=== PATIENT | female | born 1930 | race Caucasian/White ===

== ENCOUNTER → 2016-08-16 | Outpatient (CLI) | payer MEDICARE, BC ==
[2016-08-16 10:17] LABS: PROTHROMBIN TIME 32.6 SEC (11.4-15.4)
== END ==
LOC: OD 08:32
PROVIDERS: ATTEND Internal Medicine Cardiovascular Disease
DX: I48.91 Unspecified atrial fibrillation (principal)
CPT/HCPCS: 36415; 85610

== ENCOUNTER → 2016-09-05 | Outpatient (CLI) | payer MEDICARE, BC ==
[2016-09-05 11:23] LABS: HEMATOCRIT 34.2 % (36.0-47.0); HEMOGLOBIN 11.5 g/dL (12.0-15.5); HGB HCT DIFFERENCE 0.3; MEAN CORPUSCULAR HEMOGLOBIN 29.9 pg (27.0-33.4); MEAN CORPUSCULAR HGB CONC 33.6 g/dL (32.0-36.0); MEAN CORPUSCULAR VOLUME 89 fl (80-97); RED BLOOD COUNT 3.85 10^6/uL (3.72-5.28); RED CELL DISTRIBUTION WIDTH 14.8 % (11.5-14.0)
[2016-09-05 11:30] LABS: PROTHROMBIN TIME 23.8 SEC (11.4-15.4)
[2016-09-05 11:55] LABS: ALANINE AMINOTRANSFERASE 24 U/L (9-52); ALKALINE PHOSPHATASE 135 U/L (38-126); ASPARTATE AMINO TRANSFERASE 28 U/L (14-36); BILIRUBIN,TOTAL 0.9 mg/dL (0.2-1.3); CHOLESTEROL 118.93 mg/dL (0-200); CREATINE KINASE 32 U/L (30-135); Direct HDL 63 mg/dL (>40); TOTAL PROTEIN 6.9 g/dL (6.3-8.2); TRIGLYCERIDES 69 mg/dL (<150)
[2016-09-05 11:56] LABS: ANION GAP 9 (5-19); BLOOD UREA NITROGEN 19 mg/dL (7-20); CALCIUM 9.8 mg/dL (8.4-10.2); CARBON DIOXIDE 32 mmol/L (22-30); CHLORIDE 98 mmol/L (98-107); CREATININE RESULT 0.93 mg/dL (0.52-1.25); GLUCOSE 88 mg/dL (75-110); POTASSIUM 4.6 mmol/L (3.6-5.0); SODIUM 138.8 mmol/L (137-145)
[2016-09-05 12:06] LABS: DIRECT LDL 37 mg/dL (<100)
== END ==
LOC: OD 10:36
PROVIDERS: ATTEND Internal Medicine Cardiovascular Disease
DX: Z79.899 Other long term (current) drug therapy (principal); R25.2 Cramp and spasm; E78.2 Mixed hyperlipidemia; Z79.01 Long term (current) use of anticoagulants
CPT/HCPCS: 36415; 80048; 80061; 80076; 82550; 84443; 85027; 85610

== ENCOUNTER → 2016-09-26 | Outpatient (CLI) | payer MEDICARE, BC | LOC: OD 09:48 | PROVIDERS: ATTEND Internal Medicine Cardiovascular Disease | DX: I48.0 Paroxysmal atrial fibrillation (principal); Z79.01 Long term (current) use of anticoagulants | CPT/HCPCS: 36415; 85610 ==

== ENCOUNTER → 2016-10-11 | Outpatient (CLI) | payer MEDICARE, BC | LOC: OD 09:24 | PROVIDERS: ATTEND Internal Medicine Cardiovascular Disease | DX: I48.0 Paroxysmal atrial fibrillation (principal); Z79.01 Long term (current) use of anticoagulants | CPT/HCPCS: 36415; 85610 ==

== ENCOUNTER → 2016-10-25 | Outpatient (CLI) | payer MEDICARE, BC ==
[2016-10-25 10:39] LABS: PROTHROMBIN TIME 24.4 SEC (11.4-15.4)
== END ==
LOC: OD 09:30
PROVIDERS: ATTEND Internal Medicine Cardiovascular Disease
DX: I48.0 Paroxysmal atrial fibrillation (principal); Z79.01 Long term (current) use of anticoagulants
CPT/HCPCS: 36415; 85610

== ENCOUNTER → 2016-11-01 | Outpatient (CLI) | payer MEDICARE, BC | LOC: RAD 13:21 | PROVIDERS: ATTEND Internal Medicine Critical Care Medicine | DX: R91.1 Solitary pulmonary nodule (principal) | CPT/HCPCS: 71250 ==

== ENCOUNTER → 2016-11-14 | Outpatient (CLI) | payer MEDICARE, BC ==
[2016-11-14 14:02] LABS: PROTHROMBIN TIME 26.3 SEC (11.4-15.4)
== END ==
LOC: OD 12:57
PROVIDERS: ATTEND Internal Medicine Cardiovascular Disease
DX: I48.0 Paroxysmal atrial fibrillation (principal); Z79.01 Long term (current) use of anticoagulants
CPT/HCPCS: 36415; 85610

== ENCOUNTER → 2016-12-11 | Outpatient (CLI) | payer MEDICARE, BC ==
[2016-12-11 10:58] LABS: PROTHROMBIN TIME 23.2 SEC (11.4-15.4)
== END ==
LOC: OD 10:13
PROVIDERS: ATTEND Internal Medicine Cardiovascular Disease
DX: I48.0 Paroxysmal atrial fibrillation (principal); Z79.01 Long term (current) use of anticoagulants
CPT/HCPCS: 36415; 85610

== ENCOUNTER → 2017-01-02 | Outpatient (CLI) | payer MEDICARE, BC ==
[2017-01-02 10:32] LABS: PROTHROMBIN TIME 29.8 SEC (11.4-15.4)
== END ==
LOC: OD 09:35
PROVIDERS: ATTEND Internal Medicine Cardiovascular Disease
DX: I48.0 Paroxysmal atrial fibrillation (principal); Z79.01 Long term (current) use of anticoagulants
CPT/HCPCS: 36415; 85610

== ENCOUNTER → 2017-01-17 | Outpatient (CLI) | payer MEDICARE, BC ==
[2017-01-17 10:46] LABS: PROTHROMBIN TIME 29.6 SEC (11.4-15.4)
== END ==
LOC: OD 10:02
PROVIDERS: ATTEND Internal Medicine Cardiovascular Disease
DX: I48.0 Paroxysmal atrial fibrillation (principal); Z79.01 Long term (current) use of anticoagulants
CPT/HCPCS: 36415; 85610

== ENCOUNTER → 2017-02-14 | Outpatient (CLI) | payer MEDICARE, BC ==
[2017-02-14 11:02] LABS: HEMATOCRIT 35.3 % (36.0-47.0); HEMOGLOBIN 11.3 g/dL (12.0-15.5); HGB HCT DIFFERENCE -1.4; MEAN CORPUSCULAR HEMOGLOBIN 28.7 pg (27.0-33.4); MEAN CORPUSCULAR HGB CONC 32.1 g/dL (32.0-36.0); MEAN CORPUSCULAR VOLUME 89 fl (80-97); RED BLOOD COUNT 3.94 10^6/uL (3.72-5.28); WHITE BLOOD COUNT 5.6 10^3/uL (4.0-10.5)
[2017-02-14 11:07] LABS: PROTHROMBIN TIME 21.7 SEC (11.4-15.4)
[2017-02-14 11:25] LABS: ALANINE AMINOTRANSFERASE 35 U/L (9-52); ALKALINE PHOSPHATASE 153 U/L (38-126); ANION GAP 9 (5-19); ASPARTATE AMINO TRANSFERASE 33 U/L (14-36); BILIRUBIN,DIRECT 0.4 mg/dL (0.0-0.4); BILIRUBIN,TOTAL 0.8 mg/dL (0.2-1.3); BLOOD UREA NITROGEN 22 mg/dL (7-20); CALCIUM 9.4 mg/dL (8.4-10.2); CARBON DIOXIDE 31 mmol/L (22-30); CHLORIDE 98 mmol/L (98-107); CHOLESTEROL 120.51 mg/dL (0-200); CREATININE RESULT 0.95 mg/dL (0.52-1.25); Direct HDL 65 mg/dL (>40); GLUCOSE 82 mg/dL (75-110); POTASSIUM 4.5 mmol/L (3.6-5.0); SODIUM 138.1 mmol/L (137-145); TOTAL PROTEIN 6.9 g/dL (6.3-8.2); TRIGLYCERIDES 47 mg/dL (<150)
[2017-02-14 11:36] LABS: DIRECT LDL 42 mg/dL (<100)
== END ==
LOC: OD 09:36
PROVIDERS: ATTEND Internal Medicine Cardiovascular Disease
DX: Z79.899 Other long term (current) drug therapy (principal); R06.02 Shortness of breath; E78.2 Mixed hyperlipidemia
CPT/HCPCS: 36415; 80048; 80061; 80076; 83880; 85027; 85610

== ENCOUNTER → 2017-02-27 | Outpatient (CLI) | payer MEDICARE, BC ==
[2017-02-27 10:41] LABS: PROTHROMBIN TIME 20.9 SEC (11.4-15.4)
== END ==
LOC: OD 10:04
PROVIDERS: ATTEND Internal Medicine Cardiovascular Disease
DX: I48.0 Paroxysmal atrial fibrillation (principal); Z79.01 Long term (current) use of anticoagulants
CPT/HCPCS: 36415; 85610

== ENCOUNTER → 2017-03-14 | Outpatient (CLI) | payer MEDICARE, BC ==
[2017-03-14 11:03] LABS: PROTHROMBIN TIME 29.7 SEC (11.4-15.4)
[2017-03-14 11:22] LABS: ANION GAP 7 (5-19); BLOOD UREA NITROGEN 17 mg/dL (7-20); CALCIUM 9.6 mg/dL (8.4-10.2); CARBON DIOXIDE 32 mmol/L (22-30); CHLORIDE 98 mmol/L (98-107); CREATININE RESULT 0.98 mg/dL (0.52-1.25); GLUCOSE 95 mg/dL (75-110); POTASSIUM 4.5 mmol/L (3.6-5.0); SODIUM 137.3 mmol/L (137-145)
== END ==
LOC: OD 10:07
PROVIDERS: ATTEND Internal Medicine Cardiovascular Disease
DX: Z79.01 Long term (current) use of anticoagulants (principal); I48.0 Paroxysmal atrial fibrillation
CPT/HCPCS: 36415; 80048; 85610

== ENCOUNTER → 2017-03-27 | Outpatient (CLI) | payer MEDICARE, BC ==
[2017-03-27 11:48] LABS: PROTHROMBIN TIME 32.9 SEC (11.4-15.4)
[2017-03-27 12:15] LABS: ANION GAP 10 (5-19); BLOOD UREA NITROGEN 21 mg/dL (7-20); CALCIUM 9.9 mg/dL (8.4-10.2); CARBON DIOXIDE 32 mmol/L (22-30); CHLORIDE 97 mmol/L (98-107); GLUCOSE 114 mg/dL (75-110); POTASSIUM 4.5 mmol/L (3.6-5.0); SODIUM 139.4 mmol/L (137-145)
== END ==
LOC: OD 10:22
PROVIDERS: ATTEND Internal Medicine Cardiovascular Disease
DX: I48.0 Paroxysmal atrial fibrillation (principal); Z79.01 Long term (current) use of anticoagulants
CPT/HCPCS: 36415; 80048; 85610

== ENCOUNTER → 2017-04-10 | Outpatient (CLI) | payer MEDICARE, BC ==
[2017-04-10 11:13] LABS: PROTHROMBIN TIME 27.4 SEC (11.4-15.4)
== END ==
LOC: OD 09:44
PROVIDERS: ATTEND Internal Medicine Cardiovascular Disease
DX: I48.0 Paroxysmal atrial fibrillation (principal); Z79.01 Long term (current) use of anticoagulants
CPT/HCPCS: 36415; 85610

== ENCOUNTER → 2017-04-25 | Outpatient (CLI) | payer MEDICARE, BC ==
[2017-04-25 11:54] LABS: PROTHROMBIN TIME 27.5 SEC (11.4-15.4)
== END ==
LOC: OD 10:49
PROVIDERS: ATTEND Internal Medicine Cardiovascular Disease
DX: I48.0 Paroxysmal atrial fibrillation (principal); Z79.01 Long term (current) use of anticoagulants
CPT/HCPCS: 36415; 85610

== ENCOUNTER → 2017-06-26 | Outpatient (CLI) | payer MEDICARE, BC ==
[2017-06-26 12:01] LABS: PROTHROMBIN TIME 32.8 SEC (11.4-15.4)
[2017-06-26 12:18] LABS: ANION GAP 9 (5-19); BLOOD UREA NITROGEN 16 mg/dL (7-20); CALCIUM 9.4 mg/dL (8.4-10.2); CARBON DIOXIDE 34 mmol/L (22-30); CHLORIDE 97 mmol/L (98-107); CHOLESTEROL 118.95 mg/dL (0-200); CREATININE RESULT 1.02 mg/dL (0.52-1.25); Direct HDL 61 mg/dL (>40); GLUCOSE 90 mg/dL (75-110); MAGNESIUM 2.2 mg/dL (1.6-2.3); SODIUM 139.8 mmol/L (137-145); TRIGLYCERIDES 78 mg/dL (<150)
[2017-06-26 12:30] LABS: DIRECT LDL 39 mg/dL (<100)
== END ==
LOC: OD 09:58
PROVIDERS: ATTEND Internal Medicine Cardiovascular Disease
DX: I48.0 Paroxysmal atrial fibrillation (principal); E78.2 Mixed hyperlipidemia; Z79.01 Long term (current) use of anticoagulants
CPT/HCPCS: 36415; 80048; 80061; 83735; 85610

== ENCOUNTER → 2017-07-09 | Outpatient (CLI) | payer MEDICARE, BC ==
[2017-07-09 10:03] LABS: PROTHROMBIN TIME 25.1 SEC (11.4-15.4)
== END ==
LOC: OD 08:58
PROVIDERS: ATTEND Internal Medicine Cardiovascular Disease
DX: I48.0 Paroxysmal atrial fibrillation (principal); Z79.01 Long term (current) use of anticoagulants
CPT/HCPCS: 36415; 85610

== ENCOUNTER → 2017-07-26 | Outpatient (CLI) | payer MEDICARE, BC ==
[2017-07-26 11:18] LABS: INTERNATIONAL RATION (INR) 2.59; PROTHROMBIN TIME 29.1 SEC (11.4-15.4)
== END ==
LOC: OD 10:16
PROVIDERS: ATTEND Internal Medicine Cardiovascular Disease
DX: I48.0 Paroxysmal atrial fibrillation (principal)
CPT/HCPCS: 36415; 85610

== ENCOUNTER → 2017-08-16 | Outpatient (CLI) | payer MEDICARE, BC | LOC: OD 13:35 | PROVIDERS: ATTEND Internal Medicine Cardiovascular Disease | DX: I48.0 Paroxysmal atrial fibrillation (principal); Z79.01 Long term (current) use of anticoagulants | CPT/HCPCS: 36415; 85610 ==

== ENCOUNTER 2017-08-18 14:46 | Emergency (ER) | payer MEDICARE, BC ==
[2017-08-18] MEDS ORDERED: IPRATROPIUM/ALBUTEROL 0.5-2.5 MG/3 ML AMPUL NEB ONE (15:15)
--- NOTE | 2017-08-18 15:16 | ER Document Report ---
ED Medical Screen (RME) - General Chief Complaint: Flu Symptoms Stated Complaint: FLU LIKE SYMPTOMS,HEADACHE Time Seen by Provider: 08/18/17 15:14 Mode of Arrival: Wheelchair Information source: Patient Notes: This is an 87-year-old female with a history of COPD (CPAP at night), A. fib ( Coumadin) who presents to the emergency room with fever of 103, shortness of breath. Patient's oxygen saturation is 90% on room air in triage TRAVEL OUTSIDE OF THE [place] IN LAST 30 DAYS: No - Related Data Allergies/Adverse Reactions: codeine [Codeine] Allergy (Unknown, Verified 08/18/17 14:46) amoxicillin [Amoxicillin] Allergy (Verified 08/18/17 14:46) Past Medical History - Past Medical History Cardiac Medical History: Reports: Hx Atrial Fibrillation, Hx Congestive Heart Failure, Hx Hypertension Denies: Hx Heart Attack Pulmonary Medical History: Reports: Hx Asthma, Hx COPD Neurological Medical History: Denies: Hx Cerebrovascular Accident, Hx Seizures GI Medical History: Denies: Hx Hepatitis, Hx Hiatal Hernia, Hx Ulcer Psychiatric Medical History: Denies: Hx Depression Infectious Medical History: Denies: Hx Hepatitis Past Surgical History: Reports: Hx Cardiac Catheterization - pacemaker, Hx Cholecystectomy, Hx Pacemaker. Denies: Hx Mastectomy, Hx Open Heart Surgery - Immunizations Hx Diphtheria, Pertussis, Tetanus Vaccination: Yes Physical Exam - Vital signs Vitals: Temp Pulse Resp BP Pulse Ox 100 F 71 30 H 131/64 H 90 L 08/18/17 14:55 08/18/17 14:55 08/18/17 14:55 08/18/17 14:55 08/18/17 14:55 Course - Vital Signs Vital signs: Temp Pulse Resp BP Pulse Ox 100 F 71 30 H 131/64 H 90 L 08/18/17 14:55 08/18/17 14:55 08/18/17 14:55 08/18/17 14:55 08/18/17 14:55
[2017-08-18] MEDS ORDERED: METHYLPREDNISOLONE INJ 125 MG/2 ML SDV IV ONE (15:40)
[2017-08-18 15:51] LABS: HEMATOCRIT 34.9 % (36.0-47.0); HEMOGLOBIN 11.7 g/dL (12.0-15.5); MEAN CORPUSCULAR HEMOGLOBIN 30.3 pg (27.0-33.4); MEAN CORPUSCULAR HGB CONC 33.5 g/dL (32.0-36.0); MEAN CORPUSCULAR VOLUME 91 fl (80-97); PLATELET COUNT 205 10^3/uL (150-450); RED BLOOD COUNT 3.86 10^6/uL (3.72-5.28); RED CELL DISTRIBUTION WIDTH 14.6 % (11.5-14.0); WHITE BLOOD COUNT 6.4 10^3/uL (4.0-10.5)
--- NOTE | 2017-08-18 16:01 | ER Document Report ---
ED General - General Mode of Arrival: Wheelchair Information source: Patient TRAVEL OUTSIDE OF THE [place] IN LAST 30 DAYS: Yes - HPI Onset: Last week <MALISSA VELA - Last Filed: 08/18/17 23:55> <ADAN OLIVEIRA - Last Filed: 08/19/17 00:19> - General Chief Complaint: Flu Symptoms Stated Complaint: FLU LIKE SYMPTOMS,HEADACHE Time Seen by Provider: 08/18/17 15:14 Notes: Patient is an 87 year old female with a history of COPD, heart failure, aortic stenosis, sick sinus syndrome and Afib who was sent from urgent care presents to the emergency department complaining of multiple symptoms including cough and shortness of breath, nausea, vomiting, fever, headaches, runny nose, and body aches onset 2 days ago. Patient also states she has had some "loose stool" yesterday. Patient denies chest pain, neck pain, or earaches. Patient was 85% on room air at upon arrival to ED. Patient responded well to 2L. Patient is currently taking Coumadin and Lasix. (MALISSA VELA) - Related Data Allergies/Adverse Reactions: codeine [Codeine] Allergy (Unknown, Verified 08/18/17 14:46) amoxicillin [Amoxicillin] Allergy (Verified 08/18/17 14:46) Past Medical History - General Information source: Patient - Social History Smoking Status: Never Smoker Cigarette use (# per day): No Chew tobacco use (# tins/day): No Frequency of alcohol use: None Drug Abuse: None Family History: Reviewed & Not Pertinent Patient has suicidal ideation: No Patient has homicidal ideation: No - Past Medical History Cardiac Medical History: Reports: Hx Atrial Fibrillation, Hx Congestive Heart Failure, Hx Hypertension, Other Pulmonary Medical History: Reports: Hx Asthma, Hx COPD, Other - Aortic Stenosis EENT Medical History: Reports: Other - Sick Sinus Syndrome. Past Surgical History: Reports: Hx Cardiac Catheterization - pacemaker, Hx Cholecystectomy, Hx Pacemaker - Immunizations Hx Diphtheria, Pertussis, Tetanus Vaccination: Yes Hx Pneumococcal Vaccination: 07/29/09 <MALISSA VELA - Last Filed: 08/18/17 23:55> Review of Systems - Review of Systems Constitutional: See HPI, Fever EENT: See HPI Cardiovascular: No symptoms reported Respiratory: No symptoms reported Gastrointestinal: See HPI Genitourinary: No symptoms reported Female Genitourinary: No symptoms reported Musculoskeletal: No symptoms reported Skin: No symptoms reported Hematologic/Lymphatic: No symptoms reported Neurological/Psychological: Headaches -: Yes All other systems reviewed and negative <MIRIANMALISSA PETERS - Last Filed: 08/18/17 23:55> Physical Exam <MALISSA VELA - Last Filed: 08/18/17 23:55> <ADAN OLIVEIRA - Last Filed: 08/19/17 00:19> - Vital signs Vitals: Temp Pulse Resp BP Pulse Ox 100 F 71 30 H 131/64 H 90 L 08/18/17 14:55 08/18/17 14:55 08/18/17 14:55 08/18/17 14:55 08/18/17 14:55 - Notes Notes: GENERAL: Alert, interacts well. Mild respiratory distress. HEAD: Normocephalic, atraumatic. EYES: Pupils equal, round, and reactive to light. Extraocular movements intact. ENT: Oral mucosa moist, tongue midline. NECK: Full range of motion. Supple. Trachea midline. LUNGS: Decreased air movements. Expiratory wheezes. Inspiratory rales. Appears mildly short of breath. HEART: 2/6 systolic murmur. Irregularly irregular. Intermittent tachycardia. No gallops or rubs. ABDOMEN: Soft, non-tender. Non-distended. Bowel sounds present in all 4 quadrants. EXTREMITIES: Moves all 4 extremities spontaneously. No edema, radial and dorsalis pedis pulses 2/4 bilaterally. No cyanosis. NEUROLOGICAL: Alert and oriented x3. Normal speech. PSYCH: Normal affect, normal mood. SKIN: Warm, dry, normal turgor. No rashes or lesions noted. (MALISSA VELA) Course - Laboratory Result Diagrams: 08/18/17 15:32 08/18/17 15:32 - Consults Dr. Webster Time consulted: 17:20 - Dr. Webster gave recommendations on which medications to give patient. Dr. Rosario Time consulted: 18:12 - Accepts patient to [facility]. Dr. Shah Time consulted: 21:40 - Accepts patient to [facility]. <MIRIANMALISAS - Last Filed: 08/18/17 23:55> - Laboratory Result Diagrams: 08/18/17 15:32 08/18/17 15:32 <ADAN OLIVEIRA - Last Filed: 08/19/17 00:19> - Re-evaluation Re-evalutation: 08/18/17 18:[address] Rosario, hospitalist at [facility], accepts patient to PCU, [facility] currently on high census surge plan. Will try other facilities as well. Dr. Rosario recommends holding off on antibiotics until I found a source of infection. 08/18/17 22:12 CBC without leukocytosis, there is anemia with hemoglobin 11.7, platelets unremarkable, INR is therapeutic at 2.08 for her chronic atrial fibrillation, patient takes Coumadin 5 mg a day. CMP shows mildly elevated glucose at 112 otherwise unremarkable, troponin is positive at 0.391, proBNP elevated at 7220, urinalysis shows moderate blood without any infection, influenza swabs a and B are negative, chest x-ray shows minimal interstitial edema at the bases with yumiko B lines. Patient is responding well to nitro drip, also doing well on BiPAP. Patient is still awaiting a bed at [facility], I did discuss this case with Dr. Lewis Espinosa from [facility], he agrees to accept the patient to his service at [facility]. Currently I have the patient on the waiting list at both hospitals until they are assigned a bed at one hospital. 08/19/17 00:18 Patient has been assigned a bed at [facility], [facility] has been contacted by me and the request for bed has been canceled. Transport is on their way. EMTALAs have been filled out. Patient will be transported on CPAP instead of BiPAP. (ADAN OLIVEIRA) - Vital Signs Vital signs: Temp Pulse Resp BP Pulse Ox 100 F 71 21 H 118/94 H 98 08/18/17 14:55 08/18/17 14:55 08/19/17 00:04 08/19/17 00:04 08/19/17 00:04 - Laboratory Laboratory results interpreted by me: 08/18/17 08/18/17 08/18/17 15:32 15:32 15:32 Hgb 11.7 L Hct 34.9 L RDW 14.6 H Seg Neuts % (Manual) 89 H Lymphocytes % (Manual) 3 L Abs Lymphs (Manual) 0.2 L PT 24.5 H Sodium 135.9 L Chloride 96 L Est GFR (Non-Af Amer) 58 L Glucose 112 H Direct Bilirubin 0.5 H AST 44 H NT-Pro-B Natriuret Pep Urine Blood 08/18/17 08/18/17 15:32 18:03 Hgb Hct RDW Seg Neuts % (Manual) Lymphocytes % (Manual) Abs Lymphs (Manual) PT Sodium Chloride Est GFR (Non-Af Amer) Glucose Direct Bilirubin AST NT-Pro-B Natriuret Pep 7220 H Urine Blood MODERATE H - EKG Interpretation by Me Additional EKG results interpreted by me: 08/18/17 22:13 Initial EKG shows atrial fibrillation at a rate of 86, right bundle branch block , T-wave inversions in lead II, 3, aVF, V3 through the 6, old EKG is unhelpful as it was ventricularly paced, no ST segment elevations per my interpretation. Repeat EKG shows some ventricularly paced complexes, mostly still atrial fibrillation at a rate of 69, continued T-wave inversions in 2, 3, aVF, V3 through V6 without significant change from prior EKG per my interpretation. ( ADAN OLIVEIRA) Critical Care Note - Critical Care Note Total time excluding time spent on procedures (mins): 65 <ADAN OLIVEIRA - Last Filed: 08/19/17 00:19> Discharge <MALISAS VELA - Last Filed: 08/18/17 23:55> <ADAN OLIVEIRA - Last Filed: 08/19/17 00:19> - Discharge Clinical Impression: Non-STEMI (non-ST elevated myocardial infarction), Fever of unknown origin Acute congestive heart failure Qualifiers: Congestive heart failure type: unspecified Qualified Code(s): I50.9 - Heart failure, unspecified Respiratory failure with hypoxia Qualifiers: Chronicity: acute Qualified Code(s): J96.01 - Acute respiratory failure with hypoxia Condition: Fair Disposition: [facility] Referrals: MANSOOR AREVALO MD [Primary Care Provider] - Follow up as needed Scribe Attestation: 08/19/17 00:19 I personally performed the services described in the documentation, reviewed and edited the documentation which was dictated to the scribe in my presence, and it accurately records my words and actions. (ADAN OLIVEIRA) Scribe Documentation - Scribe Written by Scribe:: Kristie Harrison, 08/18/2017 16:37 acting as scribe for :: Fidelia <MALISSA VELA - Last Filed: 08/18/17 23:55>
[2017-08-18 16:02] LABS: INTERNATIONAL RATION (INR) 2.08; PROTHROMBIN TIME 24.5 SEC (11.4-15.4)
[2017-08-18 16:07] LABS: ABSOLUTE LYMPHOCYTES# (MANUAL) 0.2 10^3/uL (0.5-4.7); ABSOLUTE MONOCYTES # (MANUAL) 0.3 10^3/uL (0.1-1.4); BAND NEUTROPHILS % (MANUAL) 4 % (3-5); BASOPHILS % (MANUAL) 0 % (0-2); EOSINOPHILS % (MANUAL) 0 % (0-6); LYMPHOCYTES % (MANUAL) 3 % (13-45); MONOCYTES % (MANUAL) 4 % (3-13); SEGMENTED NEUTROPHILS % (MAN) 89 % (42-78); TOTAL CELLS COUNTED 100
[2017-08-18 16:08] LABS: ALANINE AMINOTRANSFERASE 33 U/L (9-52); ALBUMIN 4.2 g/dL (3.5-5.0); ALKALINE PHOSPHATASE 124 U/L (38-126); ANION GAP 10 (5-19); ASPARTATE AMINO TRANSFERASE 44 U/L (14-36); BILIRUBIN,DIRECT 0.5 mg/dL (0.0-0.4); BLOOD UREA NITROGEN 17 mg/dL (7-20); CALCIUM 9.8 mg/dL (8.4-10.2); CARBON DIOXIDE 30 mmol/L (22-30); CHLORIDE 96 mmol/L (98-107); CREATINE KINASE 62 U/L (30-135); GLUCOSE 112 mg/dL (75-110); SODIUM 135.9 mmol/L (137-145); TOTAL PROTEIN 7.1 g/dL (6.3-8.2)
[2017-08-18 16:09] LABS: BURR CELLS SLIGHT; HELMET CELLS SLIGHT; HYPOCHROMASIA SLIGHT; OVALOCYTES SLIGHT; PLATELET COMMENT ADEQUATE; POIKILOCYTOSIS 1+; TEAR DROP CELLS SLIGHT
[2017-08-18 16:13] LABS: A TYPE INFLUENZA AG NEGATIVE (NEGATIVE)
[2017-08-18 16:14] LABS: B INFLUENZA AG NEGATIVE (NEGATIVE)
[2017-08-18 16:32] LABS: CREATINE KINASE MB 0.65 ng/mL (<4.55)
[2017-08-18 16:36] LABS: TROPONIN I 0.391 ng/mL
--- NOTE | 2017-08-18 16:51 | RADIOLOGY REPORT (SQ) ---
EXAM DESCRIPTION: CHEST SINGLE VIEW COMPLETED DATE/TIME: 08/18/2017 4:41 pm REASON FOR STUDY: sob COMPARISON: Chest films 07/30/2007, 07/06/2014, 07/08/2014 CT chest 08/04/2007, 11/01/2016 EXAM PARAMETERS: NUMBER OF VIEWS: One view. TECHNIQUE: Single frontal radiographic view of the chest acquired. RADIATION DOSE: NA LIMITATIONS: None. FINDINGS: LUNGS AND PLEURA: Few Anitha lines at both bases, question mild interstitial edema. No fluffy alveolar infiltrates worrisome for pneumonia or perihilar pulmonary edema. No pleural effu sions. No pneumothorax. MEDIASTINUM AND HILAR STRUCTURES: No masses. Contour normal. HEART AND VASCULAR STRUCTURES: Stable mild cardiomegaly BONES: No acute findings. HARDWARE: Left-sided dual lead pacemaker unchanged since 07/08/2014. OTHER: No other significant finding. IMPRESSION: Minimal interstitial edema at the bases TECHNICAL DOCUMENTATION: JOB ID: [id number] [employer]- All Rights Reserved
[2017-08-18] MEDS ORDERED: FUROSEMIDE INJ/PF 40 MG/4 ML SDV IV ONE (17:20)
[2017-08-18] MEDS ORDERED: ACETAMINOPHEN 325 MG TABLET PO ONE (17:20)
[2017-08-18] MEDS ORDERED: NITROGLYCERIN/D5W 50 MG/250 ML RTUINJ IV PRN (17:20)
[2017-08-18] MEDS ORDERED: METOPROLOL TARTRATE 100 MG TABLET PO SCH (18:00)
[2017-08-18 18:28] LABS: APPEARANCE,URINE CLEAR; BILIRUBIN,URINE NEGATIVE (NEGATIVE); COLOR,URINE STRAW; GLUCOSE, URINE NEGATIVE (NEGATIVE); KETONES,URINE NEGATIVE (NEGATIVE); LEUKOCYTE ESTERASE,URINE NEGATIVE (NEGATIVE); NITRITE,URINE NEGATIVE (NEGATIVE); PROTEIN,URINE NEGATIVE (NEGATIVE); URINE SPECIFIC GRAVITY 1.006; UROBILINOGEN,URINE NEGATIVE mg/dL (<2.0)
--- NOTE | 2017-08-18 19:54 | EKG REPORT ---
SEVERITY:- ABNORMAL ECG - ATRIAL FIBRILLATION RIGHT BUNDLE BRANCH BLOCK ST DEPRESSION, CONSIDER ISCHEMIA, ANT-LAT LDS : Confirmed by: Tootie Steven 18-Aug-2017 19:52:46
--- NOTE | 2017-08-18 22:39 | EKG REPORT ---
SEVERITY:- ABNORMAL ECG - VENTRICULAR-PACED COMPLEXES RIGHT BUNDLE BRANCH BLOCK NONSPECIFIC ST DEPRESSION, ANT-LAT LEADS vs ISCHEMIC : Confirmed by: Tootie Steven 18-Aug-2017 22:38:53
[2017-08-19 01:41] VITALS: BP 121/62
[2017-08-19] MEDS ORDERED: DILTIAZEM HCL 120 MG CAP.SR.24H PO SCH (10:00)
[2017-08-19] MEDS ORDERED: SPIRONOLACTONE 25 MG TABLET PO SCH (10:00)
== END 2017-08-19 01:41 | disposition short-term general hospital (02) ==
LOC: ER 14:46
DX: I11.0 Hypertensive heart disease with heart failure (principal); I50.9 Heart failure, unspecified; J96.01 Acute respiratory failure with hypoxia; I21.4 Non-ST elevation (NSTEMI) myocardial infarction; I49.5 Sick sinus syndrome; I48.2 Chronic atrial fibrillation; D64.9 Anemia, unspecified; I45.10 Unspecified right bundle-branch block; J44.9 Chronic obstructive pulmonary disease, unspecified; R05 Cough; R11.2 Nausea with vomiting, unspecified; R50.9 Fever, unspecified; R51 Headache; R19.4 Change in bowel habit; Z79.899 Other long term (current) drug therapy; Z79.01 Long term (current) use of anticoagulants; Z88.5 Allergy status to narcotic agent; Z88.0 Allergy status to penicillin; Z95.0 Presence of cardiac pacemaker
CPT/HCPCS: 93005; 99285; 96375; 96365; 96366; 36415; 87040; 82553; 82550; 85025; 85610; 80053; 81001; 84484; 83605; 87804; 83880; 71045; 93010; 94660; A9270 ×3; J1940; J2930; J3490; J7620

== ENCOUNTER → 2017-09-16 | Outpatient (CLI) | payer MEDICARE, BC ==
[2017-09-16 13:58] LABS: INTERNATIONAL RATION (INR) 2.15; PROTHROMBIN TIME 25.2 SEC (11.4-15.4)
== END ==
LOC: OD 12:27
PROVIDERS: ATTEND Internal Medicine Cardiovascular Disease
DX: I48.0 Paroxysmal atrial fibrillation (principal); Z79.01 Long term (current) use of anticoagulants
CPT/HCPCS: 36415; 85610

== ENCOUNTER → 2017-09-18 | Outpatient (CLI) | payer MEDICARE, BC ==
[2017-09-18 10:17] LABS: HEMATOCRIT 28.1 % (36.0-47.0); HEMOGLOBIN 9.4 g/dL (12.0-15.5); MEAN CORPUSCULAR HEMOGLOBIN 31.8 pg (27.0-33.4); MEAN CORPUSCULAR HGB CONC 33.6 g/dL (32.0-36.0); MEAN CORPUSCULAR VOLUME 95 fl (80-97); PLATELET COUNT 283 10^3/uL (150-450); RED BLOOD COUNT 2.97 10^6/uL (3.72-5.28); RED CELL DISTRIBUTION WIDTH 15.8 % (11.5-14.0); WHITE BLOOD COUNT 7.1 10^3/uL (4.0-10.5)
[2017-09-18 10:33] LABS: ANION GAP 12 (5-19); BLOOD UREA NITROGEN 16 mg/dL (7-20); CALCIUM 9.7 mg/dL (8.4-10.2); CARBON DIOXIDE 29 mmol/L (22-30); CHLORIDE 99 mmol/L (98-107); GLUCOSE 86 mg/dL (75-110); POTASSIUM 4.8 mmol/L (3.6-5.0); SODIUM 139.8 mmol/L (137-145)
[2017-09-18 11:08] LABS: TROPONIN I 0.058 ng/mL
== END ==
LOC: OD 09:26
PROVIDERS: ATTEND Internal Medicine Cardiovascular Disease
DX: I48.0 Paroxysmal atrial fibrillation (principal); R06.02 Shortness of breath
CPT/HCPCS: 36415; 80048; 83735; 83880; 84484; 85027

== ENCOUNTER → 2017-09-23 | Outpatient (CLI) | payer MEDICARE, BC ==
[2017-09-23 10:53] LABS: INTERNATIONAL RATION (INR) 1.64; PROTHROMBIN TIME 20.4 SEC (11.4-15.4)
[2017-09-23 10:57] LABS: APPEARANCE,URINE CLEAR; BILIRUBIN,URINE NEGATIVE (NEGATIVE); COLOR,URINE YELLOW; GLUCOSE, URINE NEGATIVE (NEGATIVE); KETONES,URINE NEGATIVE (NEGATIVE); LEUKOCYTE ESTERASE,URINE TRACE (NEGATIVE); NITRITE,URINE NEGATIVE (NEGATIVE); PROTEIN,URINE NEGATIVE (NEGATIVE); URINE SPECIFIC GRAVITY 1.012; UROBILINOGEN,URINE NEGATIVE mg/dL (<2.0)
== END ==
LOC: OD 09:32
PROVIDERS: ATTEND Internal Medicine Cardiovascular Disease
DX: D64.9 Anemia, unspecified (principal); I48.0 Paroxysmal atrial fibrillation; Z79.01 Long term (current) use of anticoagulants
CPT/HCPCS: 36415; 81001; 82272; 85610

== ENCOUNTER → 2017-10-02 | Outpatient (CLI) | payer MEDICARE, BC ==
[2017-10-02 10:44] LABS: INTERNATIONAL RATION (INR) 2.48; PROTHROMBIN TIME 28.1 SEC (11.4-15.4)
== END ==
LOC: OD 09:36
PROVIDERS: ATTEND Internal Medicine Cardiovascular Disease
DX: I48.0 Paroxysmal atrial fibrillation (principal); Z79.01 Long term (current) use of anticoagulants
CPT/HCPCS: 36415; 85610

== ENCOUNTER → 2017-10-15 | Outpatient (CLI) | payer MEDICARE, BC ==
[2017-10-15 11:12] LABS: INTERNATIONAL RATION (INR) 2.72; PROTHROMBIN TIME 30.2 SEC (11.4-15.4)
== END ==
LOC: OD 10:20
PROVIDERS: ATTEND Internal Medicine Cardiovascular Disease
DX: I48.0 Paroxysmal atrial fibrillation (principal); Z79.01 Long term (current) use of anticoagulants
CPT/HCPCS: 36415; 85610

== ENCOUNTER → 2017-10-30 | Outpatient (CLI) | payer MEDICARE, BC ==
[2017-10-30 10:42] LABS: INTERNATIONAL RATION (INR) 2.97; PROTHROMBIN TIME 32.3 SEC (11.4-15.4)
[2017-10-30 10:54] LABS: ANION GAP 8 (5-19); BLOOD UREA NITROGEN 38 mg/dL (7-20); CALCIUM 9.4 mg/dL (8.4-10.2); CARBON DIOXIDE 31 mmol/L (22-30); CHLORIDE 99 mmol/L (98-107); GLUCOSE 96 mg/dL (75-110); POTASSIUM 4.6 mmol/L (3.6-5.0); SODIUM 137.9 mmol/L (137-145)
== END ==
LOC: OD 09:31
PROVIDERS: ATTEND Internal Medicine Cardiovascular Disease
DX: I48.0 Paroxysmal atrial fibrillation (principal); Z79.01 Long term (current) use of anticoagulants; I50.22 Chronic systolic (congestive) heart failure; R06.00 Dyspnea, unspecified
CPT/HCPCS: 36415; 80048; 83880; 85610

== ENCOUNTER → 2017-11-27 | Outpatient (CLI) | payer MEDICARE, BC ==
[2017-11-27 10:56] LABS: HEMATOCRIT 26.5 % (36.0-47.0); MEAN CORPUSCULAR HEMOGLOBIN 29.3 pg (27.0-33.4); MEAN CORPUSCULAR HGB CONC 33.9 g/dL (32.0-36.0); MEAN CORPUSCULAR VOLUME 87 fl (80-97); PLATELET COUNT 345 10^3/uL (150-450); RED BLOOD COUNT 3.06 10^6/uL (3.72-5.28); RED CELL DISTRIBUTION WIDTH 15.5 % (11.5-14.0); WHITE BLOOD COUNT 6.1 10^3/uL (4.0-10.5)
[2017-11-27 11:00] LABS: INTERNATIONAL RATION (INR) 2.71
[2017-11-27 11:23] LABS: ANION GAP 9 (5-19); BLOOD UREA NITROGEN 18 mg/dL (7-20); CALCIUM 9.5 mg/dL (8.4-10.2); CARBON DIOXIDE 37 mmol/L (22-30); CHLORIDE 95 mmol/L (98-107); GLUCOSE 101 mg/dL (75-110); POTASSIUM 4.1 mmol/L (3.6-5.0); SODIUM 140.7 mmol/L (137-145)
== END ==
LOC: OD 09:35
PROVIDERS: ATTEND Internal Medicine Cardiovascular Disease
DX: I48.0 Paroxysmal atrial fibrillation (principal); R06.00 Dyspnea, unspecified; D64.9 Anemia, unspecified; Z79.01 Long term (current) use of anticoagulants
CPT/HCPCS: 36415; 80048; 83880; 85027; 85610

== ENCOUNTER → 2017-12-12 | Outpatient (CLI) | payer MEDICARE, BC ==
[2017-12-12 10:27] LABS: INTERNATIONAL RATION (INR) 2.26
== END ==
LOC: OD 09:27
PROVIDERS: ATTEND Internal Medicine Cardiovascular Disease
DX: I48.0 Paroxysmal atrial fibrillation (principal); Z79.01 Long term (current) use of anticoagulants
CPT/HCPCS: 36415; 85610

== ENCOUNTER → 2017-12-25 | Outpatient (CLI) | payer MEDICARE, BC ==
[2017-12-25 10:43] LABS: INTERNATIONAL RATION (INR) 2.04
[2017-12-25 11:03] LABS: ANION GAP 9 (5-19); BLOOD UREA NITROGEN 17 mg/dL (7-20); CALCIUM 9.4 mg/dL (8.4-10.2); CARBON DIOXIDE 35 mmol/L (22-30); CHLORIDE 97 mmol/L (98-107); GLUCOSE 107 mg/dL (75-110); POTASSIUM 4.1 mmol/L (3.6-5.0); SODIUM 141.4 mmol/L (137-145)
== END ==
LOC: OD 09:57
PROVIDERS: ATTEND Internal Medicine Cardiovascular Disease
DX: I48.0 Paroxysmal atrial fibrillation (principal); Z79.01 Long term (current) use of anticoagulants; I50.22 Chronic systolic (congestive) heart failure; R06.00 Dyspnea, unspecified; I10 Essential (primary) hypertension
CPT/HCPCS: 36415; 80048; 83880; 85610

== ENCOUNTER → 2018-01-01 | Outpatient (CLI) | payer MEDICARE, BC ==
[2018-01-01 11:08] LABS: ANION GAP 7 (5-19); BLOOD UREA NITROGEN 22 mg/dL (7-20); CALCIUM 9.2 mg/dL (8.4-10.2); CARBON DIOXIDE 35 mmol/L (22-30); CHLORIDE 96 mmol/L (98-107); GLUCOSE 127 mg/dL (75-110); POTASSIUM 4.2 mmol/L (3.6-5.0); SODIUM 138.2 mmol/L (137-145)
== END ==
LOC: OD 09:53
PROVIDERS: ATTEND Internal Medicine Cardiovascular Disease
DX: I50.22 Chronic systolic (congestive) heart failure (principal); I10 Essential (primary) hypertension; R06.00 Dyspnea, unspecified
CPT/HCPCS: 36415; 80048; 83880

== ENCOUNTER → 2018-01-30 | Outpatient (CLI) | payer MEDICARE ==
[2018-01-30 10:03] LABS: BLOOD UREA NITROGEN 24 mg/dL (7-20); GLUCOSE 114 mg/dL (75-110)
[2018-01-30 10:04] LABS: ANION GAP 9 (5-19); CARBON DIOXIDE 36 mmol/L (22-30); CHLORIDE 99 mmol/L (98-107); POTASSIUM 3.9 mmol/L (3.6-5.0); SODIUM 144.3 mmol/L (137-145)
[2018-01-30 10:05] LABS: INTERNATIONAL RATION (INR) 2.42; PROTHROMBIN TIME 27.5 SEC (11.4-15.4)
== END ==
LOC: LAB 09:25
PROVIDERS: ATTEND Internal Medicine Cardiovascular Disease
DX: I48.0 Paroxysmal atrial fibrillation (principal); R06.00 Dyspnea, unspecified; I50.22 Chronic systolic (congestive) heart failure; Z79.01 Long term (current) use of anticoagulants
CPT/HCPCS: 36415; 80048; 83880; 85610

== ENCOUNTER → 2018-02-12 | Outpatient (CLI) | payer MEDICARE ==
[2018-02-12 10:02] LABS: INTERNATIONAL RATION (INR) 2.16; PROTHROMBIN TIME 25.2 SEC (11.4-15.4)
[2018-02-12 10:09] LABS: ANION GAP 10 (5-19); BLOOD UREA NITROGEN 24 mg/dL (7-20); CALCIUM 9.3 mg/dL (8.4-10.2); CARBON DIOXIDE 34 mmol/L (22-30); CHLORIDE 95 mmol/L (98-107); GLUCOSE 92 mg/dL (75-110); POTASSIUM 4.5 mmol/L (3.6-5.0); SODIUM 139.4 mmol/L (137-145)
== END ==
LOC: LAB 09:37
PROVIDERS: ATTEND Internal Medicine Cardiovascular Disease
DX: I50.22 Chronic systolic (congestive) heart failure (principal); R06.02 Shortness of breath; R60.0 Localized edema; I48.0 Paroxysmal atrial fibrillation; Z79.01 Long term (current) use of anticoagulants
CPT/HCPCS: 36415; 80048; 83880; 85610

== ENCOUNTER → 2018-03-12 | Outpatient (CLI) | payer MEDICARE, BC ==
[2018-03-12 10:11] LABS: INTERNATIONAL RATION (INR) 2.24; PROTHROMBIN TIME 25.9 SEC (11.4-15.4)
[2018-03-12 10:23] LABS: ANION GAP 10 (5-19); BLOOD UREA NITROGEN 25 mg/dL (7-20); CALCIUM 9.1 mg/dL (8.4-10.2); CARBON DIOXIDE 34 mmol/L (22-30); CHLORIDE 95 mmol/L (98-107); GLUCOSE 106 mg/dL (75-110); SODIUM 139.2 mmol/L (137-145)
== END ==
LOC: LAB 09:43
PROVIDERS: ATTEND Internal Medicine Cardiovascular Disease
DX: I50.22 Chronic systolic (congestive) heart failure (principal); R06.02 Shortness of breath; R60.0 Localized edema; I48.0 Paroxysmal atrial fibrillation; Z79.01 Long term (current) use of anticoagulants
CPT/HCPCS: 36415; 80048; 83880; 85610

== ENCOUNTER → 2018-04-22 | Outpatient (CLI) | payer MEDICARE, BC ==
[2018-04-22 10:45] LABS: INTERNATIONAL RATION (INR) 2.25; PROTHROMBIN TIME 25.9 SEC (11.4-15.4)
[2018-04-22 11:07] LABS: ANION GAP 9 (5-19); BLOOD UREA NITROGEN 23 mg/dL (7-20); CALCIUM 9.4 mg/dL (8.4-10.2); CARBON DIOXIDE 31 mmol/L (22-30); CHLORIDE 97 mmol/L (98-107); GLUCOSE 96 mg/dL (75-110); POTASSIUM 4.3 mmol/L (3.6-5.0); SODIUM 137.2 mmol/L (137-145)
== END ==
LOC: LAB 10:15
PROVIDERS: ATTEND Internal Medicine Cardiovascular Disease
DX: I10 Essential (primary) hypertension (principal); R60.0 Localized edema; R06.00 Dyspnea, unspecified; I48.0 Paroxysmal atrial fibrillation; Z79.01 Long term (current) use of anticoagulants
CPT/HCPCS: 36415; 80048; 83735; 83880; 85610

== ENCOUNTER → 2018-05-22 | Outpatient (CLI) | payer MEDICARE, BC ==
[2018-05-22 10:27] LABS: INTERNATIONAL RATION (INR) 2.58; PROTHROMBIN TIME 28.9 SEC (11.4-15.4)
[2018-05-22 10:50] LABS: ANION GAP 8 (5-19); BLOOD UREA NITROGEN 26 mg/dL (7-20); CALCIUM 9.5 mg/dL (8.4-10.2); CARBON DIOXIDE 35 mmol/L (22-30); CHLORIDE 96 mmol/L (98-107); GLUCOSE 110 mg/dL (75-110); POTASSIUM 4.1 mmol/L (3.6-5.0); SODIUM 139.3 mmol/L (137-145)
== END ==
LOC: LAB 09:45
PROVIDERS: ATTEND Internal Medicine Cardiovascular Disease
DX: I50.22 Chronic systolic (congestive) heart failure (principal); I48.0 Paroxysmal atrial fibrillation; R06.00 Dyspnea, unspecified; Z79.01 Long term (current) use of anticoagulants
CPT/HCPCS: 36415; 80048; 83880; 85610

== ENCOUNTER → 2018-06-13 | Outpatient (CLI) | payer MEDICARE, BC ==
[2018-06-13 10:35] LABS: INTERNATIONAL RATION (INR) 1.96; PROTHROMBIN TIME 23.3 SEC (11.4-15.4)
[2018-06-13 11:00] LABS: ANION GAP 11 (5-19); BLOOD UREA NITROGEN 29 mg/dL (7-20); CALCIUM 9.5 mg/dL (8.4-10.2); CARBON DIOXIDE 32 mmol/L (22-30); CHLORIDE 96 mmol/L (98-107); GLUCOSE 91 mg/dL (75-110); POTASSIUM 4.7 mmol/L (3.6-5.0); SODIUM 138.7 mmol/L (137-145)
== END ==
LOC: LAB 09:43
PROVIDERS: ATTEND Internal Medicine Cardiovascular Disease
DX: I50.22 Chronic systolic (congestive) heart failure (principal); R06.00 Dyspnea, unspecified; I48.0 Paroxysmal atrial fibrillation; Z79.01 Long term (current) use of anticoagulants
CPT/HCPCS: 36415; 80048; 83880; 85610

== ENCOUNTER → 2018-07-03 | Outpatient (CLI) | payer MEDICARE, BC ==
[2018-07-03 10:11] LABS: INTERNATIONAL RATION (INR) 2.57; PROTHROMBIN TIME 28.8 SEC (11.4-15.4)
== END ==
LOC: LAB 09:48
PROVIDERS: ATTEND Internal Medicine Cardiovascular Disease
DX: I48.0 Paroxysmal atrial fibrillation (principal); Z79.01 Long term (current) use of anticoagulants
CPT/HCPCS: 36415; 85610

== ENCOUNTER → 2018-07-15 | Outpatient (CLI) | payer MEDICARE, BC ==
[2018-07-15 10:50] LABS: INTERNATIONAL RATION (INR) 2.23; PROTHROMBIN TIME 25.8 SEC (11.4-15.4)
[2018-07-15 11:16] LABS: ALANINE AMINOTRANSFERASE 25 U/L (9-52); ALBUMIN 3.7 g/dL (3.5-5.0); ALKALINE PHOSPHATASE 184 U/L (38-126); ANION GAP 5 (5-19); ASPARTATE AMINO TRANSFERASE 27 U/L (14-36); BILIRUBIN,DIRECT 0.5 mg/dL (0.0-0.4); BLOOD UREA NITROGEN 34 mg/dL (7-20); CALCIUM 9.2 mg/dL (8.4-10.2); CARBON DIOXIDE 35 mmol/L (22-30); CHLORIDE 98 mmol/L (98-107); CHOLESTEROL 94.02 mg/dL (0-200); GLUCOSE 92 mg/dL (75-110); POTASSIUM 4.1 mmol/L (3.6-5.0); SODIUM 138.1 mmol/L (137-145); TOTAL PROTEIN 6.6 g/dL (6.3-8.2); TRIGLYCERIDES 53 mg/dL (<150)
[2018-07-15 11:26] LABS: DIRECT LDL 44 mg/dL (<100)
[2018-07-17 16:39] LABS: ALK PHOS BONE FRACTION 21 % (14-68); ALK PHOS LIVER FRACTION 61 % (18-85); ALKALINE PHOSPHATASE TOTAL 190 IU/L (39-117)
[2018-07-18 09:08] LABS: ALK PHOS INTESTINAL FRACTION 18 % (0-18)
== END ==
LOC: LAB 10:20
PROVIDERS: ATTEND Internal Medicine Cardiovascular Disease
DX: I11.0 Hypertensive heart disease with heart failure (principal); I50.22 Chronic systolic (congestive) heart failure; Z79.01 Long term (current) use of anticoagulants; R60.0 Localized edema; R94.5 Abnormal results of liver function studies
CPT/HCPCS: 36415; 80048; 80061; 80076; 82977; 83880; 84080; 85610

== ENCOUNTER → 2018-07-31 | Outpatient (CLI) | payer MEDICARE, BC ==
[2018-07-31 10:14] LABS: INTERNATIONAL RATION (INR) 2.65; PROTHROMBIN TIME 29.5 SEC (11.4-15.4)
== END ==
LOC: LAB 09:52
PROVIDERS: ATTEND Internal Medicine Cardiovascular Disease
DX: Z79.01 Long term (current) use of anticoagulants (principal); I48.0 Paroxysmal atrial fibrillation
CPT/HCPCS: 36415; 85610

== ENCOUNTER → 2018-08-11 | Outpatient (CLI) | payer MEDICARE, BC ==
[2018-08-11 09:50] LABS: INTERNATIONAL RATION (INR) 2.99; PROTHROMBIN TIME 32.4 SEC (11.4-15.4)
[2018-08-11 10:10] LABS: ANION GAP 8 (5-19); BLOOD UREA NITROGEN 34 mg/dL (7-20); CALCIUM 9.2 mg/dL (8.4-10.2); CARBON DIOXIDE 30 mmol/L (22-30); CHLORIDE 97 mmol/L (98-107); GLUCOSE 97 mg/dL (75-110); POTASSIUM 4.5 mmol/L (3.6-5.0); SODIUM 134.6 mmol/L (137-145)
== END ==
LOC: LAB 09:17
PROVIDERS: ATTEND Internal Medicine Cardiovascular Disease
DX: I48.0 Paroxysmal atrial fibrillation (principal); Z79.01 Long term (current) use of anticoagulants; E55.9 Vitamin D deficiency, unspecified; I10 Essential (primary) hypertension; R06.00 Dyspnea, unspecified; Z79.899 Other long term (current) drug therapy
CPT/HCPCS: 36415; 80048; 82306; 83880; 85610

== ENCOUNTER 2018-09-09 17:54 | Emergency (ER) | payer MEDICARE, BC ==
--- NOTE | 2018-09-09 18:43 | ER Document Report ---
ED Medical Screen (RME) - General Chief Complaint: Abnormal Lab Results Stated Complaint: ABNORMAL LABS Time Seen by Provider: 09/09/18 18:35 Primary Care Provider: MICHAEL SHOEMAKER MD [Primary Care Provider] - Follow up as needed Notes: 88 years old female was sent over here by the primary care physician because of abnormal INR, frequent fall, left hip and left thigh pain. Abnormal BNP. Patient denies any headache focal weakness numbness tingling sensation. Denies any head injury. Denies any chest pain or shortness of breath. 1 month ago she fell while trying to walk with a plate in her hand. She is supposed to walk with a walker but she did not. TRAVEL OUTSIDE OF THE [place] IN LAST 30 DAYS: No - Related Data Allergies/Adverse Reactions: codeine [Codeine] Allergy (Unknown, Verified 09/09/18 18:28) amoxicillin [Amoxicillin] Allergy (Verified 09/09/18 18:28) Past Medical History - Social History Frequency of alcohol use: None Drug Abuse: None - Past Medical History Cardiac Medical History: Reports: Hx Atrial Fibrillation, Hx Congestive Heart Failure, Hx Hypertension Denies: Hx Heart Attack Pulmonary Medical History: Reports: Hx Asthma, Hx COPD Neurological Medical History: Denies: Hx Cerebrovascular Accident, Hx Seizures Renal/ Medical History: Denies: Hx Peritoneal Dialysis GI Medical History: Denies: Hx Hepatitis, Hx Hiatal Hernia, Hx Ulcer Psychiatric Medical History: Denies: Hx Depression Infectious Medical History: Denies: Hx Hepatitis Past Surgical History: Reports: Hx Cardiac Catheterization - pacemaker, Hx Cholecystectomy, Hx Pacemaker. Denies: Hx Mastectomy, Hx Open Heart Surgery - Immunizations Hx Diphtheria, Pertussis, Tetanus Vaccination: Yes Physical Exam - Vital signs Vitals: Temp Pulse Resp BP Pulse Ox 97.2 F 63 16 126/51 H 95 09/09/18 18:24 09/09/18 18:24 09/09/18 18:24 09/09/18 18:24 09/09/18 18:24 Course - Vital Signs Vital signs: Temp Pulse Resp BP Pulse Ox 97.2 F 63 16 126/51 H 95 09/09/18 18:24 09/09/18 18:24 09/09/18 18:24 09/09/18 18:24 09/09/18 18:24 Doctor's Discharge - Discharge Referrals: MICHAEL SHOEMAKER MD [Primary Care Provider] - Follow up as needed
[2018-09-09 19:38] LABS: ABSOLUTE EOSINOPHILS # (AUTO) 0.1 10^3/uL (0.0-0.6); ABSOLUTE LYMPHOCYTES (AUTO) 0.7 10^3/uL (0.5-4.7); ABSOLUTE MONOCYTES (AUTO) 0.5 10^3/uL (0.1-1.4); ABSOLUTE NEUT (AUTO) 2.9 10^3/uL (1.7-8.2); BASOPHILS % (AUTO) 0.6 % (0-2); EOSINOPHILS % (AUTO) 3.3 % (0-6); HEMATOCRIT 25.5 % (36.0-47.0); HEMOGLOBIN 8.6 g/dL (12.0-15.5); LYMPHOCYTES % (AUTO) 16.8 % (13-45); MEAN CORPUSCULAR HEMOGLOBIN 30.5 pg (27.0-33.4); MEAN CORPUSCULAR HGB CONC 33.9 g/dL (32.0-36.0); MEAN CORPUSCULAR VOLUME 90 fl (80-97); MONOCYTES % (AUTO) 10.8 % (3-13); PLATELET COUNT 174 10^3/uL (150-450); RED BLOOD COUNT 2.83 10^6/uL (3.72-5.28); RED CELL DISTRIBUTION WIDTH 17.1 % (11.5-14.0); SEGMENTED NEUTROPHILS % (AUTO) 68.5 % (42-78); TOTAL CELLS COUNTED % (AUTO) 100 %; WHITE BLOOD COUNT 4.2 10^3/uL (4.0-10.5)
--- NOTE | 2018-09-09 19:41 | RADIOLOGY REPORT (SQ) ---
EXAM DESCRIPTION: HIP LEFT AP/LATERAL COMPLETED DATE/TIME: 09/09/2018 7:04 pm REASON FOR STUDY: Hip pain COMPARISON: None. NUMBER OF VIEWS: Two views. TECHNIQUE: AP pelvis and additional frog-leg view of the left hip. LIMITATIONS: None. FINDINGS: MINERALIZATION: Osteopenia. LEFT HIP: No fracture or dislocation. No worrisome bone lesions. RIGHT HIP: No fracture or dislocation. No worrisome bone lesions. PUBIS AND ISCHIUM: No fracture. PELVIS: No fracture. SACRUM: No fracture or dislocation. No worrisome bone lesions. LOWER LUMBAR SPINE: No fracture or dislocation. No worrisome bone lesions. No significant disc disea se. SOFT TISSUES: No findings. OTHER: No other significant finding. IMPRESSION: No fracture or dislocation of the left hip or pelvis. Please note that plain radiograph s may be insensitive for hip or pelvic fracture, particularly in the setting of osteopenia. Consider CT or MRI to further evaluate if there is high clinical suspicion for fracture. TECHNICAL DOCUMENTATION: JOB ID: [id number] [employer]- All Rights Reserved Reading location - IP/workstation name: [email or web address]
[2018-09-09 19:44] LABS: INTERNATIONAL RATION (INR) 3.91; PROTHROMBIN TIME 40.1 SEC (11.4-15.4)
[2018-09-09 19:58] LABS: ALANINE AMINOTRANSFERASE 20 U/L (9-52); ALKALINE PHOSPHATASE 189 U/L (38-126); ANION GAP 10 (5-19); ASPARTATE AMINO TRANSFERASE 30 U/L (14-36); BILIRUBIN,DIRECT 0.5 mg/dL (0.0-0.4); BILIRUBIN,TOTAL 0.8 mg/dL (0.2-1.3); BLOOD UREA NITROGEN 34 mg/dL (7-20); CALCIUM 9.2 mg/dL (8.4-10.2); CARBON DIOXIDE 30 mmol/L (22-30); CHLORIDE 99 mmol/L (98-107); GLUCOSE 124 mg/dL (75-110); POTASSIUM 4.2 mmol/L (3.6-5.0); SODIUM 139.4 mmol/L (137-145); TOTAL PROTEIN 6.9 g/dL (6.3-8.2)
[2018-09-09] MEDS ORDERED: OXYCODONE-ACETAMINOPHEN 5-325 MG TABLET PO ONE (21:34)
--- NOTE | 2018-09-09 21:37 | ER Document Report ---
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 She also states that she has been having a lot of pain in her left hip and left thigh, e specially this week. She did fall last month, she has been having intermittent symptoms since then but worse over the past week. She can walk using a walker but it is painful. She denies fevers. She states she has shortness of breath on exertion but this is normal for her. She denies any new chest pain or shortness of breath. She denies headache, dizziness, passing out. She states she is generally weak but this is also not new for her. Past medical history of atrial fibrillation, CHF, AICD. TRAVEL OUTSIDE OF THE [place] IN LAST 30 DAYS: No - Related Data Allergies/Adverse Reactions: codeine [Codeine] Allergy (Unknown, Verified 09/09/18 18:28) amoxicillin [Amoxicillin] Allergy (Verified 09/09/18 18:28) Past Medical History - General Information source: Patient, Relative - daughter - Social History Smoking Status: Never Smoker Frequency of alcohol use: None Drug Abuse: None Lives with: Family Family History: Reviewed & Not Pertinent Patient has suicidal ideation: No Patient has homicidal ideation: No - Past Medical History Cardiac Medical History: Reports: Hx Atrial Fibrillation, Hx Congestive Heart Failure, Hx Hypertension Denies: Hx Heart Attack Pulmonary Medical History: Reports: Hx Asthma, Hx COPD Neurological Medical History: Denies: Hx Cerebrovascular Accident, Hx Seizures Renal/ Medical History: Denies: Hx Peritoneal Dialysis GI Medical History: Denies: Hx Hepatitis, Hx Hiatal Hernia, Hx Ulcer Psychiatric Medical History: Denies: Hx Depression Infectious Medical History: Denies: Hx Hepatitis Past Surgical History: Reports: Hx Cardiac Catheterization - pacemaker, Hx Cholecystectomy, Hx Pacemaker. Denies: Hx Mastectomy, Hx Open Heart Surgery - Immunizations Hx Diphtheria, Pertussis, Tetanus Vaccination: Yes Hx Pneumococcal Vaccination: 07/29/09 Review of Systems - Review of Systems Constitutional: See HPI EENT: No symptoms reported Cardiovascular: No symptoms reported Respiratory: No symptoms reported Gastrointestinal: No symptoms reported Genitourinary: No symptoms reported Female Genitourinary: No symptoms reported Musculoskeletal: See HPI Skin: No symptoms reported Hematologic/Lymphatic: No symptoms reported Neurological/Psychological: No symptoms reported Physical Exam - Vital signs Vitals: Temp Pulse Resp BP Pulse Ox 97.2 F 63 16 126/51 H 95 09/09/18 18:24 09/09/18 18:24 09/09/18 18:24 09/09/18 18:24 09/09/18 18:24 - Notes Notes: GENERAL: Alert, interacts well. No acute distress. HEAD: Normocephalic, atraumatic. EYES: Pupils equal, round, and reactive to light. Extraocular movements intact. ENT: Oral mucosa moist, tongue midline. Oropharynx unremarkable. Airway patent. Nares patent, no nasal septal hematoma, TM's intact. NECK: Full range of motion. Supple. Trachea midline. LUNGS: Clear to auscultation bilaterally, no wheezes, rales, or rhonchi. No respiratory distress. HEART: Regular rate and rhythm. 2/6 murmur heard throughout. ABDOMEN: Soft, non-tender. Non-distended. Bowel sounds present in all 4 quadrants. GENITOURINARY: Deferred EXTREMITIES: Moves all 4 extremities spontaneously. No edema, normal radial and dorsalis pedis pulses bilaterally. No cyanosis. There is tenderness over the left anterior thigh and hip without erythema, swelling, bruising. Ambulates with intermittent pain on the area. BACK: no cervical, thoracic, lumbar midline tenderness. No saddle anesthesia, normal distal neurovascular exam. NEUROLOGICAL: Alert and oriented x3. Normal speech. [cranial nerves II through XII grossly intact]. PSYCH: Normal affect, normal mood. SKIN: Warm, dry, normal turgor. No rashes or lesions noted. Course - Re-evaluation Re-evalutation: Patient well-appearing, joking, alert. She does have general tenderness over the right hip and thigh, however she still moves well and ambulate even though she winces intermittently. Initial x-ray of the hip is unremarkable. Because of her ongoing pain and a decision was made to CAT scan the hip. This showed arthritis/degenerative changes but no acute findings. CBC shows anemia with hemoglobin of 8.5, however this is not significantly alpa nged from prior. INR is 3.91. Chemistry approximately baseline including mild chronic kidney disease. BNP is not significantly changed from prior. Patient has no dizziness, chest pain, shortness of breath, or abdominal pain reported or change from her baseline. Vital signs unremarkable. Patient is already requesting to leave. No blood in the stool. No other bleeding noted. As result patient will be instructed to hold her dose of Coumadin tonight, hold her dose tomorrow, and call her provider tomorrow for close recheck. I discussed this with Dr. Boogie. Patient and daughter state satisfaction and agreement with plan. Stable at time of discharge. - Vital Signs Vital signs: Temp Pulse Resp BP Pulse Ox 97.9 F 69 18 129/64 H 94 09/09/18 23:13 09/09/18 23:13 09/09/18 23:13 09/09/18 23:13 09/09/18 23:13 - Laboratory Result Diagrams: 09/09/18 19:16 09/09/18 19:16 Laboratory results interpreted by me: 09/09/18 09/09/18 09/09/18 19:16 19:16 19:16 RBC 2.83 L Hgb 8.6 L Hct 25.5 L RDW 17.1 H PT 40.1 H BUN 34 H Creatinine 1.27 H Est GFR ( Amer) 48 L Est GFR (Non-Af Amer) 40 L Glucose 124 H Direct Bilirubin 0.5 H Alkaline Phosphatase 189 H NT-Pro-B Natriuret Pep 09/09/18 19:16 RBC Hgb Hct RDW PT BUN Creatinine Est GFR ( Amer) Est GFR (Non-Af Amer) Glucose Direct Bilirubin Alkaline Phosphatase NT-Pro-B Natriuret Pep 1680 H Discharge - Discharge Clinical Impression: Left hip pain, Abnormal INR Condition: Stable Disposition: HOME, SELF-CARE Additional Instructions: Your INR tonight is 3.91. Skip your dose tonight, skip your dose tomorrow, and call your Upper Extremity Surgeon tomorrow for a close recheck of your levels. Return for any concerning symptoms - severe headache, blood in your stool, other locations of bleeding, or any other concerning symptoms. Your have been provided with pain medication to take if needed for your hip, if you do take these also use the stool softener prescribed. Prescriptions: Docusate Sodium [Colace 100 mg Capsule] 100 mg PO ASDIR PRN #30 capsule PRN Reason: Referrals: MICHAEL SHOEMAKER MD [Primary Care Provider] - Follow up as needed
--- NOTE | 2018-09-09 22:33 | RADIOLOGY REPORT (SQ) ---
CT LOWER EXTREMITY WITHOUT IV CONTRAST HISTORY: left hip pain COMPARISON: Radiographs from earlier the same day. TECHNIQUE: CT scan of the left hip IV contrast. This exam was performed according to our departmental dose-optimization program, which includes automated exposure control, adjustment of the mA and/or kV according to patient size and/or use of iterative reconstruction technique. FINDINGS: No acute fracture or dislocation the left hip is identified. There are mild degenerative changes of the visualized lower lumbar spine and left sacroiliac joint. The surrounding muscles and tendons are intact. Visualized intrapelvic structures demonstrate diverticulosis. Vascular calcifications are present. IMPRESSION: No acute fracture or dislocation of the left hip.
[2018-09-09] MEDS ORDERED: HYDROCODONE/ACETAMINOPHEN 5-325 MG (6 TAB/ER DISP) PO PRN (22:58)
[2018-09-09 23:14] VITALS: BP 129/64
== END 2018-09-09 23:13 | disposition home or self-care (01) ==
LOC: ER 17:54
DX: R79.1 Abnormal coagulation profile (principal); I48.91 Unspecified atrial fibrillation; Z79.01 Long term (current) use of anticoagulants; M16.12 Unilateral primary osteoarthritis, left hip; M25.552 Pain in left hip; M79.652 Pain in left thigh; R06.02 Shortness of breath; R53.1 Weakness; I12.9 Hypertensive chronic kidney disease with stage 1 through stage 4 chronic kidney disease, or unspecified chronic kidney disease; N18.9 Chronic kidney disease, unspecified; J44.9 Chronic obstructive pulmonary disease, unspecified; Z95.810 Presence of automatic (implantable) cardiac defibrillator; Z88.5 Allergy status to narcotic agent; Z88.0 Allergy status to penicillin; D64.9 Anemia, unspecified
CPT/HCPCS: 99284; 36415; 85025; 85610; 80053; 83880; 73502; 73700; A9270 ×2

== ENCOUNTER → 2018-09-09 | Outpatient (CLI) | payer MEDICARE, BC ==
[2018-09-09 14:40] LABS: HEMATOCRIT 24.9 % (36.0-47.0); HEMOGLOBIN 8.5 g/dL (12.0-15.5); MEAN CORPUSCULAR HEMOGLOBIN 30.2 pg (27.0-33.4); MEAN CORPUSCULAR VOLUME 89 fl (80-97); PLATELET COUNT 178 10^3/uL (150-450); WHITE BLOOD COUNT 3.9 10^3/uL (4.0-10.5)
[2018-09-09 14:48] LABS: INTERNATIONAL RATION (INR) 4.07; PROTHROMBIN TIME 41.4 SEC (11.4-15.4)
== END ==
LOC: LAB 14:20
PROVIDERS: ATTEND Internal Medicine Cardiovascular Disease
DX: I11.0 Hypertensive heart disease with heart failure (principal); I50.22 Chronic systolic (congestive) heart failure; R29.6 Repeated falls; I48.1 Persistent atrial fibrillation; Z79.01 Long term (current) use of anticoagulants
CPT/HCPCS: 36415; 82607; 83880; 84443; 85027; 85610

== ENCOUNTER → 2018-09-11 | Outpatient (CLI) | payer MEDICARE, BC ==
[2018-09-11 10:25] LABS: HEMATOCRIT 25.4 % (36.0-47.0); HEMOGLOBIN 8.7 g/dL (12.0-15.5); MEAN CORPUSCULAR HEMOGLOBIN 30.4 pg (27.0-33.4); MEAN CORPUSCULAR HGB CONC 34.5 g/dL (32.0-36.0); MEAN CORPUSCULAR VOLUME 88 fl (80-97); PLATELET COUNT 180 10^3/uL (150-450); RED BLOOD COUNT 2.87 10^6/uL (3.72-5.28); WHITE BLOOD COUNT 4.3 10^3/uL (4.0-10.5)
[2018-09-11 11:11] LABS: INTERNATIONAL RATION (INR) 3.89; PROTHROMBIN TIME 39.9 SEC (11.4-15.4)
== END ==
LOC: LAB 09:40
PROVIDERS: ATTEND Internal Medicine Cardiovascular Disease
DX: D64.9 Anemia, unspecified (principal); I48.0 Paroxysmal atrial fibrillation; Z79.01 Long term (current) use of anticoagulants
CPT/HCPCS: 36415; 85027; 85610

== ENCOUNTER → 2018-09-13 | Outpatient (CLI) | payer MEDICARE, BC ==
[2018-09-13 10:48] LABS: INTERNATIONAL RATION (INR) 2.06; PROTHROMBIN TIME 24.2 SEC (11.4-15.4)
== END ==
LOC: LAB 09:48
PROVIDERS: ATTEND Internal Medicine Cardiovascular Disease
DX: I48.0 Paroxysmal atrial fibrillation (principal); Z79.01 Long term (current) use of anticoagulants
CPT/HCPCS: 36415; 85610

== ENCOUNTER → 2018-09-17 | Outpatient (CLI) | payer MEDICARE, BC ==
[2018-09-17 11:03] LABS: PROTHROMBIN TIME 26.4 SEC (11.4-15.4)
== END ==
LOC: LAB 10:34
PROVIDERS: ATTEND Internal Medicine Cardiovascular Disease
DX: I48.0 Paroxysmal atrial fibrillation (principal); Z79.01 Long term (current) use of anticoagulants
CPT/HCPCS: 36415; 85610

== ENCOUNTER → 2018-10-01 | Outpatient (CLI) | payer MEDICARE, BC ==
[2018-10-01 09:42] LABS: PROTHROMBIN TIME 24.5 SEC (11.4-15.4)
== END ==
LOC: LAB 09:21
PROVIDERS: ATTEND Internal Medicine Cardiovascular Disease
DX: I48.0 Paroxysmal atrial fibrillation (principal); Z79.01 Long term (current) use of anticoagulants
CPT/HCPCS: 36415; 85610

== ENCOUNTER → 2018-10-14 | Outpatient (CLI) | payer MEDICARE, BC ==
[2018-10-14 10:19] LABS: HEMATOCRIT 24.1 % (36.0-47.0); HEMOGLOBIN 8.1 g/dL (12.0-15.5); MEAN CORPUSCULAR HEMOGLOBIN 30.6 pg (27.0-33.4); MEAN CORPUSCULAR HGB CONC 33.9 g/dL (32.0-36.0); MEAN CORPUSCULAR VOLUME 91 fl (80-97); PLATELET COUNT 177 10^3/uL (150-450); RED BLOOD COUNT 2.66 10^6/uL (3.72-5.28); RED CELL DISTRIBUTION WIDTH 16.8 % (11.5-14.0); WHITE BLOOD COUNT 3.8 10^3/uL (4.0-10.5)
[2018-10-14 10:25] LABS: INTERNATIONAL RATION (INR) 2.92; PROTHROMBIN TIME 31.9 SEC (11.4-15.4)
[2018-10-14 11:19] LABS: ANION GAP 9 (5-19); BLOOD UREA NITROGEN 36 mg/dL (7-20); CALCIUM 9.4 mg/dL (8.4-10.2); CARBON DIOXIDE 30 mmol/L (22-30); CHLORIDE 99 mmol/L (98-107); GLUCOSE 112 mg/dL (75-110); POTASSIUM 4.2 mmol/L (3.6-5.0)
== END ==
LOC: LAB 09:44
PROVIDERS: ATTEND Internal Medicine Cardiovascular Disease
DX: I50.22 Chronic systolic (congestive) heart failure (principal); R06.00 Dyspnea, unspecified; D64.9 Anemia, unspecified; I48.0 Paroxysmal atrial fibrillation; Z79.01 Long term (current) use of anticoagulants
CPT/HCPCS: 36415; 80048; 83880; 85027; 85610

== ENCOUNTER → 2018-10-29 | Outpatient (CLI) | payer MEDICARE, BC ==
[2018-10-29 11:54] LABS: HEMATOCRIT 24.7 % (36.0-47.0); HEMOGLOBIN 8.4 g/dL (12.0-15.5); MEAN CORPUSCULAR HEMOGLOBIN 30.3 pg (27.0-33.4); MEAN CORPUSCULAR HGB CONC 34.1 g/dL (32.0-36.0); MEAN CORPUSCULAR VOLUME 89 fl (80-97); PLATELET COUNT 157 10^3/uL (150-450); RED BLOOD COUNT 2.77 10^6/uL (3.72-5.28); RED CELL DISTRIBUTION WIDTH 16.6 % (11.5-14.0); WHITE BLOOD COUNT 3.5 10^3/uL (4.0-10.5)
[2018-10-29 12:00] LABS: INTERNATIONAL RATION (INR) 4.25; PROTHROMBIN TIME 42.8 SEC (11.4-15.4)
[2018-10-29 12:21] LABS: ANION GAP 9 (5-19); BLOOD UREA NITROGEN 32 mg/dL (7-20); CALCIUM 9.4 mg/dL (8.4-10.2); CARBON DIOXIDE 32 mmol/L (22-30); CHLORIDE 96 mmol/L (98-107); GLUCOSE 135 mg/dL (75-110); POTASSIUM 4.6 mmol/L (3.6-5.0); SODIUM 137.4 mmol/L (137-145)
[2018-10-31 10:33] LABS: INTERNATIONAL RATION (INR) 3.04; PROTHROMBIN TIME 32.9 SEC (11.4-15.4)
== END ==
LOC: LAB 11:31
PROVIDERS: ATTEND Internal Medicine Cardiovascular Disease
DX: I50.22 Chronic systolic (congestive) heart failure (principal); R06.00 Dyspnea, unspecified; R60.0 Localized edema; N18.3 Chronic kidney disease, stage 3 (moderate); D64.9 Anemia, unspecified; I48.0 Paroxysmal atrial fibrillation; Z79.01 Long term (current) use of anticoagulants
CPT/HCPCS: 36415; 80048; 83880; 85027; 85610

== ENCOUNTER → 2018-11-04 | Outpatient (CLI) | payer MEDICARE, BC ==
[2018-11-04 11:36] LABS: APPEARANCE,URINE CLEAR; BILIRUBIN,URINE NEGATIVE (NEGATIVE); COLOR,URINE YELLOW; GLUCOSE, URINE NEGATIVE (NEGATIVE); KETONES,URINE NEGATIVE (NEGATIVE); LEUKOCYTE ESTERASE,URINE NEGATIVE (NEGATIVE); NITRITE,URINE NEGATIVE (NEGATIVE); PROTEIN,URINE NEGATIVE (NEGATIVE)
[2018-11-04 11:59] LABS: HEMATOCRIT 24.3 % (36.0-47.0); HEMOGLOBIN 8.2 g/dL (12.0-15.5); MEAN CORPUSCULAR HEMOGLOBIN 29.8 pg (27.0-33.4); MEAN CORPUSCULAR HGB CONC 33.7 g/dL (32.0-36.0); MEAN CORPUSCULAR VOLUME 88 fl (80-97); PLATELET COUNT 158 10^3/uL (150-450); RED BLOOD COUNT 2.75 10^6/uL (3.72-5.28); RED CELL DISTRIBUTION WIDTH 16.5 % (11.5-14.0); WHITE BLOOD COUNT 3.5 10^3/uL (4.0-10.5)
[2018-11-04 12:20] LABS: ALANINE AMINOTRANSFERASE 35 U/L (9-52); ALBUMIN 3.6 g/dL (3.5-5.0); ALKALINE PHOSPHATASE 206 U/L (38-126); ANION GAP 10 (5-19); ASPARTATE AMINO TRANSFERASE 32 U/L (14-36); BILIRUBIN,DIRECT 0.6 mg/dL (0.0-0.4); BILIRUBIN,TOTAL 1.2 mg/dL (0.2-1.3); BLOOD UREA NITROGEN 40 mg/dL (7-20); CALCIUM 9.6 mg/dL (8.4-10.2); CARBON DIOXIDE 29 mmol/L (22-30); CHLORIDE 97 mmol/L (98-107); GLUCOSE 82 mg/dL (75-110); POTASSIUM 4.2 mmol/L (3.6-5.0); SODIUM 135.9 mmol/L (137-145); TOTAL PROTEIN 6.8 g/dL (6.3-8.2)
== END ==
LOC: LAB 11:21
PROVIDERS: ATTEND Internal Medicine Cardiovascular Disease
DX: I48.0 Paroxysmal atrial fibrillation (principal); Z79.01 Long term (current) use of anticoagulants; Z79.899 Other long term (current) drug therapy
CPT/HCPCS: 36415; 80048; 80076; 81001; 82272; 85027; 85730

== ENCOUNTER 2018-12-11 12:42 | Inpatient (IN) | payer MEDICARE, BC ==
[2018-12-11] MEDS ORDERED: PANTOPRAZOLE SODIUM 40 MG VIAL IV ONE (13:52)
[2018-12-11] MEDS ORDERED: PANTOPRAZOLE SODIUM 40 MG VIAL IV PRN (13:53)
[2018-12-11] MEDS ORDERED: NORMAL SALINE 500 ML IV ONE (13:54)
[2018-12-11 13:58] LABS: ABSOLUTE LYMPHOCYTES (AUTO) 0.5 10^3/uL (0.5-4.7); ABSOLUTE MONOCYTES (AUTO) 0.5 10^3/uL (0.1-1.4); ABSOLUTE NEUT (AUTO) 4.2 10^3/uL (1.7-8.2); BASOPHILS % (AUTO) 0.7 % (0-2); EOSINOPHILS % (AUTO) 0.6 % (0-6); HEMATOCRIT 15.5 % (36.0-47.0); LYMPHOCYTES % (AUTO) 9.1 % (13-45); MEAN CORPUSCULAR HEMOGLOBIN 29.3 pg (27.0-33.4); MEAN CORPUSCULAR HGB CONC 32.6 g/dL (32.0-36.0); MEAN CORPUSCULAR VOLUME 90 fl (80-97); PLATELET COUNT 186 10^3/uL (150-450); RED BLOOD COUNT 1.72 10^6/uL (3.72-5.28); RED CELL DISTRIBUTION WIDTH 16.8 % (11.5-14.0); SEGMENTED NEUTROPHILS % (AUTO) 80.6 % (42-78); TOTAL CELLS COUNTED % (AUTO) 100 %; WHITE BLOOD COUNT 5.2 10^3/uL (4.0-10.5)
[2018-12-11 14:01] LABS: HEMOGLOBIN 5.1 g/dL (12.0-15.5)
[2018-12-11 14:05] LABS: INTERNATIONAL RATION (INR) 1.64; PROTHROMBIN TIME 20.2 SEC (11.4-15.4)
--- NOTE | 2018-12-11 14:07 | EKG REPORT ---
SEVERITY:- ABNORMAL ECG - VENTRICULAR-PACED COMPLEXES ,ATRIAL FIB. RIGHT BUNDLE BRANCH BLOCK NONSPECIFIC ST DEPRESSION, ANT-LAT LEADS, ESSENTIALLY UCHANGED FROM 08/18/17 EKG : Confirmed by: Kanu Webster MD 11-Dec-2018 14:06:42
[2018-12-11 14:12] LABS: APPEARANCE,URINE SLIGHTLY-CLOUDY; BILIRUBIN,URINE NEGATIVE (NEGATIVE); COLOR,URINE YELLOW; GLUCOSE, URINE NEGATIVE (NEGATIVE); KETONES,URINE NEGATIVE (NEGATIVE); LEUKOCYTE ESTERASE,URINE MODERATE (NEGATIVE); NITRITE,URINE NEGATIVE (NEGATIVE); PROTEIN,URINE NEGATIVE (NEGATIVE); URINE SPECIFIC GRAVITY 1.013; UROBILINOGEN,URINE NEGATIVE mg/dL (<2.0)
[2018-12-11 14:17] LABS: ALANINE AMINOTRANSFERASE 28 U/L (9-52); ALBUMIN 3.2 g/dL (3.5-5.0); ALKALINE PHOSPHATASE 145 U/L (38-126); ANION GAP 13 (5-19); ASPARTATE AMINO TRANSFERASE 23 U/L (14-36); BILIRUBIN,DIRECT 0.5 mg/dL (0.0-0.4); BILIRUBIN,TOTAL 0.7 mg/dL (0.2-1.3); BLOOD UREA NITROGEN 81 mg/dL (7-20); CALCIUM 9.4 mg/dL (8.4-10.2); CARBON DIOXIDE 23 mmol/L (22-30); CHLORIDE 98 mmol/L (98-107); CREATINE KINASE 40 U/L (30-135); GLUCOSE 117 mg/dL (75-110); POTASSIUM 5.2 mmol/L (3.6-5.0); SODIUM 134.3 mmol/L (137-145); TOTAL PROTEIN 5.9 g/dL (6.3-8.2)
[2018-12-11] MEDS ORDERED: NORMAL SALINE 250 ML IV PRN ×3 (14:17→17:08)
[2018-12-11 14:30] LABS: CREATINE KINASE MB 1.86 ng/mL (<4.55)
--- NOTE | 2018-12-11 14:30 | RADIOLOGY REPORT (SQ) ---
EXAM DESCRIPTION: CT CERVICAL SPINE WITHOUT COMPLETED DATE/TIME: 12/11/2018 2:15 pm REASON FOR STUDY: neck pain COMPARISON: 2006 TECHNIQUE: Axial images acquired through the cervical spine without intravenous contrast. Images re viewed with lung, soft tissue and bone windows. Reconstructed coronal and sagittal MPR images review ed. Images stored on PACS. All CT scanners at this facility use dose modulation, iterative reconstruction, and/or weight based d osing when appropriate to reduce radiation dose to as low as reasonably achievable (ALARA). [facility]: Dose Right [facility]: CareDose [facility]: Dose Right [facility]: Teradose 4D [facility]: [employer] Online RADIATION DOSE: CT Rad equipment meets quality standard of care and radiation dose reduction techniq ues were employed. CTDIvol: 13.2 mGy. DLP: 227 mGy-cm. mGy. LIMITATIONS: None. FINDINGS: ALIGNMENT: Straightening of the lordotic curve. MINERALIZATION: Normal. VERTEBRAL BODIES: No fractures or dislocation. DISCS: Multilevel disc space narrowing with osteophytes. FACETS, LATERAL MASSES, POSTERIOR ELEMENTS: Anatomic variant incomplete posterior arch of C1. Facet arthropathy. No fractures. No dislocation. No acute findings. HARDWARE: None in the spine. VISUALIZED RIBS: No fractures. LUNG APICES AND SOFT TISSUES: No significant or acute findings. OTHER: No other significant finding. IMPRESSION: CHRONIC DEGENERATIVE CHANGES. NO ACUTE FINDINGS. TECHNICAL DOCUMENTATION: JOB ID: [id number] Quality ID # [id number]: Final reports with documentation of one or more dose reduction techniques (e.g., Au tomated exposure control, adjustment of the mA and/or kV according to patient size, use of iterative reconstruction technique) 2010 [employer]- All Rights Reserved Reading location - IP/workstation name: [email or web address]
[2018-12-11 14:32] LABS: TROPONIN I 0.083 ng/mL
--- NOTE | 2018-12-11 14:39 | RADIOLOGY REPORT (SQ) ---
EXAM DESCRIPTION: CHEST 2 VIEWS COMPLETED DATE/TIME: 12/11/2018 2:23 pm REASON FOR STUDY: dizzy, low bp COMPARISON: 07/08/2014 EXAM PARAMETERS: NUMBER OF VIEWS: two views TECHNIQUE: Digital Frontal and Lateral radiographic views of the chest acquired. RADIATION DOSE: NA LIMITATIONS: none FINDINGS: LUNGS AND PLEURA: No opacities, masses or pneumothorax. No pleural effusion. MEDIASTINUM AND HILAR STRUCTURES: No masses or contour abnormalities. HEART AND VASCULAR STRUCTURES: Stable cardiomegaly. BONES: No acute findings. HARDWARE: Stable position of left pacemaker. OTHER: No other significant finding. IMPRESSION: NO ACUTE RADIOGRAPHIC FINDING IN THE CHEST. TECHNICAL DOCUMENTATION: JOB ID: [id number] [employer]- All Rights Reserved Reading location - IP/workstation name: [email or web address]
--- NOTE | 2018-12-11 14:55 | ER Document Report ---
ED Dizziness/Weakness - General Chief Complaint: Dizziness Stated Complaint: ABNORMAL LABS Time Seen by Provider: 12/11/18 13:10 Information source: Patient Notes: Patient reports feeling dizzy and lightheaded for the past week. Patient had a low blood pressure today which prompted her to come in. Patient states she has had dark stools for about 3 weeks. Patient states that she had been on Coumadin up until a month ago was switched to Eliquis. Patient also complains of upper posterior neck pain for the past week. Patient denies any head injury falls or fever. Patient does report decreased appetite. Patient denies any previous colonoscopies. TRAVEL OUTSIDE OF THE [place] IN LAST 30 DAYS: No - HPI Patient complains to provider of: Dizziness, Weakness Onset: Last week Onset/Duration: Persistent Quality of pain: Achy Pain Level: 3 Associated symptoms: Dizzy. denies: Chest pain, Confused, Diarrhea, Headache, Recent fall, Recent trauma, Vertigo, Vomiting Baseline gait: Walks w/o assistance - Related Data Allergies/Adverse Reactions: codeine [Codeine] Allergy (Unknown, Verified 12/11/18 12:43) amoxicillin [Amoxicillin] Allergy (Verified 12/11/18 12:43) Past Medical History - General Information source: Patient - Social History Smoking Status: Never Smoker Frequency of alcohol use: None Drug Abuse: None Lives with: Family Family History: Reviewed & Not Pertinent Patient has suicidal ideation: No Patient has homicidal ideation: No - Past Medical History Cardiac Medical History: Reports: Hx Atrial Fibrillation, Hx Congestive Heart Failure, Hx Hypertension Denies: Hx Heart Attack Pulmonary Medical History: Reports: Hx Asthma, Hx COPD Neurological Medical History: Denies: Hx Cerebrovascular Accident, Hx Seizures Renal/ Medical History: Denies: Hx Peritoneal Dialysis GI Medical History: Denies: Hx Hepatitis, Hx Hiatal Hernia, Hx Ulcer Psychiatric Medical History: Denies: Hx Depression Infectious Medical History: Denies: Hx Hepatitis Past Surgical History: Reports: Hx Cardiac Catheterization - pacemaker, Hx Cholecystectomy, Hx Pacemaker. Denies: Hx Mastectomy, Hx Open Heart Surgery - Immunizations Hx Diphtheria, Pertussis, Tetanus Vaccination: Yes Hx Pneumococcal Vaccination: 07/29/09 Review of Systems - Review of Systems Constitutional: No symptoms reported. denies: Fever, Recent illness EENT: No symptoms reported Cardiovascular: Dizziness, Lightheaded. denies: Syncope Respiratory: Short of breath - With exertion. denies: Cough Gastrointestinal: Poor appetite, Black stools. denies: Abdominal pain, Nausea Genitourinary: No symptoms reported. denies: Dysuria Female Genitourinary: No symptoms reported Musculoskeletal: Neck pain. denies: Back pain Skin: No symptoms reported Hematologic/Lymphatic: denies: Easy bleeding, Easy bruising Neurological/Psychological: No symptoms reported Physical Exam - Vital signs Vitals: Temp Pulse Resp BP Pulse Ox 97.4 F 69 14 109/48 L 97 12/11/18 12:55 12/11/18 12:55 12/11/18 12:55 12/11/18 12:55 12/11/18 12:55 - General General appearance: Appears well, Alert In distress: Mild - HEENT Head: Normocephalic, Atraumatic Eyes: Normal Conjunctiva: Normal Nasal: Normal Mouth/Lips: Normal Mucous membranes: Dry, Other - Pale gingiva Pharynx: Normal Neck: Supple, Other - Patient with posterior cervical midline tenderness, patient with cervical paraspinal muscle tenderness and spasm, no midline step- offs or deformities - Respiratory Respiratory status: No respiratory distress Chest status: Nontender Breath sounds: Normal. No: Rales, Rhonchi, Stridor, Wheezing Chest palpation: Normal - Cardiovascular Rhythm: Irregularly irregular Heart sounds: S1 appreciated, S2 appreciated - Abdominal Inspection: Obese Distension: No distension Bowel sounds: Normal Tenderness: Nontender Organomegaly: No organomegaly - Rectal Tenderness: No Stool: Black - Black, green-tinged, See lab result. No: Bloody - Back Back: Normal, Nontender - Extremities General upper extremity: Normal inspection, Normal ROM General lower extremity: Normal inspection, Normal ROM - Neurological Neuro grossly intact: Yes [place] Coma Scale Eye Opening: Spontaneous [place] Coma Scale Verbal: Oriented [place] Coma Scale Motor: Obeys Commands Geovany Coma Scale Total: 15 - Psychological Associated symptoms: Normal affect, Normal mood - Skin Skin Temperature: Warm Skin Moisture: Dry Skin Color: Pale Course - Re-evaluation Re-evalutation: 12/11/18 14:[address] Valle regarding patient presentation and evaluation at this time. Patient anemic with a hemoglobin of 5.1. Agrees with plan to transfuse. Recommends ordering 2 units at this time. 12/11/18 14:51 Patient's laboratory test results back at this time. Patient with minimal elevation in potassium as well as elevated BUN and creatinine. Patient with opponent of 0.083. Patient does have a history of having elevated troponins in the past. Patient without any chest pain at this time. Patient's only pain complaints at this time are neck pain for which a CT scan was performed demonstr ating degenerative changes. Patient advised of need for admission and likely to have a colonoscopy. Patient states that her mother coded when attempting to get a colonoscopy and she does not want this performed. Patient is agreeable with me calling for admission given her marked anemia and current GI bleed at this time. Call placed to Dr. Pinon who states that patient can go to IMCU and that patient will be seen by TREMAINE Leal. Call placed to TREMAINE Leal who states that she will be down here to evaluate patient. - Vital Signs Vital signs: Temp Pulse Resp BP Pulse Ox 97.2 F 72 15 118/54 L 99 12/11/18 17:03 12/11/18 17:03 12/11/18 17:03 12/11/18 17:03 12/11/18 17:03 - Laboratory Result Diagrams: 12/11/18 13:35 12/11/18 13:35 Laboratory results interpreted by me: 12/11/18 12/11/18 12/11/18 13:20 13:35 13:35 RBC 1.72 L Hgb 5.1 L Hct 15.5 L RDW 16.8 H Seg Neutrophils % 80.6 H Lymphocytes % 9.1 L PT 20.2 H Sodium Potassium BUN Creatinine Est GFR ( Amer) Est GFR (Non-Af Amer) Glucose Magnesium Direct Bilirubin Alkaline Phosphatase NT-Pro-B Natriuret Pep Total Protein Albumin Ur Leukocyte Esterase MODERATE H Crossmatch 12/11/18 12/11/18 12/11/18 13:35 13:35 13:35 RBC Hgb Hct RDW Seg Neutrophils % Lymphocytes % PT Sodium 134.3 L Potassium 5.2 H BUN 81 H Creatinine 1.65 H Est GFR ( Amer) 36 L Est GFR (Non-Af Amer) 29 L Glucose 117 H Magnesium 2.6 H Direct Bilirubin 0.5 H Alkaline Phosphatase 145 H NT-Pro-B Natriuret Pep 3010 H Total Protein 5.9 L Albumin 3.2 L Ur Leukocyte Esterase Crossmatch See Detail Discharge - Discharge Clinical Impression: Atrial fibrillation Qualifiers: Atrial fibrillation type: chronic Qualified Code(s): I48.2 - Chronic atrial fibrillation GI bleed Qualifiers: GI bleed type/associated pathology: melena Qualified Code(s): K92.1 - Melena Anemia Qualifiers: Anemia type: unspecified type Qualified Code(s): D64.9 - Anemia, unspecified Condition: Fair Disposition: ADMITTED INPATIENT Admitting Provider: BANDAR Leal Unit Admitted: [facility]
[2018-12-11] MEDS ORDERED: ACETAMINOPHEN 325 MG TABLET PO ONE (15:04)
[2018-12-11] MEDS ORDERED: DEXTROSE 40% GEL 15 GM TUBE PO PRN ×2 (16:29)
[2018-12-11] MEDS ORDERED: GLUCAGON,HUMAN RECOMB 1 MG INJ SUBCUT PRN (16:29)
[2018-12-11] MEDS ORDERED: DEXTROSE 50%-WATER 25 GM/50 ML DISP.SYRIN IV PRN ×2 (16:29)
--- NOTE | 2018-12-11 17:14 | PDOC CONSULTATION ---
Consultation Consult Date: 12/11/18 Provider Consulted: TROY FELIPE Consult reason:: GI bleeding History of Present Illness Admission Date/PCP: 12/11/18 15:38 MICHAEL WEBSTER MD History of Present Illness: CHERIE ACE is a 88 year old female patient has been admitted to the Hospitalist service this patient was sent over by her [employer] Appraiser Dr Webster apparently is on anticoagulation, and noted to be profoundly anemic she had previously seen Dr Mc but apparently her primary care needs have been assumed by Dr Michael Webster she is being admitted for possible GI bleeding/ chronic anemia requiring transfusion she has never had a colonoscopy in the past she tells me that her mother had a cardiac event when she had a colonoscopy however in talking with both her admitting physician and the patient , she is willing to proceed she will need both an EGD and colonoscopy for now at her age, serious consideration needs to be done to keep her on anticoagulation since she is predisposed to falls denies any chest pain or SOB Past Medical History Cardiac Medical History: Reports: Atrial Fibrillation, Congestive Heart Failure, Hypertension Denies: Myocardial Infarction Pulmonary Medical History: Reports: Asthma, Chronic Obstructive Pulmonary Disease (COPD) Neurological Medical History: Denies: Seizures GI Medical History: Denies: Hepatitis, Hiatal Hernia Psychiatric Medical History: Denies: Depression Hematology: Denies: Anemia, Sickle Cell Disease Past Surgical History Past Surgical History: Reports: Cardiac Catheterization - pacemaker, Cholecystectomy, Pacemaker Denies: Amputation, Mastectomy Social History Smoking Status: Never Smoker Frequency of Alcohol Use: None Hx Recreational Drug Use: No Hx Prescription Drug Abuse: No - Advance Directive Resuscitation Status: Full Code Family History Family History: Reviewed & Not Pertinent Parental Family History Reviewed: Yes Children Family History Reviewed: Unknown Sibling(s) Family History Reviewed.: Unknown Medication/Allergy Home Medications: Apixaban [Eliquis 2.5 mg Tablet] 2.5 mg PO Q12 12/11/18 Atorvastatin Calcium [Lipitor 40 mg Tablet] 40 mg PO QHS 12/11/18 Budesonide/Formoterol Fumarate [Symbicort HFA 160-4.5 mcg Inhaler 6 gm] 2 puff IH Q12 12/11/18 Carvedilol [Coreg 25 mg Tablet] 25 mg PO Q12 12/11/18 Furosemide [Lasix 40 mg Tablet] 40 mg PO MOWEFR@,18 12/11/18 Furosemide [Lasix 40 mg Tablet] 40 mg PO SUTUTHSA@1000 12/11/18 Potassium Chloride [Klor-Con M20] 20 meq PO DAILY 12/11/18 Spironolactone [Aldactone] 50 mg PO DAILY 12/11/18 Tiotropium [place] [Spiriva Respimat] 2 puff IH QAM 12/11/18 Allergies/Adverse Reactions: codeine [Codeine] Allergy (Unknown, Verified 12/11/18 12:43) amoxicillin [Amoxicillin] Allergy (Verified 12/11/18 12:43) Review of Systems Constitutional: PRESENT: weakness. ABSENT: fever(s), headache(s), night sweats Eyes: ABSENT: visual disturbances Ears: ABSENT: hearing changes Nose, Mouth, and Throat: ABSENT: mouth pain, sore throat Cardiovascular: ABSENT: edema, orthropnea, palpitations Respiratory: ABSENT: dyspnea, hemoptysis Gastrointestinal: ABSENT: nausea, vomiting Genitourinary: ABSENT: dysuria, hematuria Musculoskeletal: ABSENT: deformity, joint swelling Integumentary: ABSENT: lesions, pruritus, rash Neurological: ABSENT: syncope, tingling, tremor(s), vertigo Endocrine: ABSENT: polydipsia, polyphagia, polyuria Hematologic/Lymphatic: ABSENT: easy bruising Physical Exam Vital Signs: Temp Pulse Resp BP Pulse Ox 98.4 F 69 25 H 99/48 L 99 12/11/18 16:31 12/11/18 16:01 12/11/18 16:31 12/11/18 16:31 12/11/18 16:31 Intake & Output 12/10/18 12/11/18 12/12/18 06:59 06:59 06:59 Intake Total 500 Balance 500 Weight 80.5 kg General appearance: PRESENT: no acute distress, well-developed, well-nourished Head exam: PRESENT: atraumatic, normocephalic Eye exam: PRESENT: EOMI, PERRLA. ABSENT: nystagmus, periorbital swelling, scleral icterus Mouth exam: PRESENT: moist, neck supple Throat exam: ABSENT: tonsillar exudate, tonsillogmegaly Respiratory exam: PRESENT: symmetrical, unlabored. ABSENT: tachypnea, wheezes Cardiovascular exam: PRESENT: RRR, +S1, +S2 GI/Abdominal exam: PRESENT: soft. ABSENT: rebound, rigid, tenderness Extremities exam: ABSENT: joint swelling, pedal edema Neurological exam: PRESENT: oriented to time, oriented to situation, reflexes normal, CN II-XII grossly intact Focused psych exam: ABSENT: restlessness Skin exam: PRESENT: normal color, pallor. ABSENT: mottled, urticaria, vesicles Results Laboratory Results: 12/11/18 13:35 12/11/18 13:35 12/11/18 12/11/18 12/11/18 13:20 13:35 13:35 WBC 5.2 RBC 1.72 L Hgb 5.1 L Hct 15.5 L MCV 90 MCH 29.3 MCHC 32.6 RDW 16.8 H Plt Count 186 Seg Neutrophils % 80.6 H Lymphocytes % 9.1 L Monocytes % 9.0 Eosinophils % 0.6 Basophils % 0.7 Absolute Neutrophils 4.2 Absolute Lymphocytes 0.5 Absolute Monocytes 0.5 Absolute Eosinophils 0.0 Absolute Basophils 0.0 Sodium 134.3 L Potassium 5.2 H Chloride 98 Carbon Dioxide 23 Anion Gap 13 BUN 81 H Creatinine 1.65 H Est GFR ( Amer) 36 L Est GFR (Non-Af Amer) 29 L Glucose 117 H Calcium 9.4 Magnesium 2.6 H Total Bilirubin 0.7 AST 23 ALT 28 Alkaline Phosphatase 145 H Total Protein 5.9 L Albumin 3.2 L TSH Urine Color YELLOW Urine Appearance SLIGHTLY-CLOUDY Urine pH 5.0 Ur Specific [place] 1.013 Urine Protein NEGATIVE Urine Glucose (UA) NEGATIVE Urine Ketones NEGATIVE Urine Blood NEGATIVE Urine Nitrite NEGATIVE Ur Leukocyte Esterase MODERATE H Urine WBC (Auto) 9 Urine RBC (Auto) 1 Blood Type Antibody Screen 12/11/18 12/11/18 13:35 13:35 WBC RBC Hgb Hct MCV MCH MCHC RDW Plt Count Seg Neutrophils % Lymphocytes % Monocytes % Eosinophils % Basophils % Absolute Neutrophils Absolute Lymphocytes Absolute Monocytes Absolute Eosinophils Absolute Basophils Sodium Potassium Chloride Carbon Dioxide Anion Gap BUN Creatinine Est GFR ( Amer) Est GFR (Non-Af Amer) Glucose Calcium Magnesium Total Bilirubin AST ALT Alkaline Phosphatase Total Protein Albumin TSH 3.94 Urine Color Urine Appearance Urine pH Ur Specific [place] Urine Protein Urine Glucose (UA) Urine Ketones Urine Blood Urine Nitrite Ur Leukocyte Esterase Urine WBC (Auto) Urine RBC (Auto) Blood Type O POSITIVE Antibody Screen NEGATIVE 12/11/18 12/11/18 13:35 13:35 Creatine Kinase 40 CK-MB (CK-2) 1.86 Troponin I 0.083 NT-Pro-B Natriuret Pep 3010 H Impressions: Chest X-Ray 12/11/18 13:24 IMPRESSION: NO ACUTE RADIOGRAPHIC FINDING IN THE CHEST. Cervical Spine CT 12/11/18 13:26 IMPRESSION: CHRONIC DEGENERATIVE CHANGES. NO ACUTE FINDINGS. Assessment & Plan - Diagnosis (1) Anemia Qualifiers: Anemia type: unspecified type Qualified Code(s): D64.9 - Anemia, unspecified Plan: could be due to chronic blood loss has not had either EGD or colonoscopy done and so might have a lesion that has been bleeding since starting her anticoagulation she will need an inpatient work up she appears to want to proceed she will be schedule for the tests tomorrow Risks, benefits and alternatives are explained to the patient in detail further recommendations to follow (2) GI bleed Qualifiers: GI bleed type/associated pathology: melena Qualified Code(s): K92.1 - Melena Is this a current diagnosis for this admission?: Yes Plan: will rule out source of bleeding further recommendations to follow - Time Time Spent: 50 to 70 Minutes
--- NOTE | 2018-12-11 17:29 | PDOC H&P ---
History of Present Illness Admission Date/PCP: 12/11/18 15:38 MICHAEL SHOEMAKER MD Patient complains of: WEANESS History of Present Illness: CHERIE ACE is a 88 year old female with a PMH of AFIB, Pacemaker, CHF, HTN, COPD. Patient was sent to [facility] ED by her PCP for a Hgb 5.1. Patient reports she was previously taking Coumadin for her A. fib and was switched to E liquis 1 month ago. Since then she has been experiencing intermittent black stools and progressively worsening weakness. Patient went to see her PCP a few days ago regarding her weakness. Lab work was done and revealed a hgb 5.1. Of note, the patient had routine lab work on 11/04 and her Hgb was 8.0. Upon arrival to the ED, laboratory studies reveal anemia (Hgb 5.1), hyponatremia (NA 134), KD (creatinine 1.6), elevated BNP (3040). EKG shows A. fib, ventricularly paced, ST depression in lateral leads (unchanged from EKG 07/2017). POC Guiac positive (+). The patient was mildly HYPOtensive with a BP 108-47 HR 68. Upon assessment, patient is resting comfortably in bed on room air. She is alert and oriented x3, able to answer all questions appropriately. She endorses generalized weakness, fatigue, shortness of breath and dyspnea on exertion. Other than pallor, her physical exam is relatively benign. Lungs are clear to auscultation. Pulses are palpable in the upper and lower extremities. Trace edema in the lower extremities. Abdomen is S/NT/ND. Discussed with Dr. Ivan who agrees to scope the patient tomorrow. Plan to admit to the hospitalist service for a lower GI bleed. Past Medical History Cardiac Medical History: Reports: Atrial Fibrillation, Congestive Heart Failure, Hypertension Denies: Myocardial Infarction Pulmonary Medical History: Reports: Asthma, Chronic Obstructive Pulmonary Disease (COPD) Neurological Medical History: Denies: Seizures GI Medical History: Denies: Hepatitis, Hiatal Hernia Psychiatric Medical History: Denies: Depression Hematology: Denies: Anemia, Sickle Cell Disease Past Surgical History Past Surgical History: Reports: Cardiac Catheterization - pacemaker, Cholecystectomy, Pacemaker Denies: Amputation, Mastectomy Social History Smoking Status: Never Smoker Frequency of Alcohol Use: None Hx Recreational Drug Use: No Hx Prescription Drug Abuse: No - Advance Directive Resuscitation Status: Full Code Family History Family History: CAD, Hypertension Parental Family History Reviewed: Yes Children Family History Reviewed: Yes Sibling(s) Family History Reviewed.: Yes Medication/Allergy Home Medications: Apixaban [Eliquis 2.5 mg Tablet] 2.5 mg PO Q12 12/11/18 Atorvastatin Calcium [Lipitor 40 mg Tablet] 40 mg PO QHS 12/11/18 Budesonide/Formoterol Fumarate [Symbicort HFA 160-4.5 mcg Inhaler 6 gm] 2 puff IH Q12 12/11/18 Carvedilol [Coreg 25 mg Tablet] 25 mg PO Q12 12/11/18 Furosemide [Lasix 40 mg Tablet] 40 mg PO MOWEFR@10,18 12/11/18 Furosemide [Lasix 40 mg Tablet] 40 mg PO SUTUTHSA@1000 12/11/18 Potassium Chloride [Klor-Con M20] 20 meq PO DAILY 12/11/18 Spironolactone [Aldactone] 50 mg PO DAILY 12/11/18 Tiotropium Humphrey [Spiriva Respimat] 2 puff IH QAM 12/11/18 Allergies/Adverse Reactions: codeine [Codeine] Allergy (Unknown, Verified 12/11/18 12:43) amoxicillin [Amoxicillin] Allergy (Verified 12/11/18 12:43) Review of Systems Constitutional: PRESENT: weakness Eyes: ABSENT: visual disturbances Ears: ABSENT: hearing changes Nose, Mouth, and Throat: ABSENT: headache(s) Cardiovascular: PRESENT: dyspnea on exertion, orthropnea Respiratory: PRESENT: dyspnea Gastrointestinal: ABSENT: nausea, vomiting Genitourinary: ABSENT: difficulty urinating Musculoskeletal: PRESENT: muscle weakness Integumentary: ABSENT: diaphoresis Neurological: PRESENT: weakness Psychiatric: ABSENT: anxiety, depression Endocrine: PRESENT: cold intolerance Physical Exam Vital Signs: Temp Pulse Resp BP Pulse Ox 98.4 F 69 25 H 99/48 L 99 12/11/18 16:31 12/11/18 16:01 12/11/18 16:31 12/11/18 16:31 12/11/18 16:31 Intake & Output 12/10/18 12/11/18 12/12/18 06:59 06:59 06:59 Intake Total 500 Balance 500 Weight 80.5 kg General appearance: PRESENT: no acute distress, obese, well-developed, well-n ourished Eye exam: PRESENT: conjunctiva pink, PERRLA Mouth exam: PRESENT: moist, tongue midline Teeth exam: PRESENT: poor dentation Neck exam: PRESENT: full ROM Respiratory exam: PRESENT: clear to auscultation nick, symmetrical, unlabored Cardiovascular exam: PRESENT: irregular rhythm - AFIB. VENTRICULAR PACED. Pulses: PRESENT: normal radial pulses, normal dorsalis pedis pul Vascular exam: PRESENT: pallor GI/Abdominal exam: PRESENT: normal bowel sounds, soft. ABSENT: distended, tenderness Rectal exam: PRESENT: deferred Extremities exam: PRESENT: full ROM. ABSENT: pedal edema Musculoskeletal exam: PRESENT: ambulatory, full ROM Neurological exam: PRESENT: alert, awake, oriented to person, oriented to place, oriented to time, oriented to situation Psychiatric exam: PRESENT: appropriate affect Skin exam: PRESENT: dry, intact, pallor Results Laboratory Results: 12/11/18 13:35 12/11/18 13:35 12/11/18 12/11/18 12/11/18 13:20 13:35 13:35 WBC 5.2 RBC 1.72 L Hgb 5.1 L Hct 15.5 L MCV 90 MCH 29.3 MCHC 32.6 RDW 16.8 H Plt Count 186 Seg Neutrophils % 80.6 H Lymphocytes % 9.1 L Monocytes % 9.0 Eosinophils % 0.6 Basophils % 0.7 Absolute Neutrophils 4.2 Absolute Lymphocytes 0.5 Absolute Monocytes 0.5 Absolute Eosinophils 0.0 Absolute Basophils 0.0 Sodium 134.3 L Potassium 5.2 H Chloride 98 Carbon Dioxide 23 Anion Gap 13 BUN 81 H Creatinine 1.65 H Est GFR ( Amer) 36 L Est GFR (Non-Af Amer) 29 L Glucose 117 H Calcium 9.4 Magnesium 2.6 H Total Bilirubin 0.7 AST 23 ALT 28 Alkaline Phosphatase 145 H Total Protein 5.9 L Albumin 3.2 L TSH Urine Color YELLOW Urine Appearance SLIGHTLY-CLOUDY Urine pH 5.0 Ur Specific [place] 1.013 Urine Protein NEGATIVE Urine Glucose (UA) NEGATIVE Urine Ketones NEGATIVE Urine Blood NEGATIVE Urine Nitrite NEGATIVE Ur Leukocyte Esterase MODERATE H Urine WBC (Auto) 9 Urine RBC (Auto) 1 Blood Type Antibody Screen 12/11/18 12/11/18 13:35 13:35 WBC RBC Hgb Hct MCV MCH MCHC RDW Plt Count Seg Neutrophils % Lymphocytes % Monocytes % Eosinophils % Basophils % Absolute Neutrophils Absolute Lymphocytes Absolute Monocytes Absolute Eosinophils Absolute Basophils Sodium Potassium Chloride Carbon Dioxide Anion Gap BUN Creatinine Est GFR ( Amer) Est GFR (Non-Af Amer) Glucose Calcium Magnesium Total Bilirubin AST ALT Alkaline Phosphatase Total Protein Albumin TSH 3.94 Urine Color Urine Appearance Urine pH Ur Specific [place] Urine Protein Urine Glucose (UA) Urine Ketones Urine Blood Urine Nitrite Ur Leukocyte Esterase Urine WBC (Auto) Urine RBC (Auto) Blood Type O POSITIVE Antibody Screen NEGATIVE 12/11/18 12/11/18 13:35 13:35 Creatine Kinase 40 CK-MB (CK-2) 1.86 Troponin I 0.083 NT-Pro-B Natriuret Pep 3010 H Impressions: Chest X-Ray 12/11/18 13:24 IMPRESSION: NO ACUTE RADIOGRAPHIC FINDING IN THE CHEST. Cervical Spine CT 12/11/18 13:26 IMPRESSION: CHRONIC DEGENERATIVE CHANGES. NO ACUTE FINDINGS. Status: Imported from PACS Assessment and Plan - Diagnosis (1) GI bleed Qualifiers: GI bleed type/associated pathology: melena Qualified Code(s): K92.1 - Melena Is this a current diagnosis for this admission?: Yes Plan: Recent switch from Coumadin to Eliquis approximately 1 month ago Patient reports black stool for the last few weeks Guaiac positive (+) in emergency department No bloody bowel movements since admission Initial Hgb 5.1, transfuse 3 units PRBCs Eliquis on hold Plan for colonoscopy in AM q6h CBC (2) Atrial fibrillation Qualifiers: Atrial fibrillation type: chronic Qualified Code(s): I48.2 - Chronic atrial fibrillation Is this a current diagnosis for this admission?: Yes Plan: PMH AFIB with pacemaker on Eliquis Rate controlled in the 70s Admit to [facility] for continuous telemetry monitoring (3) Chronic obstructive lung disease Is this a current diagnosis for this admission?: Yes Plan: PMH COPD Currently without exacerbation Continue home dose Spiriva and symbicort Maintain SPO2>88% offer supplemental oxygen as needed (4) HTN (hypertension) Qualifiers: Hypertension type: essential hypertension Qualified Code(s): I10 - Essential (primary) hypertension Is this a current diagnosis for this admission?: Yes Plan: PMH HTN Currently mildly HYPOtensive All anti-HTN medications on hold - Time Time Spent with patient: 15-24 minutes Medications reviewed and adjusted accordingly: Yes Anticipated discharge: Home Within: within 72 hours - Inpatient Certification Based on my medical assessment, after consideration of the patient's comorbidities, presenting symptoms, or acuity I expect that the services needed warrant INPATIENT care.: Yes I certify that my determination is in accordance with my understanding of Medicare's requirements for reasonable and necessary INPATIENT services [42 CFR 412.3e].: Yes Medical Necessity: Need For Continuous Telemetry Monitoring, Risk of Complication if Not Cared For in Hospital - Plan Summary Plan Summary: COLONOSCOPY IN THE AM. Q6H CBC. TRANSFUSE FOR HGB < 8.0
[2018-12-11] MEDS ORDERED: PEG 3350/NA SULF,BICARB,CL/KCL 4000 ML PO ONE (18:00)
[2018-12-11] MEDS ORDERED: FUROSEMIDE INJ/PF 40 MG/4 ML SDV IV PRN ×2 (19:01→21:00)
[2018-12-11 19:19] LABS: CREATINE KINASE MB 1.96 ng/mL (<4.55); TROPONIN I 0.079 ng/mL
[2018-12-11] MEDS: ATORVASTATIN CALCIUM 40 MG TABLET PO SCH (21:25)
[2018-12-11] MEDS: ACETAMINOPHEN 325 MG TABLET PO PRN (21:26)
[2018-12-11] MEDS ORDERED: PANTOPRAZOLE SODIUM 40 MG VIAL IV SCH (22:00)
[2018-12-12 01:10] LABS: CREATINE KINASE MB 2.48 ng/mL (<4.55); TROPONIN I 0.091 ng/mL
[2018-12-12] MEDS: NORMAL SALINE 1000 ML 1,000 ML IV PRN ×2 (03:20→20:20)
[2018-12-12] MEDS: ONDANSETRON 4 MG TAB.RAPDIS PO PRN (04:00)
[2018-12-12 05:20] LABS: ABSOLUTE EOSINOPHILS # (AUTO) 0.1 10^3/uL (0.0-0.6); ABSOLUTE LYMPHOCYTES (AUTO) 0.8 10^3/uL (0.5-4.7); ABSOLUTE MONOCYTES (AUTO) 0.6 10^3/uL (0.1-1.4); ABSOLUTE NEUT (AUTO) 3.3 10^3/uL (1.7-8.2); BASOPHILS % (AUTO) 0.6 % (0-2); EOSINOPHILS % (AUTO) 1.9 % (0-6); HEMATOCRIT 23.2 % (36.0-47.0); LYMPHOCYTES % (AUTO) 17.1 % (13-45); MEAN CORPUSCULAR HEMOGLOBIN 29.9 pg (27.0-33.4); MEAN CORPUSCULAR HGB CONC 33.8 g/dL (32.0-36.0); MEAN CORPUSCULAR VOLUME 88 fl (80-97); MONOCYTES % (AUTO) 11.9 % (3-13); PLATELET COUNT 155 10^3/uL (150-450); RED BLOOD COUNT 2.63 10^6/uL (3.72-5.28); RED CELL DISTRIBUTION WIDTH 15.2 % (11.5-14.0); SEGMENTED NEUTROPHILS % (AUTO) 68.5 % (42-78); TOTAL CELLS COUNTED % (AUTO) 100 %; WHITE BLOOD COUNT 4.8 10^3/uL (4.0-10.5)
[2018-12-12 05:25] LABS: HEMOGLOBIN 7.8 g/dL (12.0-15.5); INTERNATIONAL RATION (INR) 1.26; PROTHROMBIN TIME 16.4 SEC (11.4-15.4)
[2018-12-12 05:35] LABS: ALANINE AMINOTRANSFERASE 22 U/L (9-52); ALBUMIN 3.3 g/dL (3.5-5.0); ALKALINE PHOSPHATASE 135 U/L (38-126); ANION GAP 14 (5-19); ASPARTATE AMINO TRANSFERASE 28 U/L (14-36); BILIRUBIN,DIRECT 0.7 mg/dL (0.0-0.4); BILIRUBIN,TOTAL 1.4 mg/dL (0.2-1.3); BLOOD UREA NITROGEN 77 mg/dL (7-20); CALCIUM 8.9 mg/dL (8.4-10.2); CARBON DIOXIDE 23 mmol/L (22-30); CHLORIDE 95 mmol/L (98-107); CREATINE KINASE 56 U/L (30-135); GLUCOSE 96 mg/dL (75-110); PHOSPHORUS 4.3 mg/dL (2.5-4.5); POTASSIUM 4.9 mmol/L (3.6-5.0); SODIUM 132.2 mmol/L (137-145); TOTAL PROTEIN 6.1 g/dL (6.3-8.2)
[2018-12-12 05:57] LABS: CREATINE KINASE MB 2.96 ng/mL (<4.55); TROPONIN I 0.107 ng/mL
--- NOTE | 2018-12-12 07:40 | EKG REPORT ---
SEVERITY:- ABNORMAL ECG - A-V DUAL-PACED COMPLEXES W/ SOME INHIBITION : Confirmed by: Kanu Webster MD 12-Dec-2018 07:39:29
[2018-12-12] MEDS ORDERED: NORMAL SALINE 250 ML IV PRN ×2 (07:43)
[2018-12-12] MEDS ORDERED: (PENDING PHARMACY ID) (Tiotropium Bromide [Spiriva Respimat] 2 PUFF) IH SCH (08:00)
[2018-12-12] MEDS: PANTOPRAZOLE SODIUM 40 MG VIAL IV SCH ×2 (10:38→22:11)
[2018-12-12] MEDS: FLUTICASONE/VILANTEROL 200-25 MCG/DOSE IH SCH (10:38)
[2018-12-12] MEDS ORDERED: DIPHENHYDRAMINE HCL 50 MG/ML VIAL ONE (11:15)
[2018-12-12] MEDS ORDERED: ONDANSETRON HCL INJ/PF 4 MG/2 ML SDV ONE (11:15)
[2018-12-12] MEDS ORDERED: FENTANYL CITRATE INJ/PF 100 MCG/2 ML AMPUL ONE (11:15)
[2018-12-12] MEDS ORDERED: EPINEPHRINE INJ 1 MG/10 ML DISP.SYRIN ONE (11:16)
[2018-12-12] MEDS ORDERED: GLUCAGON,HUMAN RECOMB 1 MG INJ ONE (11:16)
[2018-12-12] MEDS ORDERED: FLUMAZENIL INJ 0.5 MG/5 ML VIAL ONE (11:16)
[2018-12-12] MEDS ORDERED: NALOXONE HCL INJ/PF 0.4 MG/1 ML SDV ONE (11:16)
[2018-12-12] MEDS: MIDAZOLAM 2 MG/2 ML INJ ONE ×3 (11:56→12:18)
--- NOTE | 2018-12-12 12:54 | Operative Report ---
Operative Report DATE OF SURGERY: 12/12/18 Operative Report: The risks, benefits and alternatives of the procedure including the risk of bleeding, perforation requiring surgery have been explained to the patient in detail and informed consent has been obtained. The patient is taken back to the endoscopy suite and placed in a left, lateral decubital position. Timeout was called. Conscious sedation medications are provided. Rectal examination is done which did not reveal any masses, tears or fissures. Prep was reasonably good. Scope was able to be advanced all the way to the cecum. The cecum was identified by the usual anatomical landmarks of the ileocecal valve as well as the appendiceal office. Photodocumentation is obtained. The scope was then sequentially pulled back through the various segments of the colon including the ascending colon, hepatic flexure, transverse colon, splenic flexure, descending colon and finally into the rectosigmoid portions of the colon. Retroflexion maneuver is performed. The risks benefits and alternatives of the procedure explained to the patient in detail and informed consent is obtained.A GIF Olympus video scope was inserted into the patient's mouth and hypopharynx ,the esophagus is identified intubated and insufflated, the scope was then advanced through the esophagus stomach and duodenum, retroflexion maneuver is done, the esophagus stomach and first and second portions of the duodenum examined. 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 Diverticulosis without any diverticulitis. Rectal polyp that was removed via snare polypectomy and Endo Clip placed to reduce risk of bleeding. Internal hemorrhoids OPERATION: Colonoscopy with snare polypectomy. EGD with control of hemorrhage using argon plasma head sawyer automatic ERBE device SURGEON: TROY FELIPE ANESTHESIA: Moderate Sedation - 4 mg of Versed. Conscious sedation monitoring time 30 minutes. TISSUE REMOVED OR ALTERED: None. COMPLICATIONS: None. ESTIMATED BLOOD LOSS: None. INTRAOPERATIVE FINDINGS: As noted above. PROCEDURE: Patient tolerated the procedure well. No immediate postprocedure complications are noted. Patient is sent back to her room in good condition. Resume regular diet. Resume previous activity level. The GI bleeding is likely due to an upper source. She should not be on Eliquis due to her age and risk of falling and current GI bleeding. Cardiology needs to be consulted to see just other alternative forms of anticoagulation. Patient is at high risk. Hopefully ablative procedures have controlled the area otherwise she may need to be transferred to a tertiary institution for possible interventional radiology treatment. An Endo Clip was placed following snare polypectomy of a polyp to reduce the risk of post polypectomy bleeding No apparent lower GI source is noted
--- NOTE | 2018-12-12 13:40 | PDOC PROGRESS REPORT ---
Subjective Progress Note for:: 12/12/18 Subjective:: CHERIE ACE is a 88 year old female with a PMH of AFIB, Pacemaker, CHF, HTN, COPD. Patient was sent to [facility] ED by her PCP for a Hgb 5.1. Her Emt B, Dr. Webster, took her off of Coumadin and switched to Eliquis. The patient was seen this morning on rounds prior to her colonoscopy. Hgb remained low (7.8) following 3 U PRBC overnight. She will receive an additional unit this morning prior to her procedure. The patient endorses mild fatigue and weakness, says her SOB has improved. She is now only experiencing dyspnea on exertion. Colonoscopy completed by 1300. 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 Diverticulosis without any diverticulitis. Rectal polyp that was removed via snare polypectomy and Endo Clip placed to reduce risk of bleeding. (+) Internal hemorrhoids. Will continue to hold Eliquis (and recommend discontinuing all together). Patient will need to stay overnight for serial CBC checks. Reason For Visit: GI BLEED Physical Exam Vital Signs: Temp Pulse Resp BP Pulse Ox 97.0 F 70 20 98/41 L 93 12/12/18 10:59 12/12/18 13:10 12/12/18 13:10 12/12/18 13:10 12/12/18 13:10 Intake & Output 12/11/18 12/12/18 12/13/18 06:59 06:59 06:59 Intake Total 4741 0 Balance 4741 0 Weight 82.6 kg General appearance: PRESENT: no acute distress, well-developed, well-nourished Head exam: PRESENT: atraumatic, normocephalic Eye exam: PRESENT: conjunctiva pink, EOMI, PERRLA. ABSENT: scleral icterus Ear exam: PRESENT: normal external ear exam Mouth exam: PRESENT: moist, tongue midline Neck exam: ABSENT: carotid bruit, JVD, lymphadenopathy, thyromegaly Respiratory exam: PRESENT: clear to auscultation nick, symmetrical, unlabored. ABSENT: rales, rhonchi, wheezes Cardiovascular exam: PRESENT: RRR. ABSENT: diastolic murmur, rubs, systolic murmur Pulses: PRESENT: normal radial pulses, normal dorsalis pedis pul Vascular exam: PRESENT: pallor GI/Abdominal exam: PRESENT: normal bowel sounds, soft. ABSENT: distended, guarding, mass, organolmegaly, rebound, tenderness Rectal exam: PRESENT: deferred Extremities exam: PRESENT: full ROM, pedal edema - TRACE. ABSENT: calf tenderness, clubbing Musculoskeletal exam: PRESENT: ambulatory, full ROM Neurological exam: PRESENT: alert, awake, oriented to person, oriented to place, oriented to time, oriented to situation Psychiatric exam: PRESENT: appropriate affect, normal mood Skin exam: PRESENT: dry, intact, warm. ABSENT: cyanosis, rash Results Laboratory Results: 12/12/18 04:57 12/12/18 04:57 12/11/18 12/11/18 12/11/18 13:20 13:35 13:35 WBC 5.2 RBC 1.72 L Hgb 5.1 L Hct 15.5 L MCV 90 MCH 29.3 MCHC 32.6 RDW 16.8 H Plt Count 186 Seg Neutrophils % 80.6 H Lymphocytes % 9.1 L Monocytes % 9.0 Eosinophils % 0.6 Basophils % 0.7 Absolute Neutrophils 4.2 Absolute Lymphocytes 0.5 Absolute Monocytes 0.5 Absolute Eosinophils 0.0 Absolute Basophils 0.0 Sodium 134.3 L Potassium 5.2 H Chloride 98 Carbon Dioxide 23 Anion Gap 13 BUN 81 H Creatinine 1.65 H Est GFR ( Amer) 36 L Est GFR (Non-Af Amer) 29 L Glucose 117 H Calcium 9.4 Phosphorus Magnesium 2.6 H Total Bilirubin 0.7 AST 23 ALT 28 Alkaline Phosphatase 145 H Total Protein 5.9 L Albumin 3.2 L TSH Urine Color YELLOW Urine Appearance SLIGHTLY-CLOUDY Urine pH 5.0 Ur Specific [place] 1.013 Urine Protein NEGATIVE Urine Glucose (UA) NEGATIVE Urine Ketones NEGATIVE Urine Blood NEGATIVE Urine Nitrite NEGATIVE Ur Leukocyte Esterase MODERATE H Urine WBC (Auto) 9 Urine RBC (Auto) 1 Blood Type Antibody Screen 12/11/18 12/11/18 12/12/18 13:35 13:35 04:57 WBC RBC Hgb Hct MCV MCH MCHC RDW Plt Count Seg Neutrophils % Lymphocytes % Monocytes % Eosinophils % Basophils % Absolute Neutrophils Absolute Lymphocytes Absolute Monocytes Absolute Eosinophils Absolute Basophils Sodium 132.2 L Potassium 4.9 Chloride 95 L Carbon Dioxide 23 Anion Gap 14 BUN 77 H Creatinine 1.60 H Est GFR ( Amer) 37 L Est GFR (Non-Af Amer) 30 L Glucose 96 Calcium 8.9 Phosphorus 4.3 Magnesium 2.4 H Total Bilirubin 1.4 H AST 28 ALT 22 Alkaline Phosphatase 135 H Total Protein 6.1 L Albumin 3.3 L TSH 3.94 Urine Color Urine Appearance Urine pH Ur Specific [place] Urine Protein Urine Glucose (UA) Urine Ketones Urine Blood Urine Nitrite Ur Leukocyte Esterase Urine WBC (Auto) Urine RBC (Auto) Blood Type O POSITIVE Antibody Screen NEGATIVE 12/12/18 04:57 WBC 4.8 RBC 2.63 L Hgb 7.8 L D Hct 23.2 L MCV 88 MCH 29.9 MCHC 33.8 RDW 15.2 H Plt Count 155 Seg Neutrophils % 68.5 Lymphocytes % 17.1 Monocytes % 11.9 Eosinophils % 1.9 Basophils % 0.6 Absolute Neutrophils 3.3 Absolute Lymphocytes 0.8 Absolute Monocytes 0.6 Absolute Eosinophils 0.1 Absolute Basophils 0.0 Sodium Potassium Chloride Carbon Dioxide Anion Gap BUN Creatinine Est GFR ( Amer) Est GFR (Non-Af Amer) Glucose Calcium Phosphorus Magnesium Total Bilirubin AST ALT Alkaline Phosphatase Total Protein Albumin TSH Urine Color Urine Appearance Urine pH Ur Specific [place] Urine Protein Urine Glucose (UA) Urine Ketones Urine Blood Urine Nitrite Ur Leukocyte Esterase Urine WBC (Auto) Urine RBC (Auto) Blood Type Antibody Screen 12/11/18 12/11/18 12/11/18 13:35 13:35 18:12 Creatine Kinase 40 39 CK-MB (CK-2) 1.86 Troponin I 0.083 NT-Pro-B Natriuret Pep 3010 H 12/11/18 12/12/18 12/12/18 18:12 00:28 00:28 Creatine Kinase 46 CK-MB (CK-2) 1.96 2.48 Troponin I 0.079 0.091 NT-Pro-B Natriuret Pep 12/12/18 12/12/18 04:57 04:57 Creatine Kinase 56 CK-MB (CK-2) 2.96 Troponin I 0.107 NT-Pro-B Natriuret Pep 3900 H Impressions: Chest X-Ray 12/11/18 13:24 IMPRESSION: NO ACUTE RADIOGRAPHIC FINDING IN THE CHEST. Cervical Spine CT 12/11/18 13:26 IMPRESSION: CHRONIC DEGENERATIVE CHANGES. NO ACUTE FINDINGS. Status: Imported from PACS Assessment and Plan - Diagnosis (1) GI bleed Qualifiers: GI bleed type/associated pathology: melena Qualified Code(s): K92.1 - Melena Is this a current diagnosis for this admission?: Yes Plan: Recent switch from Coumadin to Eliquis approximately 1 month ago Patient reports black stool for the last few weeks Guaiac positive (+) in emergency department No bloody bowel movements since admission Initial Hgb 5.1, transfuse 3 units PRBCs. 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 Diverticulosis without any diverticulitis. Rectal polyp that was removed via snare polypectomy and Endo Clip placed to reduce risk of bleeding. (+) Internal hemorrhoids (2) Atrial fibrillation Qualifiers: Atrial fibrillation type: chronic Qualified Code(s): I48.2 - Chronic atrial fibrillation Is this a current diagnosis for this admission?: Yes Plan: PMH AFIB with pacemaker on Eliquis Rate controlled in the 70s Admit to [facility] for continuous telemetry monitoring Eliquis remains on hold - recommend discontinuing all together HAS-BLED score 4 (3) Chronic obstructive lung disease Is this a current diagnosis for this admission?: Yes Plan: PMH COPD Currently without exacerbation Continue home dose Spiriva and symbicort Maintain SPO2>88% offer supplemental oxygen as needed (4) HTN (hypertension) Qualifiers: Hypertension type: essential hypertension Qualified Code(s): I10 - Essential (primary) hypertension Is this a current diagnosis for this admission?: Yes Plan: PMH HTN Currently mildly HYPOtensive All anti-HTN medications on hold - Time Time Spent with patient: 15-24 minutes Medications reviewed and adjusted accordingly: Yes Anticipated discharge: Home Within: within 72 hours - Inpatient Certification Based on my medical assessment, after consideration of the patient's comorbidities, presenting symptoms, or acuity I expect that the services needed warrant INPATIENT care.: Yes I certify that my determination is in accordance with my understanding of Medicare's requirements for reasonable and necessary INPATIENT services [42 CFR 412.3e].: Yes Medical Necessity: Risk of Complication if Not Cared For in Hospital - Plan Summary Plan Summary: KEEP INPATIENT FOR MONITORING FOLLOWING COLONOSCOPY. MONITOR CBC Q6H
[2018-12-12 15:32] LABS: HEMATOCRIT 25.5 % (36.0-47.0); HEMOGLOBIN 8.6 g/dL (12.0-15.5); MEAN CORPUSCULAR HEMOGLOBIN 29.5 pg (27.0-33.4); MEAN CORPUSCULAR HGB CONC 33.7 g/dL (32.0-36.0); MEAN CORPUSCULAR VOLUME 88 fl (80-97); PLATELET COUNT 149 10^3/uL (150-450); RED BLOOD COUNT 2.91 10^6/uL (3.72-5.28); RED CELL DISTRIBUTION WIDTH 15.3 % (11.5-14.0); WHITE BLOOD COUNT 5.1 10^3/uL (4.0-10.5)
[2018-12-12] MEDS: ATORVASTATIN CALCIUM 40 MG TABLET PO SCH (22:11)
[2018-12-13 00:19] LABS: HEMATOCRIT 24.2 % (36.0-47.0); HEMOGLOBIN 8.1 g/dL (12.0-15.5); MEAN CORPUSCULAR HEMOGLOBIN 29.5 pg (27.0-33.4); MEAN CORPUSCULAR HGB CONC 33.7 g/dL (32.0-36.0); MEAN CORPUSCULAR VOLUME 88 fl (80-97); PLATELET COUNT 140 10^3/uL (150-450); RED BLOOD COUNT 2.76 10^6/uL (3.72-5.28); RED CELL DISTRIBUTION WIDTH 15.6 % (11.5-14.0); WHITE BLOOD COUNT 4.9 10^3/uL (4.0-10.5)
[2018-12-13 05:25] LABS: HEMATOCRIT 24.1 % (36.0-47.0); HEMOGLOBIN 8.1 g/dL (12.0-15.5); MEAN CORPUSCULAR HEMOGLOBIN 29.2 pg (27.0-33.4); MEAN CORPUSCULAR HGB CONC 33.5 g/dL (32.0-36.0); MEAN CORPUSCULAR VOLUME 87 fl (80-97); PLATELET COUNT 148 10^3/uL (150-450); RED BLOOD COUNT 2.76 10^6/uL (3.72-5.28); RED CELL DISTRIBUTION WIDTH 15.6 % (11.5-14.0); WHITE BLOOD COUNT 5.2 10^3/uL (4.0-10.5)
[2018-12-13 05:53] LABS: ALANINE AMINOTRANSFERASE 29 U/L (9-52); ALBUMIN 2.9 g/dL (3.5-5.0); ALKALINE PHOSPHATASE 121 U/L (38-126); ANION GAP 12 (5-19); ASPARTATE AMINO TRANSFERASE 27 U/L (14-36); BILIRUBIN,DIRECT 0.5 mg/dL (0.0-0.4); BILIRUBIN,TOTAL 0.8 mg/dL (0.2-1.3); BLOOD UREA NITROGEN 75 mg/dL (7-20); CALCIUM 8.7 mg/dL (8.4-10.2); CARBON DIOXIDE 24 mmol/L (22-30); CHLORIDE 98 mmol/L (98-107); GLUCOSE 86 mg/dL (75-110); PHOSPHORUS 4.5 mg/dL (2.5-4.5); POTASSIUM 4.8 mmol/L (3.6-5.0); SODIUM 133.6 mmol/L (137-145); TOTAL PROTEIN 5.3 g/dL (6.3-8.2)
[2018-12-13] MEDS: FLUTICASONE/VILANTEROL 200-25 MCG/DOSE IH SCH (09:31)
[2018-12-13] MEDS: PANTOPRAZOLE SODIUM 40 MG VIAL IV SCH ×2 (09:31→21:49)
[2018-12-13 16:12] LABS: MEAN CORPUSCULAR HEMOGLOBIN 29.5 pg (27.0-33.4); MEAN CORPUSCULAR HGB CONC 33.4 g/dL (32.0-36.0); MEAN CORPUSCULAR VOLUME 88 fl (80-97); PLATELET COUNT 162 10^3/uL (150-450); RED BLOOD COUNT 2.71 10^6/uL (3.72-5.28); RED CELL DISTRIBUTION WIDTH 15.6 % (11.5-14.0); WHITE BLOOD COUNT 5.1 10^3/uL (4.0-10.5)
[2018-12-13] MEDS: ACETAMINOPHEN 325 MG TABLET PO PRN (16:47)
[2018-12-13] MEDS: ATORVASTATIN CALCIUM 40 MG TABLET PO SCH (21:49)
--- NOTE | 2018-12-13 22:43 | PDOC PROGRESS REPORT ---
Subjective Progress Note for:: 12/13/18 Subjective:: CHERIE ACE is a 88 year old female with a PMH of AFIB, Pacemaker, CHF, HTN, COPD. Patient was sent to [facility] ED by her PCP for a Hgb 5.1. Her Back Tender Pulp Drier, Dr. Webster, took her off of Coumadin and switched to Eliquis. The patient was seen this morning on rounds, she is resting comfortably in bed on room air. Hgb remained low (8.1) this morning following 4 U PRBC since admission. The patient endorses mild fatigue and weakness, denies SOB. States she continues to have black stools today. Plan to recheck Hgb later this afternoon. If Hgb is 8.2 or lower, will plan to keep overnight due to high risk of re-bleeding. Will continue to hold Eliquis (and recommend discontinuing all together). Patient will need to stay overnight for serial CBC checks. Reason For Visit: GI BLEED Physical Exam Vital Signs: Temp Pulse Resp BP Pulse Ox 97.9 F 71 19 102/44 L 99 12/13/18 19:56 12/13/18 19:56 12/13/18 19:56 12/13/18 19:56 12/13/18 19:56 Intake & Output 12/12/18 12/13/18 12/14/18 06:59 06:59 06:59 Intake Total 4741 2488 1096 Output Total 600 300 Balance 4741 1888 796 Weight 82.6 kg 85.2 kg General appearance: PRESENT: no acute distress, well-developed, well-nourished Head exam: PRESENT: atraumatic, normocephalic Eye exam: PRESENT: conjunctiva pink, EOMI, PERRLA. ABSENT: scleral icterus Ear exam: PRESENT: normal external ear exam Mouth exam: PRESENT: moist, tongue midline Teeth exam: PRESENT: poor dentation Neck exam: ABSENT: carotid bruit, JVD, lymphadenopathy, thyromegaly Respiratory exam: PRESENT: clear to auscultation nick. ABSENT: rales, rhonchi, wheezes Cardiovascular exam: PRESENT: RRR. ABSENT: diastolic murmur, rubs, systolic murmur Pulses: PRESENT: normal radial pulses, normal dorsalis pedis pul Vascular exam: PRESENT: normal capillary refill GI/Abdominal exam: PRESENT: normal bowel sounds, soft. ABSENT: distended, guarding, mass, organolmegaly, rebound, tenderness Rectal exam: PRESENT: deferred Extremities exam: PRESENT: full ROM. ABSENT: calf tenderness, clubbing, pedal edema Musculoskeletal exam: PRESENT: ambulatory - one person assist to bathroom, full ROM Neurological exam: PRESENT: alert, awake, oriented to person, oriented to place, oriented to time, oriented to situation Psychiatric exam: PRESENT: appropriate affect, normal mood Skin exam: PRESENT: dry, intact, warm. ABSENT: cyanosis, rash Results Laboratory Results: 12/13/18 15:39 12/13/18 04:29 12/13/18 12/13/18 12/13/18 00:01 04:29 04:29 WBC 4.9 5.2 RBC 2.76 L 2.76 L Hgb 8.1 L 8.1 L Hct 24.2 L 24.1 L MCV 88 87 MCH 29.5 29.2 MCHC 33.7 33.5 RDW 15.6 H 15.6 H Plt Count 140 L 148 L Sodium 133.6 L Potassium 4.8 Chloride 98 Carbon Dioxide 24 Anion Gap 12 BUN 75 H Creatinine 1.77 H Est GFR ( Amer) 33 L Est GFR (Non-Af Amer) 27 L Glucose 86 Calcium 8.7 Phosphorus 4.5 Magnesium 2.5 H Total Bilirubin 0.8 AST 27 ALT 29 Alkaline Phosphatase 121 Total Protein 5.3 L Albumin 2.9 L 12/13/18 15:39 WBC 5.1 RBC 2.71 L Hgb 8.0 L Hct 24.0 L MCV 88 MCH 29.5 MCHC 33.4 RDW 15.6 H Plt Count 162 Sodium Potassium Chloride Carbon Dioxide Anion Gap BUN Creatinine Est GFR ( Amer) Est GFR (Non-Af Amer) Glucose Calcium Phosphorus Magnesium Total Bilirubin AST ALT Alkaline Phosphatase Total Protein Albumin 12/11/18 12/11/18 12/11/18 13:35 13:35 18:12 Creatine Kinase 40 39 CK-MB (CK-2) 1.86 Troponin I 0.083 NT-Pro-B Natriuret Pep 3010 H 12/11/18 12/12/18 12/12/18 18:12 00:28 00:28 Creatine Kinase 46 CK-MB (CK-2) 1.96 2.48 Troponin I 0.079 0.091 NT-Pro-B Natriuret Pep 12/12/18 12/12/18 04:57 04:57 Creatine Kinase 56 CK-MB (CK-2) 2.96 Troponin I 0.107 NT-Pro-B Natriuret Pep 3900 H Impressions: Chest X-Ray 12/11/18 13:24 IMPRESSION: NO ACUTE RADIOGRAPHIC FINDING IN THE CHEST. Cervical Spine CT 12/11/18 13:26 IMPRESSION: CHRONIC DEGENERATIVE CHANGES. NO ACUTE FINDINGS. Status: Imported from PACS Assessment and Plan - Diagnosis (1) GI bleed Qualifiers: GI bleed type/associated pathology: melena Qualified Code(s): K92.1 - Melena Is this a current diagnosis for this admission?: Yes Plan: Recent switch from Coumadin to Eliquis approximately 1 month ago Patient reports black stool for the last few weeks Guaiac positive (+) in emergency department Patient endorses continued black stool Initial Hgb 5.1, transfuse 4 units PRBCs. 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 Diverticulosis without any diverticulitis. Rectal polyp that was removed via snare polypectomy and Endo Clip placed to reduce risk of bleeding. (+) Internal hemorrhoids (2) Atrial fibrillation Qualifiers: Atrial fibrillation type: chronic Qualified Code(s): I48.2 - Chronic atrial fibrillation Is this a current diagnosis for this admission?: Yes Plan: PMH AFIB with pacemaker on Eliquis Rate controlled in the 70s Admit to [facility] for continuous telemetry monitoring Eliquis remains on hold - recommend discontinuing all together HAS-BLED score 4 (3) Chronic obstructive lung disease Is this a current diagnosis for this admission?: Yes Plan: PMH COPD Currently without exacerbation Continue home dose Spiriva and symbicort Maintain SPO2>88% offer supplemental oxygen as needed (4) HTN (hypertension) Qualifiers: Hypertension type: essential hypertension Qualified Code(s): I10 - Ess[place]ia l (primary) hypertension Is this a current diagnosis for this admission?: Yes Plan: PMH HTN Currently mildly HYPOtensive All anti-HTN medications on hold - Time Time Spent with patient: 15-24 minutes Medications reviewed and adjusted accordingly: Yes Anticipated discharge: Home Within: within 48 hours - Inpatient Certification Based on my medical assessment, after consideration of the patient's co morbidities, presenting symptoms, or acuity I expect that the services needed warrant INPATIENT care.: Yes I certify that my determination is in accordance with my understanding of Medicare's requirements for reasonable and necessary INPATIENT services [42 CFR 412.3e].: Yes Medical Necessity: Need For Continuous Telemetry Monitoring, Risk of Complication if Not Cared For in Hospital
[2018-12-14 06:04] LABS: HEMATOCRIT 23.4 % (36.0-47.0); MEAN CORPUSCULAR HEMOGLOBIN 29.4 pg (27.0-33.4); MEAN CORPUSCULAR HGB CONC 33.7 g/dL (32.0-36.0); MEAN CORPUSCULAR VOLUME 87 fl (80-97); PLATELET COUNT 169 10^3/uL (150-450); RED BLOOD COUNT 2.69 10^6/uL (3.72-5.28); RED CELL DISTRIBUTION WIDTH 15.2 % (11.5-14.0); WHITE BLOOD COUNT 4.9 10^3/uL (4.0-10.5)
[2018-12-14 06:09] LABS: HEMOGLOBIN 7.9 g/dL (12.0-15.5)
[2018-12-14] MEDS ORDERED: NORMAL SALINE 250 ML IV PRN ×2 (08:05)
[2018-12-14] MEDS ORDERED: FUROSEMIDE INJ/PF 40 MG/4 ML SDV IV PRN (08:23)
[2018-12-14] MEDS: FUROSEMIDE 40 MG TABLET PO SCH (10:08)
[2018-12-14] MEDS: FLUTICASONE/VILANTEROL 200-25 MCG/DOSE IH SCH (10:08)
[2018-12-14] MEDS: PANTOPRAZOLE SODIUM 40 MG VIAL IV SCH ×2 (10:08→21:20)
[2018-12-14] MEDS: ONDANSETRON 4 MG TAB.RAPDIS PO PRN (12:08)
[2018-12-14 15:10] LABS: HEMATOCRIT 25.4 % (36.0-47.0); HEMOGLOBIN 8.5 g/dL (12.0-15.5); MEAN CORPUSCULAR HEMOGLOBIN 28.8 pg (27.0-33.4); MEAN CORPUSCULAR HGB CONC 33.4 g/dL (32.0-36.0); MEAN CORPUSCULAR VOLUME 86 fl (80-97); PLATELET COUNT 164 10^3/uL (150-450); RED BLOOD COUNT 2.94 10^6/uL (3.72-5.28); RED CELL DISTRIBUTION WIDTH 15.9 % (11.5-14.0); WHITE BLOOD COUNT 5.5 10^3/uL (4.0-10.5)
[2018-12-14 15:35] LABS: ABSOLUTE LYMPHOCYTES# (MANUAL) 0.2 10^3/uL (0.5-4.7); ABSOLUTE MONOCYTES # (MANUAL) 0.7 10^3/uL (0.1-1.4); ANISOCYTOSIS 1+; BAND NEUTROPHILS % (MANUAL) 1 % (3-5); BASOPHILS % (MANUAL) 0 % (0-2); BURR CELLS 1+; EOSINOPHILS % (MANUAL) 2 % (0-6); LYMPHOCYTES % (MANUAL) 4 % (13-45); MONOCYTES % (MANUAL) 13 % (3-13); PLATELET COMMENT ADEQUATE; PLATELET GIANT PRESENT; PLATELET LARGE PRESENT; POIKILOCYTOSIS SLIGHT; POLYCHROMASIA SLIGHT; SEGMENTED NEUTROPHILS % (MAN) 80 % (42-78); TOTAL CELLS COUNTED 100; TOXIC VACUOLATION PRESENT
--- NOTE | 2018-12-14 16:27 | PDOC PROGRESS REPORT ---
Subjective Progress Note for:: 12/14/18 Subjective:: CHERIE ACE is a 88 year old female with a PMH of AFIB, Pacemaker, CHF, HTN, COPD. Patient was sent to [facility] ED by her PCP for a Hgb 5.1. Her Rush Seater, Dr. Webster, took her off of Coumadin and switched to Eliquis. The patient was seen this morning on rounds, she is resting comfortably in bed on room air. Hgb dropped to 7.9 this morning, plan to transfuse another unit of PRBC. The patient was able to work with physical therapy today. Patient denies having black stools today. Plan to recheck Hgb later this afternoon. Will need to remain inpatient for her unstable Hgb. Will continue to hold Eliquis (and recommend discontinuing all together). Reason For Visit: GI BLEED Physical Exam Vital Signs: Temp Pulse Resp BP Pulse Ox 97.7 F 79 20 112/65 98 12/14/18 13:35 12/14/18 14:00 12/14/18 13:35 12/14/18 13:35 12/14/18 13:35 Intake & Output 12/13/18 12/14/18 12/15/18 06:59 06:59 06:59 Intake Total 2488 1616 300 Output Total 600 800 Balance 1888 816 300 Weight 85.2 kg 87 kg General appearance: PRESENT: no acute distress, morbidly obese Head exam: PRESENT: atraumatic, normocephalic Eye exam: PRESENT: conjunctiva pink, EOMI, PERRLA. ABSENT: scleral icterus Ear exam: PRESENT: normal external ear exam Mouth exam: PRESENT: moist, tongue midline Teeth exam: PRESENT: poor dentation Neck exam: ABSENT: carotid bruit, JVD, lymphadenopathy, thyromegaly Respiratory exam: PRESENT: clear to auscultation nick, symmetrical, unlabored. ABSENT: rales, rhonchi, wheezes Cardiovascular exam: PRESENT: RRR. ABSENT: diastolic murmur, rubs, systolic murmur Pulses: PRESENT: normal radial pulses, normal dorsalis pedis pul Vascular exam: PRESENT: normal capillary refill GI/Abdominal exam: PRESENT: normal bowel sounds, soft. ABSENT: distended, guarding, mass, organolmegaly, rebound, tenderness Rectal exam: PRESENT: deferred Extremities exam: PRESENT: full ROM. ABSENT: calf tenderness, clubbing, pedal edema Neurological exam: PRESENT: alert, awake, oriented to person, oriented to place, oriented to time, oriented to situation Psychiatric exam: PRESENT: appropriate affect, normal mood Skin exam: PRESENT: dry, intact, warm. ABSENT: cyanosis, rash Results Laboratory Results: 12/14/18 14:40 12/13/18 04:29 12/13/18 12/14/18 12/14/18 15:39 05:26 08:42 WBC 5.1 4.9 RBC 2.71 L 2.69 L Hgb 8.0 L 7.9 L Hct 24.0 L 23.4 L MCV 88 87 MCH 29.5 29.4 MCHC 33.4 33.7 RDW 15.6 H 15.2 H Plt Count 162 169 Seg Neutrophils % Lymphocytes % Monocytes % Eosinophils % Basophils % Absolute Neutrophils Absolute Lymphocytes Absolute Monocytes Absolute Eosinophils Absolute Basophils Blood Type O POSITIVE Antibody Screen NEGATIVE 12/14/18 14:40 WBC 5.5 RBC 2.94 L Hgb 8.5 L Hct 25.4 L MCV 86 MCH 28.8 MCHC 33.4 RDW 15.9 H Plt Count 164 Seg Neutrophils % Not Reportable Lymphocytes % Not Reportable Monocytes % Not Reportable Eosinophils % Not Reportable Basophils % Not Reportable Absolute Neutrophils Not Reportable Absolute Lymphocytes Not Reportable Absolute Monocytes Not Reportable Absolute Eosinophils Not Reportable Absolute Basophils Not Reportable Blood Type Antibody Screen 12/11/18 12/11/18 12/11/18 13:35 13:35 18:12 Creatine Kinase 40 39 CK-MB (CK-2) 1.86 Troponin I 0.083 NT-Pro-B Natriuret Pep 3010 H 12/11/18 12/12/18 12/12/18 18:12 00:28 00:28 Creatine Kinase 46 CK-MB (CK-2) 1.96 2.48 Troponin I 0.079 0.091 NT-Pro-B Natriuret Pep 12/12/18 12/12/18 04:57 04:57 Creatine Kinase 56 CK-MB (CK-2) 2.96 Troponin I 0.107 NT-Pro-B Natriuret Pep 3900 H Impressions: Chest X-Ray 12/11/18 13:24 IMPRESSION: NO ACUTE RADIOGRAPHIC FINDING IN THE CHEST. Cervical Spine CT 12/11/18 13:26 IMPRESSION: CHRONIC DEGENERATIVE CHANGES. NO ACUTE FINDINGS. Status: Imported from PACS Assessment and Plan - Diagnosis (1) GI bleed Qualifiers: GI bleed type/associated pathology: melena Qualified Code(s): K92.1 - Melena Is this a current diagnosis for this admission?: Yes Plan: Recent switch from Coumadin to Eliquis approximately 1 month ago Patient reports black stool for the last few weeks Guaiac positive (+) in emergency department Patient endorses continued black stool Initial Hgb 5.1, transfuse 4 units PRBCs. 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 Diverticulosis without any diverticulitis. Rectal polyp that was removed via snare polypectomy and Endo Clip placed to reduce risk of bleeding. (+) Internal hemorrhoids (2) Atrial fibrillation Qualifiers: Atrial fibrillation type: chronic Qualified Code(s): I48.2 - Chronic atrial fibrillation Is this a current diagnosis for this admission?: Yes Plan: PMH AFIB with pacemaker on Eliquis Rate controlled in the 70s Admit to [facility] for continuous telemetry monitoring Eliquis remains on hold - recommend discontinuing all together HAS-BLED score 4 (3) Chronic obstructive lung disease Is this a current diagnosis for this admission?: Yes Plan: PMH COPD Currently without exacerbation Continue home dose Spiriva and symbicort Maintain SPO2>88% offer supplemental oxygen as needed (4) HTN (hypertension) Qualifiers: Hypertension type: essential hypertension Qualified Code(s): I10 - Ess ential (primary) hypertension Is this a current diagnosis for this admission?: Yes Plan: PMH HTN Currently mildly HYPOtensive All anti-HTN medications on hold - Time Time Spent with patient: 15-24 minutes Medications reviewed and adjusted accordingly: Yes Anticipated discharge: Home Within: within 48 hours - Inpatient Certification Based on my medical assessment, after consideration of the patient's comorbidities, presenting symptoms, or acuity I expect that the services needed warrant INPATIENT care.: Yes I certify that my determination is in accordance with my understanding of Medicare's requirements for reasonable and necessary INPATIENT services [42 CFR 412.3e].: Yes Medical Necessity: Risk of Complication if Not Cared For in Hospital
[2018-12-14] MEDS: ATORVASTATIN CALCIUM 40 MG TABLET PO SCH (21:20)
[2018-12-14 22:49] LABS: HEMATOCRIT 26.4 % (36.0-47.0); HEMOGLOBIN 8.7 g/dL (12.0-15.5); MEAN CORPUSCULAR HEMOGLOBIN 28.5 pg (27.0-33.4); MEAN CORPUSCULAR HGB CONC 32.8 g/dL (32.0-36.0); MEAN CORPUSCULAR VOLUME 87 fl (80-97); PLATELET COUNT 170 10^3/uL (150-450); RED BLOOD COUNT 3.03 10^6/uL (3.72-5.28); RED CELL DISTRIBUTION WIDTH 15.5 % (11.5-14.0); WHITE BLOOD COUNT 5.5 10^3/uL (4.0-10.5)
[2018-12-15] MEDS: FLUTICASONE/VILANTEROL 200-25 MCG/DOSE IH SCH (10:17)
[2018-12-15] MEDS: FUROSEMIDE 40 MG TABLET PO SCH ×2 (10:17→18:39)
[2018-12-15 11:50] LABS: HEMATOCRIT 25.6 % (36.0-47.0); HEMOGLOBIN 8.4 g/dL (12.0-15.5); MEAN CORPUSCULAR VOLUME 88 fl (80-97); PLATELET COUNT 175 10^3/uL (150-450); RED BLOOD COUNT 2.92 10^6/uL (3.72-5.28); WHITE BLOOD COUNT 5.4 10^3/uL (4.0-10.5)
[2018-12-15 12:10] LABS: ALANINE AMINOTRANSFERASE 26 U/L (9-52); ALBUMIN 2.8 g/dL (3.5-5.0); ALKALINE PHOSPHATASE 136 U/L (38-126); ANION GAP 8 (5-19); ASPARTATE AMINO TRANSFERASE 24 U/L (14-36); BILIRUBIN,DIRECT 0.5 mg/dL (0.0-0.4); BILIRUBIN,TOTAL 0.9 mg/dL (0.2-1.3); BLOOD UREA NITROGEN 49 mg/dL (7-20); CALCIUM 8.4 mg/dL (8.4-10.2); CARBON DIOXIDE 30 mmol/L (22-30); CHLORIDE 97 mmol/L (98-107); GLUCOSE 107 mg/dL (75-110); PHOSPHORUS 3.8 mg/dL (2.5-4.5); POTASSIUM 4.4 mmol/L (3.6-5.0); SODIUM 135.1 mmol/L (137-145); TOTAL PROTEIN 5.4 g/dL (6.3-8.2)
[2018-12-15] MEDS ORDERED: (PENDING PHARMACY ID) (Tiotropium Bromide [Spiriva Respimat] 2 PUFF) IH SCH (14:45)
[2018-12-15] MEDS: ATORVASTATIN CALCIUM 40 MG TABLET PO SCH (22:35)
[2018-12-15 23:14] LABS: HEMATOCRIT 24.7 % (36.0-47.0); HEMOGLOBIN 8.3 g/dL (12.0-15.5); MEAN CORPUSCULAR HEMOGLOBIN 29.1 pg (27.0-33.4); MEAN CORPUSCULAR HGB CONC 33.7 g/dL (32.0-36.0); MEAN CORPUSCULAR VOLUME 86 fl (80-97); PLATELET COUNT 177 10^3/uL (150-450); RED BLOOD COUNT 2.86 10^6/uL (3.72-5.28); RED CELL DISTRIBUTION WIDTH 15.7 % (11.5-14.0); WHITE BLOOD COUNT 5.8 10^3/uL (4.0-10.5)
--- NOTE | 2018-12-16 05:33 | PDOC PROGRESS REPORT ---
Subjective Progress Note for:: 12/15/18 Subjective:: CHERIE ACE is a 88 year old female with a PMH of AFIB, Pacemaker, CHF, HTN, COPD. Patient was sent to [facility] ED by her PCP for a Hgb 5.1. Her Form Press Operator, Dr. Webster, took her off of Coumadin and switched to Eliquis. The patient was seen this morning on rounds, she is resting comfortably in bed on room air. The patient endorses significant fatigue today. States her energy levels are very low. Hgb 8.4 this morning, drifting from the previous day when patient received transfusion. Patient denies having black stools today. Plan to recheck Hgb later this afternoon. Will need to remain inpatient for her unstable Hgb. Will continue to hold Eliquis (and recommend discontinuing all together). Reason For Visit: GI BLEED Physical Exam Vital Signs: Temp Pulse Resp BP Pulse Ox 97.8 F 77 18 122/51 L 94 12/16/18 04:38 12/16/18 04:38 12/16/18 04:38 12/16/18 04:38 12/16/18 04:38 Intake & Output 12/14/18 12/15/18 12/16/18 06:59 06:59 06:59 Intake Total 1616 1611 1169 Output Total 800 1850 2550 Balance 816 -018 -7741 Weight 87 kg 84.5 kg General appearance: PRESENT: no acute distress, morbidly obese Head exam: PRESENT: atraumatic, normocephalic Eye exam: PRESENT: conjunctiva pale, EOMI, PERRLA. ABSENT: scleral icterus Ear exam: PRESENT: normal external ear exam Mouth exam: PRESENT: moist, tongue midline Neck exam: ABSENT: carotid bruit, JVD, lymphadenopathy, thyromegaly Respiratory exam: PRESENT: clear to auscultation nick, symmetrical, unlabored. ABSENT: rales, rhonchi, wheezes Cardiovascular exam: PRESENT: RRR. ABSENT: diastolic murmur, rubs, systolic murmur Pulses: PRESENT: normal radial pulses, normal dorsalis pedis pul Vascular exam: PRESENT: pallor GI/Abdominal exam: PRESENT: normal bowel sounds, soft. ABSENT: distended, guarding, mass, organolmegaly, rebound, tenderness Rectal exam: PRESENT: deferred Extremities exam: PRESENT: full ROM. ABSENT: calf tenderness, clubbing, pedal edema Musculoskeletal exam: PRESENT: ambulatory - WITH PHYSICAL THERAPY, full ROM Neurological exam: PRESENT: alert, awake, oriented to person, oriented to place, oriented to time, oriented to situation Psychiatric exam: PRESENT: appropriate affect, normal mood Skin exam: PRESENT: dry, intact, warm. ABSENT: cyanosis, rash Results Laboratory Results: 12/15/18 23:04 12/15/18 11:39 12/15/18 12/15/18 12/15/18 11:39 11:39 23:04 WBC 5.4 5.8 RBC 2.92 L 2.86 L Hgb 8.4 L 8.3 L Hct 25.6 L 24.7 L MCV 88 86 MCH 29.0 29.1 MCHC 33.0 33.7 RDW 16.0 H 15.7 H Plt Count 175 177 Sodium 135.1 L Potassium 4.4 Chloride 97 L Carbon Dioxide 30 Anion Gap 8 BUN 49 H Creatinine 1.47 H Est GFR ( Amer) 41 L Est GFR (Non-Af Amer) 34 L Glucose 107 Calcium 8.4 Phosphorus 3.8 Magnesium 2.4 H Total Bilirubin 0.9 AST 24 ALT 26 Alkaline Phosphatase 136 H Total Protein 5.4 L Albumin 2.8 L 12/11/18 12/11/18 12/11/18 13:35 13:35 18:12 Creatine Kinase 40 39 CK-MB (CK-2) 1.86 Troponin I 0.083 NT-Pro-B Natriuret Pep 3010 H 12/11/18 12/12/18 12/12/18 18:12 00:28 00:28 Creatine Kinase 46 CK-MB (CK-2) 1.96 2.48 Troponin I 0.079 0.091 NT-Pro-B Natriuret Pep 12/12/18 12/12/18 04:57 04:57 Creatine Kinase 56 CK-MB (CK-2) 2.96 Troponin I 0.107 NT-Pro-B Natriuret Pep 3900 H Impressions: Chest X-Ray 12/11/18 13:24 IMPRESSION: NO ACUTE RADIOGRAPHIC FINDING IN THE CHEST. Cervical Spine CT 12/11/18 13:26 IMPRESSION: CHRONIC DEGENERATIVE CHANGES. NO ACUTE FINDINGS. Status: Imported from PACS Assessment and Plan - Diagnosis (1) GI bleed Qualifiers: GI bleed type/associated pathology: melena Qualified Code(s): K92.1 - Me lloyd Is this a current diagnosis for this admission?: Yes Plan: Recent switch from Coumadin to Eliquis approximately 1 month ago Patient reports black stool for the last few weeks Guaiac positive (+) in emergency department Patient endorses continued black stool Initial Hgb 5.1, transfused total of 5 units PRBCs. 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 Diverticulosis without any diverticulitis. Rectal polyp that was removed via snare polypectomy and Endo Clip placed to reduce risk of bleeding. (+) Internal hemorrhoids (2) Atrial fibrillation Qualifiers: Atrial fibrillation type: chronic Qualified Code(s): I48.2 - Chronic atrial fibrillation Is this a current diagnosis for this admission?: Yes Plan: PMH AFIB with pacemaker on Eliquis Rate controlled in the 70s Admit to [facility] for continuous telemetry monitoring Eliquis remains on hold - recommend discontinuing all together HAS-BLED score 4 (3) Chronic obstructive lung disease Is this a current diagnosis for this admission?: Yes Plan: PMH COPD Currently without exacerbation Continue home dose Spiriva and symbicort Maintain SPO2>88% offer supplemental oxygen as needed (4) HTN (hypertension) Qualifiers: Hypertension type: essential hypertension Qualified Code(s): I10 - Essential (primary) hypertension Is this a current diagnosis for this admission?: Yes Plan: PMH HTN Currently mildly HYPOtensive All anti-HTN medications on hold (5) Weakness Is this a current diagnosis for this admission?: Yes Plan: Secondary to anemia and prolonged hospital course PT/OT Able to ambulate to restroom with 1 person assist and walker Will need home health with PT/OT - Time Time Spent with patient: 15-24 minutes Medications reviewed and adjusted accordingly: Yes Anticipated discharge: Home with Homehealth Within: within 48 hours - Inpatient Certification Based on my medical assessment, after consideration of the patient's comorbidities, presenting symptoms, or acuity I expect that the services needed warrant INPATIENT care.: Yes I certify that my determination is in accordance with my understanding of Medicare's requirements for reasonable and necessary INPATIENT services [42 CFR 412.3e].: Yes Medical Necessity: Need Close Monitoring Due to Risk of Patient Decompensation, Risk of Complication if Not Cared For in Hospital
[2018-12-16 09:03] LABS: HEMATOCRIT 27.6 % (36.0-47.0); HEMOGLOBIN 9.1 g/dL (12.0-15.5); MEAN CORPUSCULAR HEMOGLOBIN 28.5 pg (27.0-33.4); MEAN CORPUSCULAR HGB CONC 32.9 g/dL (32.0-36.0); MEAN CORPUSCULAR VOLUME 87 fl (80-97); PLATELET COUNT 207 10^3/uL (150-450); RED BLOOD COUNT 3.19 10^6/uL (3.72-5.28); RED CELL DISTRIBUTION WIDTH 15.7 % (11.5-14.0)
[2018-12-16] MEDS: FLUTICASONE/VILANTEROL 200-25 MCG/DOSE IH SCH (09:31)
[2018-12-16] MEDS: TIOTROPIUM BROMIDE DPI 5 CAP/KIT (18 MCG/CAP) IH SCH (09:31)
[2018-12-16] MEDS: FUROSEMIDE 40 MG TABLET PO SCH (09:33)
--- NOTE | 2018-12-16 19:47 | PDOC PROGRESS REPORT ---
Subjective Progress Note for:: 12/16/18 Subjective:: CHERIE ACE is a 88 year old female with a PMH of AFIB, Pacemaker, CHF, HTN, COPD. Patient was sent to [facility] ED by her PCP for a Hgb 5.1. Her Almond Roaster, Dr. Webster, took her off of Coumadin and switched to Eliquis. The patient was seen on afternoon rounds. She was found sitting upright in the recliner, comfortably, on room air. She reports that she continues to have significant fatigue, but denies dizziness/weakness when ambulating to the restroom. She reports that she ambulates in-home w/ walker but needs to rest frequently at baseline; she reports she feels close to her nml and is concerned about meeting with d/c senior production planner to arrange for in home nursing/pt/aide services. She denies fever, chills, chest pain, palpitations, dyspnea, orthopnea, and aster n, nausea, vomiting, diarrhea, melena, and hematochezia. She has no other questions or concerns today. Reason For Visit: GI BLEED Physical Exam Vital Signs: Temp Pulse Resp BP Pulse Ox 98.1 F 64 18 97/53 L 97 12/16/18 15:34 12/16/18 15:34 12/16/18 15:34 12/16/18 15:34 12/16/18 15:34 Intake & Output 12/15/18 12/16/18 12/17/18 06:59 06:59 06:59 Intake Total 1611 1269 520 Output Total 1850 2950 800 Balance -239 -1681 -280 Weight 84.5 kg 82.5 kg General appearance: PRESENT: no acute distress, cooperative, well-developed, well-nourished Head exam: PRESENT: atraumatic, normocephalic Eye exam: PRESENT: conjunctiva pink, EOMI, PERRLA. ABSENT: scleral icterus Ear exam: PRESENT: normal external ear exam Mouth exam: PRESENT: moist, tongue midline Neck exam: ABSENT: carotid bruit, JVD, lymphadenopathy, thyromegaly Respiratory exam: PRESENT: clear to auscultation nick, symmetrical, unlabored. ABSENT: rales, rhonchi, wheezes Cardiovascular exam: PRESENT: RRR, +S1, +S2. ABSENT: diastolic murmur, rubs, systolic murmur Pulses: PRESENT: normal dorsalis pedis pul Vascular exam: PRESENT: normal capillary refill GI/Abdominal exam: PRESENT: normal bowel sounds, soft. ABSENT: distended, gu arding, mass, organolmegaly, rebound, tenderness Rectal exam: PRESENT: deferred Extremities exam: PRESENT: full ROM. ABSENT: calf tenderness, clubbing, pedal edema Musculoskeletal exam: PRESENT: ambulatory - w/ front wheeled walker and minimum assistance Neurological exam: PRESENT: alert, awake, oriented to person, oriented to place, oriented to time, oriented to situation, CN II-XII grossly intact. ABSENT: motor sensory deficit Psychiatric exam: PRESENT: appropriate affect, normal mood. ABSENT: homicidal ideation, suicidal ideation Skin exam: PRESENT: dry, intact, warm. ABSENT: cyanosis, rash Results Laboratory Results: 12/16/18 08:49 12/15/18 11:39 12/15/18 12/16/18 23:04 08:49 WBC 5.8 6.0 RBC 2.86 L 3.19 L Hgb 8.3 L 9.1 L Hct 24.7 L 27.6 L MCV 86 87 MCH 29.1 28.5 MCHC 33.7 32.9 RDW 15.7 H 15.7 H Plt Count 177 207 12/11/18 12/11/18 12/11/18 13:35 13:35 18:12 Creatine Kinase 40 39 CK-MB (CK-2) 1.86 Troponin I 0.083 NT-Pro-B Natriuret Pep 3010 H 12/11/18 12/12/18 12/12/18 18:12 00:28 00:28 Creatine Kinase 46 CK-MB (CK-2) 1.96 2.48 Troponin I 0.079 0.091 NT-Pro-B Natriuret Pep 12/12/18 12/12/18 04:57 04:57 Creatine Kinase 56 CK-MB (CK-2) 2.96 Troponin I 0.107 NT-Pro-B Natriuret Pep 3900 H Impressions: Chest X-Ray 12/11/18 13:24 IMPRESSION: NO ACUTE RADIOGRAPHIC FINDING IN THE CHEST. Cervical Spine CT 12/11/18 13:26 IMPRESSION: CHRONIC DEGENERATIVE CHANGES. NO ACUTE FINDINGS. Assessment and Plan - Diagnosis (1) GI bleed Qualifiers: GI bleed type/associated pathology: melena Qualified Code(s): K92.1 - Melena Is this a current diagnosis for this admission?: Yes Plan: Recent switch from Coumadin to Eliquis approximately 1 month ago Patient reports black stool for the last few weeks Guaiac positive (+) in emergency department Initial Hgb 5.1, transfused total of 5 units PRBCs. 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 Diverticulosis without any diverticulitis. Rectal polyp that was removed via snare polypectomy and Endo Clip placed to reduce risk of bleeding. (+) Internal hemorrhoids Patient is admitted to [facility]. Diet has been advanced to cardiac; tolerating well. If CBC in AM reveals continued stability in Hgb will d/c to home with nursing, PT/OT, and aide services. (2) Anemia Qualifiers: Anemia type: unspecified type Qualified Code(s): D64.9 - Anemia, unspecified Is this a current diagnosis for this admission?: Yes Plan: Acute blood loss anemia secondary to GI bleed. Evaluation and management as above. (3) Atrial fibrillation Qualifiers: Atrial fibrillation type: chronic Qualified Code(s): I48.2 - Chronic atrial fibrillation Is this a current diagnosis for this admission?: Yes Plan: PMH AFIB with pacemaker on Eliquis Rate controlled in the 70s Admit to [facility] for continuous telemetry monitoring Eliquis remains on hold - recommend discontinuing all together HAS-BLED score 4 Have resumed low dose carvedilol (4) HTN (hypertension) Qualifiers: Hypertension type: essential hypertension Qualified Code(s): I10 - Essential (primary) hypertension Is this a current diagnosis for this admission?: Yes Plan: PMH HTN Currently mildly HYPOtensive; slightly worse today, though lasix was resumed yesterday afternoon. PT does have Hx CHF; will resume low dose carvedilol and lasix. Hold sprionolactone for now. Will need to ensure close follow up with PCP for evaluation of HTN and coninuted adjustments of medications post d/c. (5) Weakness Is this a current diagnosis for this admission?: Yes Plan: Secondary to anemia and prolonged hospital course PT/OT Able to ambulate to restroom with 1 person assist and walker Will need home health with PT/OT (6) Chronic obstructive lung disease Is this a current diagnosis for this admission?: Yes Plan: PMH COPD Currently without exacerbation Continue home dose Spiriva and symbicort Maintain SPO2>88% offer supplemental oxygen as needed - Time Time Spent with patient: 25-34 minutes Medications reviewed and adjusted accordingly: Yes Anticipated discharge: Home with Homehealth Within: within 24 hours
[2018-12-16] MEDS: ATORVASTATIN CALCIUM 40 MG TABLET PO SCH (22:26)
[2018-12-16] MEDS ORDERED: CARVEDILOL 6.25 MG TABLET PO ONE (23:00)
[2018-12-17 00:19] LABS: ANION GAP 8 (5-19)
[2018-12-17 00:23] LABS: ALANINE AMINOTRANSFERASE 32 U/L (9-52); ALKALINE PHOSPHATASE 215 U/L (38-126); ASPARTATE AMINO TRANSFERASE 22 U/L (14-36); BILIRUBIN,DIRECT 0.6 mg/dL (0.0-0.4); BILIRUBIN,TOTAL 0.8 mg/dL (0.2-1.3); BLOOD UREA NITROGEN 41 mg/dL (7-20); CALCIUM 8.5 mg/dL (8.4-10.2); CARBON DIOXIDE 33 mmol/L (22-30); CHLORIDE 95 mmol/L (98-107); GLUCOSE 108 mg/dL (75-110); SODIUM 136.1 mmol/L (137-145); TOTAL PROTEIN 5.7 g/dL (6.3-8.2)
[2018-12-17] MEDS ORDERED: CARVEDILOL 6.25 MG TABLET PO ONE (03:20)
[2018-12-17 05:46] LABS: HEMATOCRIT 24.2 % (36.0-47.0); HEMOGLOBIN 8.2 g/dL (12.0-15.5); MEAN CORPUSCULAR HEMOGLOBIN 29.1 pg (27.0-33.4); MEAN CORPUSCULAR HGB CONC 33.9 g/dL (32.0-36.0); MEAN CORPUSCULAR VOLUME 86 fl (80-97); PLATELET COUNT 185 10^3/uL (150-450); RED BLOOD COUNT 2.82 10^6/uL (3.72-5.28); RED CELL DISTRIBUTION WIDTH 15.4 % (11.5-14.0); WHITE BLOOD COUNT 5.6 10^3/uL (4.0-10.5)
[2018-12-17 06:05] LABS: ANION GAP 7 (5-19); BLOOD UREA NITROGEN 36 mg/dL (7-20); CALCIUM 8.5 mg/dL (8.4-10.2); CARBON DIOXIDE 33 mmol/L (22-30); CHLORIDE 98 mmol/L (98-107); GLUCOSE 92 mg/dL (75-110); POTASSIUM 3.8 mmol/L (3.6-5.0); SODIUM 137.7 mmol/L (137-145)
[2018-12-17] MEDS: FLUTICASONE/VILANTEROL 200-25 MCG/DOSE IH SCH (09:57)
[2018-12-17] MEDS: TIOTROPIUM BROMIDE DPI 5 CAP/KIT (18 MCG/CAP) IH SCH (09:58)
[2018-12-17] MEDS ORDERED: FUROSEMIDE 20 MG TABLET PO SCH (10:00)
[2018-12-17 15:44] VITALS: BP 99/68
[2018-12-17] MEDS ORDERED: CARVEDILOL 6.25 MG TABLET PO SCH (18:00)
--- NOTE | 2018-12-17 22:43 | PDOC DISCHARGE SUMMARY ---
General - Admit/Disc Date/PCP Admission Date/Primary Care Provider: 12/11/18 15:38 MICHAEL SHOEMAKER MD Discharge Date: 12/17/18 - Discharge Diagnosis (1) GI bleed Is this a current diagnosis for this admission?: Yes Summary: Resolved. Recent switch from Coumadin to Eliquis approximately 1 month ago; patient reported black stool for the last few weeks. Guaiac positive (+) in emergency department Initial Hgb 5.1, transfused total of 5 units PRBCs. 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 Diverticulosis without any diverticulitis. Rectal polyp that was removed via snare polypectomy and Endo Clip placed to reduce risk of bleeding. (+) Internal hemorrhoids Patient was admitted to [facility]. Chronic anticoagulation was placed on hold. Active bleeding was identified and addressed during colonoscopy; AVM ablated. Her diet was slowly advanced without reoccurrence of gross bleeding. Serial CBCs were trended; Hbg has stabilized at 8.2. Patient is discharged to home with home health nursing, physical therapy, and aide services. Home Health nursing is asked to obtain CBC on 12/19/18, and report findin gs to PCP. Patient is advised to follow up with PCP within 1 week and to notify Elevator Erector of admission; follow up as directed. She is advised to hold Eliquis until follow up with Elevator Erector secondary to bleeding risks. She is instructed to return to the emergency department as needed for concerning symptoms. (2) Anemia Is this a current diagnosis for this admission?: Yes Summary: Improved. Acute blood loss anemia secondary to GI bleed. Evaluation and management as above. (3) Atrial fibrillation Is this a current diagnosis for this admission?: Yes Summary: PMH AFIB with pacemaker on Eliquis Rate controlled in the 70s Admit to [facility] for continuous telemetry monitoring Eliquis remains on hold - recommend discontinuing all together HAS-BLED score 4; 8.9% yearly hemorrhage risk [id number] score 5; 7.2% yearly CVA risk Have resumed low dose carvedilol Recommend follow up appointment with Elevator Erector within 2-4 weeks. (4) HTN (hypertension) Is this a current diagnosis for this admission?: Yes Summary: PMH HTN Currently mildly HYPOtensive; improved following dose reduction of carvedilol and furosemide. 105/40 at time of discharge; she is asymptomatic with position change and ambulation. Hold sprionolactone for now. Will need to ensure close follow up with PCP/Elevator Erector for evaluation of HTN and coninuted adjustments of medications post d/c. (5) Weakness Is this a current diagnosis for this admission?: Yes Summary: Secondary to anemia and prolonged hospital course Able to ambulate to restroom with 1 person assist and walker Have arranged for home health nursing, PT, and aide services. (6) Chronic obstructive lung disease Is this a current diagnosis for this admission?: Yes Summary: PMH COPD Currently without exacerbation Continue home dose Spiriva and symbicort - Additional Information Resuscitation Status: Full Code Discharge Diet: Cardiac Discharge Activity: Activity As Tolerated, Balance Activity w/Rest, Slowly Increase Activity, Supervised Activity Prescriptions: Carvedilol [Coreg 6.25 mg Tablet] 6.25 mg PO Q12A #60 tablet Fluticasone/Vilanterol [Breo 200-25 Mcg Ellipta 14 Dose/Dpi] 1 inh IH DAILY #1 inhaler Furosemide [Lasix 20 mg Tablet] 10 mg PO DAILY #30 tablet Home Medications: Atorvastatin Calcium [Lipitor 40 mg Tablet] 40 mg PO QHS 12/11/18 Budesonide/Formoterol Fumarate [Symbicort HFA 160-4.5 mcg Inhaler 6 gm] 2 puff IH Q12 12/11/18 Tiotropium [place] [Spiriva Respimat] 2 puff IH QAM 12/11/18 Acetaminophen [Tylenol 325 mg Tablet] 975 mg PO Q6HP PRN tablet 12/17/18 Carvedilol [Coreg 6.25 mg Tablet] 6.25 mg PO Q12A #60 tablet 12/17/18 Fluticasone/Vilanterol [Breo 200-25 Mcg Ellipta 14 Dose/Dpi] 1 inh IH DAILY #1 inhaler 12/17/18 Furosemide [Lasix 20 mg Tablet] 10 mg PO DAILY #30 tablet 12/17/18 History of Present Illness History of Present Illness: Per H&P by Maryann Leal NP-C: CHERIE ACE is a 88 year old female with a PMH of AFIB, Pacemaker, CHF, HTN, COPD. Patient was sent to [facility] ED by her PCP for a Hgb 5.1. Patient reports she was previously taking Coumadin for her A. fib and was switched to Eliquis 1 month ago. Since then she has been experiencing intermittent black stools and progressively worsening weakness. Patient went to see her PCP a few days ago regarding her weakness. Lab work was done and revealed a hgb 5.1. Of note, the patient had routine lab work on 11/04 and her Hgb was 8.0. Upon arrival to the ED, laboratory studies reveal anemia (Hgb 5.1), hyponatremia (NA 134), KD (creatinine 1.6), elevated BNP (3040). EKG shows A. fib, ventricularly paced, ST depression in lateral leads (unchanged from EKG 07/2017). POC Guiac positive (+). The patient was mildly HYPOtensive with a BP 108-47 HR 68. Upon assessment, patient is resting comfortably in bed on room air. She is alert and oriented x3, able to answer all questions appropriately. She endorses generalized weakness, fatigue, shortness of breath and dyspnea on exertion. Other than pallor, her physical exam is relatively benign. Lungs are clear to auscultation. Pulses are palpable in the upper and lower extremities. Trace edema in the lower extremities. Abdomen is S/NT/ND. Discussed with Dr. Ivan who agrees to scope the patient tomorrow. Plan to admit to the hospitalist service for a lower GI bleed. Physical Exam Vital Signs: Temp Pulse Resp BP Pulse Ox 97.4 F 57 L 16 110/35 L 93 12/17/18 07:28 12/17/18 07:28 12/17/18 07:28 12/17/18 07:28 12/17/18 07:28 Intake & Output 12/16/18 12/17/18 12/18/18 06:59 06:59 06:59 Intake Total 1269 742 Output Total 2950 1750 Balance -1681 -1008 Weight 82.5 kg 83.3 kg General appearance: PRESENT: no acute distress, well-developed, well-nourished - Overweight Head exam: PRESENT: atraumatic, normocephalic Eye exam: PRESENT: conjunctiva pink, EOMI, PERRLA. ABSENT: scleral icterus Mouth exam: PRESENT: moist, tongue midline Neck exam: ABSENT: carotid bruit, JVD, lymphadenopathy, thyromegaly Respiratory exam: PRESENT: clear to auscultation nick, symmetrical, unlabored. ABSENT: rales, rhonchi, wheezes Cardiovascular exam: PRESENT: RRR, +S1, +S2. ABSENT: diastolic murmur, rubs, systolic murmur Pulses: PRESENT: normal dorsalis pedis pul Vascular exam: PRESENT: normal capillary refill GI/Abdominal exam: PRESENT: normal bowel sounds, soft. ABSENT: distended, guarding, mass, organolmegaly, rebound, tenderness Rectal exam: PRESENT: deferred Extremities exam: PRESENT: full ROM. ABSENT: calf tenderness, clubbing, pedal edema Musculoskeletal exam: PRESENT: ambulatory - Independently, on room air, with front wheel walker Neurological exam: PRESENT: alert, awake, oriented to person, oriented to place, oriented to time, oriented to situation, CN II-XII grossly intact. ABSENT: motor sensory deficit Psychiatric exam: PRESENT: appropriate affect, normal mood. ABSENT: homicidal ideation, suicidal ideation Skin exam: PRESENT: dry, intact, warm. ABSENT: cyanosis, rash Results Laboratory Results: 12/17/18 05:25 12/17/18 05:25 12/16/18 12/17/18 12/17/18 23:21 05:25 05:25 WBC 5.6 RBC 2.82 L Hgb 8.2 L Hct 24.2 L MCV 86 MCH 29.1 MCHC 33.9 RDW 15.4 H Plt Count 185 Sodium 136.1 L 137.7 Potassium 4.0 3.8 Chloride 95 L 98 Carbon Dioxide 33 H 33 H Anion Gap 8 7 BUN 41 H 36 H Creatinine 1.33 H 1.23 Est GFR ( Amer) 46 L 50 L Est GFR (Non-Af Amer) 38 L 41 L Glucose 108 92 Calcium 8.5 8.5 Magnesium 2.2 Total Bilirubin 0.8 AST 22 ALT 32 Alkaline Phosphatase 215 H Total Protein 5.7 L Albumin 3.0 L 12/11/18 12/11/18 12/11/18 13:35 13:35 18:12 Creatine Kinase 40 39 CK-MB (CK-2) 1.86 Troponin I 0.083 NT-Pro-B Natriuret Pep 3010 H 12/11/18 12/12/18 12/12/18 18:12 00:28 00:28 Creatine Kinase 46 CK-MB (CK-2) 1.96 2.48 Troponin I 0.079 0.091 NT-Pro-B Natriuret Pep 12/12/18 12/12/18 04:57 04:57 Creatine Kinase 56 CK-MB (CK-2) 2.96 Troponin I 0.107 NT-Pro-B Natriuret Pep 3900 H Impressions: Chest X-Ray 12/11/18 13:24 IMPRESSION: NO ACUTE RADIOGRAPHIC FINDING IN THE CHEST. Cervical Spine CT 12/11/18 13:26 IMPRESSION: CHRONIC DEGENERATIVE CHANGES. NO ACUTE FINDINGS. Qualifiers - * PATIENT BEING DISCHARGED WITH ANY OF THE FOLLOWING DIAGNOSIS: No Acute Heart Failure Is this a Heart Failure Patient?: No Plan Discharge Plan: Discharge to home with home health nursing, physical therapy, and aide services. Home health nursing is asked to draw a CBC to check patient's hemoglobin on 12/19/2018 and send results to the patient's primary care provider as her follow-up with him is not scheduled until the first week of December. Review blood pressure medications at follow-up appointment with PCP. Spironolactone was discontinued, carvedilol and Lasix were decreased. Weigh daily and report any weight gain of greater than 2 pounds overnight to primary care provider right away. Drink plenty of water, ambulate as able, use daily fiber supplement and stool softener to prevent constipation. Stop your Eliquis; discuss this at your follow-up appointment with your PCP. Return to the emergency department as needed for concerning symptoms. Time Spent: Greater than 30 Minutes
== END 2018-12-17 17:45 | disposition home health service (06) | DRG 378 ==
LOC: ER 12:42 → EH 15:38 → 3N 16:48
PROVIDERS: ADMIT Internal Medicine; ATTEND Internal Medicine
PROC: 30233N1 Transfusion of Nonautologous Red Blood Cells into Peripheral Vein, Percutaneous Approach (ICD-10-PCS; 2018-12-11)
PROC: 0W3P8ZZ Control Bleeding in Gastrointestinal Tract, Via Natural or Artificial Opening Endoscopic (ICD-10-PCS; 2018-12-12)
PROC: 30233N1 Transfusion of Nonautologous Red Blood Cells into Peripheral Vein, Percutaneous Approach (ICD-10-PCS; 2018-12-12)
PROC: 0DBP8ZX Excision of Rectum, Via Natural or Artificial Opening Endoscopic, Diagnostic (ICD-10-PCS; principal; 2018-12-12 12:30)
PROC: 0W3P8ZZ Control Bleeding in Gastrointestinal Tract, Via Natural or Artificial Opening Endoscopic (ICD-10-PCS; 2018-12-12 12:30)
PROC: 30233N1 Transfusion of Nonautologous Red Blood Cells into Peripheral Vein, Percutaneous Approach (ICD-10-PCS; 2018-12-14)
DX: K92.2 Gastrointestinal hemorrhage, unspecified (principal); N17.9 Acute kidney failure, unspecified; E87.1 Hypo-osmolality and hyponatremia; D62 Acute posthemorrhagic anemia; K57.91 Diverticulosis of intestine, part unspecified, without perforation or abscess with bleeding; I95.9 Hypotension, unspecified; I11.0 Hypertensive heart disease with heart failure; I50.9 Heart failure, unspecified; J44.9 Chronic obstructive pulmonary disease, unspecified; I48.2 Chronic atrial fibrillation; E66.01 Morbid (severe) obesity due to excess calories; D64.9 Anemia, unspecified; D12.8 Benign neoplasm of rectum; Q27.33 Arteriovenous malformation of digestive system vessel; M62.81 Muscle weakness (generalized); K64.8 Other hemorrhoids; M54.2 Cervicalgia; Z95.0 Presence of cardiac pacemaker; Z88.6 Allergy status to analgesic agent; Z88.0 Allergy status to penicillin; Z79.51 Long term (current) use of inhaled steroids; Z82.49 Family history of ischemic heart disease and other diseases of the circulatory system
CPT/HCPCS: 36415; 36430; 43270; 45385; 71046; 72125; 80048; 80053; 81001; 82550; 82553; 83735; 83880; 84100; 84443; 84484; 85025; 85027; 85610; 85730; 86850; 86900; 86901; 86920; 88305; 93005; 93010; 96365; 99285; J0171; J1200; J1610; J1940; J2250; J2310; J2405; J3010; J3490; J7030; J7040; J7050; P9016; S0119; S0164

== ENCOUNTER 2019-01-25 11:44 | Emergency (ER) | payer MEDICARE, BC ==
--- NOTE | 2019-01-25 12:09 | ER Document Report ---
ED Medical Screen (RME) - General Chief Complaint: Leg Injury Stated Complaint: LEG INJURY Time Seen by Provider: 01/25/19 12:05 Primary Care Provider: MICHAEL SHOEMAKER MD [Primary Care Provider] - Follow up as needed Notes: Patient presents to the emergency department with a skin tear to her right lower leg. Reports she opened the door and now has a skin tear flap. Patient is on Eliquis. She reports it would not stop bleeding. Bandage in place. I have greeted and performed a rapid initial assessment of this patient. A comprehensive ED assessment and evaluation of the patient, analysis of test results and completion of the medical decision making process will be conducted by additional ED providers. Dictation of this chart was performed using voice recognition software; therefore, there may be some unintended grammatical errors. TRAVEL OUTSIDE OF THE [place] IN LAST 30 DAYS: No - Related Data Allergies/Adverse Reactions: codeine [Codeine] Allergy (Unknown, Verified 01/25/19 11:51) amoxicillin [Amoxicillin] Allergy (Verified 01/25/19 11:51) Past Medical History - Past Medical History Cardiac Medical History: Reports: Hx Atrial Fibrillation, Hx Congestive Heart Failure, Hx Hypertension Denies: Hx Heart Attack Pulmonary Medical History: Reports: Hx Asthma, Hx COPD Neurological Medical History: Denies: Hx Cerebrovascular Accident, Hx Seizures Renal/ Medical History: Denies: Hx Peritoneal Dialysis GI Medical History: Denies: Hx Hepatitis, Hx Hiatal Hernia, Hx Ulcer Psychiatric Medical History: Denies: Hx Depression Infectious Medical History: Denies: Hx Hepatitis Past Surgical History: Reports: Hx Cardiac Catheterization - pacemaker, Hx Cholecystectomy, Hx Pacemaker. Denies: Hx Mastectomy, Hx Open Heart Surgery - Immunizations Hx Diphtheria, Pertussis, Tetanus Vaccination: Yes Physical Exam - Vital signs Vitals: Temp Pulse Resp BP Pulse Ox 98.3 F 90 16 141/50 H 94 01/25/19 11:52 01/25/19 11:52 01/25/19 11:52 01/25/19 11:52 01/25/19 11:52 Course - Vital Signs Vital signs: Temp Pulse Resp BP Pulse Ox 98.3 F 90 16 141/50 H 94 01/25/19 11:52 01/25/19 11:52 01/25/19 11:52 01/25/19 11:52 01/25/19 11:52 Doctor's Discharge - Discharge Referrals: MICHAEL SHOEMAKER MD [Primary Care Provider] - Follow up as needed
--- NOTE | 2019-01-25 15:01 | ER Document Report ---
ED General - General Chief Complaint: Leg Injury Stated Complaint: LEG INJURY Time Seen by Provider: 01/25/19 12:05 Primary Care Provider: MICHAEL SHOEMAKER MD [EMERITUS] - 01/27/19 TRAVEL OUTSIDE OF THE [place] IN LAST 30 DAYS: No - HPI Notes: 88 year old female to the ED with C/O a skin to her right lower leg that would not stop bleeding. Patient states that she is on eliquis. States that she was opening a door, when she cut her leg. Her two sons helped to dress it with ice and towels and then call the medics. The medics then applied Coban to the towels for pressure. Patient states she takes Eliquis for Atrial Fibrillation. Denies any other injuries. She is not sure of her tetanus status. - Related Data Allergies/Adverse Reactions: codeine [Codeine] Allergy (Unknown, Verified 01/25/19 11:51) amoxicillin [Amoxicillin] Allergy (Verified 01/25/19 11:51) Past Medical History - General Information source: Patient, Relative - Social History Smoking Status: Never Smoker Frequency of alcohol use: None Drug Abuse: None Family History: Reviewed & Not Pertinent Patient has suicidal ideation: No Patient has homicidal ideation: No - Past Medical History Cardiac Medical History: Reports: Hx Atrial Fibrillation, Hx Congestive Heart Failure, Hx Hypertension Denies: Hx Heart Attack Pulmonary Medical History: Reports: Hx Asthma, Hx COPD Neurological Medical History: Denies: Hx Cerebrovascular Accident, Hx Seizures Renal/ Medical History: Denies: Hx Peritoneal Dialysis GI Medical History: Denies: Hx Hepatitis, Hx Hiatal Hernia, Hx Ulcer Psychiatric Medical History: Denies: Hx Depression Infectious Medical History: Denies: Hx Hepatitis Past Surgical History: Reports: Hx Cardiac Catheterization - pacemaker, Hx Cholecystectomy, Hx Pacemaker. Denies: Hx Mastectomy, Hx Open Heart Surgery - Immunizations Hx Diphtheria, Pertussis, Tetanus Vaccination: Yes Hx Pneumococcal Vaccination: 07/29/09 Review of Systems - Review of Systems Constitutional: denies: Chills, Fever EENT: No symptoms reported Cardiovascular: No symptoms reported Respiratory: No symptoms reported Gastrointestinal: No symptoms reported Skin: Other - skin tear to the right anterior oscar Hematologic/Lymphatic: Easy bleeding Neurological/Psychological: No symptoms reported -: Yes All other systems reviewed and negative Physical Exam - Vital signs Vitals: Temp Pulse Resp BP Pulse Ox 98.3 F 90 16 141/50 H 94 01/25/19 11:52 01/25/19 11:52 01/25/19 11:52 01/25/19 11:52 01/25/19 11:52 Interpretation: Hypertensive - General General appearance: Appears well, Alert - Respiratory Respiratory status: No respiratory distress Chest status: Nontender Breath sounds: Normal Chest palpation: Normal - Cardiovascular Rhythm: Regular Heart sounds: Normal auscultation Murmur: No - Back Back: Normal, Nontender - Skin Skin Temperature: Warm Skin Moisture: Dry Skin irregularity: Laceration - to the right anterior lower leg there is a skin tear. There is no active bleeding when I remove the bandage from sons and EMS. Noted that there is some skin that needs debridement from the skin tear. Debrided skin without further bleeding. Course - Vital Signs Vital signs: Temp Pulse Resp BP Pulse Ox 97.5 F 86 16 145/53 H 97 01/25/19 15:48 01/25/19 15:48 01/25/19 15:48 01/25/19 15:48 01/25/19 15:48 - Transfer of Care Notes: 01/25/19 Impression: Skin tear, tetanus booster, bleeding wound -- on Eliquis. She had pretty good hemostasis here, but did apply quick clot to her leg to aid in the hemostasis. She did not have any further bleeding after dressing. Advised sons to not remove dressing for 24 hours and to carefully remove tomorrow. Return if it continues to bleed and they cannot control it. Will place on Keflex prophylactically. Patient and family agree with the plan. Discharge - Discharge Clinical Impression: Skin tear, Pain in right lower leg, Need for tetanus booster Disposition: HOME, SELF-CARE Instructions: Skin Tear (OM) Additional Instructions: KEEP WOUND CLEAN AND DRY. DO NOT CHANGE DRESSING FOR 24 HOURS. THEN CAREFULLY REMOVE-- WET DRESSING SLIGHTLY YOUR REMOVE IT. KEEP LEG ELEVATED. KEEP WOUND DRESSED FOR THE NEXT 5 DAYS. MAY CLEAN DAILY WITH WARM SOAPY WATER, THEN PAT DRY, AND REDRESS. REDRESS WITH NONADHESIVE DRESSING. FOLLOW UP WITH PRIMARY CARE IN 2 DAYS FOR A WOUND CHECK. RETURN IF WORSENING BLEEDING. COMPLETE YOUR ANTIBIOTICS. Prescriptions: Doxycycline Hyclate 100 mg PO BID #10 capsule Referrals: MICHAEL SHOEMAKER MD [EMERITUS] - 01/27/19
[2019-01-25] MEDS ORDERED: DIPH/PERTUSS(ACELL)/TETANUS VAC/PF 0.5 ML SYR (>=10YO) IM ONE (15:33)
[2019-01-25] MEDS ORDERED: ACETAMINOPHEN 325 MG TABLET PO ONE (15:33)
[2019-01-25 15:58] VITALS: BP 145/53
== END 2019-01-25 16:01 | disposition home or self-care (01) ==
LOC: ER 11:44
DX: S81.811A Laceration without foreign body, right lower leg, initial encounter (principal); W22.8XXA Striking against or struck by other objects, initial encounter; Z23 Encounter for immunization; I10 Essential (primary) hypertension; J44.9 Chronic obstructive pulmonary disease, unspecified; I48.91 Unspecified atrial fibrillation; Z79.02 Long term (current) use of antithrombotics/antiplatelets; Z88.5 Allergy status to narcotic agent; Z88.0 Allergy status to penicillin
CPT/HCPCS: 99283; 90471; 36415; 80048; 83880; 90715; A9270

== ENCOUNTER → 2019-01-25 | Outpatient (CLI) | payer MEDICARE, BC ==
[2019-01-25 17:08] LABS: ANION GAP 9 (5-19); BLOOD UREA NITROGEN 21 mg/dL (7-20); CALCIUM 9.6 mg/dL (8.4-10.2); CARBON DIOXIDE 29 mmol/L (22-30); CHLORIDE 99 mmol/L (98-107); GLUCOSE 95 mg/dL (75-110); POTASSIUM 4.2 mmol/L (3.6-5.0); SODIUM 136.7 mmol/L (137-145)
== END ==
LOC: LAB 16:30
PROVIDERS: ATTEND Physician Assistant
DX: I50.22 Chronic systolic (congestive) heart failure (principal); R06.00 Dyspnea, unspecified; I48.0 Paroxysmal atrial fibrillation
CPT/HCPCS: 36415; 80048; 83880

== ENCOUNTER → 2019-02-03 | Outpatient (CLI) | payer MEDICARE, BC ==
[2019-02-03 11:29] LABS: ANION GAP 8 (5-19); BLOOD UREA NITROGEN 30 mg/dL (7-20); CALCIUM 9.2 mg/dL (8.4-10.2); CARBON DIOXIDE 32 mmol/L (22-30); CHLORIDE 98 mmol/L (98-107); GLUCOSE 111 mg/dL (75-110); POTASSIUM 3.9 mmol/L (3.6-5.0); SODIUM 137.8 mmol/L (137-145)
== END ==
LOC: LAB 10:34
PROVIDERS: ATTEND Internal Medicine Cardiovascular Disease
DX: I50.22 Chronic systolic (congestive) heart failure (principal); Z79.01 Long term (current) use of anticoagulants
CPT/HCPCS: 36415; 80048; 83880

== ENCOUNTER → 2019-02-09 | Outpatient (CLI) | payer MEDICARE, BC ==
[2019-02-09 13:09] LABS: HEMATOCRIT 28.4 % (36.0-47.0); HEMOGLOBIN 9.4 g/dL (12.0-15.5); MEAN CORPUSCULAR HEMOGLOBIN 28.5 pg (27.0-33.4); MEAN CORPUSCULAR HGB CONC 33.3 g/dL (32.0-36.0); MEAN CORPUSCULAR VOLUME 86 fl (80-97); PLATELET COUNT 226 10^3/uL (150-450); RED BLOOD COUNT 3.31 10^6/uL (3.72-5.28); RED CELL DISTRIBUTION WIDTH 16.3 % (11.5-14.0); WHITE BLOOD COUNT 6.3 10^3/uL (4.0-10.5)
[2019-02-09 13:14] LABS: APPEARANCE,URINE CLEAR; BILIRUBIN,URINE NEGATIVE (NEGATIVE); COLOR,URINE STRAW; GLUCOSE, URINE NEGATIVE (NEGATIVE); KETONES,URINE NEGATIVE (NEGATIVE); LEUKOCYTE ESTERASE,URINE NEGATIVE (NEGATIVE); NITRITE,URINE NEGATIVE (NEGATIVE); PROTEIN,URINE NEGATIVE (NEGATIVE); URINE SPECIFIC GRAVITY 1.004; UROBILINOGEN,URINE NEGATIVE mg/dL (<2.0)
[2019-02-09 13:33] LABS: ALANINE AMINOTRANSFERASE 16 U/L (9-52); ALBUMIN 3.7 g/dL (3.5-5.0); ALKALINE PHOSPHATASE 194 U/L (38-126); ANION GAP 11 (5-19); ASPARTATE AMINO TRANSFERASE 28 U/L (14-36); BILIRUBIN,DIRECT 0.5 mg/dL (0.0-0.4); BILIRUBIN,TOTAL 0.9 mg/dL (0.2-1.3); BLOOD UREA NITROGEN 24 mg/dL (7-20); CALCIUM 9.3 mg/dL (8.4-10.2); CARBON DIOXIDE 32 mmol/L (22-30); CHLORIDE 93 mmol/L (98-107); GLUCOSE 98 mg/dL (75-110); SODIUM 135.7 mmol/L (137-145); TOTAL PROTEIN 6.9 g/dL (6.3-8.2)
== END ==
LOC: LAB 12:44
PROVIDERS: ATTEND Internal Medicine Cardiovascular Disease
DX: I48.0 Paroxysmal atrial fibrillation (principal); R06.00 Dyspnea, unspecified; I50.22 Chronic systolic (congestive) heart failure; Z79.01 Long term (current) use of anticoagulants
CPT/HCPCS: 36415; 80048; 80076; 81001; 82272; 83880; 85027; 85730

== ENCOUNTER → 2019-03-03 | Outpatient (CLI) | payer MEDICARE, BC ==
[2019-03-03 10:44] LABS: ALBUMIN 3.9 g/dL (3.5-5.0); ALKALINE PHOSPHATASE 185 U/L (38-126); ANION GAP 10 (5-19); ASPARTATE AMINO TRANSFERASE 30 U/L (14-36); BILIRUBIN,DIRECT 0.3 mg/dL (0.0-0.4); BILIRUBIN,TOTAL 0.9 mg/dL (0.2-1.3); BLOOD UREA NITROGEN 25 mg/dL (7-20); CALCIUM 9.4 mg/dL (8.4-10.2); CARBON DIOXIDE 32 mmol/L (22-30); CHLORIDE 94 mmol/L (98-107); GLUCOSE 99 mg/dL (75-110); POTASSIUM 3.8 mmol/L (3.6-5.0); TOTAL PROTEIN 6.9 g/dL (6.3-8.2)
== END ==
LOC: LAB 09:55
PROVIDERS: ATTEND Internal Medicine Cardiovascular Disease
DX: I50.22 Chronic systolic (congestive) heart failure (principal); R06.00 Dyspnea, unspecified; I48.0 Paroxysmal atrial fibrillation; R94.5 Abnormal results of liver function studies
CPT/HCPCS: 36415; 80048; 80076; 83880

== ENCOUNTER → 2019-03-31 | Outpatient (CLI) | payer MEDICARE, BC ==
[2019-03-31 12:52] LABS: ANION GAP 8 (5-19); BLOOD UREA NITROGEN 30 mg/dL (7-20); CALCIUM 9.4 mg/dL (8.4-10.2); CARBON DIOXIDE 31 mmol/L (22-30); CHLORIDE 98 mmol/L (98-107); GLUCOSE 104 mg/dL (75-110)
== END ==
LOC: LAB 11:41
PROVIDERS: ATTEND Internal Medicine Cardiovascular Disease
DX: I50.22 Chronic systolic (congestive) heart failure (principal); R06.02 Shortness of breath; I48.0 Paroxysmal atrial fibrillation
CPT/HCPCS: 36415; 80048; 83880

== ENCOUNTER → 2019-05-04 | Outpatient (CLI) | payer MEDICARE, BC ==
[2019-05-04 11:07] LABS: APPEARANCE,URINE CLEAR; BILIRUBIN,URINE NEGATIVE (NEGATIVE); COLOR,URINE YELLOW; GLUCOSE, URINE NEGATIVE (NEGATIVE); KETONES,URINE NEGATIVE (NEGATIVE); LEUKOCYTE ESTERASE,URINE NEGATIVE (NEGATIVE); NITRITE,URINE NEGATIVE (NEGATIVE); PROTEIN,URINE NEGATIVE (NEGATIVE); URINE SPECIFIC GRAVITY 1.013; UROBILINOGEN,URINE NEGATIVE mg/dL (<2.0)
[2019-05-04 11:19] LABS: HEMATOCRIT 27.3 % (36.0-47.0); HEMOGLOBIN 9.2 g/dL (12.0-15.5); MEAN CORPUSCULAR HEMOGLOBIN 29.3 pg (27.0-33.4); MEAN CORPUSCULAR HGB CONC 33.6 g/dL (32.0-36.0); MEAN CORPUSCULAR VOLUME 87 fl (80-97); PLATELET COUNT 198 10^3/uL (150-450); RED BLOOD COUNT 3.13 10^6/uL (3.72-5.28); RED CELL DISTRIBUTION WIDTH 16.1 % (11.5-14.0); WHITE BLOOD COUNT 3.6 10^3/uL (4.0-10.5)
[2019-05-04 12:08] LABS: ALBUMIN 3.6 g/dL (3.5-5.0); ALKALINE PHOSPHATASE 184 U/L (38-126); ANION GAP 9 (5-19); ASPARTATE AMINO TRANSFERASE 27 U/L (14-36); BILIRUBIN,DIRECT 0.3 mg/dL (0.0-0.4); BILIRUBIN,TOTAL 0.7 mg/dL (0.2-1.3); BLOOD UREA NITROGEN 25 mg/dL (7-20); CALCIUM 9.2 mg/dL (8.4-10.2); CARBON DIOXIDE 32 mmol/L (22-30); CHLORIDE 96 mmol/L (98-107); GLUCOSE 96 mg/dL (75-110); POTASSIUM 3.7 mmol/L (3.6-5.0); TOTAL PROTEIN 6.8 g/dL (6.3-8.2)
== END ==
LOC: LAB 10:29
PROVIDERS: ATTEND Internal Medicine Cardiovascular Disease
DX: I50.22 Chronic systolic (congestive) heart failure (principal); R06.00 Dyspnea, unspecified; I48.0 Paroxysmal atrial fibrillation; Z79.01 Long term (current) use of anticoagulants
CPT/HCPCS: 36415; 80048; 80076; 81001; 82272; 85027; 85730

== ENCOUNTER → 2019-06-08 | Outpatient (CLI) | payer MEDICARE, BC ==
[2019-06-08 12:18] LABS: APPEARANCE,URINE CLEAR; BILIRUBIN,URINE NEGATIVE (NEGATIVE); COLOR,URINE YELLOW; GLUCOSE, URINE NEGATIVE (NEGATIVE); KETONES,URINE NEGATIVE (NEGATIVE); LEUKOCYTE ESTERASE,URINE NEGATIVE (NEGATIVE); NITRITE,URINE NEGATIVE (NEGATIVE); PROTEIN,URINE NEGATIVE (NEGATIVE); URINE SPECIFIC GRAVITY 1.012; UROBILINOGEN,URINE NEGATIVE mg/dL (<2.0)
[2019-06-08 12:28] LABS: HEMATOCRIT 23.7 % (36.0-47.0); HEMOGLOBIN 8.1 g/dL (12.0-15.5); MEAN CORPUSCULAR HGB CONC 34.2 g/dL (32.0-36.0); MEAN CORPUSCULAR VOLUME 88 fl (80-97); PLATELET COUNT 219 10^3/uL (150-450); RED CELL DISTRIBUTION WIDTH 15.5 % (11.5-14.0); WHITE BLOOD COUNT 4.3 10^3/uL (4.0-10.5)
== END ==
LOC: LAB 11:42
PROVIDERS: ATTEND Internal Medicine Cardiovascular Disease
DX: I48.0 Paroxysmal atrial fibrillation (principal); D64.9 Anemia, unspecified; Z79.01 Long term (current) use of anticoagulants
CPT/HCPCS: 36415; 81001; 82272; 85027

== ENCOUNTER 2019-06-11 11:29 | Day surgery (SDC) | payer MEDICARE, BC ==
[2019-06-11] MEDS ORDERED: PROPOFOL INJ 200 MG/20 ML VIAL IV ONE (13:54)
--- NOTE | 2019-06-11 14:55 | Operative Report ---
Operative Report DATE OF SURGERY: 06/11/19 Operative Report: The risks benefits and alternatives of the procedure explained to the patient in detail and informed consent is obtained.A GIF Olympus video scope was inserted into the patient's mouth and hypopharynx, the esophagus is identified intubated and insufflated ,the scope was then advanced through the esophagus stomach and duodenum, retroflexion maneuver is done, the esophagus stomach and first and second portions of the duodenum examined. PREOPERATIVE DIAGNOSIS: Heme positive stool previous history of AVMs POSTOPERATIVE DIAGNOSIS: Gastric AVMs with covering of heme, duodenal AVMs. These were prophylactically ablated OPERATION: EGD with ablation SURGEON: TROY FELIPE ANESTHESIA: LMAC TISSUE REMOVED OR ALTERED: None. COMPLICATIONS: None. ESTIMATED BLOOD LOSS: As noted above. INTRAOPERATIVE FINDINGS: As noted above. PROCEDURE: Patient tolerated the procedure well. No immediate postprocedure complications are noted. Patient is discharged in good condition. Discharge date 06/11/2019. Discharge diet: Regular. Discharge activity: Regular. 2 to 3-week follow-up to discuss findings. Patient is instructed to call the office or proceed to the emergency room should there be any further problems or questions. Wait on the pathology.
[2019-06-11 16:41] VITALS: BP 116/65
== END 2019-06-11 16:00 | disposition home or self-care (01) ==
LOC: OROUT 11:29
PROVIDERS: ATTEND Internal Medicine Gastroenterology
DX: Q27.33 Arteriovenous malformation of digestive system vessel (principal); K55.21 Angiodysplasia of colon with hemorrhage; G47.33 Obstructive sleep apnea (adult) (pediatric); J44.9 Chronic obstructive pulmonary disease, unspecified; D64.9 Anemia, unspecified; I50.9 Heart failure, unspecified; Z95.0 Presence of cardiac pacemaker
CPT/HCPCS: 43255; 36415; 84132; 00731; J2704; 731

== ENCOUNTER → 2019-06-22 | Outpatient (CLI) | payer MEDICARE, BC | LOC: LAB 09:42 | PROVIDERS: ATTEND Internal Medicine Cardiovascular Disease | DX: I48.0 Paroxysmal atrial fibrillation (principal); R06.00 Dyspnea, unspecified; I50.22 Chronic systolic (congestive) heart failure; Z79.01 Long term (current) use of anticoagulants | CPT/HCPCS: 36415; 83880 ==

== ENCOUNTER → 2019-08-04 | Outpatient (CLI) | payer MEDICARE, BC ==
[2019-08-04 12:13] LABS: HEMATOCRIT 23.8 % (36.0-47.0); HEMOGLOBIN 8.1 g/dL (12.0-15.5); MEAN CORPUSCULAR HEMOGLOBIN 31.9 pg (27.0-33.4); MEAN CORPUSCULAR VOLUME 94 fl (80-97); PLATELET COUNT 143 10^3/uL (150-450); RED BLOOD COUNT 2.54 10^6/uL (3.72-5.28); RED CELL DISTRIBUTION WIDTH 19.8 % (11.5-14.0); WHITE BLOOD COUNT 3.8 10^3/uL (4.0-10.5)
[2019-08-04 12:15] LABS: APPEARANCE,URINE CLEAR; BILIRUBIN,URINE NEGATIVE (NEGATIVE); COLOR,URINE STRAW; GLUCOSE, URINE NEGATIVE (NEGATIVE); KETONES,URINE NEGATIVE (NEGATIVE); LEUKOCYTE ESTERASE,URINE NEGATIVE (NEGATIVE); NITRITE,URINE NEGATIVE (NEGATIVE); PROTEIN,URINE NEGATIVE (NEGATIVE); URINE SPECIFIC GRAVITY 1.012; UROBILINOGEN,URINE NEGATIVE mg/dL (<2.0)
[2019-08-04 12:36] LABS: ALBUMIN 3.6 g/dL (3.5-5.0); ALKALINE PHOSPHATASE 153 U/L (38-126); ANION GAP 9 (5-19); ASPARTATE AMINO TRANSFERASE 30 U/L (14-36); BILIRUBIN,DIRECT 0.4 mg/dL (0.0-0.4); BILIRUBIN,TOTAL 0.7 mg/dL (0.2-1.3); BLOOD UREA NITROGEN 55 mg/dL (7-20); CALCIUM 9.7 mg/dL (8.4-10.2); CARBON DIOXIDE 33 mmol/L (22-30); CHLORIDE 97 mmol/L (98-107); GLUCOSE 109 mg/dL (75-110); POTASSIUM 4.6 mmol/L (3.6-5.0); TOTAL PROTEIN 6.9 g/dL (6.3-8.2)
== END ==
LOC: LAB 11:06
PROVIDERS: ATTEND Internal Medicine Cardiovascular Disease
DX: I50.22 Chronic systolic (congestive) heart failure (principal); R06.00 Dyspnea, unspecified; I48.0 Paroxysmal atrial fibrillation; Z79.01 Long term (current) use of anticoagulants
CPT/HCPCS: 36415; 80048; 80076; 81001; 82272; 83880; 85027; 85730

== ENCOUNTER 2019-08-07 09:05 | Day surgery (SDC) | payer MEDICARE, BC ==
[~2019-08-07 09:05] MED LIST: PROPOFOL INJ 200 MG/20 ML VIAL IV ONE
[2019-08-07 11:02] VITALS: BP 104/55
--- NOTE | 2019-08-07 12:47 | Operative Report ---
Operative Report DATE OF SURGERY: 08/07/19 Operative Report: The risks benefits and alternatives of the procedure explained to the patient in detail and informed consent is obtained.A GIF Olympus video scope was inserted into the patient's mouth and hypopharynx, the esophagus is identified intubated and insufflated, the scope was then advanced through the esophagus stomach and duodenum, retroflexion maneuver is done ,the esophagus stomach and first and second portions of the duodenum examined PREOPERATIVE DIAGNOSIS: Melena possible AVM POSTOPERATIVE DIAGNOSIS: Gastric AVM status post ablation OPERATION: EGD with ablation SURGEON: TROY FELIPE ANESTHESIA: LMAC TISSUE REMOVED OR ALTERED: None. COMPLICATIONS: None. ESTIMATED BLOOD LOSS: None. INTRAOPERATIVE FINDINGS: As noted above. PROCEDURE: Patient tolerated the procedure well. No immediate postprocedure complications are noted. Patient is discharged in good condition. Discharge date 08/07/2019. Discharge diet: Regular. Discharge activity: Regular. 2 to 3-week follow-up to discuss findings. Patient is instructed to call the office or proceed to the emergency room should there be any further problems or questions.
== END 2019-08-07 10:53 | disposition home or self-care (01) ==
LOC: END 09:05
PROVIDERS: ATTEND Internal Medicine Gastroenterology
DX: Q27.33 Arteriovenous malformation of digestive system vessel (principal); K92.1 Melena; J44.9 Chronic obstructive pulmonary disease, unspecified; Z95.0 Presence of cardiac pacemaker; M06.9 Rheumatoid arthritis, unspecified; I48.91 Unspecified atrial fibrillation; Z88.5 Allergy status to narcotic agent; Z88.0 Allergy status to penicillin; I11.9 Hypertensive heart disease without heart failure; E78.00 Pure hypercholesterolemia, unspecified; Z79.899 Other long term (current) drug therapy; Z79.01 Long term (current) use of anticoagulants
CPT/HCPCS: 43255; 00731; J2704; 731

== ENCOUNTER 2019-08-20 11:44 | Inpatient (IN) | payer MEDICARE, BC ==
--- NOTE | 2019-08-20 12:21 | ER Document Report ---
ED Medical Screen (RME) - General Chief Complaint: Leg Swelling Stated Complaint: ABDOMINAL PAIN Time Seen by Provider: 08/20/19 12:12 Primary Care Provider: MICHAEL SHOEMAKER MD [Primary Care Provider] - Follow up as needed Mode of Arrival: Ambulatory Information source: Patient Notes: 89-year-old female patient presenting from Dr. Dougherty's office with complaints of fluid overload. Patient reports she was in [facility] approximately discharged 4 days ago and they stopped her Lasix. Patient states she used to take Lasix 40 mg daily, since then she has had increased work of breathing, increased shortness of breath and fluid overload. Exam: Crackles noted bilaterally, no hypoxia noted, patient speaking in full complete sentences. Edema noted to bilateral lower extremities. I have greeted and performed a rapid initial assessment of this patient. A comprehensive ED assessment and evaluation of the patient, analysis of test results and completion of the medical decision making process will be conducted by additional ED providers. I have specifically instructed the patient or family members with the patient to immediately return to any nursing staff should anything change in the patient's condition or with their chief complaint. TRAVEL OUTSIDE OF THE [place] IN LAST 30 DAYS: No - Related Data Allergies/Adverse Reactions: codeine [Codeine] Allergy (Unknown, Verified 01/25/19 11:51) amoxicillin [Amoxicillin] Allergy (Verified 01/25/19 11:51) Past Medical History - Social History Frequency of alcohol use: None Drug Abuse: None - Past Medical History Cardiac Medical History: Reports: Hx Atrial Fibrillation, Hx Congestive Heart Failure, Hx Hypertension Denies: Hx Heart Attack Pulmonary Medical History: Reports: Hx Asthma, Hx COPD, Hx Pneumonia Denies: Hx Bronchitis Neurological Medical History: Denies: Hx Cerebrovascular Accident, Hx Seizures Renal/ Medical History: Denies: Hx Peritoneal Dialysis GI Medical History: Denies: Hx Hepatitis, Hx Hiatal Hernia, Hx Ulcer Musculoskeltal Medical History: Denies Hx Arthritis Psychiatric Medical History: Denies: Hx Depression Infectious Medical History: Denies: Hx Hepatitis Past Surgical History: Reports: Hx Cardiac Catheterization - pacemaker, Hx Cholecystectomy, Hx Pacemaker. Denies: Hx Mastectomy, Hx Open Heart Surgery - Immunizations Hx Diphtheria, Pertussis, Tetanus Vaccination: Yes Physical Exam - Vital signs Vitals: Pulse Resp BP Pulse Ox 65 18 97/62 L 98 08/20/19 12:11 08/20/19 12:11 08/20/19 12:11 08/20/19 12:11 Course - Vital Signs Vital signs: Temp Pulse Resp BP Pulse Ox 65 18 97/62 L 98 08/20/19 12:11 08/20/19 12:11 08/20/19 12:11 08/20/19 12:11 Doctor's Discharge - Discharge Referrals: MICHAEL SHOEMAKER MD [Primary Care Provider] - Follow up as needed
--- NOTE | 2019-08-20 12:48 | EKG REPORT ---
SEVERITY:- ABNORMAL ECG - A-V DUAL-PACED COMPLEXES W/ SOME INHIBITION : Confirmed by: Kanu Webster MD 20-Aug-2019 12:48:00
--- NOTE | 2019-08-20 13:06 | RADIOLOGY REPORT (SQ) ---
EXAM DESCRIPTION: CHEST SINGLE VIEW COMPLETED DATE/TIME: 08/20/2019 12:57 pm REASON FOR STUDY: shortness of breath COMPARISON: 12/11/2018. EXAM PARAMETERS: NUMBER OF VIEWS: One view. TECHNIQUE: Single frontal radiographic view of the chest acquired. RADIATION DOSE: NA LIMITATIONS: None. FINDINGS: LUNGS AND PLEURA: Chronic interstitial changes. Patchy parenchymal density in the right l isidro base with right pleural effusion. MEDIASTINUM AND HILAR STRUCTURES: No masses. Contour normal. HEART AND VASCULAR STRUCTURES: Stable mild cardiomegaly. BONES: No acute findings. HARDWARE: Pacemaker. OTHER: No other significant finding. IMPRESSION: ATELECTASIS VERSUS INFILTRATE IN THE RIGHT LUNG BASE WITH SMALL RIGHT PLEURAL EFFUSION. TECHNICAL DOCUMENTATION: JOB ID: [id number] [employer]- All Rights Reserved Reading location - IP/workstation name: [email or web address]
[2019-08-20 13:55] LABS: ABSOLUTE EOSINOPHILS # (AUTO) 0.1 10^3/uL (0.0-0.6); ABSOLUTE LYMPHOCYTES (AUTO) 0.4 10^3/uL (0.5-4.7); ABSOLUTE MONOCYTES (AUTO) 0.4 10^3/uL (0.1-1.4); ABSOLUTE NEUT (AUTO) 2.3 10^3/uL (1.7-8.2); BASOPHILS % (AUTO) 0.5 % (0-2); EOSINOPHILS % (AUTO) 3.7 % (0-6); HEMATOCRIT 26.8 % (36.0-47.0); LYMPHOCYTES % (AUTO) 11.2 % (13-45); MEAN CORPUSCULAR HEMOGLOBIN 32.4 pg (27.0-33.4); MEAN CORPUSCULAR HGB CONC 33.7 g/dL (32.0-36.0); MEAN CORPUSCULAR VOLUME 96 fl (80-97); PLATELET COUNT 163 10^3/uL (150-450); RED BLOOD COUNT 2.78 10^6/uL (3.72-5.28); RED CELL DISTRIBUTION WIDTH 18.4 % (11.5-14.0); SEGMENTED NEUTROPHILS % (AUTO) 71.6 % (42-78); TOTAL CELLS COUNTED % (AUTO) 100 %; WHITE BLOOD COUNT 3.3 10^3/uL (4.0-10.5)
[2019-08-20] MEDS ORDERED: FUROSEMIDE INJ/PF 20 MG/2 ML SDV IV ONE (14:07)
[2019-08-20 14:21] LABS: ALBUMIN 3.3 g/dL (3.5-5.0); ALKALINE PHOSPHATASE 205 U/L (38-126); ANION GAP 8 (5-19); ASPARTATE AMINO TRANSFERASE 28 U/L (14-36); BILIRUBIN,DIRECT 0.5 mg/dL (0.0-0.4); BILIRUBIN,TOTAL 0.8 mg/dL (0.2-1.3); BLOOD UREA NITROGEN 28 mg/dL (7-20); CALCIUM 9.1 mg/dL (8.4-10.2); CARBON DIOXIDE 29 mmol/L (22-30); CHLORIDE 98 mmol/L (98-107); GLUCOSE 89 mg/dL (75-110); POTASSIUM 4.6 mmol/L (3.6-5.0); TOTAL PROTEIN 6.2 g/dL (6.3-8.2)
[2019-08-20 14:39] LABS: TROPONIN I 0.078 ng/mL
--- NOTE | 2019-08-20 15:32 | ER Document Report ---
ED General - General Chief Complaint: Leg Swelling Stated Complaint: ABDOMINAL PAIN Time Seen by Provider: 08/20/19 12:12 Primary Care Provider: MICHAEL SHOEMAKER MD [EMERITUS] - Follow up as needed Mode of Arrival: Ambulatory Notes: 89-year-old female with history of CHF presents from Dr. Shoemaker's office for CHF exacerbation. Patient states she has been having lower extremity swelling and shortness of breath for the past week. Patient states she was admitted to [place] for GI bleed requiring blood transfusion and discharged approximately 4 to 5 days ago. Patient states she was taken off her Lasix. Patient son reports that she was also on Eliquis and was recently taken off of that due to the GI bleed. Patient states that Dr. Smyth [facility], was able to cauterize stomach ulcers. Patient states she is also had a cough which has been improving. Patient denies any fever, nausea, vomiting, blood in her stool. TRAVEL OUTSIDE OF THE [place] IN LAST 30 DAYS: No - Related Data Allergies/Adverse Reactions: codeine [Codeine] Allergy (Unknown, Verified 08/20/19 14:19) amoxicillin [Amoxicillin] Allergy (Verified 08/20/19 14:19) Past Medical History - General Information source: Patient - Social History Smoking Status: Unknown if Ever Smoked Frequency of alcohol use: None Drug Abuse: None Family History: Reviewed & Not Pertinent Patient has suicidal ideation: No Patient has homicidal ideation: No - Past Medical History Cardiac Medical History: Reports: Hx Atrial Fibrillation, Hx Congestive Heart Failure, Hx Hypertension Denies: Hx Heart Attack Pulmonary Medical History: Reports: Hx Asthma, Hx COPD, Hx Pneumonia Denies: Hx Bronchitis Neurological Medical History: Denies: Hx Cerebrovascular Accident, Hx Seizures Renal/ Medical History: Denies: Hx Peritoneal Dialysis GI Medical History: Reports: Hx Gastroesophageal Reflux Disease. Denies: Hx Hepatitis, Hx Hiatal Hernia, Hx Ulcer Musculoskeletal Medical History: Denies Hx Arthritis Psychiatric Medical History: Denies: Hx Depression Infectious Medical History: Denies: Hx Hepatitis Past Surgical History: Reports: Hx Cardiac Catheterization - pacemaker, Hx Cholecystectomy, Hx Pacemaker. Denies: Hx Mastectomy, Hx Open Heart Surgery - Immunizations Hx Diphtheria, Pertussis, Tetanus Vaccination: Yes Hx Pneumococcal Vaccination: 07/29/09 Review of Systems - Review of Systems Notes: Constitutional: Negative for fever. HENT: Negative for sore throat. Eyes: Negative for visual changes. Cardiovascular: Negative for chest pain. Respiratory: Positive for shortness of breath and coughing. Gastrointestinal: Negative for abdominal pain, vomiting or diarrhea. Genitourinary: Negative for dysuria. Musculoskeletal: Positive for lower extremity swelling. Negative for back pain. Skin: Negative for rash. Neurological: Negative for headaches, weakness or numbness. 10 point ROS negative except as marked above and in HPI. Physical Exam - Vital signs Vitals: Pulse Resp BP Pulse Ox 65 18 97/62 L 98 08/20/19 12:11 08/20/19 12:11 08/20/19 12:11 08/20/19 12:11 - Notes Notes: GENERAL: Well-appearing, well-nourished and in no acute distress. HEAD: Atraumatic, normocephalic. EYES: Extraocular movements intact, sclera anicteric, conjunctiva are normal. NECK: Normal range of motion, supple without lymphadenopathy or JVD. LUNGS: Crackles lower lobes. No accessory muscle use. No tripoding. HEART: Regular rate and rhythm without murmurs, rubs or gallops. ABDOMEN: Soft, nontender, normoactive bowel sounds. No guarding, no rebound. No masses appreciated. EXTREMITIES: 3+ pitting edema bilateral LE. NEUROLOGICAL: Cranial nerves II through XII grossly intact. Normal speech, normal gait. PSYCH: Normal mood, normal affect. SKIN: Warm, Dry, normal turgor, no rashes or lesions noted. Course - Re-evaluation Re-evalutation: 08/20/19 15:32 Concerning for CHF exacerbation - 3+ pitting edema BLE extremities, crackles to lower lobes. CXR shows possible infiltrate/atelectasis to right lower lobe. BNP is elevated. Lasix ordered. 08/20/19 16:[address] Foster who accepted pt for admission. States to hold off on antibiotics until after seen by him. Requests tele bed. - Vital Signs Vital signs: Temp Pulse Resp BP Pulse Ox 65 23 H 107/52 L 99 08/20/19 12:11 08/20/19 15:01 08/20/19 15:01 08/20/19 15:01 - Laboratory Result Diagrams: 08/20/19 13:40 08/20/19 13:40 Laboratory results interpreted by me: 08/20/19 08/20/19 08/20/19 13:40 13:40 13:40 WBC 3.3 L RBC 2.78 L Hgb 9.0 L Hct 26.8 L RDW 18.4 H Lymph % (Auto) 11.2 L Absolute Lymphs (auto) 0.4 L Sodium 134.7 L BUN 28 H Est GFR ( Amer) 51 L Est GFR (MDRD) Non-Af 42 L Direct Bilirubin 0.5 H Alkaline Phosphatase 205 H NT-Pro-B Natriuret Pep 2720 H Total Protein 6.2 L Albumin 3.3 L Discharge - Discharge Clinical Impression: Acute exacerbation of CHF (congestive heart failure) Qualifiers: Heart failure type: unspecified Qualified Code(s): I50.9 - Heart failure, unspecified Condition: Good Disposition: ADMITTED INPATIENT Admitting Provider: Cristian (Hospitalist) Unit Admitted: Telemetry Referrals: MICHAEL SHOEMAKER MD [EMERITUS] - Follow up as needed
[2019-08-20] MEDS ORDERED: ONDANSETRON 4 MG TAB.RAPDIS PO PRN (17:35)
[2019-08-20] MEDS ORDERED: MAGNESIUM HYDROXIDE SUSP 30 ML UDCUP PO PRN (17:35)
[2019-08-20] MEDS ORDERED: MAG HYDROX/AL HYDROX/SIMETH SUSP 30 ML UDCUP PO PRN (17:35)
[2019-08-20] MEDS ORDERED: NITROGLYCERIN 0.4 MG/TAB 25 TAB/BOTTLE SL PRN (17:54)
--- NOTE | 2019-08-20 18:08 | PDOC H&P ---
History of Present Illness Admission Date/PCP: 08/20/19 16:26 JULIET FRANCES PA-C Patient complains of: Increased leg swelling and increased shortness of breath History of Present Illness: CHERIE ACE is a 89 year old female who was recently admitted to [facility] as well as [facility]. She has been getting ablations for multiple AVM's and she was just discharged from [facility] on Saturday where to ulcers were diagnosed. She states that since she has been out of [facility] she was told to hold her furosemide. She is not sure why. She has noticed increased leg swelling and fatigue as well as increasing shortness of b reath. She also reports that she will occasionally feel dizzy. She has not had a productive cough. She does not complain of fever or chills. She is not on oxygen at home but does utilize CPAP. She exhibits leukopenia and anemia as well as chronic kidney disease. She has an elevated BNP and was referred to the hospital service for admission Past Medical History Cardiac Medical History: Reports: Atrial Fibrillation, Congestive Heart Failure, Hypertension Denies: Myocardial Infarction Pulmonary Medical History: Reports: Asthma, Chronic Obstructive Pulmonary Disease (COPD), Pneumonia Denies: Bronchitis EENT Medical History: Reports: Eyes - Laser surgery Denies: Ears, Nose, Throat Neurological Medical History: Denies: Ischemic CVA, Seizures Endocrine Medical History: Denies: Diabetes Mellitus Type 2 Renal/ Medical History: Reports: Chronic Kidney Disease GI Medical History: Reports: Gastroesophageal Reflux Disease, Peptic Ulcer Disease, Other - Atrial venous malformations Denies: Hepatitis, Hiatal Hernia Musculoskeltal Medical History: Reports: Arthritis Psychiatric Medical History: Denies: Alcohol Dependency, Depression, Substance Abuse, Tobacco Dependency Hematology: Reports: Anemia Denies: Sickle Cell Disease Past Surgical History Past Surgical History: Reports: Cardiac Catheterization - pacemaker, Cholecystectomy, Herniorrhaphy, Pacemaker Denies: Amputation, Mastectomy Social History Information Source: Patient, DrAnna Marie Office, [facility] Records Lives with: Family Smoking Status: Never Smoker Electronic Cigarette use?: No Frequency of Alcohol Use: None Hx Recreational Drug Use: No Hx Prescription Drug Abuse: No - Advance Directive Resuscitation Status: Full Code Surrogate healthcare decision maker:: Patient is currently deferring to her 3 children. Family History Family History: CAD, Hypertension, Other - CHF Parental Family History Reviewed: Yes Children Family History Reviewed: Yes Sibling(s) Family History Reviewed.: Yes Medication/Allergy Home Medications: Albuterol Sulfate [Proair HFA Inhalation Aerosol 8.5 gm MDI] 2 puff IH Q4HP PRN 08/20/19 Apixaban [Eliquis 2.5 mg Tablet] 2.5 mg PO BID 08/20/19 Atorvastatin Calcium [Lipitor 40 mg Tablet] 40 mg PO QHS 08/20/19 Carvedilol [Coreg 6.25 mg Tablet] 6.25 mg PO Q12 08/20/19 Furosemide [Lasix 40 mg Tablet] 40 mg PO DAILY 08/20/19 Nitroglycerin [Nitrostat 0.4 mg (1/150 Gr) Tabs 25/Bottle] 0.4 mg PO Q5MP PRN 08/20/19 Pantoprazole Sodium [Protonix [address] Tablet] 40 mg PO DAILY 08/20/19 Potassium Chloride [Klor-Con 10 Meq Tablet ER] 20 meq PO DAILY 08/20/19 Spironolactone [Aldactone] 50 mg PO DAILY 08/20/19 Tiotropium [place] [Spiriva Respimat] 2 spray IH DAILY 08/20/19 Allergies/Adverse Reactions: codeine [Codeine] Allergy (Unknown, Verified 08/20/19 14:19) amoxicillin [Amoxicillin] Allergy (Verified 08/20/19 14:19) Review of Systems All systems: reviewed and no additional remarkable complaints except as stated Constitutional: PRESENT: fatigue, weight gain Cardiovascular: PRESENT: dyspnea on exertion, edema Respiratory: PRESENT: dyspnea Musculoskeletal: PRESENT: joint swelling - Osteoarthritis hands Integumentary: PRESENT: other - Pigment deposition legs, ecchymosis arms Neurological: PRESENT: weakness Hematologic/Lymphatic: PRESENT: easy bruising Physical Exam Vital Signs: Temp Pulse Resp BP Pulse Ox 65 23 H 107/52 L 99 08/20/19 12:11 08/20/19 15:01 08/20/19 15:01 08/20/19 15:01 Intake & Output 08/19/19 08/20/19 08/21/19 06:59 06:59 06:59 Weight 77.5 kg General appearance: PRESENT: cooperative, mild distress, well-developed, well- nourished Head exam: PRESENT: atraumatic, normocephalic Eye exam: PRESENT: conjunctiva pale, EOMI. ABSENT: scleral icterus Ear exam: PRESENT: normal external ear exam. ABSENT: bleeding, drainage Mouth exam: PRESENT: moist, tongue midline, other - Dry lips Teeth exam: PRESENT: poor dentation Neck exam: ABSENT: carotid bruit Respiratory exam: PRESENT: rales - Bilateral, symmetrical, tachypnea - Minimal, unlabored. ABSENT: accessory muscle use, rhonchi, wheezes Cardiovascular exam: PRESENT: RRR, +S1, +S2. ABSENT: diastolic murmur, systolic murmur GI/Abdominal exam: PRESENT: normal bowel sounds, soft. ABSENT: distended, guarding, tenderness Rectal exam: PRESENT: deferred Gentrourinary exam: ABSENT: indwelling catheter Extremities exam: PRESENT: pedal edema, +2 edema Musculoskeletal exam: PRESENT: ambulatory - Very weak Neurological exam: PRESENT: alert, awake, oriented to person, oriented to place, oriented to time, oriented to situation, CN II-XII grossly intact. ABSENT: motor sensory deficit Psychiatric exam: PRESENT: flat affect. ABSENT: agitated, anxious Focused psych exam: ABSENT: delusional, restlessness Skin exam: PRESENT: dry, warm, other - Ecchymotic lesions sporadic upper extr emities Results Laboratory Results: 08/20/19 13:40 08/20/19 13:40 08/20/19 08/20/19 08/20/19 13:40 13:40 14:55 WBC 3.3 L RBC 2.78 L Hgb 9.0 L Hct 26.8 L MCV 96 MCH 32.4 MCHC 33.7 RDW 18.4 H Plt Count 163 Seg Neutrophils % 71.6 Sodium 134.7 L Potassium 4.6 Chloride 98 Carbon Dioxide 29 Anion Gap 8 BUN 28 H Creatinine 1.20 Est GFR ( Amer) 51 L Glucose 89 Lactic Acid 0.9 Calcium 9.1 Total Bilirubin 0.8 AST 28 Alkaline Phosphatase 205 H Total Protein 6.2 L Albumin 3.3 L 08/20/19 13:40 Troponin I 0.078 NT-Pro-B Natriuret Pep 2720 H Impressions: Chest X-Ray 08/20/19 12:19 IMPRESSION: ATELECTASIS VERSUS INFILTRATE IN THE RIGHT LUNG BASE WITH SMALL RIGHT PLEURAL EFFUSION. Assessment and Plan - Diagnosis (1) Acute exacerbation of CHF (congestive heart failure) Qualifiers: Heart failure type: unspecified Qualified Code(s): I50.9 - Heart failure, unspecified Is this a current diagnosis for this admission?: Yes Plan: Patient has been off of her furosemide. I will resume furosemide. She has a history of severe mitral regurgitation and possibly pulmonary hypertension. We are trying to acquire her last echocardiogram. We will continue her spironolactone and carvedilol. She is not on an MAMTA inhibitor, ARB or Entresto. It is likely that blood pressure is limiting factor. She is not hypoxic. She does not exhibit markedly increased work of breathing. Her BNP is elevated. She will be admitted to telemetry with strict I's and O's. (2) Atrial fibrillation Qualifiers: Atrial fibrillation type: longstanding persistent Qualified Code(s): I48.11 - Longstanding persistent atrial fibrillation Is this a current diagnosis for this admission?: Yes Plan: The patient does not fact have a pacemaker. She is also on carvedilol. Currently not in fibrillation. (3) Chronic obstructive lung disease Qualifiers: COPD type: unspecified COPD Qualified Code(s): J44.9 - Chronic obstructive pulmonary disease, unspecified Is this a current diagnosis for this admission?: Yes Plan: It is difficult to be sure but I believe the heart failure is the primary causative pathology for this admission. We will continue inhaler regimen and have nebulizers available as needed. (4) Hypertensive disorder Qualifiers: Hypertension type: essential hypertension Qualified Code(s): I10 - Essential (primary) hypertension Is this a current diagnosis for this admission?: Yes Plan: Currently on furosemide, spironolactone and carvedilol. Because of her mitral regurgitation we will try not to let her systolic pressure go too low. We may need to decrease her Aldactone. We will see how she does with the increase Lasix. (5) Obstructive sleep apnea Is this a current diagnosis for this admission?: Yes Plan: I have asked the son to bring in the patient's CPAP. (6) Peptic ulcer disease Is this a current diagnosis for this admission?: Yes Plan: Hospitalization at [facility] led to diagnosis of peptic ulcer disease. By endoscopy 2 ulcers were identified. We will continue proton pump inhibitor therapy. She does have a high risk of bleeding and with the pacemaker she appears to be in a regular rhythm and therefore I am holding the Eliquis. The risk of bleeding currently outweighs the likelihood of thrombus formation. (7) Weakness Is this a current diagnosis for this admission?: Yes Plan: We will ask physical therapy to assess the patient. This is her third hospitalization in July. (8) Chronic kidney disease, stage III (moderate) Is this a current diagnosis for this admission?: Yes Plan: Patient is at her baseline. Will monitor in light of increased diuresis. (9) Hyponatremia Is this a current diagnosis for this admission?: Yes Plan: Mild hyponatremia. Will monitor progress as we begin diuresis. (10) Anemia in chronic kidney disease Qualifiers: Chronic kidney disease stage: stage 3 (moderate) Qualified Code(s): N18.3 - Chronic kidney disease, stage 3 (moderate); D63.1 - Anemia in chronic kidney disease Is this a current diagnosis for this admission?: Yes Plan: Continue to monitor hemoglobin. I would like to keep her hemoglobin above 9 if possible. (11) Leukopenia Qualifiers: Leukopenia type: neutropenia Neutropenia type: unspecified Qualified Code(s): D70.9 - Neutropenia, unspecified Is this a current diagnosis for this admission?: Yes Plan: The patient's white blood cell count is only 3.3. Will monitor closely for any signs of infection. We will have a low threshold for antibiotic therapy. - Plan Summary Summary: Patient will be admitted. She will receive increased doses of furosemide ton ight and tomorrow. Will monitor her breathing. It may be that she has decompensated due to unexpected changes in her medication regimen. We will continue to monitor her on telemetry. Will obtain strict intake and output. She will be on a cardiac diet. With her multiple hospitalizations we will also monitor closely for any signs of a hospital-acquired pneumonia. - Time Time Spent with patient: 35 or more minutes Medications reviewed and adjusted accordingly: Yes Anticipated discharge: Home with Homehealth - Inpatient Certification Based on my medical assessment, after consideration of the patient's comorbidities, presenting symptoms, or acuity I expect that the services needed warrant INPATIENT care.: Yes I certify that my determination is in accordance with my understanding of Medicare's requirements for reasonable and necessary INPATIENT services [42 CFR 412.3e].: Yes Medical Necessity: Significant Comorbidiites Make Outpatient Treatment Too Risky, Need Close Monitoring Due to Risk of Patient Decompensation, Need For Continuous Telemetry Monitoring, Risk of Complication if Not Cared For in Hospital Post Hospital Care: D/C Curriculum Assistant Documentation
--- NOTE | 2019-08-20 18:45 | ADVANCED CARE ---
- Diagnosis (1) Acute exacerbation of CHF (congestive heart failure) Diagnosis Current: Yes (2) Atrial fibrillation Diagnosis Current: Yes (3) Chronic obstructive lung disease Diagnosis Current: Yes (4) Hypertensive disorder Diagnosis Current: Yes (5) Obstructive sleep apnea Diagnosis Current: Yes (6) Peptic ulcer disease Diagnosis Current: Yes (7) Weakness Diagnosis Current: Yes (8) Chronic kidney disease, stage III (moderate) Diagnosis Current: Yes (9) Hyponatremia Diagnosis Current: Yes (10) Anemia in chronic kidney disease Diagnosis Current: Yes (11) Leukopenia Diagnosis Current: Yes Attendance: Custom was held at the bedside with the patient and her son Resuscitation Status: Full Code Discussion: This is the third hospitalization for the patient in July. We discussed her CODE STATUS but more importantly we reviewed her current clinical condition as well as the decline she is exhibited recently. She is still at risk for GI bleeding. Her mobility is decreased. Her energy levels and exercise capacity are greatly reduced. We discussed the fact that if we get her better it will not be any better than her general state over the last 6 months or so. I did ask her if this is the quality of life that she would want. Initially she said no however she was not ready to make a decision other than full code. I discussed extensively the difference between full code and DNR. She wants to talk to her family first. Care Planning Goals: Family discussion to establish CODE STATUS is the first step Document(s) Completed: None Time Spent: 18 minutes
[2019-08-20] MEDS: CARVEDILOL 6.25 MG TABLET PO SCH (21:24)
[2019-08-20] MEDS: FUROSEMIDE INJ/PF 20 MG/2 ML SDV IV SCH (21:33)
[2019-08-20] MEDS: HEPARIN SOD (PORCINE) 5,000 UNIT/ML 1 ML VIAL SUBCUT SCH (21:34)
[2019-08-20] MEDS: ATORVASTATIN CALCIUM 40 MG TABLET PO SCH (21:34)
[2019-08-21] MEDS: PANTOPRAZOLE SODIUM 40 MG TABLET.DR PO SCH (06:24)
[2019-08-21] MEDS: HEPARIN SOD (PORCINE) 5,000 UNIT/ML 1 ML VIAL SUBCUT SCH ×3 (06:25→21:29)
[2019-08-21 06:26] LABS: ABSOLUTE EOSINOPHILS # (AUTO) 0.1 10^3/uL (0.0-0.6); ABSOLUTE LYMPHOCYTES (AUTO) 0.4 10^3/uL (0.5-4.7); ABSOLUTE MONOCYTES (AUTO) 0.4 10^3/uL (0.1-1.4); ABSOLUTE NEUT (AUTO) 2.4 10^3/uL (1.7-8.2); BASOPHILS % (AUTO) 0.6 % (0-2); EOSINOPHILS % (AUTO) 2.4 % (0-6); HEMATOCRIT 26.5 % (36.0-47.0); HEMOGLOBIN 8.9 g/dL (12.0-15.5); LYMPHOCYTES % (AUTO) 11.1 % (13-45); MEAN CORPUSCULAR HGB CONC 33.6 g/dL (32.0-36.0); MEAN CORPUSCULAR VOLUME 95 fl (80-97); MONOCYTES % (AUTO) 13.3 % (3-13); PLATELET COUNT 159 10^3/uL (150-450); RED BLOOD COUNT 2.78 10^6/uL (3.72-5.28); RED CELL DISTRIBUTION WIDTH 18.8 % (11.5-14.0); SEGMENTED NEUTROPHILS % (AUTO) 72.6 % (42-78); TOTAL CELLS COUNTED % (AUTO) 100 %; WHITE BLOOD COUNT 3.3 10^3/uL (4.0-10.5)
[2019-08-21 06:50] LABS: ANION GAP 8 (5-19); BLOOD UREA NITROGEN 30 mg/dL (7-20); CALCIUM 9.1 mg/dL (8.4-10.2); CARBON DIOXIDE 33 mmol/L (22-30); CHLORIDE 97 mmol/L (98-107); GLUCOSE 81 mg/dL (75-110)
[2019-08-21 06:56] LABS: TROPONIN I 0.095 ng/mL
--- NOTE | 2019-08-21 07:08 | EKG REPORT ---
SEVERITY:- ABNORMAL ECG - VENTRICULAR-PACED COMPLEXES RIGHT BUNDLE BRANCH BLOCK NONSPECIFIC ST DEPRESSION, ANT-LAT LEADS : Confirmed by: Kanu Webster MD 21-Aug-2019 07:07:45
[2019-08-21] MEDS ORDERED: (PENDING PHARMACY ID) (Spironolactone [Aldactone] 50 MG) PO SCH (10:00)
[2019-08-21] MEDS ORDERED: SPIRONOLACTONE 25 MG TABLET PO SCH (10:00)
[2019-08-21] MEDS ORDERED: POTASSIUM CHLORIDE 10 MEQ TABLET.ER PO SCH (10:00)
[2019-08-21] MEDS: CARVEDILOL 6.25 MG TABLET PO SCH ×2 (10:19→21:26)
[2019-08-21] MEDS: FUROSEMIDE INJ/PF 20 MG/2 ML SDV IV SCH ×2 (10:20→21:28)
[2019-08-21] MEDS: FLUTICASONE/VILANTEROL 200-25 MCG/DOSE IH SCH (10:25)
[2019-08-21] MEDS: UMECLIDINIUM BROMIDE 62.5 MCG/DOSE IH SCH (10:25)
[2019-08-21] MEDS ORDERED: CAPSAICIN 0.025% CREAM 60 GM TP PRN (10:35)
--- NOTE | 2019-08-21 10:45 | PDOC PROGRESS REPORT ---
Subjective Progress Note for:: 08/21/19 Subjective:: Patient is sitting at the edge of the bed. She still seems fatigued. She reports a cough productive of white sputum. She reports that her breathing feels slightly better than yesterday. Lastly, the patient reports a rash on her left side that starts at her spine and wraps around to her stomach. It is burning more than painful. Reason For Visit: HEART FAILURE Physical Exam Vital Signs: Temp Pulse Resp BP Pulse Ox 68 16 111/49 L 96 08/21/19 07:00 08/21/19 00:53 08/20/19 18:44 08/21/19 00:53 Intake & Output 08/20/19 08/21/19 08/22/19 06:59 06:59 06:59 Intake Total 150 Balance 150 Weight 79.7 kg General appearance: PRESENT: cooperative, mild distress, well-developed, well- nourished Head exam: PRESENT: atraumatic, normocephalic Eye exam: PRESENT: conjunctiva pale. ABSENT: scleral icterus Ear exam: PRESENT: normal external ear exam. ABSENT: bleeding, drainage Teeth exam: PRESENT: poor dentation Respiratory exam: PRESENT: rales - Bilateral, symmetrical. ABSENT: accessory muscle use, rhonchi, tachypnea, wheezes Cardiovascular exam: PRESENT: diastolic murmur, RRR, +S1, +S2, systolic murmur GI/Abdominal exam: PRESENT: normal bowel sounds, soft. ABSENT: distended, tenderness Rectal exam: PRESENT: deferred Extremities exam: PRESENT: pedal edema, +1 edema Neurological exam: PRESENT: alert, awake, oriented to person, oriented to place, oriented to time, oriented to situation, CN II-XII grossly intact Psychiatric exam: PRESENT: flat affect. ABSENT: agitated, anxious Focused psych exam: ABSENT: delusional, restlessness Skin exam: PRESENT: rash - The patient has a papular rash with some blistering that extends from the lumbar spine around the left side to midline. Results Laboratory Results: 08/21/19 05:09 08/21/19 05:09 08/20/19 08/20/19 08/20/19 13:40 13:40 14:55 WBC 3.3 L RBC 2.78 L Hgb 9.0 L Hct 26.8 L MCV 96 MCH 32.4 MCHC 33.7 RDW 18.4 H Plt Count 163 Seg Neutrophils % 71.6 Sodium 134.7 L Potassium 4.6 Chloride 98 Carbon Dioxide 29 Anion Gap 8 BUN 28 H Creatinine 1.20 Est GFR ( Amer) 51 L Glucose 89 Lactic Acid 0.9 Calcium 9.1 Magnesium Total Bilirubin 0.8 AST 28 Alkaline Phosphatase 205 H Total Protein 6.2 L Albumin 3.3 L 08/21/19 08/21/19 05:09 05:09 WBC 3.3 L RBC 2.78 L Hgb 8.9 L Hct 26.5 L MCV 95 MCH 32.0 MCHC 33.6 RDW 18.8 H Plt Count 159 Seg Neutrophils % 72.6 Sodium 138.0 Potassium 5.0 Chloride 97 L Carbon Dioxide 33 H Anion Gap 8 BUN 30 H Creatinine 1.38 H Est GFR ( Amer) 44 L Glucose 81 Lactic Acid Calcium 9.1 Magnesium 2.5 H Total Bilirubin AST Alkaline Phosphatase Total Protein Albumin 08/20/19 08/20/19 08/21/19 13:40 22:08 02:00 Troponin I 0.078 0.073 0.069 NT-Pro-B Natriuret Pep 2720 H 08/21/19 05:09 Troponin I 0.095 NT-Pro-B Natriuret Pep 2880 H Impressions: Chest X-Ray 08/20/19 12:19 IMPRESSION: ATELECTASIS VERSUS INFILTRATE IN THE RIGHT LUNG BASE WITH SMALL RIGHT PLEURAL EFFUSION. Assessment and Plan - Diagnosis (1) Acute exacerbation of CHF (congestive heart failure) Qualifiers: Heart failure type: unspecified Qualified Code(s): I50.9 - Heart failure, unspecified Is this a current diagnosis for this admission?: Yes Plan: Trying to obtain most recent echocardiogram. Patient is breathing better. She still has some basilar rales. We will continue diuretic regimen. (2) Atrial fibrillation Qualifiers: Atrial fibrillation type: longstanding persistent Qualified Code(s): I48.11 - Longstanding persistent atrial fibrillation Is this a current diagnosis for this admission?: Yes Plan: The patient does not have a pacemaker. She is also on carvedilol. Currently not in fibrillation. Heart rate is well controlled. No changes in current regimen. (3) Chronic obstructive lung disease Qualifiers: COPD type: unspecified COPD Qualified Code(s): J44.9 - Chronic obstructive pulmonary disease, unspecified Is this a current diagnosis for this admission?: Yes Plan: It is difficult to be sure but I believe the heart failure is the primary causative pathology for this admission. We will continue inhaler regimen and have nebulizers available as needed. We will continue to monitor closely to adjust for changes in nebulizer treatments. (4) Hypertensive disorder Qualifiers: Hypertension type: essential hypertension Qualified Code(s): I10 - Essential (primary) hypertension Is this a current diagnosis for this admission?: Yes Plan: We will monitor blood pressures. If blood pressures are too low (Dr. Webster wishes SBP greater than 110) we will need to adjust medications. (5) Obstructive sleep apnea Is this a current diagnosis for this admission?: Yes Plan: I have asked the son to bring in the patient's CPAP. Continue CPAP (6) Peptic ulcer disease Is this a current diagnosis for this admission?: Yes Plan: Continue proton pump inhibitor (7) Weakness Is this a current diagnosis for this admission?: Yes Plan: I have asked physical therapy to assess. My concerns are her deconditioning and likely abnormal gait due to imbalance. (8) Chronic kidney disease, stage III (moderate) Is this a current diagnosis for this admission?: Yes Plan: Continues at stage III chronic kidney disease. Will monitor in light of her diuresis. Serum potassium is 5.0. I will hold her potassium chloride for the time being and monitor her potassium levels. (9) Hyponatremia Is this a current diagnosis for this admission?: Yes (10) Anemia in chronic kidney disease Qualifiers: Chronic kidney disease stage: stage 3 (moderate) Qualified Code(s): N18.3 - Chronic kidney disease, stage 3 (moderate); D63.1 - Anemia in chronic kidney disease Is this a current diagnosis for this admission?: Yes Plan: Hemoglobin currently stable. We will continue to monitor. (11) Leukopenia Qualifiers: Leukopenia type: neutropenia Neutropenia type: unspecified Qualified Code(s): D70.9 - Neutropenia, unspecified Is this a current diagnosis for this admission?: Yes Plan: White count remains low but stable. Continue to monitor. (12) Shingles rash Qualifiers: Herpes zoster complications: without complications Qualified Code(s): B02.9 - Zoster without complications Is this a current diagnosis for this admission?: Yes Plan: The patient has classic shingles rash on the left just below the waistline. Will initiate antiviral therapy and topical treatment. Despite her kidney failure we will dose 800 mg 5 times a day for her acyclovir and will trial topical capsaicin. - Plan Summary Summary: Patient will be admitted. She will receive increased doses of furosemide tonight and tomorrow. Will monitor her breathing. It may be that she has decompensated due to unexpected changes in her medication regimen. We will continue to monitor her on telemetry. Will obtain strict intake and output. She will be on a cardiac diet. With her multiple hospitalizations we will also monitor closely for any signs of a hospital-acquired pneumonia. - Time Time Spent with patient: 15-24 minutes Medications reviewed and adjusted accordingly: Yes Anticipated discharge: Home with Homehealth
[2019-08-21] MEDS: LEVALBUTEROL HCL NEB 1.25 MG/3 ML AMPUL NEB PRN (11:21)
[2019-08-21] MEDS ORDERED: ACYCLOVIR 800 MG TABLET PO SCH (13:00)
[2019-08-21] MEDS: ACYCLOVIR 800 MG TABLET PO SCH ×2 (13:39→18:06)
[2019-08-21] MEDS: ATORVASTATIN CALCIUM 40 MG TABLET PO SCH (21:27)
[2019-08-22] MEDS: ACYCLOVIR 800 MG TABLET PO SCH ×4 (03:23→17:00)
[2019-08-22 05:33] LABS: HEMATOCRIT 26.2 % (36.0-47.0); HEMOGLOBIN 8.8 g/dL (12.0-15.5); MEAN CORPUSCULAR HEMOGLOBIN 31.9 pg (27.0-33.4); MEAN CORPUSCULAR HGB CONC 33.5 g/dL (32.0-36.0); MEAN CORPUSCULAR VOLUME 95 fl (80-97); PLATELET COUNT 164 10^3/uL (150-450); RED BLOOD COUNT 2.75 10^6/uL (3.72-5.28); RED CELL DISTRIBUTION WIDTH 18.8 % (11.5-14.0); WHITE BLOOD COUNT 4.4 10^3/uL (4.0-10.5)
[2019-08-22 06:00] LABS: ANION GAP 10 (5-19); BLOOD UREA NITROGEN 32 mg/dL (7-20); CALCIUM 9.1 mg/dL (8.4-10.2); CARBON DIOXIDE 30 mmol/L (22-30); CHLORIDE 98 mmol/L (98-107); GLUCOSE 77 mg/dL (75-110); POTASSIUM 4.8 mmol/L (3.6-5.0)
[2019-08-22] MEDS: PANTOPRAZOLE SODIUM 40 MG TABLET.DR PO SCH ×3 (06:17→22:17)
[2019-08-22] MEDS: HEPARIN SOD (PORCINE) 5,000 UNIT/ML 1 ML VIAL SUBCUT SCH ×3 (06:18→22:18)
[2019-08-22] MEDS ORDERED: ASPIRIN 81 MG TABLET, ENT COATED PO ONE (09:44)
[2019-08-22] MEDS ORDERED: FUROSEMIDE INJ/PF 20 MG/2 ML SDV IV SCH (10:00)
--- NOTE | 2019-08-22 10:01 | PDOC PROGRESS REPORT ---
Subjective Progress Note for:: 08/22/19 Subjective:: The patient is still not feeling much better. She still has a cough. Reason For Visit: HEART FAILURE Community-acquired pneumonia Weakness and debility Acute respiratory failure with hypoxia Chronic kidney disease stage III Physical Exam Vital Signs: Temp Pulse Resp BP Pulse Ox 97.3 F 67 20 112/66 95 08/22/19 07:29 08/22/19 07:29 08/22/19 07:29 08/22/19 07:29 08/22/19 07:29 Intake & Output 08/21/19 08/22/19 08/23/19 06:59 06:59 06:59 Intake Total 150 1260 Output Total 1300 Balance 150 -40 Weight 79.7 kg 80.7 kg General appearance: PRESENT: cooperative, mild distress, well-developed Head exam: PRESENT: atraumatic, normocephalic Eye exam: PRESENT: conjunctiva pale. ABSENT: scleral icterus Ear exam: PRESENT: normal external ear exam. ABSENT: bleeding, drainage Mouth exam: PRESENT: dry mucosa, tongue midline Teeth exam: PRESENT: poor dentation Respiratory exam: PRESENT: decreased breath sounds - On the right, prolonged expiratory phas, rhonchi - Rhonchi on the right, symmetrical, tachypnea - The patient just returned to the chair from walking to the bathroom and his tachypnea.. ABSENT: accessory muscle use, rales, wheezes Cardiovascular exam: PRESENT: RRR, +S1, +S2, systolic murmur - 2 distinct murmurs present a louder honking sound at the left sternal border as well as a softer murmur. GI/Abdominal exam: PRESENT: normal bowel sounds, soft. ABSENT: distended, guarding, tenderness Rectal exam: PRESENT: deferred Gentrourinary exam: ABSENT: indwelling catheter Extremities exam: PRESENT: pedal edema, +1 edema, other - There is less edema in her legs. The skin is wrinkling consistent with recent fluid loss. Musculoskeletal exam: PRESENT: ambulatory Neurological exam: PRESENT: alert, awake, oriented to person, oriented to place, oriented to time, oriented to situation, CN II-XII grossly intact Psychiatric exam: PRESENT: appropriate affect - Affect reflects her current clinical condition. ABSENT: agitated, anxious Focused psych exam: ABSENT: delusional, restlessness Skin exam: PRESENT: dry, pallor, rash - Zoster rash from the lumbar area around the left hip to the midline., warm Results Laboratory Results: 08/22/19 05:17 08/22/19 05:17 08/22/19 08/22/19 05:17 05:17 WBC 4.4 RBC 2.75 L Hgb 8.8 L Hct 26.2 L MCV 95 MCH 31.9 MCHC 33.5 RDW 18.8 H Plt Count 164 Sodium 137.5 Potassium 4.8 Chloride 98 Carbon Dioxide 30 Anion Gap 10 BUN 32 H Creatinine 1.43 H Est GFR ( Amer) 42 L Glucose 77 Calcium 9.1 Magnesium 2.4 H 08/20/19 08/20/19 08/21/19 13:40 22:08 02:00 Troponin I 0.078 0.073 0.069 NT-Pro-B Natriuret Pep 2720 H 08/21/19 08/22/19 05:09 05:17 Troponin I 0.095 0.107 NT-Pro-B Natriuret Pep 2880 H Impressions: Chest X-Ray 08/20/19 12:19 IMPRESSION: ATELECTASIS VERSUS INFILTRATE IN THE RIGHT LUNG BASE WITH SMALL RIGHT PLEURAL EFFUSION. Assessment and Plan - Diagnosis (1) Pneumonia Qualifiers: Pneumonia type: due to unspecified organism Laterality: right Lung location: lower lobe of lung Qualified Code(s): J18.9 - Pneumonia, unspecified organism Is this a current diagnosis for this admission?: Yes Plan: After reviewing the patient's lack of clinical progress over the last several days as well as reviewing the x-ray and laboratory studies I feel that she likely has a right lower lobe pneumonia in addition to the other comorbidities. There was increased haziness in the right lower lobe. She still has her cough and still sounds rhonchorous despite aggressive treatment for heart failure. I am going to initiate Rocephin and azithromycin. I am going to add guaifenesin and continue her nebulizer treatments. This morning she is sitting and eating breakfast on room air. (2) Acute exacerbation of CHF (congestive heart failure) Qualifiers: Heart failure type: unspecified Qualified Code(s): I50.9 - Heart failure, unspecified Is this a current diagnosis for this admission?: Yes Plan: Trying to obtain most recent echocardiogram. Patient is breathing better. She still has some basilar rales. We will continue diuretic regimen. 08/22/2019-because her pressure is on the low side I am ready to adjust her medications. I am decreasing her Aldactone but adding low-dose lisinopril. I have decreased her furosemide as well. Despite increased doses her diuresis has been limited. I did review the x-ray and with her cough and debility I believe there could be an infection present as well. Please see below. (3) Atrial fibrillation Qualifiers: Atrial fibrillation type: longstanding persistent Qualified Code(s): I48.11 - Longstanding persistent atrial fibrillation Is this a current diagnosis for this admission?: Yes Plan: The patient does not have a pacemaker. She is also on carvedilol. Currently not in fibrillation. Heart rate is well controlled. No changes in current regimen. 08/22/2019-by auscultation she seems to be in a regular rhythm. 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 (4) Chronic obstructive lung disease Qualifiers: COPD type: unspecified COPD Qualified Code(s): J44.9 - Chronic obstructive pulmonary disease, unspecified Is this a current diagnosis for this admission?: Yes Plan: We will continue current regimen at this time. Based on her lack of improvement and reviewing all of the clinical data I believe there could be a community- acquired pneumonia present as well. (5) Hypertensive disorder Qualifiers: Hypertension type: essential hypertension Qualified Code(s): I10 - Essential (primary) hypertension Is this a current diagnosis for this admission?: Yes Plan: Blood pressure has been on the low side. Dr. Dougherty likes to keep her systolic pressure greater than 110. As noted above I am decreasing the furosemide to 20 mg IV once a day, Spironolactone will be decreased to 25 mg daily and I will add lisinopril 5 mg daily. She will continue her current dose of carvedilol. (6) Obstructive sleep apnea Is this a current diagnosis for this admission?: Yes Plan: She reports that on her own CPAP machine she slept very well last night. Continue CPAP. (7) Peptic ulcer disease Is this a current diagnosis for this admission?: Yes Plan: Because of her underlying coronary disease I would like to add 81 mg of Ecotrin to her regimen. I still think it is too risky to resume her Eliquis. Because of this I am increasing her Protonix to 40 mg twice daily and adding Carafate before meals. (8) Shingles rash Qualifiers: Herpes zoster complications: without complications Qualified Code(s): B02.9 - Zoster without complications Is this a current diagnosis for this admission?: Yes Plan: Continue acyclovir and capsaicin (9) Chronic kidney disease, stage III (moderate) Is this a current diagnosis for this admission?: Yes Plan: GFR is slightly decreased. I will follow with the medication changes noted above. (10) Anemia in chronic kidney disease Qualifiers: Chronic kidney disease stage: stage 3 (moderate) Qualified Code(s): N18.3 - Chronic kidney disease, stage 3 (moderate); D63.1 - Anemia in chronic kidney disease Is this a current diagnosis for this admission?: Yes Plan: Still relatively stable although she is down to 8.8. We will continue to monitor. (11) Leukopenia Qualifiers: Leukopenia type: neutropenia Neutropenia type: unspecified Qualified Code(s): D70.9 - Neutropenia, unspecified Is this a current diagnosis for this admission?: Yes Plan: White blood cell count is now in the normal range. My concern is that the low white blood cell count could have been a paradoxical reaction to infection as noted above. I will continue to monitor her white blood cell count. (12) Weakness Is this a current diagnosis for this admission?: Yes Plan: Continue physical therapy (13) Hyponatremia Is this a current diagnosis for this admission?: Yes Plan: Resolved. Continue to monitor. - Plan Summary Summary: Patient will be admitted. She will receive increased doses of furosemide tonight and tomorrow. Will monitor her breathing. It may be that she has decompensated due to unexpected changes in her medication regimen. We will continue to monitor her on telemetry. Will obtain strict intake and output. She will be on a cardiac diet. With her multiple hospitalizations we will also monitor closely for any signs of a hospital-acquired pneumonia. - Time Time Spent with patient: 25-34 minutes Medications reviewed and adjusted accordingly: Yes
[2019-08-22] MEDS: GUAIFENESIN 600 MG TABLET.SA PO SCH ×2 (11:00→22:16)
[2019-08-22] MEDS: SPIRONOLACTONE 25 MG TABLET PO SCH (11:00)
[2019-08-22] MEDS: LISINOPRIL 5 MG TABLET PO SCH (11:00)
[2019-08-22] MEDS: CARVEDILOL 6.25 MG TABLET PO SCH ×2 (11:00→22:14)
[2019-08-22] MEDS: SUCRALFATE 1 GM TABLET PO SCH ×2 (11:01→16:59)
[2019-08-22] MEDS: FLUTICASONE/VILANTEROL 200-25 MCG/DOSE IH SCH (11:05)
[2019-08-22] MEDS: UMECLIDINIUM BROMIDE 62.5 MCG/DOSE IH SCH (11:06)
[2019-08-22] MEDS: CEFTRIAXONE 1 GM/D5W RTU 1 GM/50 ML RTUPB IV SCH (11:07)
[2019-08-22] MEDS ORDERED: AZITHROMYCIN 500 MG in DEXTROSE 5%-WATER 250 ML IV SCH (22:00)
[2019-08-22] MEDS: ASPIRIN 81 MG TABLET, ENT COATED PO SCH (22:15)
[2019-08-22] MEDS: ATORVASTATIN CALCIUM 40 MG TABLET PO SCH (22:16)
[2019-08-23] MEDS: ACYCLOVIR 800 MG TABLET PO SCH ×5 (01:46→23:32)
[2019-08-23 05:51] LABS: ANION GAP 10 (5-19); BLOOD UREA NITROGEN 33 mg/dL (7-20); CALCIUM 8.9 mg/dL (8.4-10.2); CARBON DIOXIDE 29 mmol/L (22-30); CHLORIDE 96 mmol/L (98-107); GLUCOSE 81 mg/dL (75-110); POTASSIUM 4.7 mmol/L (3.6-5.0)
[2019-08-23] MEDS: HEPARIN SOD (PORCINE) 5,000 UNIT/ML 1 ML VIAL SUBCUT SCH ×3 (06:20→21:51)
[2019-08-23] MEDS: SUCRALFATE 1 GM TABLET PO SCH ×3 (08:35→18:07)
[2019-08-23] MEDS ORDERED: FUROSEMIDE 20 MG TABLET PO SCH ×2 (10:00→16:52)
[2019-08-23] MEDS: LISINOPRIL 5 MG TABLET PO SCH (10:12)
[2019-08-23] MEDS: PANTOPRAZOLE SODIUM 40 MG TABLET.DR PO SCH ×2 (10:13→21:56)
[2019-08-23] MEDS: CEFTRIAXONE 1 GM/D5W RTU 1 GM/50 ML RTUPB IV SCH (10:13)
[2019-08-23] MEDS: CARVEDILOL 6.25 MG TABLET PO SCH (10:13)
[2019-08-23] MEDS: GUAIFENESIN 600 MG TABLET.SA PO SCH ×2 (10:13→21:56)
[2019-08-23] MEDS: SPIRONOLACTONE 25 MG TABLET PO SCH (10:13)
[2019-08-23] MEDS: FLUTICASONE/VILANTEROL 200-25 MCG/DOSE IH SCH (10:18)
[2019-08-23] MEDS: UMECLIDINIUM BROMIDE 62.5 MCG/DOSE IH SCH (10:18)
[2019-08-23] MEDS: LEVALBUTEROL HCL NEB 1.25 MG/3 ML AMPUL NEB PRN (12:01)
--- NOTE | 2019-08-23 12:36 | PDOC PROGRESS REPORT ---
Subjective Progress Note for:: 08/23/19 Subjective:: The patient still has a very congested cough. I will change her to scheduled nebulizer treatments. She is on broad-spectrum antibiotic therapy. She still requires oxygen supplementation. She is compliant with her CPAP at night. She is still very weak but is working with physical therapy. Reason For Visit: HEART FAILURE Physical Exam Vital Signs: Temp Pulse Resp BP Pulse Ox 97.5 F 66 17 106/74 100 08/23/19 08:04 08/23/19 08:04 08/23/19 08:04 08/23/19 08:04 08/23/19 08:04 Intake & Output 08/22/19 08/23/19 08/24/19 06:59 06:59 06:59 Intake Total 1260 890 300 Output Total 1300 Balance -40 890 300 Weight 80.7 kg 79.9 kg General appearance: PRESENT: cooperative, mild distress, well-developed Head exam: PRESENT: atraumatic, normocephalic Eye exam: PRESENT: conjunctiva pale. ABSENT: scleral icterus Ear exam: PRESENT: normal external ear exam. ABSENT: bleeding, drainage Mouth exam: PRESENT: moist, tongue midline Respiratory exam: PRESENT: rhonchi - Rhonchorous breath sounds, symmetrical. ABSENT: accessory muscle use, rales, tachypnea, unlabored - Increased work of breathing with cough, wheezes Cardiovascular exam: PRESENT: RRR, +S1, +S2 GI/Abdominal exam: PRESENT: normal bowel sounds, soft. ABSENT: distended, tenderness Rectal exam: PRESENT: deferred Gentrourinary exam: ABSENT: indwelling catheter Extremities exam: PRESENT: pedal edema - Improved Musculoskeletal exam: PRESENT: ambulatory - Ambulatory but very weak Neurological exam: PRESENT: alert, awake, oriented to person, oriented to place, oriented to time, oriented to situation, CN II-XII grossly intact Psychiatric exam: PRESENT: appropriate affect. ABSENT: agitated, anxious Focused psych exam: ABSENT: delusional, restlessness Skin exam: PRESENT: dry, pallor, rash - Shingles rash does not appear significantly better., warm Results Laboratory Results: 08/22/19 05:17 08/23/19 05:09 08/23/19 05:09 Sodium 134.5 L Potassium 4.7 Chloride 96 L Carbon Dioxide 29 Anion Gap 10 BUN 33 H Creatinine 1.33 H Est GFR ( Amer) 45 L Glucose 81 Calcium 8.9 Magnesium 2.2 08/20/19 08/20/19 08/21/19 13:40 22:08 02:00 Troponin I 0.078 0.073 0.069 NT-Pro-B Natriuret Pep 2720 H 08/21/19 08/22/19 05:09 05:17 Troponin I 0.095 0.107 NT-Pro-B Natriuret Pep 2880 H Impressions: Chest X-Ray 08/20/19 12:19 IMPRESSION: ATELECTASIS VERSUS INFILTRATE IN THE RIGHT LUNG BASE WITH SMALL RIG HT PLEURAL EFFUSION. Assessment and Plan - Diagnosis (1) Pneumonia Qualifiers: Pneumonia type: due to unspecified organism Laterality: right Lung location: lower lobe of lung Qualified Code(s): J18.9 - Pneumonia, unspecified organism Is this a current diagnosis for this admission?: Yes Plan: The sputum Gram stain shows gram-positive cocci in pairs. This is typically pneumococcus. I will wait for final identification. I did switch her to meropenem for broader coverage than ceftriaxone. (2) Acute exacerbation of CHF (congestive heart failure) Qualifiers: Heart failure type: unspecified Qualified Code(s): I50.9 - Heart failure, unspecified Is this a current diagnosis for this admission?: Yes Plan: The failure is most likely combination of systolic and diastolic. I have not received the echo report that she recently had at an outside hospital. We have been aggressive with her diuresis. Her pressure has been slightly soft and Dr. Webster wanted her systolic blood pressure above 110. I did decrease her diuretic. (3) Atrial fibrillation Qualifiers: Atrial fibrillation type: longstanding persistent Qualified Code(s): I48.11 - Longstanding persistent atrial fibrillation Is this a current diagnosis for this admission?: Yes Plan: Good rate control that is pacemaker driven. No changes at this time. Will discuss with gastroenterology regarding resumption of apixaban. (4) Chronic obstructive lung disease Qualifiers: COPD type: unspecified COPD Qualified Code(s): J44.9 - Chronic obstructive pulmonary disease, unspecified Is this a current diagnosis for this admission?: Yes Plan: Continue current inhaler regimen. Continue oxygen supplementation and in as tolerated. (5) Hypertensive disorder Qualifiers: Hypertension type: essential hypertension Qualified Code(s): I10 - Essential (primary) hypertension Is this a current diagnosis for this admission?: Yes Plan: Her machine operator hop picker would like to see her systolic blood pressure greater than 110. It has been lower than that. I will need to adjust medications to achieve that goal. (6) Obstructive sleep apnea Is this a current diagnosis for this admission?: Yes Plan: She continues to wear her CPAP at night. (7) Peptic ulcer disease Is this a current diagnosis for this admission?: Yes Plan: I had a long discussion with the patient and 1 of her sons today regarding resumption of apixaban. She had had GI bleeding that was thought to be controlled. Apixaban was started approximately 1 week after the endoscopy. She then bled again. 2 gastric ulcers have been identified. I would like to be cautious so as not to have recurrent bleeding. She remains in fibrillation with her pacemaker driving her rate. I explained that it is a risk-benefit decision and with her recent recurrent bleeding after resuming the apixaban we will need to be cautious. (8) Shingles rash Qualifiers: Herpes zoster complications: without complications Qualified Code(s): B02.9 - Zoster without complications Is this a current diagnosis for this admission?: Yes Plan: She reports that the capsaicin caused burning. I have discontinued it. If her discomfort is acceptable we will avoid additional medications. She will continue the acyclovir as ordered. (9) Chronic kidney disease, stage III (moderate) Is this a current diagnosis for this admission?: Yes Plan: We will check blood work tomorrow. Her renal function had been stable. (10) Anemia in chronic kidney disease Qualifiers: Chronic kidney disease stage: stage 3 (moderate) Qualified Code(s): N18.3 - Chronic kidney disease, stage 3 (moderate); D63.1 - Anemia in chronic kidney disease Is this a current diagnosis for this admission?: Yes Plan: We will continue to monitor hemoglobin. We will also monitor for any recurrent GI bleeding. (11) Leukopenia Qualifiers: Leukopenia type: neutropenia Neutropenia type: unspecified Qualified Code(s): D70.9 - Neutropenia, unspecified Is this a current diagnosis for this admission?: Yes Plan: White blood cell count is now normal (12) Weakness Is this a current diagnosis for this admission?: Yes Plan: Still with profound weakness. We discussed the fact that the 3 hospitalizations are very taxing. It will take some time before she recovers to her previous state of health. We did briefly discuss inpatient skilled facility but she refuses and so we will arrange for home health with physical therapy. (13) Hyponatremia Is this a current diagnosis for this admission?: Yes Plan: Serum sodium is still just below the lower limit normal. We will continue to monitor - Plan Summary Summary: Patient will be admitted. She will receive increased doses of furosemide tonight and tomorrow. Will monitor her breathing. It may be that she has decompensated due to unexpected changes in her medication regimen. We will continue to monitor her on telemetry. Will obtain strict intake and output. She will be on a cardiac diet. With her multiple hospitalizations we will also monitor closely for any signs of a hospital-acquired pneumonia. - Time Time Spent with patient: 15-24 minutes Medications reviewed and adjusted accordingly: Yes Anticipated discharge: Home with Homehealth
--- NOTE | 2019-08-23 13:31 | RADIOLOGY REPORT (SQ) ---
EXAM DESCRIPTION: CHEST 2 VIEWS COMPLETED DATE/TIME: 08/23/2019 12:58 pm REASON FOR STUDY: Increased shortness of breath COMPARISON: Chest films 08/20/2019, 12/11/2018, 07/30/2007 CT chest 11/01/2016 EXAM PARAMETERS: NUMBER OF VIEWS: two views TECHNIQUE: Digital Frontal and Lateral radiographic views of the chest acquired. RADIATION DOSE: NA LIMITATIONS: none FINDINGS: LUNGS AND PLEURA: Persistent trace right pleural effusion with right basilar airspace dise ase worrisome for pneumonia No left pleural effusion. No fluffy alveolar perihilar pulmonary edema. No pneumothorax MEDIASTINUM AND HILAR STRUCTURES: No masses or contour abnormalities. HEART AND VASCULAR STRUCTURES: No cardiomegaly BONES: No acute findings. HARDWARE: Left-sided pacemaker OTHER: No other significant finding. IMPRESSION: Persistent trace right pleural effusion with right lower lobe airspace disease worrisome for pneumonia TECHNICAL DOCUMENTATION: JOB ID: [id number] [employer]- All Rights Reserved Reading location - IP/workstation name: [email or web address]
[2019-08-23] MEDS: IPRATROPIUM BROMIDE 0.02% NEB 0.5 MG/2.5 ML AMPUL NEB SCH ×2 (13:51→20:34)
[2019-08-23] MEDS: LEVALBUTEROL HCL NEB 1.25 MG/3 ML AMPUL NEB SCH ×2 (13:52→20:33)
[2019-08-23] MEDS ORDERED: NORMAL SALINE 1000 ML 1,000 ML IV ONE ×2 (16:49→19:45)
--- NOTE | 2019-08-23 17:25 | PDOC PROGRESS REPORT ---
Subjective Progress Note for:: 08/23/19 Subjective:: The nurse called to inform me that the patient's blood pressure had dipped into the 80s. Her urine output has dropped significantly. I immediately went to the patient's room. Surprisingly she did not feel poorly and was sitting in the chair eating supper. Reason For Visit: HEART FAILURE Physical Exam Vital Signs: Temp Pulse Resp BP Pulse Ox 97.6 F 60 18 91/48 L 96 08/23/19 12:19 08/23/19 14:00 08/23/19 13:52 08/23/19 12:19 08/23/19 13:52 Intake & Output 08/22/19 08/23/19 08/24/19 06:59 06:59 06:59 Intake Total 1226 359 9438 Output Total 1300 Balance -40 890 1138 Weight 80.7 kg 79.9 kg General appearance: PRESENT: cooperative, mild distress - Mild to moderate distress from her cough, well-developed Head exam: PRESENT: atraumatic, normocephalic Eye exam: PRESENT: conjunctiva pale. ABSENT: scleral icterus Respiratory exam: PRESENT: rhonchi, other - Very congested cough with slightly labored breathing. ABSENT: accessory muscle use, rales, stridor, tachypnea Cardiovascular exam: PRESENT: diastolic murmur, RRR, +S1, +S2 GI/Abdominal exam: PRESENT: normal bowel sounds, soft. ABSENT: distended, guarding, tenderness Rectal exam: PRESENT: deferred Gentrourinary exam: PRESENT: other - Bladder scan revealed approximately 20 mL. ABSENT: indwelling catheter Extremities exam: PRESENT: pedal edema Neurological exam: PRESENT: alert, awake, oriented to person, oriented to place, oriented to time, oriented to situation, CN II-XII grossly intact Psychiatric exam: PRESENT: flat affect. ABSENT: agitated, anxious Focused psych exam: ABSENT: delusional, restlessness Results Laboratory Results: 08/22/19 05:17 08/23/19 05:09 08/23/19 05:09 Sodium 134.5 L Potassium 4.7 Chloride 96 L Carbon Dioxide 29 Anion Gap 10 BUN 33 H Creatinine 1.33 H Est GFR ( Amer) 45 L Glucose 81 Calcium 8.9 Magnesium 2.2 08/20/19 08/20/19 08/21/19 13:40 22:08 02:00 Troponin I 0.078 0.073 0.069 NT-Pro-B Natriuret Pep 2720 H 08/21/19 08/22/19 05:09 05:17 Troponin I 0.095 0.107 NT-Pro-B Natriuret Pep 2880 H Impressions: Chest X-Ray 08/23/19 00:00 IMPRESSION: Persistent trace right pleural effusion with right lower lobe airspace disease worrisome for pneumonia Assessment and Plan - Diagnosis (1) Pneumonia Qualifiers: Pneumonia type: due to unspecified organism Laterality: right Lung location: lower lobe of lung Qualified Code(s): J18.9 - Pneumonia, unspecified organism Is this a current diagnosis for this admission?: Yes (2) Acute exacerbation of CHF (congestive heart failure) Qualifiers: Heart failure type: unspecified Qualified Code(s): I50.9 - Heart failure, unspecified Is this a current diagnosis for this admission?: Yes (3) Atrial fibrillation Qualifiers: Atrial fibrillation type: longstanding persistent Qualified Code(s): I48.11 - Longstanding persistent atrial fibrillation Is this a current diagnosis for this admission?: Yes (4) Chronic obstructive lung disease Qualifiers: COPD type: unspecified COPD Qualified Code(s): J44.9 - Chronic obstructive pulmonary disease, unspecified Is this a current diagnosis for this admission?: Yes (5) Hypertensive disorder Qualifiers: Hypertension type: essential hypertension Qualified Code(s): I10 - Essential (primary) hypertension Is this a current diagnosis for this admission?: Yes (6) Obstructive sleep apnea Is this a current diagnosis for this admission?: Yes (7) Peptic ulcer disease Is this a current diagnosis for this admission?: Yes (8) Shingles rash Qualifiers: Herpes zoster complications: without complications Qualified Code(s): B02.9 - Zoster without complications Is this a current diagnosis for this admission?: Yes (9) Chronic kidney disease, stage III (moderate) Is this a current diagnosis for this admission?: Yes (10) Anemia in chronic kidney disease Qualifiers: Chronic kidney disease stage: stage 3 (moderate) Qualified Code(s): N18.3 - Chronic kidney disease, stage 3 (moderate); D63.1 - Anemia in chronic kidney disease Is this a current diagnosis for this admission?: Yes (11) Leukopenia Qualifiers: Leukopenia type: neutropenia Neutropenia type: unspecified Qualified Code(s): D70.9 - Neutropenia, unspecified Is this a current diagnosis for this admission?: Yes (12) Weakness Is this a current diagnosis for this admission?: Yes (13) Hyponatremia Is this a current diagnosis for this admission?: Yes - Plan Summary Summary: Critical care visit: After assessing the patient and reviewing laboratory studies I asked the nurse to give the patient 1 L of normal saline over 1 hour. She does have history of heart disease but clearly she seems to be volume depleted based on the urine output and her blood pressure. After that liter was complete I asked them to run normal saline through the night. She also exhibited bradycardia. I had urgent blood strong. Her hemoglobin was down to 8.0. This is worrisome because she has a history of AVM bleeds as well as two peptic ulcers recently diagnosed. She has been off of her Eliquis. I did put her on aspirin for cardiovascular protection. Her renal function had declined somewhat and this would be consistent with volume depletion as well. A chest x-ray performed earlier had suggested pneumonia more so than failure. Her brain natruretic peptide was increasing but I believe that the function of her poor cardiac status. I had started her on antibiotics 2 days prior having a suspicion of infection. After approximately 30 minutes of normal saline infusion I sat with the patient. She was wondering what all the fuss is about because she does not feel any different. I decreased her carvedilol again and put parameters in place. I decreased her Aldactone again and put parameters in place as well. The patient's troponin had been trending up slowly and was up to 0.110 and I believe this is from cardiac strain. The patient has significant valvular heart disease with pulmonary hypertension. The patient seemed stable. The blood pressure is up slightly. Bradycardia slightly improved. At this point she appears stable. - Time Total Critical Time (Minutes): 45 Medications reviewed and adjusted accordingly: Yes
[2019-08-23] MEDS ORDERED: MEROPENEM 1 GM in NORMAL SALINE 50 ML IV SCH (17:30)
[2019-08-23 18:03] LABS: HEMATOCRIT 24.4 % (36.0-47.0); MEAN CORPUSCULAR HEMOGLOBIN 31.4 pg (27.0-33.4); MEAN CORPUSCULAR HGB CONC 32.7 g/dL (32.0-36.0); MEAN CORPUSCULAR VOLUME 96 fl (80-97); PLATELET COUNT 123 10^3/uL (150-450); RED BLOOD COUNT 2.54 10^6/uL (3.72-5.28); RED CELL DISTRIBUTION WIDTH 18.3 % (11.5-14.0); WHITE BLOOD COUNT 4.8 10^3/uL (4.0-10.5)
[2019-08-23] MEDS ORDERED: MEROPENEM 1 GM VIAL ONE (18:12)
[2019-08-23 18:22] LABS: ANION GAP 8 (5-19); BLOOD UREA NITROGEN 35 mg/dL (7-20); CALCIUM 8.3 mg/dL (8.4-10.2); CARBON DIOXIDE 29 mmol/L (22-30); CHLORIDE 97 mmol/L (98-107); GLUCOSE 110 mg/dL (75-110); POTASSIUM 4.4 mmol/L (3.6-5.0)
[2019-08-23 18:33] LABS: TROPONIN I 0.11 ng/mL
[2019-08-23] MEDS: MEROPENEM 1 GM in NORMAL SALINE 50 ML IV SCH (18:55)
[2019-08-23] MEDS: ASPIRIN 81 MG TABLET, ENT COATED PO SCH (21:51)
[2019-08-23] MEDS: ATORVASTATIN CALCIUM 40 MG TABLET PO SCH (21:56)
[2019-08-23] MEDS ORDERED: CARVEDILOL 6.25 MG TABLET PO SCH (22:00)
[2019-08-24] MEDS ORDERED: MIDODRINE HCL 5 MG TABLET PO ONE (01:00)
[2019-08-24] MEDS: IPRATROPIUM BROMIDE 0.02% NEB 0.5 MG/2.5 ML AMPUL NEB SCH ×4 (02:11→20:31)
[2019-08-24] MEDS: LEVALBUTEROL HCL NEB 1.25 MG/3 ML AMPUL NEB SCH ×4 (02:11→20:31)
[2019-08-24] MEDS: HEPARIN SOD (PORCINE) 5,000 UNIT/ML 1 ML VIAL SUBCUT SCH ×3 (05:06→21:03)
[2019-08-24] MEDS: MEROPENEM 1 GM in NORMAL SALINE 50 ML IV SCH ×2 (06:20→21:02)
[2019-08-24] MEDS: ACYCLOVIR 800 MG TABLET PO SCH ×3 (06:20→17:44)
[2019-08-24] MEDS ORDERED: FUROSEMIDE 20 MG TABLET PO SCH (07:21)
[2019-08-24] MEDS ORDERED: SPIRONOLACTONE 25 MG TABLET PO SCH (10:00)
[2019-08-24] MEDS: SUCRALFATE 1 GM TABLET PO SCH ×3 (10:59→17:44)
[2019-08-24] MEDS: SPIRONOLACTONE 25 MG TABLET PO SCH (11:04)
[2019-08-24] MEDS: GUAIFENESIN 600 MG TABLET.SA PO SCH ×2 (11:05→21:07)
[2019-08-24] MEDS: PANTOPRAZOLE SODIUM 40 MG TABLET.DR PO SCH ×2 (11:05→21:07)
[2019-08-24] MEDS: FLUTICASONE/VILANTEROL 200-25 MCG/DOSE IH SCH (11:05)
[2019-08-24] MEDS ORDERED: NORMAL SALINE 250 ML IV PRN ×2 (13:13)
--- NOTE | 2019-08-24 20:38 | PDOC PROGRESS REPORT ---
Subjective Progress Note for:: 08/24/19 Subjective:: The patient is an 89-year-old female with a past medical history of chronic atrial fibrillation (recently discontinued Eliquis due to GI bleeding) CHF, hypertension, MR with pulmonary hypertension, COPD, CKD, arthritis, anemia, and obesity who was admitted on 08/20/2019 for acute CHF exacerbation who subsequently developed healthcare associated pneumonia. Patient was seen on morning rounds and again this afternoon; both times with her son and [id number] present. Each time she was seen, she was found sitting up to the recliner, comfortably, on room air. She reports that her dyspnea at rest has entirely abated, however, she does become significantly short of breath with minimal activity. She reports continued improvement in her peripheral edema, though is increased from her baseline. Otherwise, she reports that she continues to feel improved each day. She denies fever, chills, chest pain, palpitations, orthopnea, abdominal pain, nausea vomiting and diarrhea. She reports a poor appetite though this also is improving slowly. Long discussions had regarding her car shifter recommendation for transfer to [facility] to be evaluated by cardiovascular surgery. Also discussed more conservative management and briefly introduced the concept of goals of care (i.e. Palliative consultation, right to discontinue medical interventions). Please see separate ACP note. All questions and concerns addressed. No concerns per nursing. Reason For Visit: HEART FAILURE Physical Exam Vital Signs: Temp Pulse Resp BP Pulse Ox 98 F 59 L 20 87/50 L 100 08/24/19 18:45 08/24/19 18:45 08/24/19 18:45 08/24/19 18:45 08/24/19 18:45 Intake & Output 08/23/19 08/24/19 08/25/19 06:59 06:59 06:59 Intake Total 890 3444 780 Balance 890 3444 780 Weight 79.9 kg 82 kg General appearance: PRESENT: no acute distress, well-developed, well-nourished Head exam: PRESENT: atraumatic, normocephalic Eye exam: PRESENT: conjunctiva pink, EOMI, PERRLA. ABSENT: scleral icterus Ear exam: PRESENT: normal external ear exam Mouth exam: PRESENT: moist, tongue midline Neck exam: ABSENT: carotid bruit, JVD, lymphadenopathy, thyromegaly Respiratory exam: PRESENT: clear to auscultation nick. ABSENT: rales, rhonchi, wheezes Cardiovascular exam: PRESENT: RRR. ABSENT: diastolic murmur, rubs, systolic murmur Pulses: PRESENT: normal dorsalis pedis pul Vascular exam: PRESENT: normal capillary refill GI/Abdominal exam: PRESENT: normal bowel sounds, soft. ABSENT: distended, guarding, mass, organolmegaly, rebound, tenderness Rectal exam: PRESENT: deferred Extremities exam: PRESENT: full ROM. ABSENT: calf tenderness, clubbing, pedal edema Neurological exam: PRESENT: alert, awake, oriented to person, oriented to place, oriented to time, oriented to situation, CN II-XII grossly intact. ABSENT: motor sensory deficit Psychiatric exam: PRESENT: appropriate affect, normal mood. ABSENT: homicidal ideation, suicidal ideation Skin exam: PRESENT: dry, intact, warm. ABSENT: cyanosis, rash Results Laboratory Results: 08/23/19 17:50 08/23/19 17:50 08/24/19 15:01 Blood Type O POSITIVE Antibody Screen NEGATIVE 08/20/19 08/20/19 08/21/19 13:40 22:08 02:00 Troponin I 0.078 0.073 0.069 NT-Pro-B Natriuret Pep 2720 H 08/21/19 08/22/19 08/23/19 05:09 05:17 17:50 Troponin I 0.095 0.107 0.110 NT-Pro-B Natriuret Pep 2880 H 4280 H Impressions: Chest X-Ray 08/23/19 00:00 IMPRESSION: Persistent trace right pleural effusion with right lower lobe airspace disease worrisome for pneumonia Assessment and Plan - Diagnosis (1) Pneumonia Qualifiers: Pneumonia type: due to unspecified organism Laterality: right Lung location: lower lobe of lung Qualified Code(s): J18.9 - Pneumonia, unspecified organism Is this a current diagnosis for this admission?: Yes Plan: Improved. WBCs are now normal, afebrile, no longer tachycardic, and maintaining oxygen saturations on room air while at rest. Blood cultures have no growth to date. Sputum culture growing Gram positive cocci in clusters. As patient was recently admitted to outside hospital, she is being covered with IV meropenem for healthcare associated pneumonia. Continue supplemental oxygen as needed maintain saturations greater than 89%. Continue scheduled and as needed nebulizer treatments. Continue Mucinex twice daily with Robitussin as needed. Encourage pulmonary toilet with incentive spirometer, flutter valve, and ambulation. (2) Acute exacerbation of CHF (congestive heart failure) Qualifiers: Heart failure type: unspecified Qualified Code(s): I50.9 - Heart failure, unspecified Is this a current diagnosis for this admission?: Yes Plan: Received echocardiogram from Dr. Webster's office dated 2016; at that time, patient had an LVEF of 70% without ventricular diastolic dysfunction or wall motion abnormality. She was noted to have RVSP of 55 with moderate pulmonary hypertension, mitral regurgitation, with mild left atrial enlargement. Have requested updated echocardiogram from recent admission to [facility], however, patient does not recall having echocardiogram done during that visit. proBNP trending up from 5189-0402. Troponins are stable at 0.110; patient is chest pain-free with no concerning findings on telemetry. Weight trending up; 77.5 kg on admission now 82 kg. Of note, patient did r eceive IV fluid boluses for hypotension with decreased urine output. Continue carvedilol 3.125 mg twice daily, home dose spironolactone 12.5 mg daily Patient to receive 2 units PRBC today; will provide furosemide 10 mg IV after each unit. We will continue to cautiously diurese as blood pressures allow. Discussed the patient's case with her primary car shifter, Dr. Webster, today. Dr. Webster advises that he has nothing further that he can offer from medication management. He highly recommends that the patient be transferred to [facility] for evaluation for mitral valve replacement. I discussed this with the patient and family members today. They are interested in having the patient evaluated at [facility]. On their request, I did call the [facility] transfer center and spoke with Dr. Jb Pastor, car shifter. Dr. Pastor recommends optimizing the patient's renal function, completing treatment for pneumonia, and continuing to hold Eliquis to demonstrate that her recurrent GI bleeding has resolved. He states that short of those measures, she would be a very poor candidate for surgical interventions. However, he would be interested in meeting the patient for formalized consultation and recommends calling the [facility] tomorrow morning when they open to schedule outpatient follow-up appointment. This was discussed with the patient and family members this afternoon who are in agreement with the plan of care. Continue cardiac diet. Daily weights and strict I&O's (3) Anemia in chronic kidney disease Qualifiers: Chronic kidney disease stage: stage 3 (moderate) Qualified Code(s): N18.3 - Chronic kidney disease, stage 3 (moderate); D63.1 - Anemia in chronic kidney disease Is this a current diagnosis for this admission?: Yes Plan: We will continue to monitor hemoglobin. We will also monitor for any recurrent GI bleeding. Hemoglobin has trended down slightly with IV fluid boluses for management of KD and hypotension. Therefore, will provide 2 units PRBC today. Patient received IV iron transfusion at her recent admission to outside hosp [facility]. She is also followed by Dr. Licona; will consult hematology to assist with management of her chronic anemia. (4) Chronic kidney disease, stage III (moderate) Is this a current diagnosis for this admission?: Yes Plan: Acute worsening of chronic kidney disease. Cr 1.73 today; up from baseline of 1.10 Likely secondary to CHF exacerbation. Receiving 2 units PRBC today. Continue to monitor I&Os Avoid nephrotoxic medications as able. Follow-up chemistry. (5) Hyponatremia Is this a current diagnosis for this admission?: Yes Plan: Serum sodium is still just below the lower limit normal. We will continue to monitor (6) Leukopenia Qualifiers: Leukopenia type: neutropenia Neutropenia type: unspecified Qualified Code(s): D70.9 - Neutropenia, unspecified Is this a current diagnosis for this admission?: Yes Plan: Resolved; likely secondary to acute illness (7) Obstructive sleep apnea Is this a current diagnosis for this admission?: Yes Plan: She continues to wear her CPAP at night. (8) Peptic ulcer disease Is this a current diagnosis for this admission?: Yes Plan: Reviewed risks and benefits of continued anticoagulation in elderly patient with recurrent GI bleeding. [id number] Score: 5 points (7.2% yearly CVA risk) HAS-BLED Score: 5 points (9.1-12.5% yearly hemorrhage risk). Patient and family members agreeable to discontinuing chronic anticoagulation. Continue twice daily PPI. Continue Carafate with meals. Avoid prolonged steroid therapy. (9) Shingles rash Qualifiers: Herpes zoster complications: without complications Qualified Code(s): B02.9 - Zoster without complications Is this a current diagnosis for this admission?: Yes Plan: Rash appears significantly improved; patient denies discomfort has not required PRN analgesics. We will plan on discontinuing acyclovir tomorrow; day #5. (10) Atrial fibrillation Qualifiers: Atrial fibrillation type: longstanding persistent Qualified Code(s): I48.11 - Longstanding persistent atrial fibrillation Is this a current diagnosis for this admission?: Yes Plan: Good rate control that is pacemaker driven. No changes at this time. Chronic anticoagulation is discontinued as mentioned above. (11) Chronic obstructive lung disease Qualifiers: COPD type: unspecified COPD Qualified Code(s): J44.9 - Chronic obstructive pulmonary disease, unspecified Is this a current diagnosis for this admission?: Yes Plan: Continue current inhaler regimen. Continue oxygen supplementation as needed to maintain saturations. Continue scheduled and as needed nebs. Encourage pulmonary toilet. No indications for steroid therapy at this time. (12) Hypertensive disorder Qualifiers: Hypertension type: essential hypertension Qualified Code(s): I10 - Essential (primary) hypertension Is this a current diagnosis for this admission?: Yes Plan: Her car shifter would like to see her systolic blood pressure greater than 110. Continuing carvedilol and spironolactone. Judicious use of IV furosemide to continue diuresing as patient is approximately 10 kg above baseline weight. Cardiac diet. (13) Weakness Is this a current diagnosis for this admission?: Yes Plan: Physical therapy consultation. Discharge planning consulted. - Time Time Spent with patient: 35 or more minutes Medications reviewed and adjusted accordingly: Yes Anticipated discharge: Home with Homehealth Within: Other - >72 hrs - Inpatient Certification Based on my medical assessment, after consideration of the patient's comorbidities, presenting symptoms, or acuity I expect that the services needed warrant INPATIENT care.: Yes I certify that my determination is in accordance with my understanding of Medic are's requirements for reasonable and necessary INPATIENT services [42 CFR 412.3e].: Yes Medical Necessity: Need For IV Fluids, Need For Continuous Telemetry Monitoring, Need for IV Antibiotics
--- NOTE | 2019-08-24 20:42 | ADVANCED CARE ---
- Diagnosis (1) Pneumonia Diagnosis Current: Yes (2) Acute exacerbation of CHF (congestive heart failure) Diagnosis Current: Yes (3) Anemia in chronic kidney disease Diagnosis Current: Yes (4) Chronic kidney disease, stage III (moderate) Diagnosis Current: Yes (5) Hyponatremia Diagnosis Current: Yes (6) Leukopenia Diagnosis Current: Yes (7) Obstructive sleep apnea Diagnosis Current: Yes (8) Peptic ulcer disease Diagnosis Current: Yes (9) Shingles rash Diagnosis Current: Yes (10) Atrial fibrillation Diagnosis Current: Yes (11) Chronic obstructive lung disease Diagnosis Current: Yes (12) Hypertensive disorder Diagnosis Current: Yes (13) Weakness Diagnosis Current: Yes Attendance: Patinet, son and [id number] Resuscitation Status: Full Code Care Planning Goals: FULL CODE Requests aggressive medical intervention; including procedures and/or surgical interventions as indicated. Stabilize for D/C to home with outpatient follow up at [facility]. Time Spent: 30 min
[2019-08-24] MEDS: FUROSEMIDE INJ/PF 20 MG/2 ML SDV IV SCH (21:02)
[2019-08-24] MEDS: CARVEDILOL 3.125 MG TABLET PO SCH (21:03)
[2019-08-24] MEDS: ASPIRIN 81 MG TABLET, ENT COATED PO SCH (21:03)
[2019-08-24] MEDS: GUAIFENESIN/D-METHORPHAN (200-20 MG) SYRUP 10 ML PO PRN (21:07)
[2019-08-24] MEDS: ATORVASTATIN CALCIUM 40 MG TABLET PO SCH (21:07)
[2019-08-25] MEDS: ACYCLOVIR 800 MG TABLET PO SCH ×3 (00:37→13:22)
[2019-08-25] MEDS: IPRATROPIUM BROMIDE 0.02% NEB 0.5 MG/2.5 ML AMPUL NEB SCH ×4 (02:14→20:18)
[2019-08-25] MEDS: LEVALBUTEROL HCL NEB 1.25 MG/3 ML AMPUL NEB SCH ×4 (02:14→20:18)
[2019-08-25] MEDS: HEPARIN SOD (PORCINE) 5,000 UNIT/ML 1 ML VIAL SUBCUT SCH ×3 (05:00→22:51)
[2019-08-25] MEDS: MEROPENEM 1 GM in NORMAL SALINE 50 ML IV SCH (06:22)
[2019-08-25 06:41] LABS: ABSOLUTE EOSINOPHILS # (AUTO) 0.1 10^3/uL (0.0-0.6); ABSOLUTE LYMPHOCYTES (AUTO) 0.4 10^3/uL (0.5-4.7); ABSOLUTE MONOCYTES (AUTO) 0.5 10^3/uL (0.1-1.4); ABSOLUTE NEUT (AUTO) 3.7 10^3/uL (1.7-8.2); BASOPHILS % (AUTO) 0.5 % (0-2); EOSINOPHILS % (AUTO) 1.9 % (0-6); HEMATOCRIT 31.7 % (36.0-47.0); LYMPHOCYTES % (AUTO) 9.5 % (13-45); MEAN CORPUSCULAR HEMOGLOBIN 31.4 pg (27.0-33.4); MONOCYTES % (AUTO) 10.7 % (3-13); PLATELET COUNT 135 10^3/uL (150-450); RED BLOOD COUNT 3.44 10^6/uL (3.72-5.28); RED CELL DISTRIBUTION WIDTH 17.7 % (11.5-14.0); SEGMENTED NEUTROPHILS % (AUTO) 77.4 % (42-78); TOTAL CELLS COUNTED % (AUTO) 100 %; WHITE BLOOD COUNT 4.8 10^3/uL (4.0-10.5)
[2019-08-25 06:45] LABS: HEMOGLOBIN 10.8 g/dL (12.0-15.5); MEAN CORPUSCULAR VOLUME 92 fl (80-97)
[2019-08-25 06:56] LABS: ALKALINE PHOSPHATASE 174 U/L (38-126); ANION GAP 9 (5-19); ASPARTATE AMINO TRANSFERASE 25 U/L (14-36); BILIRUBIN,DIRECT 0.5 mg/dL (0.0-0.4); BILIRUBIN,TOTAL 0.8 mg/dL (0.2-1.3); BLOOD UREA NITROGEN 38 mg/dL (7-20); CALCIUM 9.2 mg/dL (8.4-10.2); CARBON DIOXIDE 27 mmol/L (22-30); CHLORIDE 98 mmol/L (98-107); GLUCOSE 93 mg/dL (75-110); POTASSIUM 4.7 mmol/L (3.6-5.0); TOTAL PROTEIN 6.1 g/dL (6.3-8.2)
[2019-08-25] MEDS: SUCRALFATE 1 GM TABLET PO SCH ×3 (08:46→17:40)
[2019-08-25] MEDS: CARVEDILOL 3.125 MG TABLET PO SCH ×2 (10:20→21:46)
[2019-08-25] MEDS: SPIRONOLACTONE 25 MG TABLET PO SCH (10:20)
[2019-08-25] MEDS: PANTOPRAZOLE SODIUM 40 MG TABLET.DR PO SCH ×2 (10:20→21:45)
[2019-08-25] MEDS: GUAIFENESIN 600 MG TABLET.SA PO SCH ×2 (10:20→21:45)
[2019-08-25] MEDS: FUROSEMIDE INJ/PF 20 MG/2 ML SDV IV SCH ×2 (10:23→10:27)
[2019-08-25] MEDS: FLUTICASONE/VILANTEROL 200-25 MCG/DOSE IH SCH (10:26)
[2019-08-25] MEDS: ALBUMIN HUMAN 12.5 GM/50 ML RTUINJ IV SCH ×2 (11:08→12:10)
[2019-08-25] MEDS: LEVOFLOXACIN 750 MG TABLET PO SCH (13:29)
--- NOTE | 2019-08-25 15:14 | PDOC PROGRESS REPORT ---
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 Patient was seen on morning rounds. She was seen, comfortably, on room air. She reports that her dyspnea at rest has entirely abated, however, she does become significantly short of breath with minimal activity (even just sitting up from a semi-reclined position). She reports continued improvement in her peripheral edema, though is increased from her baseline. Otherwise, she reports that she continues to feel improved each day. She denies fever, chills, chest pain, palpitations, orthopnea, abdominal pain, nausea vomiting and diarrhea. She reports a poor appetite though this also is improving slowly. She has no questions or concerns at this time. No concerns per nursing. Reason For Visit: HEART FAILURE Physical Exam Vital Signs: Temp Pulse Resp BP Pulse Ox 97.4 F 60 16 111/45 L 96 08/25/19 11:13 08/25/19 13:43 08/25/19 13:43 08/25/19 11:13 08/25/19 13:43 Intake & Output 08/24/19 08/25/19 08/26/19 06:59 06:59 06:59 Intake Total 3444 1510 100 Balance 3444 1510 100 Weight 82 kg 82.7 kg General appearance: PRESENT: no acute distress, cooperative, obese, well- developed, well-nourished Head exam: PRESENT: atraumatic, normocephalic Eye exam: PRESENT: conjunctiva pink, EOMI, PERRLA. ABSENT: scleral icterus Ear exam: PRESENT: normal external ear exam Mouth exam: PRESENT: moist, tongue midline Respiratory exam: PRESENT: clear to auscultation nick, decreased breath sounds - diminshed right lower infante, symmetrical, unlabored. ABSENT: rales, rhonchi, wheezes Cardiovascular exam: PRESENT: RRR, +S1, +S2. ABSENT: diastolic murmur, rubs, systolic murmur Pulses: PRESENT: normal dorsalis pedis pul Vascular exam: PRESENT: normal capillary refill GI/Abdominal exam: PRESENT: normal bowel sounds, soft. ABSENT: distended, guarding, mass, organolmegaly, rebound, tenderness Rectal exam: PRESENT: deferred Extremities exam: PRESENT: full ROM, +2 edema - BLE and sacaral edema. ABSENT: calf tenderness, clubbing, pedal edema Neurological exam: PRESENT: alert, awake, oriented to person, oriented to place, oriented to time, oriented to situation, CN II-XII grossly intact. ABSENT: motor sensory deficit Psychiatric exam: PRESENT: appropriate affect, normal mood. ABSENT: homicidal ideation, suicidal ideation Skin exam: PRESENT: dry, intact, warm. ABSENT: cyanosis, rash Results Laboratory Results: 08/25/19 06:18 08/25/19 06:18 08/24/19 08/25/19 08/25/19 15:01 06:18 06:18 WBC 4.8 RBC 3.44 L Hgb 10.8 L D Hct 31.7 L MCV 92 D MCH 31.4 MCHC 34.0 RDW 17.7 H Plt Count 135 L Seg Neutrophils % 77.4 Sodium 134.0 L Potassium 4.7 Chloride 98 Carbon Dioxide 27 Anion Gap 9 BUN 38 H Creatinine 1.62 H Est GFR ( Amer) 36 L Glucose 93 Calcium 9.2 Total Bilirubin 0.8 AST 25 Alkaline Phosphatase 174 H Total Protein 6.1 L Albumin 3.0 L Blood Type O POSITIVE Antibody Screen NEGATIVE 08/20/19 08/20/19 08/21/19 13:40 22:08 02:00 Troponin I 0.078 0.073 0.069 NT-Pro-B Natriuret Pep 2720 H 08/21/19 08/22/19 08/23/19 05:09 05:17 17:50 Troponin I 0.095 0.107 0.110 NT-Pro-B Natriuret Pep 2880 H 4280 H 08/25/19 06:18 Troponin I NT-Pro-B Natriuret Pep 3430 H Impressions: Chest X-Ray 08/23/19 00:00 IMPRESSION: Persistent trace right pleural effusion with right lower lobe airspace disease worrisome for pneumonia Assessment and Plan - Diagnosis (1) Pneumonia Qualifiers: Pneumonia type: due to unspecified organism Laterality: right Lung location: lower lobe of lung Qualified Code(s): J18.9 - Pneumonia, unspecified organism Is this a current diagnosis for this admission?: Yes Plan: Improved. WBCs are now normal, afebrile, no longer tachycardic, and maintaining oxygen sat urations on room air while at rest. Blood cultures have no growth to date. Sputum culture grew pansensitive staph aureus. Will discontinue meropenem today and transition to p.o. Levaquin. Continue supplemental oxygen as needed maintain saturations greater than 89%. Continue scheduled and as needed nebulizer treatments. Continue Mucinex twice daily with Robitussin as needed. Encourage pulmonary toilet with incentive spirometer, flutter valve, and ambulation. (2) Acute exacerbation of CHF (congestive heart failure) Qualifiers: Heart failure type: unspecified Qualified Code(s): I50.9 - Heart failure, unspecified Is this a current diagnosis for this admission?: Yes Plan: Slight improvement today. Received echocardiogram from Dr. Webster's office dated 2016; at that time, patient had an LVEF of 70% without ventricular diastolic dysfunction or wall motion abnormality. She was noted to have RVSP of 55 with moderate pulmonary hypertension, mitral regurgitation, with mild left atrial enlargement. Have requested updated echocardiogram from recent admission to [facility], however, patient does not recall having echocardiogram done during that visit. proBNP trending up from 2800->4200-> 3400 Troponins are stable at 0.110; patient is chest pain-free with no concerning findings on telemetry. Weight trending up; 77.5 kg on admission now 82 kg. Continue carvedilol 3.125 mg twice daily, home dose spironolactone 12.5 mg daily Patient to receive 2 units PRBC yesterday; Discussed the patient's case with her primary professor of journalism, Dr. Webster, today. Dr. Webster advises that he has nothing further that he can offer from medication management. He highly recommends that the patient be transferred to [place] for evaluation for mitral valve replacement. I discussed this with the patient and family members today. They are interested in having the patient evaluated at [place]. On their request, I did call the [place] transfer center and spoke with Dr. Jb Pastor, professor of journalism. Dr. Pastor recommends optimizing the patient's renal function, completing treatment for pneumonia, and continuing to hold Eliquis to demonstrate that her recurrent GI bleeding has resolved. He states that short of those measures, she would be a very poor candidate for surgical interventions. However, he would be interested in meeting the patient for formalized consultation as an outpatient. This was discussed with the patient and family members this afternoon who are in agreement with the plan of care. Appointment scheduled with Dr. Pastor on 10/22/19 at 1 pm. Will continue to cautiously diurese as blood pressures allow; furosemide 20 mg IV BID. IV albumin today for blood pressure support. Consider transfer to [facility] for dobutamine if blood pressure does not tolerate. Continue cardiac diet. Daily weights and strict I&O's (3) Anemia in chronic kidney disease Qualifiers: Chronic kidney disease stage: stage 3 (moderate) Qualified Code(s): N18.3 - Chronic kidney disease, stage 3 (moderate); D63.1 - Anemia in chronic kidney disease Is this a current diagnosis for this admission?: Yes Plan: Hgb 9.0-> 8.0-> 10.8 (now s/p 2 units PRBC) We will continue to monitor hemoglobin. We will also monitor for any recurrent GI bleeding. Patient received IV iron transfusion at her recent admission to outside hospital. She is also followed by Dr. Noriega; will consult hematology to assist with management of her chronic anemia. (4) Chronic kidney disease, stage III (moderate) Is this a current diagnosis for this admission?: Yes Plan: Acute worsening of chronic kidney disease. Slight improvement today. Cr 1.33-> 1.73 -> 1.62; up from baseline of 1.10 Likely secondary to CHF exacerbation. Received 2 units PRBC yesterday Continue to monitor I&Os Avoid nephrotoxic medications as able. Follow-up chemistry. (5) Hyponatremia Is this a current diagnosis for this admission?: Yes Plan: Serum sodium is still just below the lower limit normal. We will continue to mo nitor (6) Leukopenia Qualifiers: Leukopenia type: neutropenia Neutropenia type: unspecified Qualified Code(s): D70.9 - Neutropenia, unspecified Is this a current diagnosis for this admission?: Yes Plan: Resolved; likely secondary to acute illness (7) Obstructive sleep apnea Is this a current diagnosis for this admission?: Yes Plan: She continues to wear her CPAP at night. (8) Peptic ulcer disease Is this a current diagnosis for this admission?: Yes Plan: Reviewed risks and benefits of continued anticoagulation in elderly patient with recurrent GI bleeding. [id number] Score: 5 points (7.2% yearly CVA risk) HAS-BLED Score: 5 points (9.1-12.5% yearly hemorrhage risk). Patient and family members agreeable to discontinuing chronic anticoagulation. Continue twice daily PPI. Continue Carafate with meals. Avoid prolonged steroid therapy. (9) Shingles rash Qualifiers: Herpes zoster complications: without complications Qualified Code(s): B02.9 - Zoster without complications Is this a current diagnosis for this admission?: Yes Plan: Rash appears significantly improved; patient denies discomfort has not required PRN analgesics. Discontinued acyclovir today; Day #6 (10) Atrial fibrillation Qualifiers: Atrial fibrillation type: longstanding persistent Qualified Code(s): I48.11 - Longstanding persistent atrial fibrillation Is this a current diagnosis for this admission?: Yes Plan: Good rate control that is pacemaker driven. No changes at this time. Chronic anticoagulation is discontinued as mentioned above. (11) Chronic obstructive lung disease Qualifiers: COPD type: unspecified COPD Qualified Code(s): J44.9 - Chronic obstructive pulmonary disease, unspecified Is this a current diagnosis for this admission?: Yes Plan: Continue current inhaler regimen. Continue oxygen supplementation as needed to maintain saturations. Continue scheduled and as needed nebs. Encourage pulmonary toilet. No indications for steroid therapy at this time. (12) Hypertensive disorder Qualifiers: Hypertension type: essential hypertension Qualified Code(s): I10 - Essential (primary) hypertension Is this a current diagnosis for this admission?: Yes Plan: Her professor of journalism would like to see her systolic blood pressure greater than 110. Continuing carvedilol and spironolactone. Judicious use of IV furosemide to continue diuresing as patient is approximately 10 kg above baseline weight. Cardiac diet. (13) Weakness Is this a current diagnosis for this admission?: Yes Plan: Physical therapy consultation. Discharge planning consulted. - Time Time Spent with patient: 25-34 minutes Medications reviewed and adjusted accordingly: Yes Anticipated discharge: Home with Homehealth Within: within 72 hours
[2019-08-25] MEDS: ATORVASTATIN CALCIUM 40 MG TABLET PO SCH (21:45)
[2019-08-25] MEDS: ACETAMINOPHEN 325 MG TABLET PO PRN (21:45)
[2019-08-25] MEDS: ASPIRIN 81 MG TABLET, ENT COATED PO SCH (21:49)
[2019-08-26] MEDS: FUROSEMIDE INJ/PF 20 MG/2 ML SDV IV SCH ×4 (00:32→17:59)
[2019-08-26] MEDS: LEVALBUTEROL HCL NEB 1.25 MG/3 ML AMPUL NEB SCH ×4 (02:39→20:56)
[2019-08-26] MEDS: IPRATROPIUM BROMIDE 0.02% NEB 0.5 MG/2.5 ML AMPUL NEB SCH ×4 (02:39→20:56)
[2019-08-26 05:04] LABS: HEMATOCRIT 29.9 % (36.0-47.0); HEMOGLOBIN 10.2 g/dL (12.0-15.5); MEAN CORPUSCULAR HEMOGLOBIN 31.4 pg (27.0-33.4); MEAN CORPUSCULAR VOLUME 92 fl (80-97); PLATELET COUNT 124 10^3/uL (150-450); RED BLOOD COUNT 3.24 10^6/uL (3.72-5.28); RED CELL DISTRIBUTION WIDTH 17.5 % (11.5-14.0); WHITE BLOOD COUNT 3.9 10^3/uL (4.0-10.5)
[2019-08-26] MEDS: HEPARIN SOD (PORCINE) 5,000 UNIT/ML 1 ML VIAL SUBCUT SCH ×3 (05:11→21:43)
[2019-08-26 05:29] LABS: ANION GAP 7 (5-19); BLOOD UREA NITROGEN 36 mg/dL (7-20); CALCIUM 9.2 mg/dL (8.4-10.2); CARBON DIOXIDE 28 mmol/L (22-30); CHLORIDE 100 mmol/L (98-107); GLUCOSE 71 mg/dL (75-110); POTASSIUM 4.7 mmol/L (3.6-5.0)
[2019-08-26 08:03] LABS: IRON(TIBC) 36.1 ug/dL (37-170)
--- NOTE | 2019-08-26 08:30 | PDOC CONSULTATION ---
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 Ivan 08/07/2019, recently been weak, dizzy, and ultimately was brought into the hospital, hemoglobin was in the 8 range and patient was transfused 2 units packed red blood cell. I added iron studies to the pretransfusion blood. She was given 1 g of IV iron about 6 weeks ago in our office. It seems that every 4 to 6 months she has had ablation of AVMs in the stomach duodenum and other parts of the GI tract. She also has chronic kidney disease. Past Medical History Cardiac Medical History: Reports: Atrial Fibrillation, Congestive Heart Failure, Hypertension Denies: Myocardial Infarction Pulmonary Medical History: Reports: Asthma, Chronic Obstructive Pulmonary Disease (COPD), Pneumonia Denies: Bronchitis EENT Medical History: Reports: Eyes - Laser surgery Denies: Ears, Nose, Throat Neurological Medical History: Denies: Ischemic CVA, Seizures Endocrine Medical History: Denies: Diabetes Mellitus Type 2 Renal/ Medical History: Reports: Chronic Kidney Disease GI Medical History: Reports: Gastroesophageal Reflux Disease, Peptic Ulcer Disease, Other - Atrial venous malformations Denies: Hepatitis, Hiatal Hernia Musculoskeltal Medical History: Reports: Arthritis Psychiatric Medical History: Denies: Alcohol Dependency, Depression, Substance Abuse, Tobacco Dependency Hematology: Reports: Anemia Denies: Sickle Cell Disease Past Surgical History Past Surgical History: Reports: Cardiac Catheterization - pacemaker, Cholecystectomy, Herniorrhaphy, Pacemaker Denies: Amputation, Mastectomy Social History Information Source: Patient Lives with: Family Smoking Status: Never Smoker Electronic Cigarette use?: No Frequency of Alcohol Use: None Hx Recreational Drug Use: No Hx Prescription Drug Abuse: No - Advance Directive Resuscitation Status: Full Code Family History Family History: CAD, Hypertension, Other - CHF Parental Family History Reviewed: Yes Children Family History Reviewed: Yes Sibling(s) Family History Reviewed.: Yes Medication/Allergy Home Medications: Albuterol Sulfate [Proair HFA Inhalation Aerosol 8.5 gm MDI] 2 puff IH Q4HP PRN 08/20/19 Apixaban [Eliquis 2.5 mg Tablet] 2.5 mg PO BID 08/20/19 Atorvastatin Calcium [Lipitor 40 mg Tablet] 40 mg PO QHS 08/20/19 Carvedilol [Coreg 6.25 mg Tablet] 6.25 mg PO Q12 08/20/19 Furosemide [Lasix 40 mg Tablet] 40 mg PO DAILY 08/20/19 Nitroglycerin [Nitrostat 0.4 mg (1/150 Gr) Tabs 25/Bottle] 0.4 mg PO Q5MP PRN 08/20/19 Pantoprazole Sodium [Protonix [address] Tablet] 40 mg PO DAILY 08/20/19 Potassium Chloride [Klor-Con 10 Meq Tablet ER] 20 meq PO DAILY 08/20/19 Spironolactone [Aldactone] 50 mg PO DAILY 08/20/19 Tiotropium [place] [Spiriva Respimat] 2 spray IH DAILY 08/20/19 Allergies/Adverse Reactions: codeine [Codeine] Allergy (Unknown, Verified 08/20/19 14:19) amoxicillin [Amoxicillin] Allergy (Verified 08/20/19 14:19) Review of Systems Constitutional: ABSENT: chills, fever(s), headache(s), weight gain, weight loss Eyes: ABSENT: visual disturbances Ears: ABSENT: hearing changes Cardiovascular: ABSENT: chest pain, dyspnea on exertion, edema, orthropnea, palpitations Respiratory: ABSENT: cough, hemoptysis Gastrointestinal: ABSENT: abdominal pain, constipation, diarrhea, hematemesis, hematochezia, nausea, vomiting Genitourinary: ABSENT: dysuria, hematuria Musculoskeletal: ABSENT: joint swelling Integumentary: ABSENT: rash, wounds Neurological: ABSENT: abnormal gait, abnormal speech, confusion, dizziness, focal weakness, syncope Psychiatric: ABSENT: anxiety, depression, homidical ideation, suicidal ideation Endocrine: ABSENT: cold intolerance, heat intolerance, polydipsia, polyuria Hematologic/Lymphatic: ABSENT: easy bleeding, easy bruising Physical Exam Vital Signs: Temp Pulse Resp BP Pulse Ox 97.8 F 62 14 123/55 L 95 08/26/19 00:05 08/26/19 02:40 08/26/19 02:40 08/26/19 00:05 08/26/19 02:40 Intake & Output 08/25/19 08/26/19 08/27/19 06:59 06:59 06:59 Intake Total 1510 1240 Balance 1510 1240 Weight 82.7 kg 83.2 kg General appearance: PRESENT: no acute distress, well-developed, well-nourished Head exam: PRESENT: atraumatic, normocephalic Eye exam: PRESENT: conjunctiva pink, EOMI, PERRLA. ABSENT: scleral icterus Ear exam: PRESENT: normal external ear exam Mouth exam: PRESENT: moist, tongue midline Neck exam: ABSENT: carotid bruit, JVD, lymphadenopathy, thyromegaly Respiratory exam: PRESENT: clear to auscultation nick. ABSENT: rales, rhonchi, wheezes Cardiovascular exam: PRESENT: RRR. ABSENT: diastolic murmur, rubs, systolic murmur Pulses: PRESENT: normal dorsalis pedis pul Vascular exam: PRESENT: normal capillary refill GI/Abdominal exam: PRESENT: normal bowel sounds, soft. ABSENT: distended, guarding, mass, organolmegaly, rebound, tenderness Rectal exam: PRESENT: deferred Extremities exam: PRESENT: full ROM. ABSENT: calf tenderness, clubbing, pedal edema Neurological exam: PRESENT: alert, awake, oriented to person, oriented to place, oriented to time, oriented to situation, CN II-XII grossly intact. ABSENT: motor sensory deficit Psychiatric exam: PRESENT: appropriate affect, normal mood. ABSENT: homicidal ideation, suicidal ideation Skin exam: PRESENT: dry, intact, warm. ABSENT: cyanosis, rash Results Laboratory Results: 08/26/19 03:55 08/26/19 03:55 08/26/19 08/26/19 03:55 03:55 WBC 3.9 L RBC 3.24 L Hgb 10.2 L Hct 29.9 L MCV 92 MCH 31.4 MCHC 34.0 RDW 17.5 H Plt Count 124 L Sodium 134.7 L Potassium 4.7 Chloride 100 Carbon Dioxide 28 Anion Gap 7 BUN 36 H Creatinine 1.37 H Est GFR ( Amer) 44 L Glucose 71 L Calcium 9.2 08/20/19 16:15 Blood Blood Culture - Final NO GROWTH IN 5 DAYS 08/20/19 14:55 Blood Blood Culture - Final NO GROWTH IN 5 DAYS 08/20/19 08/20/19 08/21/19 13:40 22:08 02:00 Troponin I 0.078 0.073 0.069 NT-Pro-B Natriuret Pep 2720 H 08/21/19 08/22/19 08/23/19 05:09 05:17 17:50 Troponin I 0.095 0.107 0.110 NT-Pro-B Natriuret Pep 2880 H 4280 H 08/25/19 08/26/19 06:18 03:55 Troponin I NT-Pro-B Natriuret Pep 3430 H 4500 H Impressions: Chest X-Ray 08/23/19 00:00 IMPRESSION: Persistent trace right pleural effusion with right lower lobe airspace disease worrisome for pneumonia Assessment & Plan - Diagnosis (1) Anemia Qualifiers: Anemia type: iron deficiency Iron deficiency anemia type: chronic blood loss Qualified Code(s): D50.0 - Iron deficiency anemia secondary to blood loss (chronic) Is this a current diagnosis for this admission?: Yes Plan: Anemia multifactorial with iron deficiency and anemia of chronic disease, iron studies pending to see if she is iron replete, but she will require periodic IV iron because of the AVMs. She may be an SHARYN candidate as well. We will follow while patient is admitted and will follow-up in office as well. - Time Time Spent: 50 to 70 Minutes - Inpatient Certification Based on my medical assessment, after consideration of the patient's comorbidities, presenting symptoms, or acuity I expect that the services needed warrant INPATIENT care.: Yes I certify that my determination is in accordance with my understanding of Medicare's requirements for reasonable and necessary INPATIENT services [42 CFR 412.3e].: Yes Medical Necessity: Risk of Complication if Not Cared For in Hospital
[2019-08-26 09:10] LABS: FOLATE 5.92 ng/mL (>2.76)
[2019-08-26] MEDS ORDERED: DOBUTAMINE HCL/D5W 500 MG/250 ML RTUINJ IV PRN (09:19)
[2019-08-26] MEDS: SUCRALFATE 1 GM TABLET PO SCH ×3 (10:27→17:58)
[2019-08-26] MEDS: LEVOFLOXACIN 750 MG TABLET PO SCH (10:28)
[2019-08-26] MEDS: FLUTICASONE/VILANTEROL 200-25 MCG/DOSE IH SCH (10:28)
[2019-08-26] MEDS: GUAIFENESIN 600 MG TABLET.SA PO SCH ×2 (10:28→21:42)
[2019-08-26] MEDS: PANTOPRAZOLE SODIUM 40 MG TABLET.DR PO SCH ×2 (10:28→21:43)
[2019-08-26] MEDS: SPIRONOLACTONE 25 MG TABLET PO SCH (10:29)
[2019-08-26] MEDS: CARVEDILOL 3.125 MG TABLET PO SCH ×2 (10:29→21:42)
--- NOTE | 2019-08-26 15:14 | PDOC PROGRESS REPORT ---
Subjective Progress Note for:: 08/26/19 Subjective:: The patient is an 89-year-old female with a past medical history of chronic atrial fibrillation (recently discontinued Eliquis due to GI bleeding) CHF, hypertension, MR with pulmonary hypertension, COPD, CKD, arthritis, anemia, and obesity who was admitted on 08/20/2019 for acute CHF exacerbation who subsequently developed healthcare associated pneumonia. Patient was seen on morning rounds. She was seen sitting up to the recliner, comfortably, on room air. She reports that her dyspnea at rest has entirely abated, however, she does become significantly short of breath with minimal activity (even just sitting up from a semi-reclined position). Otherwise, she reports that she continues to feel improved each day. She denies fever, chills, chest pain, palpitations, orthopnea, abdominal pain, nausea vomiting and diarrhea. She reports a poor appetite. She has no questions or concerns at this time. Nursing has had to hold multiple doses of furosemide and carvedilol due to systolic blood pressures 70-90. Reason For Visit: HEART FAILURE Physical Exam Vital Signs: Temp Pulse Resp BP Pulse Ox 97.6 F 69 16 84/40 L 96 08/26/19 10:25 08/26/19 14:04 08/26/19 14:04 08/26/19 10:25 08/26/19 14:04 Intake & Output 08/25/19 08/26/19 08/27/19 06:59 06:59 06:59 Intake Total 1510 1240 Output Total 400 Balance 1510 1240 -400 Weight 82.7 kg 83.2 kg General appearance: PRESENT: no acute distress, cooperative, obese, well- developed, well-nourished Head exam: PRESENT: atraumatic, normocephalic Eye exam: PRESENT: conjunctiva pink, EOMI, PERRLA. ABSENT: scleral icterus Ear exam: PRESENT: normal external ear exam Mouth exam: PRESENT: moist, tongue midline Respiratory exam: PRESENT: crackles - Greater on the left, decreased breath sounds - Diminished right lower field, symmetrical, unlabored. ABSENT: rales, rhonchi, wheezes Cardiovascular exam: PRESENT: RRR, +S1, +S2, systolic murmur. ABSENT: diastolic murmur, rubs Pulses: PRESENT: normal dorsalis pedis pul Vascular exam: PRESENT: normal capillary refill GI/Abdominal exam: PRESENT: normal bowel sounds, soft. ABSENT: distended, guarding, mass, organolmegaly, rebound, tenderness Rectal exam: PRESENT: deferred Extremities exam: PRESENT: full ROM, +2 edema - BLE and sacral edema. ABSENT: calf tenderness, clubbing, pedal edema Neurological exam: PRESENT: alert, awake, oriented to person, oriented to place, oriented to time, oriented to situation, CN II-XII grossly intact. ABSENT: motor sensory deficit Psychiatric exam: PRESENT: appropriate affect, normal mood. ABSENT: homicidal ideation, suicidal ideation Skin exam: PRESENT: dry, intact, warm. ABSENT: cyanosis, rash Results Laboratory Results: 08/26/19 03:55 08/26/19 03:55 08/23/19 08/26/19 08/26/19 05:09 03:55 03:55 WBC 3.9 L RBC 3.24 L Hgb 10.2 L Hct 29.9 L MCV 92 MCH 31.4 MCHC 34.0 RDW 17.5 H Plt Count 124 L Sodium 134.7 L Potassium 4.7 Chloride 100 Carbon Dioxide 28 Anion Gap 7 BUN 36 H Creatinine 1.37 H Est GFR ( Amer) 44 L Glucose 71 L Calcium 9.2 Iron 36.1 L TIBC 323 % Saturation 11 Ferritin 358.00 H Vitamin B12 653.0 Folate 5.92 08/23/19 09:37 Sputum Gram Stain - Final 08/23/19 09:37 Sputum Sputum Culture - Final Staphylococcus Aureus C.albicans/C.dubliniensis Normal [place] 08/20/19 16:15 Blood Blood Culture - Final NO GROWTH IN 5 DAYS 08/20/19 14:55 Blood Blood Culture - Final NO GROWTH IN 5 DAYS 08/20/19 08/20/19 08/21/19 13:40 22:08 02:00 Troponin I 0.078 0.073 0.069 NT-Pro-B Natriuret Pep 2720 H 08/21/19 08/22/19 08/23/19 05:09 05:17 17:50 Troponin I 0.095 0.107 0.110 NT-Pro-B Natriuret Pep 2880 H 4280 H 08/25/19 08/26/19 06:18 03:55 Troponin I NT-Pro-B Natriuret Pep 3430 H 4500 H Impressions: Chest X-Ray 08/23/19 00:00 IMPRESSION: Persistent trace right pleural effusion with right lower lobe airspace disease worrisome for pneumonia Assessment and Plan - Diagnosis (1) Pneumonia Qualifiers: Pneumonia type: due to unspecified organism Laterality: right Lung location: lower lobe of lung Qualified Code(s): J18.9 - Pneumonia, unspecified organism Is this a current diagnosis for this admission?: Yes Plan: Improved. WBCs are now normal, afebrile, no longer tachycardic, and maintaining oxygen saturations on room air while at rest. Blood cultures have no growth to date. Sputum culture grew pansensitive staph aureus. Have discontinued meropenem and transition to p.o. Levaquin. Day #2 of Levaquin Continue supplemental oxygen as needed maintain saturations greater than 89%. Continue scheduled and as needed nebulizer treatments. Continue Mucinex twice daily with Robitussin as needed. Start Mucomyst nebs. Encourage pulmonary toilet with incentive spirometer, flutter valve, and ambulation. (2) Acute exacerbation of CHF (congestive heart failure) Qualifiers: Heart failure type: unspecified Qualified Code(s): I50.9 - Heart failure, unspecified Is this a current diagnosis for this admission?: Yes Plan: Slight improvement today. Received echocardiogram from Dr. Webster's office dated 2016; at that time, patient had an LVEF of 70% without ventricular diastolic dysfunction or wall motion abnormality. She was noted to have RVSP of 55 with moderate pulmonary hypertension, mitral regurgitation, with mild left atrial enlargement. Have requested updated echocardiogram from recent admission to [facility], however, patient does not recall having echocardiogram done during that visit. proBNP trending up from 2800->4200-> 3400-> 4500 Troponins are stable at 0.110; patient is chest pain-free with no concerning findings on telemetry. Weight trending up; 77.5 kg on admission now 83.2 kg. Continue carvedilol 3.125 mg twice daily, home dose spironolactone 12.5 mg daily Patient to receive 2 units PRBC yesterday; Discussed the patient's case with her primary carpenter assistant installer, Dr. Webster, today. Dr. Webster advises that he has nothing further that he can offer from medication management. He highly recommends that the patient be transferred to [place] for evaluation for mitral valve replacement. I discussed this with the patient and family members today. They are interested in having the patient evaluated at [place]. On their request, I did call the [place] transfer center and spoke with Dr. Jb Pastor, carpenter assistant installer. Dr. Pastor recommends optimizing the patient's renal function, completing treatment for pneumonia, and continuing to hold Eliquis to demonstrate that her recurrent GI bleeding has resolved. He states that short of those measures, she would be a very poor candidate for surgical interventions. However, he would be interested in meeting the patient for formalized consultation as an outpatient. This was discussed with the patient and family members this afternoon who are in agreement with the plan of care. Appointment scheduled with Dr. Pastor on 10/22/19 at 1 pm. Will continue to cautiously diurese as blood pressures allow; furosemide 10 mg IV q6 hours IV albumin yesterday was ineffective for blood pressure support. Have transferred to [facility] for dobutamine if blood pressure does not tolerate. Echocardiogram pending. Continue cardiac diet. Fluid restrict 1.5 L daily Daily weights and strict I&O's -[place]o for output -Have asked for standing weights only (3) Anemia in chronic kidney disease Qualifiers: Chronic kidney disease stage: stage 3 (moderate) Qualified Code(s): N18.3 - Chronic kidney disease, stage 3 (moderate); D63.1 - Anemia in chronic kidney disease Is this a current diagnosis for this admission?: Yes Plan: Hgb 9.0-> 8.0-> 10.8 (now s/p 2 units PRBC) We will continue to monitor hemoglobin. We will also monitor for any recurrent GI bleeding. Patient received IV iron transfusion at her recent admission to outside hospital. She is also followed by Dr. Noriega; will consult hematology to assist with management of her chronic anemia. (4) Chronic kidney disease, stage III (moderate) Is this a current diagnosis for this admission?: Yes Plan: Acute worsening of chronic kidney disease. Continues to improve today. Cr 1.33-> 1.73 -> 1.62-> 1.37; up from baseline of 1.10 Likely secondary to CHF exacerbation. Received 2 units PRBC followed by albumin Continue to monitor I&Os Optimize cardiac output Avoid nephrotoxic medications as able. Follow-up chemistry. (5) Hyponatremia Is this a current diagnosis for this admission?: Yes Plan: Serum sodium is still just below the lower limit normal. We will continue to monitor (6) Leukopenia Qualifiers: Leukopenia type: neutropenia Neutropenia type: unspecified Qualified Code(s): D70.9 - Neutropenia, unspecified Is this a current diagnosis for this admission?: Yes Plan: Resolved; likely secondary to acute illness (7) Obstructive sleep apnea Is this a current diagnosis for this admission?: Yes Plan: She continues to wear her CPAP at night. (8) Peptic ulcer disease Is this a current diagnosis for this admission?: Yes Plan: Reviewed risks and benefits of continued anticoagulation in elderly patient with recurrent GI bleeding. [id number] Score: 5 points (7.2% yearly CVA risk) HAS-BLED Score: 5 points (9.1-12.5% yearly hemorrhage risk). Patient and family members agreeable to discontinuing chronic anticoagulation. Continue twice daily PPI. Continue Carafate with meals. Avoid prolonged steroid therapy. (9) Shingles rash Qualifiers: Herpes zoster complications: without complications Qualified Code(s): B02.9 - Zoster without complications Is this a current diagnosis for this admission?: Yes Plan: Rash appears significantly improved; patient denies discomfort has not required PRN analgesics. Discontinued acyclovir. (10) Atrial fibrillation Qualifiers: Atrial fibrillation type: longstanding persistent Qualified Code(s): I48.11 - Longstanding persistent atrial fibrillation Is this a current diagnosis for this admission?: Yes Plan: Good rate control that is pacemaker driven. No changes at this time. Chronic anticoagulation is discontinued as mentioned above. (11) Chronic obstructive lung disease Qualifiers: COPD type: unspecified COPD Qualified Code(s): J44.9 - Chronic obstructive pulmonary disease, unspecified Is this a current diagnosis for this admission?: Yes Plan: Continue current inhaler regimen. Continue oxygen supplementation as needed to maintain saturations. Continue scheduled and as needed nebs. Encourage pulmonary toilet. No indications for steroid therapy at this time. (12) Hypertensive disorder Qualifiers: Hypertension type: essential hypertension Qualified Code(s): I10 - Essential (primary) hypertension Is this a current diagnosis for this admission?: Yes Plan: Her carpenter assistant installer would like to see her systolic blood pressure greater than 110. Continuing carvedilol and spironolactone. Judicious use of IV furosemide to continue diuresing as patient is approximately 10 kg above baseline weight. Cardiac diet. (13) Weakness Is this a current diagnosis for this admission?: Yes Plan: Physical therapy consultation. Discharge planning consulted. - Time Time Spent with patient: 25-34 minutes Medications reviewed and adjusted accordingly: Yes Anticipated discharge: Home with Homehealth Within: within 72 hours
[2019-08-26] MEDS: PHARMACY COMMUNICATION ORDER MC SCH (17:36)
--- NOTE | 2019-08-26 18:38 | XCELERA REPORT ---
[address] [address] Transthoracic Echocardiogram Report Name: CHERIE ACE Age: 89 yrs Gender: Female : 1930 Patient Status: Inpatient Patient Location: [facility]^A Study Date: 08/26/2019 03:02 PM Height: 62 in Weight: 183 lb BSA: 1.8 m2 Reason For Study: CHF exacerbation Ordering Physician: DEVIKA MACDONLAD Performed By: Justine Cade Interpretation Summary Min post pericardial effusion Mod. calcified aortic root, not measured. Moderate 3 cusps AV, with mild calcific , MPG 18mm Hg. Mild AR with PHT 401ms. and no LV enlargement, LVESD 32mm. Mod. Mitral annular calcification, No MS ([id number]), Moderate MR, with severe LA enlargement, DILSHAD 60.9 ml/m2. LVH = Mild concentric LVH with normal LVEF 60-65%, and LVDD (Med TDI 24, Lat TDI 22.8). Regional wall motion abnormality seen in IVS. No LV enlargement. RV poorly seen, likely normal, function normal. BUT RA enlargement. TR is milld/mod with RVSP 51mm Hg assuming RAP 15mm Hg, and IVC measured 30mm dilated. Summary = Mod MR with severe LAE Mild calc. with mild AR Mod pulm hypertension RVSP 51, with RA enlargement. Normal LVEF, with LV diastolic dysfunction. IVS mild hypokinesis, no LV enlargement. MMode/2D Measurements & Calculations RVDd: 3.7 cm LVIDd: 4.7 cm FS: 32.3 % Ao root diam: 2.5 cm IVSd: 1.3 cm LVIDs: 3.2 cm EDV(Teich): Ao root area: LVPWd: 1.3 cm 100.1 ml ESV(Teich): 39.5 ml4.9 cm2 LA dimension: 4.5 cm EF(Teich): 60.6 % LVOT diam: 1.9 cm LVLd ap4: 7.1 cm SV(MOD-sp4): LVOT area: EDV(MOD-sp4): 21.0 ml 2.9 cm2 39.0 ml LVLs ap4: 6.9 cm ESV(MOD-sp4): 18.0 ml EF(MOD-sp4): 53.8 % Doppler Measurements & Calculations MV E max loli: MV P1/2t max loli: Ao V2 max: AI max loli: 131.6 cm/sec 132.2 cm/sec 283.5 cm/sec 413.4 cm/sec MV A max loli: MV P1/2t: 56.2 msec Ao max PG: AI max P.1 cm/sec 32.2 mmHg 68.4 mmHg MV E/A: 3.2 MVA(P1/2t): 3.9 cm2 Ao V2 mean: AI dec slope: MV dec slope: 191.9 cm/sec 689.3 cm/sec2 300.6 cm/sec2 MV dec time: 0.19 secAo mean PG: AI P1/2t: 17.4 mmHg 402.8 msec Ao V2 VTI: 71.0 cm SHIVAM(I,D): 1.0 cm2 SHIVAM(V,D): 1.0 cm2 LV V1 max PG: SV(LVOT): 74.1 ml PA V2 max: TR max loli: 3.8 mmHg 67.6 cm/sec 331.2 cm/sec LV V1 mean PG: PA max PG: TR max P.1 mmHg 1.8 mmHg 43.9 mmHg LV V1 max: 97.1 cm/sec LV V1 mean: 68.5 cm/sec LV V1 VTI: 25.3 cm AV P1/2t-pr_phl: MV P1/2t-pr_phl: 402.8 msec 56.2 msec I WMSI = 1.31 % Normal = 69 Segments Size X - Cannot 1 - Normal 2 - 3 - Akinetic4 - 1-2 small Interpret Hypokinetic Dyskinetic 3-5 moderate 5 - 6-14 large Aneurysmal 15-16 diffuse : DEVIKA MACDONALD Andre
[2019-08-26] MEDS: ACETYLCYSTEINE 20% SOLN 800 MG/4 ML VIAL.NEB NEB SCH (20:56)
[2019-08-26] MEDS: ATORVASTATIN CALCIUM 40 MG TABLET PO SCH (21:43)
[2019-08-26] MEDS: ASPIRIN 81 MG TABLET, ENT COATED PO SCH (21:43)
[2019-08-26] MEDS: ACETAMINOPHEN 325 MG TABLET PO PRN (21:51)
[2019-08-26] MEDS: GUAIFENESIN/D-METHORPHAN (200-20 MG) SYRUP 10 ML PO PRN (21:52)
[2019-08-27] MEDS: FUROSEMIDE INJ/PF 20 MG/2 ML SDV IV SCH ×5 (01:18→17:03)
[2019-08-27] MEDS: LEVALBUTEROL HCL NEB 1.25 MG/3 ML AMPUL NEB SCH (02:09)
[2019-08-27] MEDS: IPRATROPIUM BROMIDE 0.02% NEB 0.5 MG/2.5 ML AMPUL NEB SCH ×2 (02:09→09:04)
[2019-08-27 05:59] LABS: HEMATOCRIT 31.4 % (36.0-47.0); HEMOGLOBIN 10.7 g/dL (12.0-15.5); MEAN CORPUSCULAR HEMOGLOBIN 31.2 pg (27.0-33.4); MEAN CORPUSCULAR VOLUME 92 fl (80-97); PLATELET COUNT 121 10^3/uL (150-450); RED BLOOD COUNT 3.42 10^6/uL (3.72-5.28); RED CELL DISTRIBUTION WIDTH 17.1 % (11.5-14.0); WHITE BLOOD COUNT 3.9 10^3/uL (4.0-10.5)
[2019-08-27 06:14] LABS: ANION GAP 10 (5-19); BLOOD UREA NITROGEN 32 mg/dL (7-20); CALCIUM 9.3 mg/dL (8.4-10.2); CARBON DIOXIDE 29 mmol/L (22-30); CHLORIDE 97 mmol/L (98-107); GLUCOSE 73 mg/dL (75-110); POTASSIUM 4.3 mmol/L (3.6-5.0)
[2019-08-27] MEDS: HEPARIN SOD (PORCINE) 5,000 UNIT/ML 1 ML VIAL SUBCUT SCH ×3 (06:43→21:09)
[2019-08-27] MEDS: DOBUTAMINE HCL/D5W 500 MG/250 ML RTUINJ IV PRN (08:15)
[2019-08-27] MEDS: SUCRALFATE 1 GM TABLET PO SCH ×3 (08:15→16:57)
[2019-08-27] MEDS: ACETYLCYSTEINE 20% SOLN 800 MG/4 ML VIAL.NEB NEB SCH ×2 (09:04→21:00)
[2019-08-27] MEDS: LEVALBUTEROL HCL NEB 1.25 MG/3 ML AMPUL NEB PRN ×2 (09:05→21:00)
[2019-08-27] MEDS: FLUTICASONE/VILANTEROL 200-25 MCG/DOSE IH SCH (09:39)
[2019-08-27] MEDS: PANTOPRAZOLE SODIUM 40 MG TABLET.DR PO SCH ×2 (09:39→21:09)
[2019-08-27] MEDS: SPIRONOLACTONE 25 MG TABLET PO SCH (09:39)
[2019-08-27] MEDS: LEVOFLOXACIN 750 MG TABLET PO SCH (09:39)
[2019-08-27] MEDS: CARVEDILOL 3.125 MG TABLET PO SCH ×2 (09:39→21:08)
[2019-08-27] MEDS: GUAIFENESIN 600 MG TABLET.SA PO SCH ×2 (09:39→21:08)
[2019-08-27] MEDS ORDERED: HYDROCORTISONE 1% CREAM 28.35 GM TP PRN (12:45)
--- NOTE | 2019-08-27 12:47 | PDOC PROGRESS REPORT ---
Subjective Progress Note for:: 08/27/19 Subjective:: Patient was seen early this morning on rounds. Patient currently with CPAP in place. States that she is ready to get up and get cleaned up. She states that she slept well last night. No new complaints today. Reason For Visit: HEART FAILURE Physical Exam Vital Signs: Temp Pulse Resp BP Pulse Ox 97.6 F 65 18 125/45 L 95 08/27/19 08:10 08/27/19 11:24 08/27/19 09:05 08/27/19 11:24 08/27/19 09:05 Intake & Output 08/26/19 08/27/19 08/28/19 06:59 06:59 06:59 Intake Total 1240 240 1 Output Total 9800 Balance 1240 -9560 1 Weight 83.2 kg 81.5 kg General appearance: PRESENT: thin Head exam: PRESENT: normocephalic Respiratory exam: PRESENT: unlabored Neurological exam: PRESENT: alert, awake Psychiatric exam: PRESENT: appropriate affect Skin exam: PRESENT: normal color Results Laboratory Results: 08/27/19 05:08 08/27/19 05:08 08/27/19 08/27/19 05:08 05:08 WBC 3.9 L RBC 3.42 L Hgb 10.7 L Hct 31.4 L MCV 92 MCH 31.2 MCHC 34.0 RDW 17.1 H Plt Count 121 L Sodium 135.8 L Potassium 4.3 Chloride 97 L Carbon Dioxide 29 Anion Gap 10 BUN 32 H Creatinine 1.23 Est GFR ( Amer) 50 L Glucose 73 L Calcium 9.3 08/23/19 09:37 Sputum Gram Stain - Final 08/23/19 09:37 Sputum Sputum Culture - Final Staphylococcus Aureus C.albicans/C.dubliniensis Normal [place] 08/20/19 08/20/19 08/21/19 13:40 22:08 02:00 Troponin I 0.078 0.073 0.069 NT-Pro-B Natriuret Pep 2720 H 08/21/19 08/22/19 08/23/19 05:09 05:17 17:50 Troponin I 0.095 0.107 0.110 NT-Pro-B Natriuret Pep 2880 H 4280 H 08/25/19 08/26/19 06:18 03:55 Troponin I NT-Pro-B Natriuret Pep 3430 H 4500 H Impressions: Chest X-Ray 08/23/19 00:00 IMPRESSION: Persistent trace right pleural effusion with right lower lobe airspace disease worrisome for pneumonia Assessment & Plan - Diagnosis (1) Anemia in chronic kidney disease Qualifiers: Chronic kidney disease stage: stage 3 (moderate) Qualified Code(s): N18.3 - Chronic kidney disease, stage 3 (moderate); D63.1 - Anemia in chronic kidney disease Is this a current diagnosis for this admission?: Yes Plan: Cr continues to improve. She has not yet been started on EPO, but may consider this as outpatient. Ferritin after IV iron and blood is now above normal. (2) Chronic kidney disease, stage III (moderate) Is this a current diagnosis for this admission?: Yes Plan: See above (3) GI bleed Qualifiers: GI bleed type/associated pathology: melena Qualified Code(s): K92.1 - Melena Is this a current diagnosis for this admission?: Yes Plan: She received 2 units pRBCs. HGB currently stable. - Time Time Spent with patient: Less than 15 minutes - Plan Summary Plan Summary: Will continue to follow with you. No indication for further transfusion at this time. Please call with any concerns.
--- NOTE | 2019-08-27 16:43 | PDOC PROGRESS REPORT ---
Subjective Progress Note for:: 08/27/19 Subjective:: The patient is an 89-year-old female with a past medical history of chronic atrial fibrillation (recently discontinued Eliquis due to GI bleeding) CHF, hypertension, MR with pulmonary hypertension, COPD, CKD, arthritis, anemia, and obesity who was admitted on 08/20/2019 for acute CHF exacerbation who subsequently developed healthcare associated pneumonia. Patient was seen on morning rounds approximately 2 hours after dobutamin gtt was started. She was seen sitting up to the recliner, comfortably, on room air. She reports she is feeling much better. In fact, she appears well with increased energy/alertness. She reports continued dyspnea w/ minimal exertion, but feels this is slightly improved. Reports she slept better overnight. She denies fever, chills, chest pain, palpitations, orthopnea, abdominal pain, nausea vomiting and diarrhea. She has no questions or concerns at this time. Discussed plan of care with nursing; have started dobutamin to allow for IV lasix. Reason For Visit: HEART FAILURE Physical Exam Vital Signs: Temp Pulse Resp BP Pulse Ox 97.6 F 80 18 134/63 H 95 08/27/19 08:10 08/27/19 15:00 08/27/19 09:05 08/27/19 15:00 08/27/19 09:05 Intake & Output 08/26/19 08/27/19 08/28/19 06:59 06:59 06:59 Intake Total 1240 240 101 Output Total 9800 1800 Balance 5730 -0058 -7919 Weight 83.2 kg 81.5 kg General appearance: PRESENT: no acute distress, cooperative, obese, well-devel oped, well-nourished Head exam: PRESENT: atraumatic, normocephalic Eye exam: PRESENT: conjunctiva pink, EOMI, PERRLA. ABSENT: scleral icterus Ear exam: PRESENT: normal external ear exam Mouth exam: PRESENT: moist, tongue midline Respiratory exam: PRESENT: crackles - bibasilar; slight improvement, symmetrical, unlabored. ABSENT: rales, rhonchi, wheezes Cardiovascular exam: PRESENT: RRR, +S1, +S2, systolic murmur. ABSENT: diastolic murmur, rubs Pulses: PRESENT: normal dorsalis pedis pul Vascular exam: PRESENT: normal capillary refill GI/Abdominal exam: PRESENT: normal bowel sounds, soft. ABSENT: distended, guarding, mass, organolmegaly, rebound, tenderness Rectal exam: PRESENT: deferred Extremities exam: PRESENT: full ROM, +2 edema - BLE and sacral edema. ABSENT: calf tenderness, clubbing, pedal edema Neurological exam: PRESENT: alert, awake, oriented to person, oriented to place, oriented to time, oriented to situation, CN II-XII grossly intact. ABSENT: motor sensory deficit Psychiatric exam: PRESENT: appropriate affect, normal mood. ABSENT: homicidal i deation, suicidal ideation Skin exam: PRESENT: dry, rash - shingels left posterios hip; improved, warm. ABSENT: cyanosis Results Laboratory Results: 08/27/19 05:08 08/27/19 05:08 08/27/19 08/27/19 05:08 05:08 WBC 3.9 L RBC 3.42 L Hgb 10.7 L Hct 31.4 L MCV 92 MCH 31.2 MCHC 34.0 RDW 17.1 H Plt Count 121 L Sodium 135.8 L Potassium 4.3 Chloride 97 L Carbon Dioxide 29 Anion Gap 10 BUN 32 H Creatinine 1.23 Est GFR ( Amer) 50 L Glucose 73 L Calcium 9.3 08/23/19 09:37 Sputum Gram Stain - Final 08/23/19 09:37 Sputum Sputum Culture - Final Staphylococcus Aureus C.albicans/C.dubliniensis Normal [place] 08/20/19 08/20/19 08/21/19 13:40 22:08 02:00 Troponin I 0.078 0.073 0.069 NT-Pro-B Natriuret Pep 2720 H 08/21/19 08/22/19 08/23/19 05:09 05:17 17:50 Troponin I 0.095 0.107 0.110 NT-Pro-B Natriuret Pep 2880 H 4280 H 08/25/19 08/26/19 06:18 03:55 Troponin I NT-Pro-B Natriuret Pep 3430 H 4500 H Impressions: Chest X-Ray 08/23/19 00:00 IMPRESSION: Persistent trace right pleural effusion with right lower lobe airspace disease worrisome for pneumonia Assessment and Plan - Diagnosis (1) Pneumonia Qualifiers: Pneumonia type: due to unspecified organism Laterality: right Lung location: lower lobe of lung Qualified Code(s): J18.9 - Pneumonia, unspecified organism Is this a current diagnosis for this admission?: Yes Plan: Improved. WBCs are now normal, afebrile, no longer tachycardic, and maintaining oxygen saturations on room air while at rest. Blood cultures have no growth to date. Sputum culture grew pansensitive staph aureus. Have discontinued meropenem and transition to p.o. Levaquin. Day #3 of Levaquin Continue supplemental oxygen as needed maintain saturations greater than 89%. Continue scheduled and as needed nebulizer treatments. Continue Mucinex twice daily with Robitussin as needed. Continue Mucomyst nebs. Encourage pulmonary toilet with incentive spirometer, flutter valve, and ambulation. (2) Acute exacerbation of CHF (congestive heart failure) Qualifiers: Heart failure type: unspecified Qualified Code(s): I50.9 - Heart failure, unspecified Is this a current diagnosis for this admission?: Yes Plan: Continues to improve. Received echocardiogram from Dr. Webster's office dated 2016; at that time, patient had an LVEF of 70% without ventricular diastolic dysfunction or wall motion abnormality. She was noted to have RVSP of 55 with moderate pulmonary hypertension, mitral regurgitation, with mild left atrial enlargement. Have requested updated echocardiogram from recent admission to [facility], however, patient does not recall having echocardiogram done during that visit. proBNP trending up from 2800->4200-> 3400-> 4500 Troponins are stable at 0.110; patient is chest pain-free with no concerning findings on telemetry. Weight trending up; 77.5 kg on admission now 83.2 kg. Continue carvedilol 3.125 mg twice daily, home dose spironolactone 12.5 mg daily Patient received 2 units PRBC Echocardiogram w/ moderate MR w/ severe Lt atrium enlargement. with mild AR, moderate pulm hypertension w/ RA enlargement, nml LVEF Discussed the patient's case with her primary police commanding officer, Dr. Webster, today. Dr. Webster advises that he has nothing further that he can offer from medication management. He highly recommends that the patient be transferred to [place] for evaluation for mitral valve replacement. I discussed this with the patient and family members today. They are interested in having the patient evaluated at [place]. On their request, I did call the [place] transfer center and spoke with Dr. Jb Pastor, police commanding officer. Dr. Pastor recommends optimizing the patient's renal function, completing magaly tment for pneumonia, and continuing to hold Eliquis to demonstrate that her recurrent GI bleeding has resolved. He states that short of those measures, she would be a very poor candidate for surgical interventions. However, he would be interested in meeting the patient for formalized consultation as an outpatient. This was discussed with the patient and family members this afternoon who are in agreement with the plan of care. Appointment scheduled with Dr. Pastor on 10/22/19 at 1 pm. Will continue to cautiously diurese as blood pressures allow; furosemide 10 mg I V q6 hours Have transferred to [facility] for dobutamine to support blood pressures while receiving lasix. Continue cardiac diet. Fluid restrict 1.5 L daily Daily weights and strict I&O's -Quintero for output -Have asked for standing weights only (3) Anemia in chronic kidney disease Qualifiers: Chronic kidney disease stage: stage 3 (moderate) Qualified Code(s): N18.3 - Chronic kidney disease, stage 3 (moderate); D63.1 - Anemia in chronic kidney disease Is this a current diagnosis for this admission?: Yes Plan: Hgb 9.0-> 8.0-> 10.8 (now s/p 2 units PRBC)-> 10.7 We will continue to monitor hemoglobin. We will also monitor for any recurrent GI bleeding. Patient received IV iron transfusion at her recent admission to outside hospital. She is also followed by Dr. Noriega; will consult hematology to assist with management of her chronic anemia. (4) Chronic kidney disease, stage III (moderate) Is this a current diagnosis for this admission?: Yes Plan: Acute worsening of chronic kidney disease; improved. Cr 1.33-> 1.73 -> 1.62-> 1.37-> 1.23; up from baseline of 1.10 Likely secondary to CHF exacerbation. Received 2 units PRBC followed by albumin Continue to monitor I&Os Optimize cardiac output Avoid nephrotoxic medications as able. Follow-up chemistry. (5) Hyponatremia Is this a current diagnosis for this admission?: Yes Plan: Serum sodium is still just below the lower limit normal. We will continue to monitor (6) Leukopenia Qualifiers: Leukopenia type: neutropenia Neutropenia type: unspecified Qualified Code(s): D70.9 - Neutropenia, unspecified Is this a current diagnosis for this admission?: Yes Plan: Resolved; likely secondary to acute illness (7) Obstructive sleep apnea Is this a current diagnosis for this admission?: Yes Plan: She continues to wear her CPAP at night. (8) Peptic ulcer disease Is this a current diagnosis for this admission?: Yes Plan: Reviewed risks and benefits of continued anticoagulation in elderly patient with recurrent GI bleeding. [id number] Score: 5 points (7.2% yearly CVA risk) HAS-BLED Score: 5 points (9.1-12.5% yearly hemorrhage risk). Patient and family members agreeable to discontinuing chronic anticoagulation. Continue twice daily PPI. Continue Carafate with meals. Avoid prolonged steroid therapy. (9) Shingles rash Qualifiers: Herpes zoster complications: without complications Qualified Code(s): B02.9 - Zoster without complications Is this a current diagnosis for this admission?: Yes Plan: Rash appears significantly improved; patient denies discomfort has not required PRN analgesics. Discontinued acyclovir. Hydrocortisone cream Consider gabapentin (10) Atrial fibrillation Qualifiers: Atrial fibrillation type: longstanding persistent Qualified Code(s): I48.11 - Longstanding persistent atrial fibrillation Is this a current diagnosis for this admission?: Yes Plan: Good rate control that is pacemaker driven. No changes at this time. Chronic anticoagulation is discontinued as mentioned above. (11) Chronic obstructive lung disease Qualifiers: COPD type: unspecified COPD Qualified Code(s): J44.9 - Chronic obstructive pulmonary disease, unspecified Is this a current diagnosis for this admission?: Yes Plan: Continue current inhaler regimen. Continue oxygen supplementation as needed to maintain saturations. Continue scheduled and as needed nebs. Encourage pulmonary toilet. No indications for steroid therapy at this time. (12) Hypertensive disorder Qualifiers: Hypertension type: essential hypertension Qualified Code(s): I10 - Essential (primary) hypertension Is this a current diagnosis for this admission?: Yes Plan: Her police commanding officer would like to see her systolic blood pressure greater than 110. Continuing carvedilol and spironolactone. Judicious use of IV furosemide to continue diuresing as patient is approximately 10 kg above baseline weight. Cardiac diet. (13) Weakness Is this a current diagnosis for this admission?: Yes Plan: Physical therapy consultation. Discharge planning consulted. - Time Time Spent with patient: 25-34 minutes Medications reviewed and adjusted accordingly: Yes Anticipated discharge: Home with Homehealth
[2019-08-27] MEDS: PHARMACY COMMUNICATION ORDER MC SCH (18:17)
[2019-08-27] MEDS: ASPIRIN 81 MG TABLET, ENT COATED PO SCH (21:08)
[2019-08-27] MEDS: ATORVASTATIN CALCIUM 40 MG TABLET PO SCH (21:08)
[2019-08-27] MEDS: GABAPENTIN 100 MG CAPSULE PO SCH (21:08)
[2019-08-28] MEDS: FUROSEMIDE INJ/PF 20 MG/2 ML SDV IV SCH ×5 (00:22→23:22)
[2019-08-28] MEDS: HEPARIN SOD (PORCINE) 5,000 UNIT/ML 1 ML VIAL SUBCUT SCH ×3 (05:13→21:51)
[2019-08-28 06:37] LABS: ANION GAP 7 (5-19); BLOOD UREA NITROGEN 28 mg/dL (7-20); CALCIUM 9.4 mg/dL (8.4-10.2); CARBON DIOXIDE 34 mmol/L (22-30); CHLORIDE 94 mmol/L (98-107); GLUCOSE 73 mg/dL (75-110); POTASSIUM 4.1 mmol/L (3.6-5.0)
[2019-08-28] MEDS: SUCRALFATE 1 GM TABLET PO SCH ×3 (08:24→17:34)
[2019-08-28] MEDS: DOBUTAMINE HCL/D5W 500 MG/250 ML RTUINJ IV PRN (08:26)
[2019-08-28] MEDS: ACETYLCYSTEINE 20% SOLN 800 MG/4 ML VIAL.NEB NEB SCH ×2 (08:58→20:50)
[2019-08-28] MEDS: LEVALBUTEROL HCL NEB 1.25 MG/3 ML AMPUL NEB PRN ×2 (08:58→20:50)
--- NOTE | 2019-08-28 09:11 | PDOC PROGRESS REPORT ---
Subjective Progress Note for:: 08/28/19 Subjective:: Patient states that she is feeling better today. She did not sleep well due to CPAP not working, and IV pump beeping all night. She is hoping to go home today or tomorrow. Reason For Visit: HEART FAILURE Physical Exam Vital Signs: Temp Pulse Resp BP Pulse Ox 98.3 F 74 18 118/47 L 96 08/27/19 19:28 08/28/19 07:00 08/27/19 20:55 08/28/19 06:00 08/28/19 06:00 Intake & Output 08/27/19 08/28/19 08/29/19 06:59 06:59 06:59 Intake Total 240 301 147 Output Total 9800 2140 Balance -2013 -7207 147 Weight 81.5 kg 82 kg General appearance: PRESENT: no acute distress, thin Head exam: PRESENT: normocephalic Neurological exam: PRESENT: alert, awake Psychiatric exam: PRESENT: appropriate affect Skin exam: PRESENT: normal color Results Laboratory Results: 08/27/19 05:08 08/28/19 05:43 08/28/19 05:43 Sodium 135.0 L Potassium 4.1 Chloride 94 L Carbon Dioxide 34 H Anion Gap 7 BUN 28 H Creatinine 1.15 Est GFR ( Amer) 54 L Glucose 73 L Calcium 9.4 08/20/19 08/20/19 08/21/19 13:40 22:08 02:00 Troponin I 0.078 0.073 0.069 NT-Pro-B Natriuret Pep 2720 H 08/21/19 08/22/19 08/23/19 05:09 05:17 17:50 Troponin I 0.095 0.107 0.110 NT-Pro-B Natriuret Pep 2880 H 4280 H 08/25/19 08/26/19 08/28/19 06:18 03:55 05:43 Troponin I NT-Pro-B Natriuret Pep 3430 H 4500 H 7230 H Impressions: Chest X-Ray 08/23/19 00:00 IMPRESSION: Persistent trace right pleural effusion with right lower lobe airspace disease worrisome for pneumonia Assessment & Plan - Diagnosis (1) Anemia in chronic kidney disease Qualifiers: Chronic kidney disease stage: stage 3 (moderate) Qualified Code(s): N18.3 - Chronic kidney disease, stage 3 (moderate); D63.1 - Anemia in chronic kidney disease Is this a current diagnosis for this admission?: Yes (2) Chronic kidney disease, stage III (moderate) Is this a current diagnosis for this admission?: Yes (3) GI bleed Qualifiers: GI bleed type/associated pathology: melena Qualified Code(s): K92.1 - Melena Is this a current diagnosis for this admission?: Yes Plan: Her CBC remains stable. No further evidence of bleeding currently. Her ferritin is approriate after blood and IV iron. I will sign off and follow her as outpatient. Please call with any other concerns. - Time Time Spent with patient: Less than 15 minutes
[2019-08-28] MEDS: CARVEDILOL 3.125 MG TABLET PO SCH ×2 (09:35→21:50)
[2019-08-28] MEDS: GUAIFENESIN 600 MG TABLET.SA PO SCH ×2 (09:35→21:50)
[2019-08-28] MEDS: SPIRONOLACTONE 25 MG TABLET PO SCH (09:36)
[2019-08-28] MEDS: LEVOFLOXACIN 750 MG TABLET PO SCH (09:36)
[2019-08-28] MEDS: PANTOPRAZOLE SODIUM 40 MG TABLET.DR PO SCH ×2 (09:36→21:50)
[2019-08-28] MEDS: GABAPENTIN 100 MG CAPSULE PO SCH ×2 (09:36→21:50)
[2019-08-28] MEDS: FLUTICASONE/VILANTEROL 200-25 MCG/DOSE IH SCH (09:37)
--- NOTE | 2019-08-28 14:20 | PDOC PROGRESS REPORT ---
Subjective Progress Note for:: 08/28/19 Subjective:: The patient is an 89-year-old female with a past medical history of chronic atrial fibrillation (recently discontinued Eliquis due to GI bleeding) CHF, hypertension, MR with pulmonary hypertension, COPD, CKD, arthritis, anemia, and obesity who was admitted on 08/20/2019 for acute CHF exacerbation who subsequently developed healthcare associated pneumonia. Patient was seen on morning rounds. She was seen sitting up to the recliner, comfortably, on room air. She reports she is feeling much better. She reports her dyspnea is improved. Hopeful to d/c home tomorrow. She denies fever, chills, chest pain, palpitations, orthopnea, abdominal pain, nausea vomiting and diarrhea. She has no questions or concerns at this time. No concerns per nursing. Reason For Visit: HEART FAILURE Physical Exam Vital Signs: Temp Pulse Resp BP Pulse Ox 98.3 F 70 18 102/43 L 95 08/27/19 19:28 08/28/19 09:00 08/28/19 08:58 08/28/19 09:00 08/28/19 08:58 Intake & Output 08/27/19 08/28/19 08/29/19 06:59 06:59 06:59 Intake Total 240 301 387 Output Total 9800 4450 350 Balance -1354 -0385 37 Weight 81.5 kg 82 kg 82 kg General appearance: PRESENT: no acute distress, cooperative, obese, well- developed, well-nourished Head exam: PRESENT: atraumatic, normocephalic Eye exam: PRESENT: conjunctiva pink, EOMI, PERRLA. ABSENT: scleral icterus Ear exam: PRESENT: normal external ear exam Mouth exam: PRESENT: moist, tongue midline Respiratory exam: PRESENT: clear to auscultation nick, symmetrical, unlabored. ABSENT: rales, rhonchi, wheezes Cardiovascular exam: PRESENT: RRR, +S1, +S2, systolic murmur. ABSENT: diastolic murmur, rubs Pulses: PRESENT: normal dorsalis pedis pul Vascular exam: PRESENT: normal capillary refill GI/Abdominal exam: PRESENT: normal bowel sounds, soft. ABSENT: distended, guarding, mass, organolmegaly, rebound, tenderness Rectal exam: PRESENT: deferred Extremities exam: PRESENT: full ROM, +1 edema - BLE. ABSENT: calf tenderness, clubbing, pedal edema Neurological exam: PRESENT: alert, awake, oriented to person, oriented to place, oriented to time, oriented to situation, CN II-XII grossly intact. ABSENT: motor sensory deficit Psychiatric exam: PRESENT: appropriate affect, normal mood. ABSENT: homicidal ideation, suicidal ideation Skin exam: PRESENT: dry, intact, warm. ABSENT: cyanosis, rash Results Laboratory Results: 08/27/19 05:08 08/28/19 05:43 08/28/19 05:43 Sodium 135.0 L Potassium 4.1 Chloride 94 L Carbon Dioxide 34 H Anion Gap 7 BUN 28 H Creatinine 1.15 Est GFR ( Amer) 54 L Glucose 73 L Calcium 9.4 08/20/19 08/20/19 08/21/19 13:40 22:08 02:00 Troponin I 0.078 0.073 0.069 NT-Pro-B Natriuret Pep 2720 H 08/21/19 08/22/19 08/23/19 05:09 05:17 17:50 Troponin I 0.095 0.107 0.110 NT-Pro-B Natriuret Pep 2880 H 4280 H 08/25/19 08/26/19 08/28/19 06:18 03:55 05:43 Troponin I NT-Pro-B Natriuret Pep 3430 H 4500 H 7230 H Impressions: Chest X-Ray 08/23/19 00:00 IMPRESSION: Persistent trace right pleural effusion with right lower lobe airspace disease worrisome for pneumonia Assessment and Plan - Diagnosis (1) Pneumonia Qualifiers: Pneumonia type: due to unspecified organism Laterality: right Lung lo cation: lower lobe of lung Qualified Code(s): J18.9 - Pneumonia, unspecified organism Is this a current diagnosis for this admission?: Yes Plan: Improved. WBCs are now normal, afebrile, no longer tachycardic, and maintaining oxygen saturations on room air while at rest. Blood cultures have no growth to date. Sputum culture grew pansensitive staph aureus. Have discontinued meropenem and transition to p.o. Levaquin. Day #4 of Levaquin Continue supplemental oxygen as needed maintain saturations greater than 89%. Continue scheduled and as needed nebulizer treatments. Continue Mucinex twice daily with Robitussin as needed. Continue Mucomyst nebs. Encourage pulmonary toilet with incentive spirometer, flutter valve, and ambulation. (2) Acute exacerbation of CHF (congestive heart failure) Qualifiers: Heart failure type: unspecified Qualified Code(s): I50.9 - Heart failure, unspecified Is this a current diagnosis for this admission?: Yes Plan: Continues to improve. Received echocardiogram from Dr. Webster's office dated 2016; at that time, patient had an LVEF of 70% without ventricular diastolic dysfunction or wall motion abnormality. She was noted to have RVSP of 55 with moderate pulmonary hypertension, mitral regurgitation, with mild left atrial enlargement. Have requested updated echocardiogram from recent admission to [facility], however, patient does not recall having echocardiogram done during that visit. proBNP trending up from 2800->4200-> 3400-> 4500 Troponins are stable at 0.110; patient is chest pain-free with no concerning findings on telemetry. Weight trending up; 77.5 kg on admission now 82 kg. Continue carvedilol 3.125 mg twice daily, home dose spironolactone 12.5 mg daily Patient received 2 units PRBC Echocardiogram w/ moderate MR w/ severe Lt atrium enlargement. with mild AR, moderate pulm hypertension w/ RA enlargement, nml LVEF Discussed the patient's case with her primary land lease information clerk, Dr. Webster, today. Dr. Webster advises that he has nothing further that he can offer from medication management. He highly recommends that the patient be transferred to [place] for evaluation for mitral valve replacement. I discussed this with the patient and family members today. They are interested in having the patient evaluated at [place]. On their request, I did call the [place] transfer center and spoke with Dr. Jb Pastor, land lease information clerk. Dr. Pastor recommends optimizing the patient's renal function, completing treatment for pneumonia, and continuing to hold Eliquis to demonstrate that her recurrent GI bleeding has resolved. He states that short of those measures, she would be a very poor candidate for surgical interventions. However, he would be interested in meeting the patient for formalized consultation as an outpatient. This was discussed with the patient and family members this afternoon who are in agreement with the plan of care. Appointment scheduled with Dr. Pastor on 10/22/19 at 1 pm. Will continue to cautiously diurese as blood pressures allow; furosemide 10 mg IV q6 hours Have transferred to [facility] for dobutamine to support blood pressures while receiving lasix. Continue cardiac diet. Fluid restrict 1.5 L daily Daily weights and strict I&O's -Quintero for output -Have asked for standing weights only (3) Anemia in chronic kidney disease Qualifiers: Chronic kidney disease stage: stage 3 (moderate) Qualified Code(s): N18.3 - Chronic kidney disease, stage 3 (moderate); D63.1 - Anemia in chronic kidney disease Is this a current diagnosis for this admission?: Yes Plan: Hgb 9.0-> 8.0-> 10.8 (now s/p 2 units PRBC)-> 10.7 We will continue to monitor hemoglobin. We will also monitor for any recurrent GI bleeding. Patient received IV iron transfusion at her recent admission to outside hospital. She is also followed by Dr. Noriega; will consult hematology to assist with management of her chronic anemia. (4) Chronic kidney disease, stage III (moderate) Is this a current diagnosis for this admission?: Yes Plan: Acute worsening of chronic kidney disease; improved. Cr 1.33-> 1.73 -> 1.62-> 1.37-> 1.23-> 1.15; up from baseline of 1.10 Likely secondary to CHF exacerbation. Received 2 units PRBC followed by albumin Continue to monitor I&Os Optimize cardiac output Avoid nephrotoxic medications as able. Follow-up chemistry. (5) Hyponatremia Is this a current diagnosis for this admission?: Yes Plan: Serum sodium is still just below the lower limit normal. We will continue to monitor (6) Leukopenia Qualifiers: Leukopenia type: neutropenia Neutropenia type: unspecified Qualified Code(s): D70.9 - Neutropenia, unspecified Is this a current diagnosis for this admission?: Yes Plan: Resolved; likely secondary to acute illness (7) Obstructive sleep apnea Is this a current diagnosis for this admission?: Yes Plan: She continues to wear her CPAP at night. (8) Peptic ulcer disease Is this a current diagnosis for this admission?: Yes Plan: Reviewed risks and benefits of continued anticoagulation in elderly patient with recurrent GI bleeding. [id number] Score: 5 points (7.2% yearly CVA risk) HAS-BLED Score: 5 points (9.1-12.5% yearly hemorrhage risk). Patient and family members agreeable to discontinuing chronic anticoagulation. Continue twice daily PPI. Continue Carafate with meals. Avoid prolonged steroid therapy. (9) Shingles rash Qualifiers: Herpes zoster complications: without complications Qualified Code(s): B02.9 - Zoster without complications Is this a current diagnosis for this admission?: Yes Plan: Rash appears significantly improved; patient denies discomfort has not required PRN analgesics. Discontinued acyclovir. Hydrocortisone cream Consider gabapentin (10) Atrial fibrillation Qualifiers: Atrial fibrillation type: longstanding persistent Qualified Code(s): I48.11 - Longstanding persistent atrial fibrillation Is this a current diagnosis for this admission?: Yes Plan: Good rate control that is pacemaker driven. No changes at this time. Chronic anticoagulation is discontinued as mentioned above. (11) Chronic obstructive lung disease Qualifiers: COPD type: unspecified COPD Qualified Code(s): J44.9 - Chronic obstructive pulmonary disease, unspecified Is this a current diagnosis for this admission?: Yes Plan: Continue current inhaler regimen. Continue oxygen supplementation as needed to maintain saturations. Continue scheduled and as needed nebs. Encourage pulmonary toilet. No indications for steroid therapy at this time. (12) Hypertensive disorder Qualifiers: Hypertension type: essential hypertension Qualified Code(s): I10 - Essential (primary) hypertension Is this a current diagnosis for this admission?: Yes Plan: Her land lease information clerk would like to see her systolic blood pressure greater than 110. Continuing carvedilol and spironolactone. Judicious use of IV furosemide to continue diuresing as patient is approximately 10 kg above baseline weight. Cardiac diet. (13) Weakness Is this a current diagnosis for this admission?: Yes Plan: Physical therapy consultation. Discharge planning consulted. - Time Time Spent with patient: 25-34 minutes Medications reviewed and adjusted accordingly: Yes Anticipated discharge: Home with Homehealth Within: within 24 hours
[2019-08-28] MEDS: PHARMACY COMMUNICATION ORDER MC SCH (17:25)
[2019-08-28] MEDS: ATORVASTATIN CALCIUM 40 MG TABLET PO SCH (21:50)
[2019-08-28] MEDS: ASPIRIN 81 MG TABLET, ENT COATED PO SCH (21:50)
[2019-08-28] MEDS: ACETAMINOPHEN 325 MG TABLET PO PRN (21:54)
[2019-08-29 05:05] LABS: HEMATOCRIT 32.7 % (36.0-47.0); MEAN CORPUSCULAR HEMOGLOBIN 31.2 pg (27.0-33.4); MEAN CORPUSCULAR HGB CONC 33.7 g/dL (32.0-36.0); MEAN CORPUSCULAR VOLUME 93 fl (80-97); PLATELET COUNT 132 10^3/uL (150-450); RED BLOOD COUNT 3.54 10^6/uL (3.72-5.28); RED CELL DISTRIBUTION WIDTH 17.1 % (11.5-14.0); WHITE BLOOD COUNT 5.6 10^3/uL (4.0-10.5)
[2019-08-29 05:28] LABS: ANION GAP 8 (5-19); BLOOD UREA NITROGEN 32 mg/dL (7-20); CALCIUM 9.1 mg/dL (8.4-10.2); CARBON DIOXIDE 36 mmol/L (22-30); CHLORIDE 91 mmol/L (98-107); GLUCOSE 85 mg/dL (75-110); POTASSIUM 3.9 mmol/L (3.6-5.0)
[2019-08-29] MEDS: HEPARIN SOD (PORCINE) 5,000 UNIT/ML 1 ML VIAL SUBCUT SCH ×3 (05:42→22:16)
[2019-08-29] MEDS: FUROSEMIDE INJ/PF 20 MG/2 ML SDV IV SCH (05:46)
[2019-08-29] MEDS: ACETYLCYSTEINE 20% SOLN 800 MG/4 ML VIAL.NEB NEB SCH (08:05)
[2019-08-29] MEDS: LEVALBUTEROL HCL NEB 1.25 MG/3 ML AMPUL NEB PRN (08:06)
[2019-08-29] MEDS: FLUTICASONE/VILANTEROL 200-25 MCG/DOSE IH SCH (09:14)
[2019-08-29] MEDS: SPIRONOLACTONE 25 MG TABLET PO SCH (09:15)
[2019-08-29] MEDS: PANTOPRAZOLE SODIUM 40 MG TABLET.DR PO SCH ×2 (09:15→22:22)
[2019-08-29] MEDS: LEVOFLOXACIN 750 MG TABLET PO SCH (09:15)
[2019-08-29] MEDS: SUCRALFATE 1 GM TABLET PO SCH ×3 (09:15→17:50)
[2019-08-29] MEDS: CARVEDILOL 3.125 MG TABLET PO SCH ×2 (09:15→22:22)
[2019-08-29] MEDS: GUAIFENESIN 600 MG TABLET.SA PO SCH ×2 (09:15→22:21)
[2019-08-29] MEDS: GABAPENTIN 100 MG CAPSULE PO SCH ×2 (09:15→22:22)
[2019-08-29] MEDS ORDERED: COSYNTROPIN INJ 0.25 MG VIAL IV PRN (17:05)
[2019-08-29] MEDS: PHARMACY COMMUNICATION ORDER MC SCH (17:49)
--- NOTE | 2019-08-29 18:10 | PDOC PROGRESS REPORT ---
Subjective Progress Note for:: 08/29/19 Subjective:: The patient is an 89-year-old female with a past medical history of chronic atrial fibrillation (recently discontinued Eliquis due to GI bleeding) CHF, hypertension, MR with pulmonary hypertension, COPD, CKD, arthritis, anemia, and obesity who was admitted on 08/20/2019 for acute CHF exacerbation who subsequently developed healthcare associated pneumonia. Patient was seen on morning rounds. She was seen sitting up to the recliner, comfortably, on room air. She reports she is feeling much better. She reports her dyspnea has resolved; has been ambulatory to the bathroom with minimal assistance. She denies fever, chills, chest pain, palpitations, orthopnea, abdominal pain, nausea vomiting and diarrhea. She has no questions or concerns at this time. No concerns per nursing. Reason For Visit: HEART FAILURE Physical Exam Vital Signs: Temp Pulse Resp BP Pulse Ox 97.3 F 60 16 87/71 L 92 08/29/19 11:57 08/29/19 14:00 08/29/19 11:57 08/29/19 11:57 08/29/19 11:57 Intake & Output 08/28/19 08/29/19 08/30/19 06:59 06:59 06:59 Intake Total 301 609 Output Total 4450 2350 Balance -4149 -0345 Weight 82 kg 81.1 kg General appearance: PRESENT: no acute distress, cooperative, obese, well- developed, well-nourished Head exam: PRESENT: atraumatic, normocephalic Eye exam: PRESENT: conjunctiva pink, EOMI, PERRLA. ABSENT: scleral icterus Mouth exam: PRESENT: moist, tongue midline Respiratory exam: PRESENT: clear to auscultation nick, symmetrical, unlabored. ABSENT: rales, rhonchi, wheezes Cardiovascular exam: PRESENT: RRR, +S1, +S2, systolic murmur. ABSENT: diastolic murmur, rubs Pulses: PRESENT: normal dorsalis pedis pul Vascular exam: PRESENT: normal capillary refill Rectal exam: PRESENT: deferred Extremities exam: PRESENT: full ROM, pedal edema - trace; Lt>Rt. ABSENT: calf tenderness, clubbing Musculoskeletal exam: PRESENT: ambulatory Neurological exam: PRESENT: alert, awake, oriented to person, oriented to place, oriented to time, oriented to situation, CN II-XII grossly intact. ABSENT: motor sensory deficit Psychiatric exam: PRESENT: appropriate affect, normal mood. ABSENT: homicidal ideation, suicidal ideation Skin exam: PRESENT: dry, intact, warm. ABSENT: cyanosis, rash Results Laboratory Results: 08/29/19 04:25 08/29/19 04:25 08/29/19 08/29/19 04:25 04:25 WBC 5.6 RBC 3.54 L Hgb 11.0 L Hct 32.7 L MCV 93 MCH 31.2 MCHC 33.7 RDW 17.1 H Plt Count 132 L Sodium 134.6 L Potassium 3.9 Chloride 91 L Carbon Dioxide 36 H Anion Gap 8 BUN 32 H Creatinine 1.24 Est GFR ( Amer) 49 L Glucose 85 Calcium 9.1 08/20/19 08/20/19 08/21/19 13:40 22:08 02:00 Troponin I 0.078 0.073 0.069 NT-Pro-B Natriuret Pep 2720 H 08/21/19 08/22/19 08/23/19 05:09 05:17 17:50 Troponin I 0.095 0.107 0.110 NT-Pro-B Natriuret Pep 2880 H 4280 H 08/25/19 08/26/19 08/28/19 06:18 03:55 05:43 Troponin I NT-Pro-B Natriuret Pep 3430 H 4500 H 7230 H Impressions: Chest X-Ray 08/23/19 00:00 IMPRESSION: Persistent trace right pleural effusion with right lower lobe airspace disease worrisome for pneumonia Assessment and Plan - Diagnosis (1) Pneumonia Qualifiers: Pneumonia type: due to unspecified organism Laterality: right Lung location: lower lobe of lung Qualified Code(s): J18.9 - Pneumonia, unspecified organism Is this a current diagnosis for this admission?: Yes Plan: Improved. WBCs are now normal, afebrile, no longer tachycardic, and maintaining oxygen saturations on room air while at rest. Blood cultures have no growth to date. Sputum culture grew pansensitive staph aureus. Have discontinued meropenem and transition to p.o. Levaquin. Day #5 of Levaquin. D/C after today's dose. Continue supplemental oxygen as needed maintain saturations greater than 89%. As needed nebulizer treatments. Continue Mucinex twice daily with Robitussin as needed. Encourage pulmonary toilet with incentive spirometer, flutter valve, and ambulation. (2) Acute exacerbation of CHF (congestive heart failure) Qualifiers: Heart failure type: unspecified Qualified Code(s): I50.9 - Heart failure, unspecified Is this a current diagnosis for this admission?: Yes Plan: Significant improvement. Unfortunately, weights and I&Os are inaccurate. Clinical exam shows clear lung sounds, resolved edema, maintaining oxygen saturations while ambulatory. proBNP trending up from 2800->4200-> 3400-> 4500-> 7500 Troponins are stable at 0.110; patient is chest pain-free with no concerning findings on telemetry. Patient received 2 units PRBC Echocardiogram w/ moderate MR w/ severe Lt atrium enlargement. with mild AR, moderate pulm hypertension w/ RA enlargement, nml LVEF Spoke with Dr. Jb Pastor, [facility], who recommends optimizing the patient's renal function, completing treatment for pneumonia, and continuing to hold Eliquis to demonstrate that her recurrent GI bleeding has resolved. Appointment scheduled with Dr. Pastor on 10/22/19 at 1 pm. Have transferred to [facility] Stop dobutamin today. Hold lasix today. Continue carvedilol 3.125 mg twice daily, home dose spironolactone 12.5 mg daily Continue cardiac diet. Fluid restrict 1.5 L daily Daily weights and strict I&O's -[place] for output -Have asked for standing weights only (3) Hypotension Is this a current diagnosis for this admission?: Yes Plan: Pt with soft blood pressures. Following d/c of dobutamine, pressures noted to be 87/71 AM cortisol low; 3.98 Will complete ACTH stimulation testing. Midodrin vs. Florinef for blood pressure support pending results. Fall precautions. (4) Anemia in chronic kidney disease Qualifiers: Chronic kidney disease stage: stage 3 (moderate) Qualified Code(s): N18.3 - Chronic kidney disease, stage 3 (moderate); D63.1 - Anemia in chronic kidney disease Is this a current diagnosis for this admission?: Yes Plan: Hgb 9.0-> 8.0-> 10.8 (now s/p 2 units PRBC)-> 10.7-> 11.0 We will continue to monitor hemoglobin. We will also monitor for any recurrent GI bleeding. Patient received IV iron transfusion at her recent admission to outside hospital. She is also followed by Dr. Noriega; will consult hematology to assist with management of her chronic anemia. (5) Chronic kidney disease, stage III (moderate) Is this a current diagnosis for this admission?: Yes Plan: Acute worsening of chronic kidney disease; improved. Cr 1.33-> 1.73 -> 1.62-> 1.37-> 1.23-> 1.15; baseline of 1.10 Likely secondary to CHF exacerbation. Received 2 units PRBC followed by albumin Continue to monitor I&Os Optimize cardiac output Avoid nephrotoxic medications as able. Follow-up chemistry. (6) Hyponatremia Is this a current diagnosis for this admission?: Yes Plan: Serum sodium is still just below the lower limit normal. We will continue to monitor (7) Leukopenia Qualifiers: Leukopenia type: neutropenia Neutropenia type: unspecified Qualified Code(s): D70.9 - Neutropenia, unspecified Is this a current diagnosis for this admission?: Yes Plan: Resolved; likely secondary to acute illness. Possibly related to antibiotics. (8) Obstructive sleep apnea Is this a current diagnosis for this admission?: Yes Plan: She continues to wear her CPAP at night. (9) Peptic ulcer disease Is this a current diagnosis for this admission?: Yes Plan: Reviewed risks and benefits of continued anticoagulation in elderly patient with recurrent GI bleeding. [id number] Score: 5 points (7.2% yearly CVA risk) HAS-BLED Score: 5 points (9.1-12.5% yearly hemorrhage risk). Patient and family members agreeable to discontinuing chronic anticoagulation. Continue twice daily PPI. Continue Carafate with meals. Avoid prolonged steroid therapy. (10) Shingles rash Qualifiers: Herpes zoster complications: without complications Qualified Code(s): B02.9 - Zoster without complications Is this a current diagnosis for this admission?: Yes Plan: Rash appears significantly improved; patient denies discomfort has not required PRN analgesics. Discontinued acyclovir. Hydrocortisone cream Consider gabapentin (11) Atrial fibrillation Qualifiers: Atrial fibrillation type: longstanding persistent Qualified Code(s): I48.11 - Longstanding persistent atrial fibrillation Is this a current diagnosis for this admission?: Yes Plan: Good rate control that is pacemaker driven. No changes at this time. Chronic anticoagulation is discontinued as mentioned above. (12) Chronic obstructive lung disease Qualifiers: COPD type: unspecified COPD Qualified Code(s): J44.9 - Chronic obstructive pulmonary disease, unspecified Is this a current diagnosis for this admission?: Yes Plan: Continue current inhaler regimen. Continue oxygen supplementation as needed to maintain saturations. Continue scheduled and as needed nebs. Encourage pulmonary toilet. No indications for steroid therapy at this time. (13) Weakness Is this a current diagnosis for this admission?: Yes Plan: Physical therapy consultation. Discharge planning consulted. (14) Hypertensive disorder Qualifiers: Hypertension type: essential hypertension Qualified Code(s): I10 - Essential (primary) hypertension Is this a current diagnosis for this admission?: Yes Plan: Medications as above.
[2019-08-29] MEDS ORDERED: COSYNTROPIN INJ 0.25 MG VIAL ONE (18:33)
[2019-08-29] MEDS: ATORVASTATIN CALCIUM 40 MG TABLET PO SCH (22:21)
[2019-08-29] MEDS: ASPIRIN 81 MG TABLET, ENT COATED PO SCH (22:21)
[2019-08-29] MEDS: ACETAMINOPHEN 325 MG TABLET PO PRN (22:22)
[2019-08-30] MEDS: HEPARIN SOD (PORCINE) 5,000 UNIT/ML 1 ML VIAL SUBCUT SCH (05:00)
[2019-08-30 05:59] LABS: HEMATOCRIT 31.5 % (36.0-47.0); HEMOGLOBIN 10.9 g/dL (12.0-15.5); MEAN CORPUSCULAR HEMOGLOBIN 31.6 pg (27.0-33.4); MEAN CORPUSCULAR HGB CONC 34.7 g/dL (32.0-36.0); MEAN CORPUSCULAR VOLUME 91 fl (80-97); PLATELET COUNT 131 10^3/uL (150-450); RED BLOOD COUNT 3.45 10^6/uL (3.72-5.28); RED CELL DISTRIBUTION WIDTH 16.8 % (11.5-14.0); WHITE BLOOD COUNT 5.6 10^3/uL (4.0-10.5)
[2019-08-30 06:22] LABS: ANION GAP 7 (5-19); BLOOD UREA NITROGEN 33 mg/dL (7-20); CALCIUM 8.8 mg/dL (8.4-10.2); CARBON DIOXIDE 34 mmol/L (22-30); CHLORIDE 93 mmol/L (98-107); GLUCOSE 102 mg/dL (75-110); POTASSIUM 3.9 mmol/L (3.6-5.0)
[2019-08-30] MEDS: SUCRALFATE 1 GM TABLET PO SCH ×2 (07:40→10:46)
[2019-08-30] MEDS: GUAIFENESIN 600 MG TABLET.SA PO SCH (10:46)
[2019-08-30] MEDS: CARVEDILOL 3.125 MG TABLET PO SCH (10:46)
[2019-08-30] MEDS: SPIRONOLACTONE 25 MG TABLET PO SCH (10:46)
[2019-08-30] MEDS: FLUTICASONE/VILANTEROL 200-25 MCG/DOSE IH SCH (10:46)
[2019-08-30] MEDS: PANTOPRAZOLE SODIUM 40 MG TABLET.DR PO SCH (10:46)
[2019-08-30] MEDS: GABAPENTIN 100 MG CAPSULE PO SCH (10:46)
--- NOTE | 2019-08-30 12:09 | PDOC DISCHARGE SUMMARY ---
Impression - Admit/DC Date/PCP Admission Date/Primary Care Provider: 08/20/19 16:26 JULIET FRANCES PA-C Discharge Date: 08/30/19 - Discharge Diagnosis (1) Pneumonia Is this a current diagnosis for this admission?: Yes (2) Acute exacerbation of CHF (congestive heart failure) Is this a current diagnosis for this admission?: Yes (3) Hypotension Is this a current diagnosis for this admission?: Yes (4) Anemia in chronic kidney disease Is this a current diagnosis for this admission?: Yes (5) Chronic kidney disease, stage III (moderate) Is this a current diagnosis for this admission?: Yes (6) Hyponatremia Is this a current diagnosis for this admission?: Yes (7) Leukopenia Is this a current diagnosis for this admission?: Yes (8) Obstructive sleep apnea Is this a current diagnosis for this admission?: Yes (9) Peptic ulcer disease Is this a current diagnosis for this admission?: Yes (10) Shingles rash Is this a current diagnosis for this admission?: Yes (11) Atrial fibrillation Is this a current diagnosis for this admission?: Yes (12) Chronic obstructive lung disease Is this a current diagnosis for this admission?: Yes (13) Weakness Is this a current diagnosis for this admission?: Yes (14) Hypertensive disorder Is this a current diagnosis for this admission?: Yes - Additional Information Resuscitation Status: Full Code Discharge Diet: Cardiac, Other (Comments) - Fluid restriction of ~1.5 liters daily. Discharge Activity: Activity As Tolerated, Balance Activity w/Rest, Weigh Daily Referrals: MICHAEL WEBSTER MD [EMERITUS] - 09/09/19 10:30 am Prescriptions: Spironolactone [Aldactone 25 mg Tablet] 12.5 mg PO DAILY #30 tablet Fluticasone/Vilanterol [Breo 200-25 Mcg Ellipta 14 Dose/Dpi] 1 inh IH DAILY #1 inhaler Sucralfate [Carafate 1 gm Tablet] 1 gm PO AC #90 tablet Carvedilol [Coreg 3.125 mg Tablet] 3.125 mg PO Q12 #60 tablet Gabapentin [Neurontin 100 mg Capsule] 100 mg PO Q12 #60 capsule Home Medications: Albuterol Sulfate [Proair HFA Inhalation Aerosol 8.5 gm MDI] 2 puff IH Q4HP PRN 08/20/19 Atorvastatin Calcium [Lipitor 40 mg Tablet] 40 mg PO QHS 08/20/19 Furosemide [Lasix 40 mg Tablet] 40 mg PO DAILY 08/20/19 Nitroglycerin [Nitrostat 0.4 mg (1/150 Gr) Tabs 25/Bottle] 0.4 mg PO Q5MP PRN 08/20/19 Pantoprazole Sodium [Protonix [address] Tablet] 40 mg PO DAILY 08/20/19 Potassium Chloride [Klor-Con 10 Meq Tablet ER] 20 meq PO DAILY 08/20/19 Tiotropium [place] [Spiriva Respimat] 2 spray IH DAILY 08/20/19 Acetaminophen [Tylenol 325 mg Tablet] 650 mg PO Q4HP PRN tablet 08/30/19 Aspirin [Ecotrin 81 mg EC Tablet] 81 mg PO QHS tabec 08/30/19 Carvedilol [Coreg 3.125 mg Tablet] 3.125 mg PO Q12 #60 tablet 08/30/19 Fluticasone/Vilanterol [Breo 200-25 Mcg Ellipta 14 Dose/Dpi] 1 inh IH DAILY #1 inhaler 08/30/19 Gabapentin [Neurontin 100 mg Capsule] 100 mg PO Q12 #60 capsule 08/30/19 Hydrocortisone [Hydrocortisone 1% Cream 28.35 gm] 1 applic TP TIDP PRN tube 08/30/19 Spironolactone [Aldactone 25 mg Tablet] 12.5 mg PO DAILY #30 tablet 08/30/19 Sucralfate [Carafate 1 gm Tablet] 1 gm PO AC #90 tablet 08/30/19 History of Present Illiness History of Present Illness: Per H&P by Dr. Foster: CHERIE ACE is a 89 year old female who was recently admitted to [facility] as well as [facility]. She has been getting ablations for multiple AVM's and she was just discharged from [facility] on Saturday where to ulcers were diagnosed. She states that since she has been out of [facility] she was told to hold her furosemide. She is not sure why. She has noticed increased leg swelling and fatigue as well as increasing shortness of breath. She also reports that she will occasionally feel dizzy. She has not had a productive cough. She does not complain of fever or chills. She is not on oxygen at home but does utilize CPAP. She exhibits leukopenia and anemia as well as chronic kidney disease. She has an elevated BNP and was referred to the hospital service for admission Hospital Course Hospital Course: (1) Pneumonia Resolved. Blood cultures have no growth to date. Sputum culture grew pansensitive staph aureus. Patient was admitted to the medical floor and supported with supplemental oxygen, nebulizer treatments, and pulmonary toilet. She was empirically placed on IV meropenem and transitioned to p.o. Levaquin once sputum cultures were available. She is completed a full course of antibiotic therapy and is now maintaining oxygen saturations while ambulatory on room air. (2) Acute exacerbation of CHF (congestive heart failure) Resolved. proBNP trending up from 2800->4200-> 3400-> 4500-> 7500-> 4100 Troponins are stable at 0.110; patient is chest pain-free with no concerning findings on telemetry. Patient received 2 units PRBC Echocardiogram w/ moderate MR w/ severe Lt atrium enlargement. with mild AR, moderate pulm hypertension w/ RA enlargement, [facility] LVEF Spoke with Dr. Jb Pastor, [facility], who recommends optimizing the patient's renal function, completing treatment for pneumonia, and continuing to hold Eliquis to demonstrate that her recurrent GI bleeding has resolved. Appointment scheduled with Dr. Pastor on 10/22/19 at 1 pm. Patient was upgraded to [facility] and placed on a dobutamine drip for blood pressure support and renal perfusion while being diuresed with IV furosemide. She had adequate urinary output of approximately 15 L and a corresponding decrease of weight. She is discharged at 73.5 kg. Dobutamine and furosemide were discontinued. Patient was monitored for an additional 24 hours. She did have intermittent soft blood pressures of 90s over 40s, although asymptomatic. On average her blood pressures were 110/67. She continued on carvedilol 3.125 mg twice daily at her home dose of Spironolactone 12.5 mg daily. Her home dose furosemide is resumed at discharge. (3) Hypotension Pt with soft blood pressures. Following d/c of dobutamine, mannual blood pressures noted to be 80/40 - 110/60. Patient is asymptomatic. AM cortisol low; 3.98. ACTH stimulation testing nml/ Will discharge home on low dose midodrine for continued blood pressure support. (4) Anemia in chronic kidney disease Hgb 9.0-> 8.0-> 10.8 (now s/p 2 units PRBC)-> 10.7-> 11.0-10.9 Patient received IV iron transfusion at her recent admission to outside hospital. Outpatient follow up with Dr. Noriega. (5) Chronic kidney disease, stage III (moderate) Resolved. Acute worsening of chronic kidney disease; improved. Cr 1.33-> 1.73 -> 1.62-> 1.37-> 1.23-> 1.15-> 1.25; baseline of 1.10 Likely secondary to CHF exacerbation. Received 2 units PRBC followed by albumin (6) Hyponatremia Stable Serum sodium is still just below the lower limit normal. (7) Leukopenia Resolved; likely secondary to acute illness. Possibly related to antibiotics. (8) Obstructive sleep apnea She continues to wear her CPAP at night. (9) Peptic ulcer disease Reviewed risks and benefits of continued anticoagulation in elderly patient with recurrent GI bleeding. [id number] Score: 5 points (7.2% yearly CVA risk) HAS-BLED Score: 5 points (9.1-12.5% yearly hemorrhage risk). Patient and family members agreeable to discontinuing chronic anticoagulation. Continue twice daily PPI. Continue Carafate with meals. Avoid prolonged steroid therapy. (10) Shingles rash Rash appears significantly improved; patient denies discomfort has not required PRN analgesics. Discontinued acyclovir; received 7 days. Hydrocortisone cream Continue gabapentin (11) Atrial fibrillation Good rate control that is pacemaker driven. No changes at this time. Chronic anticoagulation is discontinued as mentioned above. (12) Chronic obstructive lung disease Continue current inhaler regimen. Encourage pulmonary toilet. (13) Weakness Improved; ambulated 80' prior to discharge. Discharge planning consulted. (14) Hypertensive disorder Medications as above. Physical Exam Vital Signs: Temp Pulse Resp BP Pulse Ox 97.7 F 78 16 91/61 L 91 L 08/30/19 08:07 08/30/19 08:07 08/30/19 08:07 08/30/19 08:07 08/30/19 08:07 Intake & Output 08/29/19 08/30/19 08/31/19 06:59 06:59 06:59 Intake Total 609 1624 240 Output Total 1440 1950 175 Balance -1741 -326 65 Weight 81.1 kg 73.5 kg General appearance: PRESENT: no acute distress, cooperative, well-developed, well-nourished Head exam: PRESENT: atraumatic, normocephalic Eye exam: PRESENT: conjunctiva pink, EOMI, PERRLA. ABSENT: scleral icterus Ear exam: PRESENT: normal external ear exam Mouth exam: PRESENT: moist, tongue midline Respiratory exam: PRESENT: clear to auscultation nick, symmetrical, unlabored. ABSENT: rales, rhonchi, wheezes Cardiovascular exam: PRESENT: RRR, +S1, +S2. ABSENT: diastolic murmur, rubs, systolic murmur Pulses: PRESENT: normal dorsalis pedis pul Vascular exam: PRESENT: normal capillary refill GI/Abdominal exam: PRESENT: normal bowel sounds, soft. ABSENT: distended, guarding, mass, organolmegaly, rebound, tenderness Rectal exam: PRESENT: deferred Extremities exam: PRESENT: full ROM. ABSENT: calf tenderness, clubbing, pedal edema Musculoskeletal exam: PRESENT: ambulatory Neurological exam: PRESENT: alert, awake, oriented to person, oriented to place, oriented to time, oriented to situation, CN II-XII grossly intact. ABSENT: motor sensory deficit Psychiatric exam: PRESENT: appropriate affect, normal mood. ABSENT: homicidal ideation, suicidal ideation Skin exam: PRESENT: dry, intact, warm. ABSENT: cyanosis, rash Results Laboratory Results: WBC 5.6 10^3/uL (4.0-10.5) 08/30/19 05:33 RBC 3.45 10^6/uL (3.72-5.28) L 08/30/19 05:33 Hgb 10.9 g/dL (12.0-15.5) L 08/30/19 05:33 Hct 31.5 % (36.0-47.0) L 08/30/19 05:33 MCV 91 fl (80-97) 08/30/19 05:33 MCH 31.6 pg (27.0-33.4) 08/30/19 05:33 MCHC 34.7 g/dL (32.0-36.0) 08/30/19 05:33 RDW 16.8 % (11.5-14.0) H 08/30/19 05:33 Plt Count 131 10^3/uL (150-450) L 08/30/19 05:33 Lymph % (Auto) 9.5 % (13-45) L 08/25/19 06:18 [place] % (Auto) 10.7 % (3-13) 08/25/19 06:18 Eos % (Auto) 1.9 % (0-6) 08/25/19 06:18 Baso % (Auto) 0.5 % (0-2) 08/25/19 06:18 Absolute Neuts (auto) 3.7 10^3/uL (1.7-8.2) 08/25/19 06:18 Absolute Lymphs (auto) 0.4 10^3/uL (0.5-4.7) L 08/25/19 06:18 Absolute Monos (auto) 0.5 10^3/uL (0.1-1.4) 08/25/19 06:18 Absolute Eos (auto) 0.1 10^3/uL (0.0-0.6) 08/25/19 06:18 Absolute Basos (auto) 0.0 10^3/uL (0.0-0.2) 08/25/19 06:18 Seg Neutrophils % 77.4 % (42-78) 08/25/19 06:18 Sodium 133.5 mmol/L (137-145) L 08/30/19 05:33 Potassium 3.9 mmol/L (3.6-5.0) 08/30/19 05:33 Chloride 93 mmol/L (98-107) L 08/30/19 05:33 Carbon Dioxide 34 mmol/L (22-30) H 08/30/19 05:33 Anion Gap 7 (5-19) 08/30/19 05:33 BUN 33 mg/dL (7-20) H 08/30/19 05:33 Creatinine 1.25 mg/dL (0.52-1.25) 08/30/19 05:33 Est GFR ( Amer) 49 (>60) L 08/30/19 05:33 Est GFR (MDRD) Non-Af 40 (>60) L 08/30/19 05:33 Glucose 102 mg/dL (75-110) 08/30/19 05:33 Lactic Acid 0.9 mmol/L (0.7-2.1) 08/20/19 14:55 Calcium 8.8 mg/dL (8.4-10.2) 08/30/19 05:33 Magnesium 2.2 mg/dL (1.6-2.3) 08/23/19 17:50 Iron 36.1 ug/dL (37-170) L 08/23/19 05:09 TIBC 323 ug/dL (250-450) 08/23/19 05:09 % Saturation 11 % 08/23/19 05:09 Ferritin 358.00 ng/mL (11.1-264.0) H 08/23/19 05:09 Total Bilirubin 0.8 mg/dL (0.2-1.3) 08/25/19 06:18 Direct Bilirubin 0.5 mg/dL (0.0-0.4) H 08/25/19 06:18 Neonat Total Bilirubin Not Reportable 08/25/19 06:18 Neonat Direct Bilirubin Not Reportable 08/25/19 06:18 Neonat Indirect Bili Not Reportable 08/25/19 06:18 AST 25 U/L (14-36) 08/25/19 06:18 ALT 16 U/L (<35) 08/25/19 06:18 Alkaline Phosphatase 174 U/L (38-126) H 08/25/19 06:18 Troponin I 0.110 ng/mL 08/23/19 17:50 NT-Pro-B Natriuret Pep 4100 pg/mL (<450) H 08/30/19 05:33 Total Protein 6.1 g/dL (6.3-8.2) L 08/25/19 06:18 Albumin 3.0 g/dL (3.5-5.0) L 08/25/19 06:18 Vitamin B12 653.0 pg/mL (239-931) 08/23/19 05:09 Folate 5.92 ng/mL (>2.76) 08/23/19 05:09 Random Cortisol 24.90 ug/dL (None Established) 08/29/19 19:50 Blood Type O POSITIVE 08/24/19 15:01 Antibody Screen NEGATIVE 08/24/19 15:01 Crossmatch See Detail 08/24/19 15:01 08/20/19 08/20/19 08/21/19 13:40 22:08 02:00 Troponin I 0.078 0.073 0.069 NT-Pro-B Natriuret Pep 2720 H 08/21/19 08/22/19 08/23/19 05:09 05:17 17:50 Troponin I 0.095 0.107 0.110 NT-Pro-B Natriuret Pep 2880 H 4280 H 08/25/19 08/26/19 08/28/19 06:18 03:55 05:43 Troponin I NT-Pro-B Natriuret Pep 3430 H 4500 H 7230 H 08/30/19 05:33 Troponin I NT-Pro-B Natriuret Pep 4100 H Impressions: Chest X-Ray 08/20/19 12:19 IMPRESSION: ATELECTASIS VERSUS INFILTRATE IN THE RIGHT LUNG BASE WITH SMALL RIGHT PLEURAL EFFUSION. Chest X-Ray 08/23/19 00:00 IMPRESSION: Persistent trace right pleural effusion with right lower lobe airspace disease worrisome for pneumonia Plan Plan of Treatment: Patient is discharged home into the care of family members with home health services. She is instructed to follow-up with her polisher sand, Dr. Webster, as scheduled. Followed up with Dr. Noriega within 1 to 2 weeks. Follow-up with the [facility], Dr. Pastor, as scheduled. She is advised to take her medications as prescribed. She is encouraged to eat a low-sodium diet and to remain fluid restricted to 2 L daily. She is encouraged to weigh herself daily and report any weight gain to her home health nurse. She is advised to return to the emergency department as needed for concerning symptoms. Time Spent: Greater than 30 Minutes Stroke Is this a Stroke Patient?: No Acute Heart Failure - Is this a Heart Failure Patient?: Yes Documentation of LVEF assessment?: Yes LVEF < 40%?: No- if no continue to question #3 3. Anticoagulant therapy for permanect/persistent/paraoxysmal Afib or Aflutter: N/A Follow-up Appointment scheduled within 7 days?: Yes
[2019-08-30 13:21] VITALS: BP 92/56
== END 2019-08-30 13:45 | disposition home health service (06) | DRG 193 ==
LOC: ER 11:44 → EH 16:26 → 5 18:36 → 3S 08-26 12:48
PROVIDERS: ADMIT Hospitalist; ATTEND Hospitalist
PROC: 30233N1 Transfusion of Nonautologous Red Blood Cells into Peripheral Vein, Percutaneous Approach (ICD-10-PCS; principal; 2019-08-24)
DX: J18.9 Pneumonia, unspecified organism (principal); J96.01 Acute respiratory failure with hypoxia; I13.0 Hypertensive heart and chronic kidney disease with heart failure and stage 1 through stage 4 chronic kidney disease, or unspecified chronic kidney disease; E87.1 Hypo-osmolality and hyponatremia; I48.11 Longstanding persistent atrial fibrillation; K92.1 Melena; I50.9 Heart failure, unspecified; N18.3 Chronic kidney disease, stage 3 (moderate); D63.1 Anemia in chronic kidney disease; K27.9 Peptic ulcer, site unspecified, unspecified as acute or chronic, without hemorrhage or perforation; J44.9 Chronic obstructive pulmonary disease, unspecified; I34.0 Nonrheumatic mitral (valve) insufficiency; K21.9 Gastro-esophageal reflux disease without esophagitis; D70.9 Neutropenia, unspecified; B02.9 Zoster without complications; G47.33 Obstructive sleep apnea (adult) (pediatric); Z95.0 Presence of cardiac pacemaker; Z79.01 Long term (current) use of anticoagulants; Z79.51 Long term (current) use of inhaled steroids; Z79.899 Other long term (current) drug therapy
CPT/HCPCS: 36415; 36430; 71045; 71046; 80048; 80053; 82533; 82607; 82728; 82746; 83540; 83550; 83605; 83735; 83880; 84484; 85025; 85027; 86850; 86900; 86901; 86920; 87040; 87070; 87077; 87186; 87205; 93005; 93010; 93306; 94640; 94660; 94667; 94799; 96374; 99284; J0456; J0696; J0834; J1250; J1644; J1940; J2185; J3490; J7030; J7060; P9016; P9047

== ENCOUNTER → 2019-09-10 | Outpatient (CLI) | payer MEDICARE, BC ==
[2019-09-10 14:45] LABS: ANION GAP 8 (5-19); BLOOD UREA NITROGEN 37 mg/dL (7-20); CALCIUM 9.3 mg/dL (8.4-10.2); CARBON DIOXIDE 33 mmol/L (22-30); CHLORIDE 95 mmol/L (98-107); GLUCOSE 87 mg/dL (75-110); POTASSIUM 4.1 mmol/L (3.6-5.0)
== END ==
LOC: LAB 13:44
PROVIDERS: ATTEND Internal Medicine Cardiovascular Disease
DX: R06.00 Dyspnea, unspecified (principal); I48.0 Paroxysmal atrial fibrillation; I50.22 Chronic systolic (congestive) heart failure
CPT/HCPCS: 36415; 80048; 83880

== ENCOUNTER → 2019-09-22 | Outpatient (CLI) | payer MEDICARE, BC | LOC: LAB 10:49 | PROVIDERS: ATTEND Internal Medicine Cardiovascular Disease | DX: I48.0 Paroxysmal atrial fibrillation (principal); Z79.01 Long term (current) use of anticoagulants | CPT/HCPCS: 82272 ==

== ENCOUNTER 2019-09-23 10:01 | Emergency (ER) | payer MEDICARE, BC ==
[2019-09-23] MEDS ORDERED: PANTOPRAZOLE SODIUM 40 MG VIAL IV ONE (11:03)
--- NOTE | 2019-09-23 11:06 | ER Document Report ---
ED Medical Screen (RME) - General Chief Complaint: Bloody Stools Stated Complaint: BLOOD IN STOOLS Time Seen by Provider: 09/23/19 10:56 Primary Care Provider: TROY FELIPE MD [Primary Care Provider] - Follow up as needed Notes: HPI: 89-year-old female with history of GI bleed presenting for evaluation of rectal bleeding over the last 5 or 6 days. Family members providing additional history. They indicate patient just told them that she was having dark tarry stools. They did take a stool test to the lab yesterday were told it was positive for blood. Patient has been admitted previously for GI bleed issues per the family members. She denies abdominal pain nausea vomiting or fever. Family members indicate last GI bleed was when patient was on Eliquis, she is only on baby aspirin currently I have greeted and performed a rapid initial assessment of this patient. A comprehensive ED assessment and evaluation of the patient, analysis of test results and completion of the medical decision making process will be conducted by additional ED providers PHYSICAL EXAMINATION: GENERAL: Well-appearing, well-nourished and in mild acute distress. HEAD: Atraumatic, normocephalic. EYES: sclera anicteric, conjunctiva are normal. ENT: Moist mucous membranes. NECK: Normal range of motion LUNGS: Normal work of breathing, clear to auscultation HEART: 2+ radial pulses bilaterally, irregularly irregular, 2/6 murmur noted ABD: limited by positioning for exam in triage. No reproducible abdominal pain on exam, rectal exam deferred in triage EXTREMITIES: no pitting or edema. No cyanosis. NEUROLOGICAL: No focal neurological deficits. Moves all extremities spontaneously and on command. PSYCH: Normal mood, normal affect. SKIN: Warm, Dry, normal turgor, multiple areas of bruising are noted. TRAVEL OUTSIDE OF THE [place] IN LAST 30 DAYS: No - Related Data Allergies/Adverse Reactions: codeine [Codeine] Allergy (Unknown, Verified 08/20/19 14:19) amoxicillin [Amoxicillin] Allergy (Verified 08/20/19 14:19) Past Medical History - Social History Frequency of alcohol use: None Drug Abuse: None - Past Medical History Cardiac Medical History: Reports: Hx Atrial Fibrillation, Hx Congestive Heart Failure, Hx Hypertension Denies: Hx Heart Attack Pulmonary Medical History: Reports: Hx Asthma, Hx COPD, Hx Pneumonia Denies: Hx Bronchitis Neurological Medical History: Denies: Hx Cerebrovascular Accident, Hx Seizures Endocrine Medical History: Denies: Hx Diabetes Mellitus Type 2 Renal/ Medical History: Denies: Hx Peritoneal Dialysis GI Medical History: Reports: Hx Gastroesophageal Reflux Disease. Denies: Hx Hepatitis, Hx Hiatal Hernia, Hx Ulcer Musculoskeltal Medical History: Reports Hx Arthritis Psychiatric Medical History: Denies: Hx Depression Infectious Medical History: Denies: Hx Hepatitis Past Surgical History: Reports: Hx Cardiac Catheterization - pacemaker, Hx Cholecystectomy, Hx Herniorrhaphy, Hx Pacemaker. Denies: Hx Mastectomy, Hx Open Heart Surgery - Immunizations Hx Diphtheria, Pertussis, Tetanus Vaccination: Yes Physical Exam - Vital signs Vitals: Temp Pulse Resp BP Pulse Ox 97.4 F 64 20 125/44 L 93 09/23/19 10:07 09/23/19 10:07 09/23/19 10:07 09/23/19 10:07 09/23/19 10:07 Course - Vital Signs Vital signs: Temp Pulse Resp BP Pulse Ox 97.4 F 64 20 125/44 L 93 09/23/19 10:07 09/23/19 10:07 09/23/19 10:07 09/23/19 10:07 09/23/19 10:07 Doctor's Discharge - Discharge Referrals: TROY FELIPE MD [Primary Care Provider] - Follow up as needed
[2019-09-23 11:40] LABS: INTERNATIONAL RATION (INR) 1.06; PROTHROMBIN TIME 13.8 SEC (11.4-15.4)
[2019-09-23 11:42] LABS: ABSOLUTE EOSINOPHILS # (AUTO) 0.1 10^3/uL (0.0-0.6); ABSOLUTE LYMPHOCYTES (AUTO) 0.4 10^3/uL (0.5-4.7); ABSOLUTE MONOCYTES (AUTO) 0.5 10^3/uL (0.1-1.4); ABSOLUTE NEUT (AUTO) 4.3 10^3/uL (1.7-8.2); BASOPHILS % (AUTO) 0.3 % (0-2); EOSINOPHILS % (AUTO) 2.3 % (0-6); HEMATOCRIT 27.2 % (36.0-47.0); HEMOGLOBIN 9.3 g/dL (12.0-15.5); LYMPHOCYTES % (AUTO) 6.8 % (13-45); MEAN CORPUSCULAR HEMOGLOBIN 32.1 pg (27.0-33.4); MEAN CORPUSCULAR HGB CONC 34.3 g/dL (32.0-36.0); MEAN CORPUSCULAR VOLUME 94 fl (80-97); MONOCYTES % (AUTO) 9.2 % (3-13); PLATELET COUNT 162 10^3/uL (150-450); RED BLOOD COUNT 2.91 10^6/uL (3.72-5.28); RED CELL DISTRIBUTION WIDTH 17.4 % (11.5-14.0); SEGMENTED NEUTROPHILS % (AUTO) 81.4 % (42-78); TOTAL CELLS COUNTED % (AUTO) 100 %; WHITE BLOOD COUNT 5.3 10^3/uL (4.0-10.5)
[2019-09-23 12:00] LABS: ALBUMIN 3.4 g/dL (3.5-5.0); ALKALINE PHOSPHATASE 221 U/L (38-126); ANION GAP 8 (5-19); ASPARTATE AMINO TRANSFERASE 35 U/L (14-36); BILIRUBIN,DIRECT 0.2 mg/dL (0.0-0.4); BILIRUBIN,TOTAL 0.8 mg/dL (0.2-1.3); BLOOD UREA NITROGEN 38 mg/dL (7-20); CALCIUM 9.3 mg/dL (8.4-10.2); CARBON DIOXIDE 31 mmol/L (22-30); CHLORIDE 98 mmol/L (98-107); GLUCOSE 74 mg/dL (75-110); TOTAL PROTEIN 6.5 g/dL (6.3-8.2)
--- NOTE | 2019-09-23 13:03 | ER Document Report ---
ED General - General Chief Complaint: Bloody Stools Stated Complaint: BLOOD IN STOOLS Time Seen by Provider: 09/23/19 10:56 Primary Care Provider: TROY FELIPE MD [ACTIVE STAFF] - Follow up as needed Notes: Patient is an 89-year-old female presenting to the emergency department chief complaint of blood in stools. Patient reports generalized weakness little more so than normal. She states she was seen at her radiology resident and they recommended that she have a stool sample checked for occult blood which was positive at the lab today and she was informed to come to the emergency department for evaluation. Patient reports black stools but no active bleeding per mouth per nose or otherwise no active bleeding elsewhere. Patient denies nausea vomiting cough or cold no sick contacts no change in food or medications. TRAVEL OUTSIDE OF THE [place] IN LAST 30 DAYS: No - HPI Onset: Last week Onset/Duration: Gradual, Persistent Quality of pain: No pain Severity: None Pain Level: 0 Associated symptoms: Weakness Exacerbated by: Denies Relieved by: Denies Similar symptoms previously: Yes Recently seen / treated by doctor: Yes - Related Data Allergies/Adverse Reactions: codeine [Codeine] Allergy (Unknown, Verified 08/20/19 14:19) amoxicillin [Amoxicillin] Allergy (Verified 08/20/19 14:19) Past Medical History - General Information source: Patient, Relative, [facility] Records - Social History Smoking Status: Never Smoker Frequency of alcohol use: None Drug Abuse: None Lives with: Family Family History: CAD, Hypertension, Other - CHF Patient has suicidal ideation: No Patient has homicidal ideation: No - Past Medical History Cardiac Medical History: Reports: Hx Atrial Fibrillation, Hx Congestive Heart Failure, Hx Hypertension Denies: Hx Heart Attack Pulmonary Medical History: Reports: Hx Asthma, Hx COPD, Hx Pneumonia Denies: Hx Bronchitis Neurological Medical History: Denies: Hx Cerebrovascular Accident, Hx Seizures Endocrine Medical History: Denies: Hx Diabetes Mellitus Type 2 Renal/ Medical History: Denies: Hx Peritoneal Dialysis GI Medical History: Reports: Hx Gastroesophageal Reflux Disease. Denies: Hx Hepatitis, Hx Hiatal Hernia, Hx Ulcer Musculoskeletal Medical History: Reports Hx Arthritis Psychiatric Medical History: Denies: Hx Depression Infectious Medical History: Denies: Hx Hepatitis Past Surgical History: Reports: Hx Cardiac Catheterization - pacemaker, Hx Cholecystectomy, Hx Herniorrhaphy, Hx Pacemaker. Denies: Hx Mastectomy, Hx Open Heart Surgery - Immunizations Hx Diphtheria, Pertussis, Tetanus Vaccination: Yes Hx Pneumococcal Vaccination: 07/29/09 Review of Systems - Review of Systems Notes: REVIEW OF SYSTEMS: CONSTITUTIONAL : Denies fever, chills, or sweats. Patient reports more than normal weakness. EENT: Denies eye, ear, throat, or mouth pain or symptoms. Denies nasal or sinus congestion. CARDIOVASCULAR: Denies chest pain. RESPIRATORY: Denies cough, cold, or chest congestion. Denies shortness of breath, difficulty breathing, or wheezing. GASTROINTESTINAL: Denies abdominal pain. Denies nausea, vomiting, or diarrhea. Denies constipation. Patient does report black stools. This is been ongoing for 4 to 5 days. GENITOURINARY: Denies difficulty urinating, painful urination, burning, frequency, or blood in urine. MUSCULOSKELETAL: Denies neck or back pain or joint pain or swelling. SKIN: Denies rash or skin lesions. HEMATOLOGIC : Denies easy bruising or bleeding. NEUROLOGICAL: Denies altered mental status or loss of consciousness. Denies headache. Denies weakness or paralysis or loss of use of either side. Denies problems with gait or speech. Denies sensory or motor loss. PSYCHIATRIC: Denies suicidal or homicidal ideations 10 Systems are negative unless otherwise specified above Physical Exam - Vital signs Vitals: Temp Pulse Resp BP Pulse Ox 97.4 F 64 20 125/44 L 93 09/23/19 10:07 09/23/19 10:07 09/23/19 10:07 09/23/19 10:07 09/23/19 10:07 - Notes Notes: PHYSICAL EXAMINATION: GENERAL: Well-appearing, well-nourished and in no acute distress. HEAD: Atraumatic, normocephalic. EYES: Pupils equal round and reactive to light, extraocular movements intact, sclera anicteric, conjunctiva are normal. ENT: nares patent, oropharynx clear without exudates. Moist mucous membranes. NECK: Normal range of motion, supple without lymphadenopathy, no appreciable JVD LUNGS: Lungs clear to auscultation bilaterally and equal. No wheezes rales or rhonchi. HEART: Slightly irregularly irregular rate, there is a 3/6 systolic murmur heard best over the left chest wall. ABDOMEN: Soft, nontender, normal bowel sounds. No guarding, no rebound. No masses appreciated. EXTREMITIES: Active full range of motion, no pitting or edema. No cyanosis. 2+ pulses x4 NEUROLOGICAL: No focal neurological deficits. Moves all extremities spontaneously and on command. SKIN: Warm, Dry, and intact. Normal turgor, no rashes or lesions noted. Course - Re-evaluation Re-evalutation: 09/23/19 17:26 Patient has been reevaluated several times while in the emergency department. Patient has remained stable without decompensation. I discussed the laboratory findings with the patient and family members my recommendation is that at this time there is no need for admission or transfusion. Secondarily I recommend that they follow-up with their radiology resident in the morning and or primary care provider. Patient and family are agreeable with care plan. Patient is discharged home in stable condition. - Vital Signs Vital signs: Temp Pulse Resp BP Pulse Ox 98.0 F 60 25 H 118/53 L 95 09/23/19 17:01 09/23/19 12:41 09/23/19 17:01 09/23/19 17:01 09/23/19 17:01 - Laboratory Result Diagrams: 09/23/19 11:15 09/23/19 11:15 Laboratory results interpreted by me: 09/23/19 09/23/19 11:15 11:15 RBC 2.91 L Hgb 9.3 L Hct 27.2 L RDW 17.4 H Lymph % (Auto) 6.8 L Absolute Lymphs (auto) 0.4 L Seg Neutrophils % 81.4 H Carbon Dioxide 31 H BUN 38 H Est GFR ( Amer) 51 L Est GFR (MDRD) Non-Af 42 L Glucose 74 L Alkaline Phosphatase 221 H Albumin 3.4 L Discharge - Discharge Clinical Impression: Anemia Qualifiers: Anemia type: iron deficiency Iron deficiency anemia type: chronic blood loss Qualified Code(s): D50.0 - Iron deficiency anemia secondary to blood loss (chronic) GI bleeding Qualifiers: GI bleed type/associated pathology: unspecified gastrointestinal hemorrhage type Qualified Code(s): K92.2 - Gastrointestinal hemorrhage, unspecified Condition: Stable Disposition: HOME, SELF-CARE Additional Instructions: Please follow-up with your radiology resident tomorrow morning. Advised them that your hemoglobin is 9.3. Please return to the emergency department for any worsening symptoms to include active bleeding per rectum or any other location worsening of generalized weakness dizziness or fainting spells. Please continue to take medications as prescribed except I would hold your aspirin for the next dose until you speak with your radiology resident or primary care provider. Referrals: TROY FELIPE MD [ACTIVE STAFF] - Follow up as needed
[2019-09-23 17:10] VITALS: BP 118/53
== END 2019-09-23 17:30 | disposition home or self-care (01) ==
LOC: ER 10:01
DX: D50.0 Iron deficiency anemia secondary to blood loss (chronic) (principal); K92.2 Gastrointestinal hemorrhage, unspecified; R19.5 Other fecal abnormalities; R53.1 Weakness; Z88.1 Allergy status to other antibiotic agents; Z88.8 Allergy status to other drugs, medicaments and biological substances; I50.9 Heart failure, unspecified; I11.0 Hypertensive heart disease with heart failure
CPT/HCPCS: 99284; 96374; 86900; 86901; 36415; 86850; 85025; 85610; 80053; 84484; C9113

== ENCOUNTER 2019-09-28 11:56 | Day surgery (SDC) | payer MEDICARE, BC ==
[~2019-09-28 11:56] MED LIST changes: +DIPHENHYDRAMINE HCL 50 MG/ML VIAL ONE; +EPINEPHRINE INJ 1 MG/10 ML DISP.SYRIN ONE; +FENTANYL CITRATE INJ/PF 100 MCG/2 ML AMPUL ONE; +FLUMAZENIL INJ 0.5 MG/5 ML VIAL ONE; +GLUCAGON,HUMAN RECOMB 1 MG INJ ONE; +NALOXONE HCL INJ/PF 0.4 MG/1 ML SDV ONE; +ONDANSETRON HCL INJ/PF 4 MG/2 ML SDV ONE
[2019-09-28] MEDS: MIDAZOLAM 2 MG/2 ML INJ ONE ×2 (12:23→12:30)
--- NOTE | 2019-09-28 12:32 | Operative Report ---
Operative Report DATE OF SURGERY: 09/28/19 Operative Report: The risks benefits and alternatives of the procedure explained to the patient in detail and informed consent is obtained.A GIF Olympus video scope was inserted into the patient's mouth and hypopharynx ,the esophagus is identified intubated and insufflated, the scope was then advanced through the esophagus stomach and duodenum ,retroflexion maneuver is done, the esophagus stomach and first and second portions of the duodenum examined PREOPERATIVE DIAGNOSIS: Melena POSTOPERATIVE DIAGNOSIS: Gastric AVM status post ablation. Gastritis status post biopsy OPERATION: EGD with ablation. EGD with biopsy SURGEON: TROY FELIPE ANESTHESIA: Moderate Sedation - 3 mg of Versed. Conscious sedation monitoring time 30 minutes. TISSUE REMOVED OR ALTERED: As noted above. COMPLICATIONS: None. ESTIMATED BLOOD LOSS: None. INTRAOPERATIVE FINDINGS: As noted above. PROCEDURE: Patient tolerated the procedure well. No immediate postprocedure complications are noted. Patient is discharged in good condition. Discharge date 09/28/2019. Discharge diet: Regular. Discharge activity: Regular. 2 to 3-week follow-up to discuss findings. Patient is instructed to call the office or proceed to the emergency room should there be any further problems or questions. Wait on the pathology.
[2019-09-28 13:50] VITALS: BP 117/58
== END 2019-09-28 13:49 | disposition home or self-care (01) ==
LOC: END 11:56
PROVIDERS: ATTEND Internal Medicine Gastroenterology
DX: K29.70 Gastritis, unspecified, without bleeding (principal); Q27.33 Arteriovenous malformation of digestive system vessel
CPT/HCPCS: 43239; 43255; 88305 ×2; J2250; J0171; J1200; J1610; J2310; J2405; J2704; J3010; J3490

== ENCOUNTER 2019-10-03 10:57 | Inpatient (IN) | payer MEDICARE, BC ==
[2019-10-03 11:42] LABS: ABSOLUTE EOSINOPHILS # (AUTO) 0.1 10^3/uL (0.0-0.6); ABSOLUTE LYMPHOCYTES (AUTO) 0.5 10^3/uL (0.5-4.7); ABSOLUTE MONOCYTES (AUTO) 0.4 10^3/uL (0.1-1.4); ABSOLUTE NEUT (AUTO) 3.1 10^3/uL (1.7-8.2); BASOPHILS % (AUTO) 0.8 % (0-2); EOSINOPHILS % (AUTO) 2.9 % (0-6); HEMATOCRIT 28.5 % (36.0-47.0); HEMOGLOBIN 9.8 g/dL (12.0-15.5); LYMPHOCYTES % (AUTO) 12.8 % (13-45); MEAN CORPUSCULAR HEMOGLOBIN 32.2 pg (27.0-33.4); MEAN CORPUSCULAR HGB CONC 34.2 g/dL (32.0-36.0); MEAN CORPUSCULAR VOLUME 94 fl (80-97); MONOCYTES % (AUTO) 9.9 % (3-13); PLATELET COUNT 215 10^3/uL (150-450); RED BLOOD COUNT 3.03 10^6/uL (3.72-5.28); RED CELL DISTRIBUTION WIDTH 17.6 % (11.5-14.0); SEGMENTED NEUTROPHILS % (AUTO) 73.6 % (42-78); TOTAL CELLS COUNTED % (AUTO) 100 %; WHITE BLOOD COUNT 4.3 10^3/uL (4.0-10.5)
[2019-10-03 11:57] LABS: ALBUMIN 3.5 g/dL (3.5-5.0); ALKALINE PHOSPHATASE 226 U/L (38-126); ANION GAP 6 (5-19); ASPARTATE AMINO TRANSFERASE 38 U/L (14-36); BILIRUBIN,DIRECT 0.3 mg/dL (0.0-0.4); BILIRUBIN,TOTAL 0.8 mg/dL (0.2-1.3); BLOOD UREA NITROGEN 22 mg/dL (7-20); CALCIUM 9.5 mg/dL (8.4-10.2); CARBON DIOXIDE 33 mmol/L (22-30); CHLORIDE 100 mmol/L (98-107); GLUCOSE 79 mg/dL (75-110); POTASSIUM 4.2 mmol/L (3.6-5.0); TOTAL PROTEIN 6.9 g/dL (6.3-8.2)
[2019-10-03] MEDS ORDERED: DEXTROSE 5%-LACTATED RINGERS 1,000 ML IV ONE (12:44)
--- NOTE | 2019-10-03 13:26 | RADIOLOGY REPORT (SQ) ---
EXAM DESCRIPTION: CT HEAD WITHOUT COMPLETED DATE/TIME: 10/03/2019 1:10 pm REASON FOR STUDY: altered mental status COMPARISON: None. TECHNIQUE: Axial images acquired through the brain without intravenous contrast. Images reviewed wi th bone, brain and subdural windows. Additional sagittal and coronal reconstructions were generated. Images stored on PACS. All CT scanners at this facility use dose modulation, iterative reconstruction, and/or weight based d osing when appropriate to reduce radiation dose to as low as reasonably achievable (ALARA). [facility]: Dose Right [facility]: CareDose [facility]: Dose Right [facility]: Teradose 4D [facility]: Smart Backpack RADIATION DOSE: CT Rad equipment meets quality standard of care and radiation dose reduction techniq ues were employed. CTDIvol: 53.2 mGy. DLP: 964 mGy-cm. mGy. LIMITATIONS: None. FINDINGS: VENTRICLES: Normal size and contour. CEREBRUM: No masses. No hemorrhage. No midline shift. No evidence for acute infarction. Normal gra y/white matter differentiation. No areas of low density in the white matter. CEREBELLUM: No masses. No hemorrhage. No alteration of density. No evidence for acute infarction. EXTRAAXIAL SPACES: No fluid collections. No masses. ORBITS AND GLOBE: No intra- or extraconal masses. Normal contour of globe without masses. CALVARIUM: No fracture. PARANASAL SINUSES: No fluid or mucosal thickening. SOFT TISSUES: No mass or hematoma. OTHER: No other significant finding. IMPRESSION: NORMAL BRAIN CT WITHOUT CONTRAST. EVIDENCE OF ACUTE STROKE: NO. COMMENT: Quality ID # [id number]: Final reports with documentation of one or more dose reduction techniques (e.g., Automated exposure control, adjustment of the mA and/or kV according to patient size, use of iterative reconstruction technique) TECHNICAL DOCUMENTATION: JOB ID: [id number] 2010 [employer]- All Rights Reserved Reading location - IP/workstation name: [email or web address]
--- NOTE | 2019-10-03 13:32 | RADIOLOGY REPORT (SQ) ---
EXAM DESCRIPTION: CHEST SINGLE VIEW COMPLETED DATE/TIME: 10/03/2019 1:15 pm REASON FOR STUDY: diminshed breathsounds in bases COMPARISON: 08/20/2019 EXAM PARAMETERS: NUMBER OF VIEWS: One view. TECHNIQUE: Single frontal radiographic view of the chest acquired. RADIATION DOSE: NA LIMITATIONS: None. FINDINGS: LUNGS AND PLEURA: Diffuse parenchymal opacities on the right with right pleural effusion. Slight increased over previous. Left lung clear. MEDIASTINUM AND HILAR STRUCTURES: No masses. Contour normal. HEART AND VASCULAR STRUCTURES: Heart enlarged. Mild vascular congestion. BONES: No acute findings. HARDWARE: Pacemaker. OTHER: No other significant finding. IMPRESSION: Slight increase in the right basilar opacity and right pleural effusion. Chronic vascular congestion. TECHNICAL DOCUMENTATION: JOB ID: [id number] 2010 [employer]- All Rights Reserved Reading location - IP/workstation name: [email or web address]
--- NOTE | 2019-10-03 14:47 | EKG REPORT ---
SEVERITY:- ABNORMAL ECG - ATRIAL FIBRILLATION WITH VENTRICULAR DEMAND PACING RIGHT BUNDLE BRANCH BLOCK PROBABLE ANTEROSEPTAL INFARCT, AGE INDETERM NONSPECIFIC T INVERSIONS - INFERIOR LEADS : Confirmed by: Kanu Webster MD 03-Oct-2019 14:46:27
--- NOTE | 2019-10-03 15:26 | RADIOLOGY REPORT (SQ) ---
EXAM DESCRIPTION: CT CHEST WITHOUT COMPLETED DATE/TIME: 10/03/2019 1:57 pm REASON FOR STUDY: Decreased air movement at the bases bilaterally. Altered mental status. COMPARISON: 11/01/2016. Chest radiograph, same date. TECHNIQUE: CT scan performed of the chest without intravenous contrast. Images reviewed with lung, soft tissue and bone windows. Reconstructed coronal and sagittal MPR images reviewed. All images st ored on PACS. All CT scanners at this facility use dose modulation, iterative reconstruction, and/or weight based d osing when appropriate to reduce radiation dose to as low as reasonably achievable (ALARA). [facility]: Dose Right [facility]: CareDose [facility]: Dose Right [facility]: Teradose 4D [facility]: Smart [employer] RADIATION DOSE: CT Rad equipment meets quality standard of care and radiation dose reduction techniq ues were employed. CTDIvol: 8.5 mGy. DLP: 309 mGy-cm. mGy. LIMITATIONS: No technical limitations. FINDINGS: LUNGS AND PLEURA: The trachea has normal caliber and appearance. There are patchy areas o f consolidation and nodularity in the lower lobes bilaterally. Moderate right pleural effusion. No pneumothorax. A few scattered discrete nodules and tree-in-bud type nodularity in the right upper lo be. HILAR AND MEDIASTINAL STRUCTURES: Prominent mediastinal lymph nodes are stable from prior examination , probably reactive. No marcia adenopathy. HEART AND VASCULAR STRUCTURES: There is severe cardiomegaly. No pericardial effusion. Coronary tracy ry atherosclerosis. Thoracic aorta has normal caliber. UPPER ABDOMEN: No significant findings. Limited exam. THYROID AND OTHER SOFT TISSUES: No masses. No adenopathy. BONES: Spondylosis and degenerative disc disease. No suspicious bone lesions. HARDWARE: Left infraclavicular pacemaker with intact lead wires. OTHER: No other significant findings. IMPRESSION: 1. Multifocal pneumonia with moderate right pleural effusion. Given the nodular components, a follow -up CT of the chest in 3 months is recommended to confirm resolution. 2. Severe cardiomegaly. Probably reactive mediastinal lymph nodes. TECHNICAL DOCUMENTATION: JOB ID: [id number] Quality ID # [id number]: Final reports with documentation of one or more dose reduction techniques (e.g., Au tomated exposure control, adjustment of the mA and/or kV according to patient size, use of iterative reconstruction technique) 2010 [employer]- All Rights Reserved Reading location - IP/workstation name: [email or web address]
[2019-10-03] MEDS ORDERED: PANTOPRAZOLE SODIUM 40 MG VIAL IV ONE (15:32)
[2019-10-03] MEDS ORDERED: FUROSEMIDE INJ/PF 40 MG/4 ML SDV IV ONE (15:40)
[2019-10-03 16:19] LABS: URINE AMPHETAMINES SCREEN NEGATIVE; URINE BARBITURATES SCREEN NEGATIVE; URINE BENZODIAZEPINES SCREEN NEGATIVE; URINE COCAINE SCREEN NEGATIVE; URINE MARIJUANA (THC) SCREEN NEGATIVE; URINE METHADONE SCREEN NEGATIVE; URINE PHENCYCLIDINE SCREEN NEGATIVE
[2019-10-03] MEDS ORDERED: ACETAMINOPHEN 325 MG TABLET PO ONE (18:23)
[2019-10-03] MEDS ORDERED: PROMETHAZINE HCL INJ 25 MG/1 ML VIAL IV PRN (18:25)
[2019-10-03] MEDS ORDERED: TEMAZEPAM 7.5 MG CAPSULE PO PRN (18:25)
[2019-10-03] MEDS ORDERED: ONDANSETRON HCL INJ/PF 4 MG/2 ML SDV IV PRN (18:25)
[2019-10-03] MEDS ORDERED: OXYCODONE-ACETAMINOPHEN 5-325 MG TABLET PO PRN (18:25)
[2019-10-03] MEDS ORDERED: ACETAMINOPHEN 325 MG TABLET PO PRN (18:25)
[2019-10-03] MEDS ORDERED: IPRATROPIUM/ALBUTEROL 0.5-2.5 MG/3 ML AMPUL NEB PRN (18:25)
--- NOTE | 2019-10-03 18:54 | PDOC H&P ---
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 Patient brought to ED after family noted this morning patient was hard to wake up, as per family it took her about an hour to wake up. On my encounter patient is awake, alert and oriented x3, in no apparent distress, when asked why she is in ED she states " I don't know" and points to his sons to provide history. 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 Otherwise as per family patient has not been sick, has not complained of any fever, chills, nausea, vomiting, diarrhea, constipation or any urinary symptoms. After extensive work-up in the ED she was found to have worsening right-sided pleural effusion possibly multifocal pneumonia otherwise all work-up are at baseline. Hospitalist was consulted for admission. Past Medical History Cardiac Medical History: Reports: Atrial Fibrillation, Congestive Heart Failure, Hypertension Denies: Myocardial Infarction Pulmonary Medical History: Reports: Asthma, Chronic Obstructive Pulmonary Disease (COPD), Pneumonia Denies: Bronchitis Neurological Medical History: Denies: Seizures Endocrine Medical History: Denies: Diabetes Mellitus Type 2 GI Medical History: Reports: Gastroesophageal Reflux Disease Denies: Hepatitis, Hiatal Hernia Musculoskeltal Medical History: Reports: Arthritis Psychiatric Medical History: Denies: Depression Hematology: Reports: Anemia Denies: Sickle Cell Disease Past Surgical History Past Surgical History: Reports: Cardiac Catheterization - pacemaker, Cholecystectomy, Herniorrhaphy, Pacemaker Denies: Amputation, Mastectomy Social History Smoking Status: Unknown if Ever Smoked Frequency of Alcohol Use: None Hx Recreational Drug Use: No Hx Prescription Drug Abuse: No Family History Family History: CAD, Hypertension, Other - CHF Parental Family History Reviewed: Yes Children Family History Reviewed: Yes Sibling(s) Family History Reviewed.: Yes Medication/Allergy Home Medications: Furosemide [Lasix 40 mg Tablet] 40 mg PO DAILY 08/20/19 Potassium Chloride [Klor-Con 10 Meq Tablet ER] 20 meq PO DAILY 08/20/19 Tiotropium [place] [Spiriva Respimat] 2 spray IH DAILY 08/20/19 Carvedilol [Coreg 3.125 mg Tablet] 3.125 mg PO Q12 #60 tablet 08/30/19 Gabapentin [Neurontin 100 mg Capsule] 100 mg PO Q12 #60 capsule 08/30/19 Spironolactone [Aldactone 25 mg Tablet] 12.5 mg PO DAILY #30 tablet 08/30/19 Sucralfate [Carafate 1 gm Tablet] 1 gm PO AC #90 tablet 08/30/19 Fluticasone/Vilanterol [Breo Ellipta 200-25 Mcg INH] 1 puff .ROUTE DAILY 09/28/19 Allergies/Adverse Reactions: codeine [Codeine] Allergy (Unknown, Verified 10/03/19 11:31) amoxicillin [Amoxicillin] Allergy (Verified 10/03/19 11:31) Review of Systems Review of Systems: as per hpi Physical Exam Vital Signs: Temp Pulse Resp BP Pulse Ox 98 F 22 H 136/65 H 98 10/03/19 11:09 10/03/19 16:03 10/03/19 16:03 10/03/19 16:03 Intake & Output 10/02/19 10/03/19 10/04/19 06:59 06:59 07:59 Intake Total 200 Balance 200 Weight 71.4 kg General appearance: PRESENT: no acute distress, well-developed, well-nourished Head exam: PRESENT: atraumatic, normocephalic Respiratory exam: PRESENT: crackles, decreased breath sounds - right lung. ABSENT: rales, rhonchi, wheezes Cardiovascular exam: PRESENT: RRR, systolic murmur. ABSENT: diastolic murmur, rubs GI/Abdominal exam: PRESENT: normal bowel sounds, soft. ABSENT: distended, guarding, mass, organolmegaly, rebound, tenderness Neurological exam: PRESENT: alert, awake, oriented to person, oriented to place, oriented to time, oriented to situation, CN II-XII grossly intact. ABSENT: motor sensory deficit Results Laboratory Results: 10/03/19 11:11 10/03/19 11:11 10/03/19 10/03/19 11:11 11:11 WBC 4.3 RBC 3.03 L Hgb 9.8 L Hct 28.5 L MCV 94 MCH 32.2 MCHC 34.2 RDW 17.6 H Plt Count 215 Seg Neutrophils % 73.6 Sodium 138.8 Potassium 4.2 Chloride 100 Carbon Dioxide 33 H Anion Gap 6 BUN 22 H Creatinine 1.05 Est GFR ( Amer) > 60 Glucose 79 Calcium 9.5 Total Bilirubin 0.8 AST 38 H Alkaline Phosphatase 226 H Total Protein 6.9 Albumin 3.5 10/03/19 10/03/19 11:11 11:11 Troponin I 0.150 NT-Pro-B Natriuret Pep 2610 H Impressions: Chest X-Ray 10/03/19 12:45 IMPRESSION: Slight increase in the right basilar opacity and right pleural effusion. Chronic vascular congestion. Head CT 10/03/19 12:46 IMPRESSION: NORMAL BRAIN CT WITHOUT CONTRAST. EVIDENCE OF ACUTE STROKE: NO. Chest CT 10/03/19 14:23 IMPRESSION: 1. Multifocal pneumonia with moderate right pleural effusion. Given the nodular components, a follow-up CT of the chest in 3 months is recommended to confirm resolution. 2. Severe cardiomegaly. Probably reactive mediastinal lymph nodes. Assessment and Plan - Diagnosis (1) Multifocal pneumonia Is this a current diagnosis for this admission?: Yes Plan: This is based on CT finding. Patient denies any fever, chills, chest pain or cough. CBC WNL. Given recent history of multiple hospitalization and procedures patient is at risk of healthcare associated pneumonia. We will start on empiric IV antibiotics. Obtain a sputum, blood culture. (2) Pleural effusion Is this a current diagnosis for this admission?: Yes Plan: Likely due to CHF or multifocal pneumonia. Pleural effusion worsening since previous admission. Strict in and out, cardiac diet, IV Lasix, optimize CHF meds. Therapeutic and diagnostic thoracentesis for further characterization of pleural effusion. (3) Somnolence Is this a current diagnosis for this admission?: Yes Plan: Likely due to anesthesia she received on 09/28/2023 upper GI AVM cauterization or early developing pneumonia or UTI. Monitor vitals. Fall, seizure and aspiration precautions. Will obtain UA (4) Atrial fibrillation Qualifiers: Is this a current diagnosis for this admission?: Yes Plan: History of chronic persistent atrial fibrillation. Rate controlled. 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 (5) Chronic kidney disease, stage III (moderate) Is this a current diagnosis for this admission?: Yes Plan: Creatinine WNL. Electrolytes WNL. Monitor electrolytes and volume status replace electrolytes as needed. Avoid nephrotoxic meds. Outpatient PCP and nephrology follow-up. (6) Chronic obstructive lung disease Qualifiers: Is this a current diagnosis for this admission?: Yes Plan: History of non-oxygen dependent COPD. Does not seem to be acutely exacerbated. Continue PRN duo nebs, resume LABA, LABA, ICS. Incentive spirometry and flutter valve. Supplemental oxygen as needed. (7) GI bleed Qualifiers: Is this a current diagnosis for this admission?: Yes Plan: History of recurrent GI bleed due to AV malformation. Status post multiple cauterization. Last cauterization on 09/28/[address] Fisher. Denies any melena, hematochezia right now. Guaiac positive, however H&H stable. Monitor H&H. Daily CBC. Supportive transfusions. Avoid NSAIDs. Hold antiplatelets. Hold anticoagulants. (8) HTN (hypertension) Qualifiers: Is this a current diagnosis for this admission?: Yes Plan: Normotensive. Restart home meds. Adjust meds daily. Outpatient PCP follow-up. (9) Valvular insufficiency Is this a current diagnosis for this admission?: Yes Plan: History of moderate mitral regurgitation, with severe left atrial volume. Aortic stenosis, mild AR, moderate pulmonary hypertension with right atrial enlargement. Has been recently evaluated by Dr. Pastor at [facility]. As per family patient was deemed to be not a candidate for any surgical intervention and medical management has been recommended. (10) Elevated troponin Is this a current diagnosis for this admission?: Yes Plan: Elevated troponins, denies any chest pain. On chart review patient's baseline troponin is 0.07-0.3 since 2018 This is likely due to chronic troponin leak due to underlying severe CHF, pulmonary hypertension and valvular insufficiency. Resstart CAD meds. Outpatient PCP follow-up. If chest pain obtained a cardiac work-up.
[2019-10-03 20:09] LABS: APPEARANCE,URINE CLOUDY; BILIRUBIN,URINE NEGATIVE (NEGATIVE); COLOR,URINE YELLOW; GLUCOSE, URINE NEGATIVE (NEGATIVE); KETONES,URINE NEGATIVE (NEGATIVE); PROTEIN,URINE 30 mg/dL (NEGATIVE); URINE SPECIFIC GRAVITY 1.015; UROBILINOGEN,URINE NEGATIVE mg/dL (<2.0)
[2019-10-03] MEDS ORDERED: LINEZOLID 600 MG/300 ML RTUPB IV ONE (21:42)
[2019-10-03] MEDS: GABAPENTIN 100 MG CAPSULE PO SCH (22:25)
[2019-10-03] MEDS: FAMOTIDINE 20 MG TABLET PO SCH (22:25)
[2019-10-03] MEDS: FUROSEMIDE INJ/PF 20 MG/2 ML SDV IV SCH (22:25)
[2019-10-03] MEDS: CARVEDILOL 3.125 MG TABLET PO SCH (22:25)
[2019-10-03] MEDS: LINEZOLID 600 MG/300 ML RTUPB IV SCH (22:26)
[2019-10-04 03:23] LABS: ABSOLUTE EOSINOPHILS # (AUTO) 0.1 10^3/uL (0.0-0.6); ABSOLUTE LYMPHOCYTES (AUTO) 0.6 10^3/uL (0.5-4.7); ABSOLUTE MONOCYTES (AUTO) 0.7 10^3/uL (0.1-1.4); BASOPHILS % (AUTO) 0.7 % (0-2); HEMATOCRIT 26.8 % (36.0-47.0); HEMOGLOBIN 9.3 g/dL (12.0-15.5); LYMPHOCYTES % (AUTO) 9.2 % (13-45); MEAN CORPUSCULAR HEMOGLOBIN 32.3 pg (27.0-33.4); MEAN CORPUSCULAR HGB CONC 34.7 g/dL (32.0-36.0); MEAN CORPUSCULAR VOLUME 93 fl (80-97); MONOCYTES % (AUTO) 10.5 % (3-13); PLATELET COUNT 200 10^3/uL (150-450); RED BLOOD COUNT 2.88 10^6/uL (3.72-5.28); RED CELL DISTRIBUTION WIDTH 17.7 % (11.5-14.0); SEGMENTED NEUTROPHILS % (AUTO) 78.6 % (42-78); TOTAL CELLS COUNTED % (AUTO) 100 %; WHITE BLOOD COUNT 6.3 10^3/uL (4.0-10.5)
[2019-10-04 03:32] LABS: INTERNATIONAL RATION (INR) 1.11; PROTHROMBIN TIME 14.3 SEC (11.4-15.4)
[2019-10-04 03:44] LABS: ALBUMIN 3.2 g/dL (3.5-5.0); ALKALINE PHOSPHATASE 206 U/L (38-126); ANION GAP 8 (5-19); ASPARTATE AMINO TRANSFERASE 33 U/L (14-36); BILIRUBIN,DIRECT 0.5 mg/dL (0.0-0.4); BILIRUBIN,TOTAL 0.9 mg/dL (0.2-1.3); BLOOD UREA NITROGEN 21 mg/dL (7-20); CALCIUM 9.3 mg/dL (8.4-10.2); CARBON DIOXIDE 35 mmol/L (22-30); CHLORIDE 95 mmol/L (98-107); GLUCOSE 88 mg/dL (75-110); POTASSIUM 3.7 mmol/L (3.6-5.0); TOTAL PROTEIN 6.6 g/dL (6.3-8.2)
[2019-10-04] MEDS: SUCRALFATE 1 GM TABLET PO SCH ×3 (08:55→17:00)
[2019-10-04] MEDS: SPIRONOLACTONE 25 MG TABLET PO SCH (09:20)
[2019-10-04] MEDS: GABAPENTIN 100 MG CAPSULE PO SCH ×2 (09:24→21:23)
[2019-10-04] MEDS: CARVEDILOL 3.125 MG TABLET PO SCH ×2 (09:26→21:23)
[2019-10-04] MEDS: FUROSEMIDE INJ/PF 20 MG/2 ML SDV IV SCH ×2 (09:26→21:22)
[2019-10-04] MEDS: LINEZOLID 600 MG/300 ML RTUPB IV SCH ×2 (09:29→21:22)
[2019-10-04] MEDS: FAMOTIDINE 20 MG TABLET PO SCH (10:30)
[2019-10-04] MEDS: FLUTICASONE/UMECLIDIN/VILANTER 100-62.5-25 MCG/DOSE IH SCH (10:55)
--- NOTE | 2019-10-04 10:59 | PDOC PROGRESS REPORT ---
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 Patient brought to ED after family noted this morning patient was hard to wake up, as per family it took her about an hour to wake up. On my encounter patient is awake, alert and oriented x3, in no apparent distre ss, when asked why she is in ED she states " I don't know" and points to his sons to provide history. 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 Otherwise as per family patient has not been sick, has not complained of any fever, chills, nausea, vomiting, diarrhea, constipation or any urinary symptoms. After extensive work-up in the ED she was found to have worsening right-sided pleural effusion possibly multifocal pneumonia otherwise all work-up are at baseline. Hospitalist was consulted for admission. 10/04/2019. No acute events overnight. Patient reporting some improvement of her fatigue stating that she is feeling better than yesterday, awake alert and oriented, resting in bed and in no apparent distress, denies any fever, chills, nausea, vomiting, diarrhea, constipation or any urinary symptoms. Noted to have elevated troponin however she denies any chest pain. Scheduled for left-sided thoracentesis today. Reason For Visit: SOMNOLENCE,PLEURAL EFFUSION,MULTIFOCAL PNEUMONIA Physical Exam Vital Signs: Temp Pulse Resp BP Pulse Ox 98.2 F 66 16 123/42 L 91 L 10/04/19 08:44 10/04/19 08:44 10/04/19 08:44 10/04/19 08:44 10/04/19 08:44 Intake & Output 10/03/19 10/04/19 10/05/19 05:59 06:59 06:59 Intake Total Output Total Balance Weight General appearance: PRESENT: no acute distress, well-developed, well-nourished Head exam: PRESENT: atraumatic, normocephalic Respiratory exam: PRESENT: crackles, decreased breath sounds - Right lung.. ABSENT: rales, rhonchi, wheezes Cardiovascular exam: PRESENT: RRR, systolic murmur. ABSENT: diastolic murmur, rubs GI/Abdominal exam: PRESENT: normal bowel sounds, soft. ABSENT: distended, guarding, mass, organolmegaly, rebound, tenderness Neurological exam: PRESENT: alert, awake, oriented to person, oriented to place, oriented to time, oriented to situation, CN II-XII grossly intact. ABSENT: motor sensory deficit Results Laboratory Results: 10/04/19 03:12 10/04/19 03:12 10/03/19 10/03/19 10/03/19 11:11 11:11 12:55 WBC 4.3 RBC 3.03 L Hgb 9.8 L Hct 28.5 L MCV 94 MCH 32.2 MCHC 34.2 RDW 17.6 H Plt Count 215 Seg Neutrophils % 73.6 Sodium 138.8 Potassium 4.2 Chloride 100 Carbon Dioxide 33 H Anion Gap 6 BUN 22 H Creatinine 1.05 Est GFR ( Amer) > 60 Glucose 79 Calcium 9.5 Magnesium Total Bilirubin 0.8 AST 38 H Alkaline Phosphatase 226 H Ammonia Total Protein 6.9 Albumin 3.5 TSH Urine Color YELLOW Urine Appearance CLOUDY Urine pH 7.0 Ur Specific [place] 1.015 Urine Protein 30 H Urine Glucose (UA) NEGATIVE Urine Ketones NEGATIVE Urine Blood MODERATE H Urine RBC (Auto) 78 10/04/19 10/04/19 10/04/19 03:12 03:12 03:12 WBC 6.3 RBC 2.88 L Hgb 9.3 L Hct 26.8 L MCV 93 MCH 32.3 MCHC 34.7 RDW 17.7 H Plt Count 200 Seg Neutrophils % 78.6 H Sodium 137.7 Potassium 3.7 Chloride 95 L Carbon Dioxide 35 H Anion Gap 8 BUN 21 H Creatinine 1.13 Est GFR ( Amer) 55 L Glucose 88 Calcium 9.3 Magnesium 2.1 Total Bilirubin 0.9 AST 33 Alkaline Phosphatase 206 H Ammonia < 8.7 L Total Protein 6.6 Albumin 3.2 L TSH Urine Color Urine Appearance Urine pH Ur Specific [place] Urine Protein Urine Glucose (UA) Urine Ketones Urine Blood Urine RBC (Auto) 10/04/19 03:12 WBC RBC Hgb Hct MCV MCH MCHC RDW Plt Count Seg Neutrophils % Sodium Potassium Chloride Carbon Dioxide Anion Gap BUN Creatinine Est GFR ( Amer) Glucose Calcium Magnesium Total Bilirubin AST Alkaline Phosphatase Ammonia Total Protein Albumin TSH 2.46 Urine Color Urine Appearance Urine pH Ur Specific [place] Urine Protein Urine Glucose (UA) Urine Ketones Urine Blood Urine RBC (Auto) 10/03/19 10/03/19 10/03/19 11:11 11:11 18:30 Troponin I 0.150 0.178 NT-Pro-B Natriuret Pep 2610 H 10/04/19 03:12 Troponin I 0.319 NT-Pro-B Natriuret Pep Impressions: Chest X-Ray 10/03/19 12:45 IMPRESSION: Slight increase in the right basilar opacity and right pleural effusion. Chronic vascular congestion. Head CT 10/03/19 12:46 IMPRESSION: NORMAL BRAIN CT WITHOUT CONTRAST. EVIDENCE OF ACUTE STROKE: NO. Chest CT 10/03/19 14:23 IMPRESSION: 1. Multifocal pneumonia with moderate right pleural effusion. Given the nodular components, a follow-up CT of the chest in 3 months is recommended to confirm resolution. 2. Severe cardiomegaly. Probably reactive mediastinal lymph nodes. Assessment and Plan - Diagnosis (1) UTI (urinary tract infection) Qualifiers: Urinary tract infection type: acute cystitis Is this a current diagnosis for this admission?: Yes Plan: Likely due to gram-negative rods including E. coli. Broad-spectrum therapy with IV antibiotics. Follow-up culture. Switch to p.o. once culture sensitivity available. (2) Multifocal pneumonia Is this a current diagnosis for this admission?: Yes Plan: This is based on CT finding. Patient denies any fever, chills, chest pain or cough for fatigue and somnolence . CBC WNL. Given recent history of multiple hospitalization and procedures patient is at risk of healthcare associated pneumonia. Day 2 IV antibiotics. Day 2 IV linezolid. Blood culture no growth so far. Continue IV antibiotics. Follow-up blood culture. Follow-up thoracentesis fluid analysis. (3) Pleural effusion Is this a current diagnosis for this admission?: Yes Plan: Likely due to CHF or multifocal pneumonia. Pleural effusion worsening since previous admission. Strict in and out, cardiac diet, IV Lasix, optimize CHF meds. Currently on day 2 IV antibiotics for presumptive multifocal pneumonia. Scheduled for thoracentesis today. Follow-up fluid analysis and culture. (4) Somnolence Is this a current diagnosis for this admission?: Yes Plan: Moderate improvement. Patient is awake, alert and oriented x3. Likely due to anesthesia she received on 09/28/2023 upper GI AVM cauterization or early developing pneumonia or underlying UTI. Monitor vitals. Fall, seizure and aspiration precautions. Plan as per above. (5) Atrial fibrillation Qualifiers: Is this a current diagnosis for this admission?: Yes Plan: History of chronic persistent atrial fibrillation. Rate controlled. 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 (6) Chronic kidney disease, stage III (moderate) Is this a current diagnosis for this admission?: Yes Plan: Creatinine WNL. Electrolytes WNL. Monitor electrolytes and volume status replace electrolytes as needed. Avoid nephrotoxic meds. Outpatient PCP and nephrology follow-up. (7) Chronic obstructive lung disease Qualifiers: Is this a current diagnosis for this admission?: Yes Plan: History of non-oxygen dependent COPD. Does not seem to be acutely exacerbated. Continue PRN duo nebs, resume LABA, LABA, ICS. Incentive spirometry and flutter valve. Supplemental oxygen as needed. (8) GI bleed Qualifiers: Is this a current diagnosis for this admission?: Yes Plan: History of recurrent GI bleed due to AV malformation. Status post multiple cauterization. Last cauterization on 2 09/28/[address] Fisher. Denies any melena, hematochezia right now. Guaiac positive, however H&H stable. Monitor H&H. Daily CBC. Supportive transfusions. Avoid NSAIDs. Hold antiplatelets. Hold anticoagulants. (9) HTN (hypertension) Qualifiers: Is this a current diagnosis for this admission?: Yes Plan: Normotensive. Restart home meds. Adjust meds daily. Outpatient PCP follow-up. (10) Valvular insufficiency Is this a current diagnosis for this admission?: Yes Plan: History of moderate mitral regurgitation, with severe left atrial volume. Aortic stenosis, mild AR, moderate pulmonary hypertension with right atrial enlargement. Has been recently evaluated by Dr. Pastor at [facility]. As per family patient was deemed to be not a candidate for any surgical intervention and medical management has been recommended. (11) Elevated troponin Is this a current diagnosis for this admission?: Yes Plan: Elevated troponins, denies any chest pain. On chart review patient's baseline troponin is 0.07-0.3 since 2018 This is likely due to chronic troponin leak due to underlying severe CHF, pulmonary hypertension and valvular insufficiency. Resstart CAD meds. Outpatient PCP follow-up. If chest pain obtained a cardiac work-up. Trend troponins. 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 Follow-up recommendations.
[2019-10-04] MEDS ORDERED: PANTOPRAZOLE SODIUM 40 MG TABLET.DR PO ONE (11:46)
[2019-10-04] MEDS: PANTOPRAZOLE SODIUM 40 MG TABLET.DR PO SCH ×2 (11:48→17:14)
--- NOTE | 2019-10-04 14:27 | RADIOLOGY REPORT (SQ) ---
EXAM DESCRIPTION: CHEST SINGLE VIEW COMPLETED DATE/TIME: 10/04/2019 2:15 pm REASON FOR STUDY: POST THORA RT PLEAURAL EFF COMPARISON: 10/02/2012. 1000 hours EXAM PARAMETERS: NUMBER OF VIEWS: One view. TECHNIQUE: Single frontal radiographic view of the chest acquired. RADIATION DOSE: NA LIMITATIONS: None. FINDINGS: LUNGS AND PLEURA: Marked reduction in the right pleural effusion. Post thoracentesis. No pneumothorax. Left lung remains clear. MEDIASTINUM AND HILAR STRUCTURES: No masses. Contour normal. HEART AND VASCULAR STRUCTURES: Vascular congestion stable. BONES: No acute findings. HARDWARE: None in the chest. OTHER: No other significant finding. IMPRESSION: Marked reduction in the right pleural effusion post thoracentesis without pneumothorax. TECHNICAL DOCUMENTATION: JOB ID: [id number] 2010 [employer]- All Rights Reserved Reading location - IP/workstation name: [email or web address]
--- NOTE | 2019-10-04 14:33 | ER Document Report ---
Entered by GERARDO DALEY SCRIBE 10/03/19 1212 Acting as scribe for:MUKESH ORTEGA MD ED General - General Chief Complaint: Altered Mental Status Stated Complaint: UNABLE TO WAKE UP/CONFUSED Time Seen by Provider: 10/03/19 12:10 Primary Care Provider: JULIET FRANCES PA-C [Primary Care Provider] - Follow up as needed Information source: Patient, Relative Notes: This 89 year old female patient presents to the emergency department today with complaints of essentially altered mental status. When the patient was asked why she came to the emergency department today she responds "I do not know". Family at bedside states that she "just has not been herself the last few days". Patient states that this morning she got out of bed to go to the restroom, after the bathroom she went back to her bed to go back to sleep for a little while longer, family reports they went to check on her and they "could not wake her up for more than an hour and still could not get her up". Patient had a procedure done by Dr. Ivan (gastroenterology) on 09/28/2019 for melena and family at bedside states that "she has never recovered from that sedation or whatever they used to knock her out". According to the operative report an EGD and ablation were performed. 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 Both the patient and the family members that are here with her today are equally poor historians so history is quite limited. TRAVEL OUTSIDE OF THE [place] IN LAST 30 DAYS: No - Related Data Allergies/Adverse Reactions: codeine [Codeine] Allergy (Unknown, Verified 10/03/19 11:31) amoxicillin [Amoxicillin] Allergy (Verified 10/03/19 11:31) Home Medications: gabapentin. carvedilol. lasix. carfate. spironolactone Past Medical History - General Information source: [facility] Records Cannot obtain history due to: Other - poor historian - Social History Smoking Status: Unknown if Ever Smoked Cigarette use (# per day): No Chew tobacco use (# tins/day): No Frequency of alcohol use: None Drug Abuse: None Lives with: Family Family History: CAD, Hypertension, Other - CHF Patient has suicidal ideation: No Patient has homicidal ideation: No - Past Medical History Cardiac Medical History: Reports: Hx Atrial Fibrillation, Hx Congestive Heart Failure, Hx Hypertension Pulmonary Medical History: Reports: Hx Asthma, Hx COPD, Hx Pneumonia GI Medical History: Reports: Hx Gastroesophageal Reflux Disease Musculoskeletal Medical History: Reports Hx Arthritis Past Surgical History: Reports: Hx Cardiac Catheterization - pacemaker, Hx Cholecystectomy, Hx Herniorrhaphy, Hx Pacemaker, Other - EGD with ablation on 09/28/19 - Immunizations Hx Diphtheria, Pertussis, Tetanus Vaccination: Yes Hx Pneumococcal Vaccination: 07/29/09 Review of Systems - Review of Systems Constitutional: See HPI EENT: No symptoms reported Cardiovascular: No symptoms reported Respiratory: No symptoms reported Gastrointestinal: denies: Abdominal pain, Blood streaked bowels Genitourinary: No symptoms reported Female Genitourinary: No symptoms reported Musculoskeletal: No symptoms reported Skin: No symptoms reported Hematologic/Lymphatic: No symptoms reported Neurological/Psychological: See HPI, Confusion -: Yes All other systems reviewed and negative Physical Exam - Vital signs Vitals: Resp 20 10/03/19 11:04 - Notes Notes: Physical Exam: General: Alert, appears appropriate for age. HEENT: Normocephalic. Atraumatic. PERRL. Extraocular movements intact. Oropharynx clear. Neck: Supple. Non-tender. Respiratory: Mild respiratory distress. Decreased air movement bilaterally, bibasilar rales. Cardiovascular: Regular rate and rhythm. Abdominal: Normal Inspection. Non-tender. No distension. Normal Bowel Sounds. Back: No gross abnormalities. Extremities: Moves all four extremities. Upper extremities: Normal inspection. Normal ROM. Lower extremities: Trace pitting edema bilaterally. Normal ROM. Neurological: Normal cognition. AAOx4. Normal speech. Psychological: Normal affect. Normal Mood. Skin: Warm. Dry. Normal color. Course - Re-evaluation Re-evalutation: 10/03/19 17:44 Elderly female patient had a problems being aroused this a.m. after an overnight sleep. Patient seems to maintain arousal state while in ED emergency department. However we have learned additional objective evidence of patient should be admitted to the hospital. Patient has an increased pleural effusion with increased densities in the base when compared to previous chest x-ray on August 2019. Patient has chronic medical problems including chronic obstruction obstructive lung disease chronic A. fib hypertension chronic kidney disease history and also histories of pneumonia in the past. Patient recently had a procedure done by the GI doctors regarding gastric ulcers that were caut erized. Patient also has had has had a most recent evaluation at [facility] regarding procedures that might improve her congestive heart failure and valvular heart disease. 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 Patient is hemodynamically stable with a sat in the 100s. And this is on room air. According to family patient has been breathing better since her last bout of congestive heart failure. CT scan of the chest shows a large pleural effusion cardiomegaly consistent with congestive heart failure and questionable multifocal pneumonia. Patient has a normal white count and does not have fever and is not coughing up any sputum. Blood cultures have been done to determine once antibiotics are chosen. Patient CT scan of her head disclose no acute stroke or any acute process at this time. Patient's troponin has come back at 0.150 which is consistent with the numbers she had in September 23, 2019 of one 0.155. Patient has chronic A. fib and not showing any acute ST changes. Patient denies any chest pain at this time. - Vital Signs Vital signs: Temp Pulse Resp BP Pulse Ox 98 F 22 H 136/65 H 98 10/03/19 11:09 10/03/19 16:03 10/03/19 16:03 10/03/19 16:03 - Laboratory Result Diagrams: 10/03/19 11:11 10/03/19 11:11 Laboratory results interpreted by me: 10/03/19 10/03/19 10/03/19 11:11 11:11 11:11 RBC 3.03 L Hgb 9.8 L Hct 28.5 L RDW 17.6 H Lymph % (Auto) 12.8 L Carbon Dioxide 33 H BUN 22 H Est GFR (MDRD) Non-Af 49 L AST 38 H Alkaline Phosphatase 226 H NT-Pro-B Natriuret Pep 2610 H 10/03/19 17:49 Patient's BNP is 2610 consistent with CHF. - Diagnostic Test Radiology reviewed: Image reviewed, Reports reviewed Radiology results interpreted by me: 10/03/19 17:49 Chest x-ray shows cardiomegaly worsening right pleural effusion with increasing density. CT scan of chest shows large pleural effusion and multifocal infiltrates consistent with pneumonia. Also congestive heart failure. - EKG Interpretation by Me Additional EKG results interpreted by me: 10/03/19 17:50 12-lead EKG done today at 1104 shows atrial fibrillation with a right bundle branch block and an old septal VT. Discharge - Discharge Clinical Impression: Acute exacerbation of CHF (congestive heart failure), GI bleed, Atrial fibrillation, Troponin level elevated, Recurrent right pleural effusion Condition: Fair Disposition: HOME, SELF-CARE Admitting Provider: Zi (Hospitalist) Unit Admitted: Telemetry Referrals: JULIET FRANCES PA-C [Primary Care Provider] - Follow up as needed I personally performed the services described in the documentation, reviewed and edited the documentation which was dictated to the scribe in my presence, and it accurately records my words and actions.
--- NOTE | 2019-10-04 15:05 | RADIOLOGY REPORT (SQ) ---
EXAM DESCRIPTION: U/S THORACENTESIS WITH IMAGING COMPLETED DATE/TIME: 10/04/2019 2:22 pm REASON FOR STUDY: pleural effusion D50.0 IRON DEFICIENCY ANEMIA SECONDARY TO BLOOD LOSS (CHRONI COMPARISON: None. LIMITATIONS: None. PROCEDURE: Procedure, risks, benefit, and alternative explained to patient who then gave written con sent. The posterior left chest wall was marked using ultrasound guidance. A time-out was called for correct marking verification. Chest prepped and draped using sterile technique. Local anesthesia ac hieved using 10 ml of 1% lidocaine injection. A 6fr Safe-T- Centesis set was introduced into the rig ht pleural space. Fluid was aspirated. The catheter was removed and the entry site was covered with sterile bandage. No immediate complications noted. Images acquired during the procedure were stored on PACS. FINDINGS: ENTRY SITE: posterior right chest. FLUID VOLUME: 860 cc FLUID ANALYSIS: Straw OTHER: Fluid sent to the lab for testing. IMPRESSION: SUCCESSFUL THORACENTESIS USING ULTRASOUND GUIDANCE. COMMENT: Patient medication list reviewed: Yes- Quality ID# [id number]:Eligible professional attests to doc umenting in the medical record they obtained, updated, or reviewed the patient's current medications. TECHNICAL DOCUMENTATION: JOB ID: [id number] 2010 [employer]- All Rights Reserved Reading location - IP/workstation name: [email or web address]
[2019-10-04 17:06] LABS: FLUID COLOR YELLOW; FLUID SOURCE LUNG; FLUID TYPE PLEURAL
[2019-10-04 17:07] LABS: FLUID APPEARANCE CLEAR; FLUID VISCOSITY LIQUID
--- NOTE | 2019-10-04 17:11 | RADIOLOGY REPORT (SQ) ---
EXAM DESCRIPTION: CHEST SINGLE VIEW COMPLETED DATE/TIME: 10/04/2019 4:16 pm REASON FOR STUDY: POST THORA RT PLEAURAL EFF COMPARISON: Earlier exam at 1400 hours TECHNIQUE: Single frontal radiographic view of the chest acquired. NUMBER OF VIEWS: One view. LIMITATIONS: None. FINDINGS: LUNGS AND PLEURA: No pneumothorax. Slight increased subsegmental atelectasis in the lung bases, right greater than left. No significant pleural effusion. MEDIASTINUM AND HILAR STRUCTURES: Stable. HEART AND VASCULAR STRUCTURES: Stable. BONES: No acute findings. HARDWARE: Cardiac pacer. OTHER: No other significant finding. IMPRESSION: No pneumothorax. Slight increased subsegmental atelectasis in the lung bases, right gre ater than left. No significant pleural effusion. TECHNICAL DOCUMENTATION: JOB ID: [id number] [id number] 2010 [email or web address]- All Rights Reserved Reading location - IP/workstation name: [employer]
--- NOTE | 2019-10-04 22:28 | PDOC CONSULTATION ---
Consultation Consult Date: 10/04/19 Provider Consulted: MICHAEL SHOEMAKER Consult reason:: Elevated Troponin History of Present Illness Admission Date/PCP: 10/04/19 12:16 JULIET FRANCES PA-C History of Present Illness: CHERIE ACE is a 89 year old female with past medical history of atrial fibrillation not on chronic anticoagulation due to recurrent GI bleed, severe CHF status post pacemaker placement, severe valvular insufficiency not a candidate for any type of surgery as [facility], COPD, obstructive sleep apnea on home CPAP, GERD, non-oxygen dependent COPD, ar thritis, CAD, recurrent upper GI bleed due to upper GI AVM status post multiple cauterization, last cauterization here at [facility] on 09/28/[address]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 Patient brought to ED after family noted patient was not waking easily and confused. 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 Otherwise as per family patient has not been sick, has not complained of any fever, chills, nausea, vomiting, diarrhea, constipation or any urinary symptoms. After extensive work-up in the ED she was found to have worsening right-sided pleural effusion possibly multifocal pneumonia and UTI. Overnight, patient remained stable and she is improving both cognitively and in her weakness. Just recently back from right sided thoracentesis this afternoon. Her breathing is at her baseline and denies swelling in her legs. Denies fever, chills, NVD, urinary symptoms. Has had elevated Troponin that has trended up and last noted was 0.368 at last check. Denies chest pains. Past Medical History Cardiac Medical History: Reports: Atrial Fibrillation, Congestive Heart Failure, Hypertension Denies: Myocardial Infarction Pulmonary Medical History: Reports: Asthma, Chronic Obstructive Pulmonary Disease (COPD), Pneumonia Denies: Bronchitis Neurological Medical History: Denies: Seizures Endocrine Medical History: Denies: Diabetes Mellitus Type 2 GI Medical History: Reports: Gastroesophageal Reflux Disease Denies: Hepatitis, Hiatal Hernia Musculoskeltal Medical History: Reports: Arthritis Psychiatric Medical History: Denies: Depression Hematology: Reports: Anemia Denies: Sickle Cell Disease Past Surgical History Past Surgical History: Reports: Cardiac Catheterization - pacemaker, Cholecystectomy, Herniorrhaphy, Pacemaker, Other - EGD with ablation on 09/28/19 Denies: Amputation, Mastectomy Social History Lives with: Family Smoking Status: Unknown if Ever Smoked Frequency of Alcohol Use: None Hx Recreational Drug Use: No Drugs: None Hx Prescription Drug Abuse: No Family History Family History: CAD, Hypertension, Other - CHF Parental Family History Reviewed: Yes Children Family History Reviewed: Yes Sibling(s) Family History Reviewed.: Yes Medication/Allergy Home Medications: Furosemide [Lasix 40 mg Tablet] 40 mg PO DAILY 08/20/19 Spironolactone [Aldactone 25 mg Tablet] 12.5 mg PO DAILY #30 tablet 08/30/19 Carvedilol [Coreg 3.125 mg Tablet] 3.125 mg PO DAILY 10/04/19 Gabapentin [Neurontin 100 mg Capsule] 100 mg PO DAILY 10/04/19 Sucralfate [Carafate 1 gm Tablet] 1 gm PO DAILY 10/04/19 Allergies/Adverse Reactions: codeine [Codeine] Allergy (Unknown, Verified 10/03/19 11:31) amoxicillin [Amoxicillin] Allergy (Verified 10/03/19 11:31) Review of Systems All systems: reviewed and no additional remarkable complaints except as stated Constitutional: PRESENT: fatigue. ABSENT: chills, fever(s), headache(s), weight gain, weight loss Eyes: ABSENT: visual disturbances Cardiovascular: ABSENT: chest pain, dyspnea on exertion, edema, orthropnea, palpitations Respiratory: ABSENT: cough, hemoptysis, sputum Gastrointestinal: ABSENT: abdominal pain, constipation, diarrhea, hematemesis, hematochezia, nausea, vomiting Genitourinary: ABSENT: dysuria, hematuria Musculoskeletal: ABSENT: joint swelling Integumentary: ABSENT: rash, wounds Neurological: PRESENT: confusion, memory loss. ABSENT: abnormal speech, dizziness, focal weakness, syncope Psychiatric: ABSENT: anxiety, depression, homidical ideation, suicidal ideation Endocrine: ABSENT: cold intolerance, heat intolerance, polydipsia, polyuria Hematologic/Lymphatic: PRESENT: other - has had recurrent GI bleeding secondary to AVM now off ASA and anticoagulant. ABSENT: easy bruising Physical Exam Vital Signs: Temp Pulse Resp BP Pulse Ox 97.7 F 69 18 104/57 L 91 L 10/04/19 12:55 10/04/19 12:55 10/04/19 12:55 10/04/19 12:55 10/04/19 12:55 Intake & Output 10/03/19 10/04/19 10/05/19 05:59 06:59 06:59 Intake Total 500 Output Total 400 Balance 100 Weight General appearance: PRESENT: no acute distress, well-developed, well-nourished Head exam: PRESENT: atraumatic, normocephalic Eye exam: PRESENT: conjunctiva pink, EOMI Ear exam: PRESENT: normal external ear exam Mouth exam: PRESENT: moist, neck supple, tongue midline Neck exam: PRESENT: carotid bruit - Mild carotid bruit, unchanged from her usual. ABSENT: JVD, lymphadenopathy, thyromegaly Respiratory exam: PRESENT: crackles - right base. ABSENT: rales, rhonchi, wheezes Cardiovascular exam: PRESENT: irregular rhythm, systolic murmur - 3/6. ABSENT: gallop, rubs Pulses: PRESENT: normal dorsalis pedis pul Vascular exam: PRESENT: normal capillary refill GI/Abdominal exam: PRESENT: normal bowel sounds, soft. ABSENT: distended, guarding, mass, organolmegaly, rebound, tenderness Musculoskeletal exam: PRESENT: full ROM Neurological exam: PRESENT: altered - still has some mild confusion at times, oriented to person, oriented to place, oriented to time, oriented to situation Psychiatric exam: PRESENT: appropriate affect, normal mood. ABSENT: homicidal ideation, suicidal ideation Skin exam: PRESENT: dry, intact, warm. ABSENT: cyanosis, rash Results Laboratory Results: 10/04/19 03:12 10/04/19 03:12 10/03/19 10/04/19 10/04/19 12:55 03:12 03:12 WBC 6.3 RBC 2.88 L Hgb 9.3 L Hct 26.8 L MCV 93 MCH 32.3 MCHC 34.7 RDW 17.7 H Plt Count 200 Seg Neutrophils % 78.6 H Sodium 137.7 Potassium 3.7 Chloride 95 L Carbon Dioxide 35 H Anion Gap 8 BUN 21 H Creatinine 1.13 Est GFR ( Amer) 55 L Glucose 88 Calcium 9.3 Magnesium 2.1 Total Bilirubin 0.9 AST 33 Alkaline Phosphatase 206 H Ammonia Total Protein 6.6 Albumin 3.2 L TSH Urine Color YELLOW Urine Appearance CLOUDY Urine pH 7.0 Ur Specific Bison 1.015 Urine Protein 30 H Urine Glucose (UA) NEGATIVE Urine Ketones NEGATIVE Urine Blood MODERATE H Urine RBC (Auto) 78 10/04/19 10/04/19 03:12 03:12 WBC RBC Hgb Hct MCV MCH MCHC RDW Plt Count Seg Neutrophils % Sodium Potassium Chloride Carbon Dioxide Anion Gap BUN Creatinine Est GFR ( Amer) Glucose Calcium Magnesium Total Bilirubin AST Alkaline Phosphatase Ammonia < 8.7 L Total Protein Albumin TSH 2.46 Urine Color Urine Appearance Urine pH Ur Specific Bison Urine Protein Urine Glucose (UA) Urine Ketones Urine Blood Urine RBC (Auto) 10/03/19 10/03/19 10/03/19 11:11 11:11 18:30 Troponin I 0.150 0.178 NT-Pro-B Natriuret Pep 2610 H 10/04/19 10/04/19 03:12 11:11 Troponin I 0.319 0.368 NT-Pro-B Natriuret Pep Impressions: Head CT 10/03/19 12:46 IMPRESSION: NORMAL BRAIN CT WITHOUT CONTRAST. EVIDENCE OF ACUTE STROKE: NO. Chest CT 10/03/19 14:23 IMPRESSION: 1. Multifocal pneumonia with moderate right pleural effusion. Given the nodular components, a follow-up CT of the chest in 3 months is recommended to confirm resolution. 2. Severe cardiomegaly. Probably reactive mediastinal lymph nodes. Thoracentesis Ultrasound 10/04/19 18:32 IMPRESSION: SUCCESSFUL THORACENTESIS USING ULTRASOUND GUIDANCE. Assessment & Plan - Diagnosis (1) Acute exacerbation of CHF (congestive heart failure) Qualifiers: Heart failure type: systolic Qualified Code(s): I50.23 - Acute on chronic systolic (congestive) heart failure Is this a current diagnosis for this admission?: Yes Plan: Cont current meds, no need to escalate diuresis (2) Atrial fibrillation Qualifiers: Atrial fibrillation type: paroxysmal Qualified Code(s): I48.0 - Paroxysmal atrial fibrillation Is this a current diagnosis for this admission?: Yes Plan: Currently stable, paced rhythm. Off anticoagulants due to recurrent GI bleed secondary to AVM. Has been evaluated at [place] for intervention, however, risk greater than benefit, continue with medical management in place (3) Elevated troponin Is this a current diagnosis for this admission?: Yes Plan: Conservative treatment. Likely TI leak. Anemia is stable for her and no chest pains. If CP develops, may consider [facility] to see if PCI is needed. (4) Multifocal pneumonia Is this a current diagnosis for this admission?: Yes Plan: Seems to be improving per family, not dyspneic on exam. Cont current treatment. (5) UTI (urinary tract infection) Qualifiers: Urinary tract infection type: acute cystitis Is this a current diagnosis for this admission?: Yes Plan: Is asymptomatic, cont current tx
[2019-10-05 05:11] LABS: ABSOLUTE EOSINOPHILS # (AUTO) 0.2 10^3/uL (0.0-0.6); ABSOLUTE LYMPHOCYTES (AUTO) 0.6 10^3/uL (0.5-4.7); ABSOLUTE MONOCYTES (AUTO) 0.6 10^3/uL (0.1-1.4); ABSOLUTE NEUT (AUTO) 3.5 10^3/uL (1.7-8.2); BASOPHILS % (AUTO) 0.7 % (0-2); EOSINOPHILS % (AUTO) 4.4 % (0-6); HEMATOCRIT 27.3 % (36.0-47.0); HEMOGLOBIN 9.4 g/dL (12.0-15.5); LYMPHOCYTES % (AUTO) 12.8 % (13-45); MEAN CORPUSCULAR HEMOGLOBIN 32.1 pg (27.0-33.4); MEAN CORPUSCULAR HGB CONC 34.4 g/dL (32.0-36.0); MEAN CORPUSCULAR VOLUME 93 fl (80-97); PLATELET COUNT 199 10^3/uL (150-450); RED BLOOD COUNT 2.92 10^6/uL (3.72-5.28); RED CELL DISTRIBUTION WIDTH 17.7 % (11.5-14.0); SEGMENTED NEUTROPHILS % (AUTO) 70.1 % (42-78); TOTAL CELLS COUNTED % (AUTO) 100 %
[2019-10-05 05:26] LABS: ANION GAP 7 (5-19); BLOOD UREA NITROGEN 22 mg/dL (7-20); CARBON DIOXIDE 34 mmol/L (22-30); CHLORIDE 93 mmol/L (98-107); GLUCOSE 75 mg/dL (75-110)
[2019-10-05] MEDS: PANTOPRAZOLE SODIUM 40 MG TABLET.DR PO SCH ×2 (09:28→18:06)
[2019-10-05] MEDS: SPIRONOLACTONE 25 MG TABLET PO SCH (09:28)
[2019-10-05] MEDS: CARVEDILOL 3.125 MG TABLET PO SCH (09:28)
[2019-10-05] MEDS: FUROSEMIDE INJ/PF 20 MG/2 ML SDV IV SCH (09:28)
[2019-10-05] MEDS: SUCRALFATE 1 GM TABLET PO SCH ×3 (09:28→18:07)
[2019-10-05] MEDS: GABAPENTIN 100 MG CAPSULE PO SCH ×2 (09:28→21:17)
[2019-10-05] MEDS: FLUTICASONE/UMECLIDIN/VILANTER 100-62.5-25 MCG/DOSE IH SCH (09:28)
[2019-10-05] MEDS: LINEZOLID 600 MG/300 ML RTUPB IV SCH ×2 (09:29→21:17)
--- NOTE | 2019-10-05 12:56 | PDOC PROGRESS REPORT ---
Subjective Progress Note for:: 10/05/19 Subjective:: Patient underwent thoracentesis yesterday. Today she denies any shortness of breath at this time. Denies any chest pain as well. Reason For Visit: PNEUMONIA/UTI Physical Exam Vital Signs: Temp Pulse Resp BP Pulse Ox 97.3 F 65 16 94/44 L 96 10/05/19 11:11 10/05/19 11:49 10/05/19 11:49 10/05/19 11:11 10/05/19 11:49 Intake & Output 10/04/19 10/05/19 10/06/19 06:59 06:59 06:59 Intake Total 1592 Output Total 950 Balance 642 Weight 67.6 kg General appearance: PRESENT: no acute distress, cooperative Neck exam: ABSENT: JVD Respiratory exam: PRESENT: clear to auscultation nick, decreased breath sounds - Heart right lung base, unlabored. ABSENT: tachypnea, wheezes Cardiovascular exam: PRESENT: RRR, +S1, +S2. ABSENT: tachycardia GI/Abdominal exam: PRESENT: soft. ABSENT: rebound, rigid, tenderness Neurological exam: PRESENT: alert, awake, oriented to person, oriented to place, oriented to time, oriented to situation Results Laboratory Results: 10/05/19 04:31 10/05/19 04:31 10/04/19 10/05/19 10/05/19 13:59 04:31 04:31 WBC 5.0 RBC 2.92 L Hgb 9.4 L Hct 27.3 L MCV 93 MCH 32.1 MCHC 34.4 RDW 17.7 H Plt Count 199 Seg Neutrophils % 70.1 Sodium 134.4 L Potassium 4.0 Chloride 93 L Carbon Dioxide 34 H Anion Gap 7 BUN 22 H Creatinine 1.34 H Est GFR ( Amer) 45 L Glucose 75 Calcium 9.0 Fluid Type PLEURAL Fluid Source LUNG Fluid Color YELLOW Fluid Appearance CLEAR Fluid Viscosity LIQUID Fluid WBC 763 Fluid RBC 4525 10/03/19 12:55 Clean Catch Midstream Urine Culture - Final Staphylococcus Aureus 10/03/19 10/03/19 10/03/19 11:11 11:11 18:30 Troponin I 0.150 0.178 NT-Pro-B Natriuret Pep 2610 H 10/04/19 10/04/19 03:12 11:11 Troponin I 0.319 0.368 NT-Pro-B Natriuret Pep Impressions: Head CT 10/03/19 12:46 IMPRESSION: NORMAL BRAIN CT WITHOUT CONTRAST. EVIDENCE OF ACUTE STROKE: NO. Chest CT 10/03/19 14:23 IMPRESSION: 1. Multifocal pneumonia with moderate right pleural effusion. Given the nodular components, a follow-up CT of the chest in 3 months is recommended to confirm resolution. 2. Severe cardiomegaly. Probably reactive mediastinal lymph nodes. Chest X-Ray 10/04/19 16:00 IMPRESSION: No pneumothorax. Slight increased subsegmental atelectasis in the lung bases, right greater than left. No significant pleural effusion. Thoracentesis Ultrasound 10/04/19 18:32 IMPRESSION: SUCCESSFUL THORACENTESIS USING ULTRASOUND GUIDANCE. Assessment and Plan - Diagnosis (1) Pleural effusion, right Is this a current diagnosis for this admission?: Yes Plan: Status post thoracentesis on 10/04/2019. Awaiting fluid analysis results. Gram stain negative at this time. (2) Valvular heart disease Is this a current diagnosis for this admission?: Yes Plan: Characterized by acute on chronic diastolic heart failure from moderate MR with moderate pulmonary hypertension. Cardiology following. Patient not a candidate for valve repair/replacement. Continue Lasix IV 20 mg. (3) UTI (urinary tract infection) Qualifiers: Urinary tract infection type: acute cystitis Is this a current diagnosis for this admission?: Yes Plan: Patient has received broad-spectrum antibiotics for 1 day and now on linezolid. Urine culture interestingly grew MSSA. Continue antibiotics for now. (4) Multifocal pneumonia Is this a current diagnosis for this admission?: Yes Plan: CT initially showing some mild patchy opacities but mainly a right pleural effusion. Clinically afebrile, no leukocytosis. Repeat chest x-ray following thoracentesis does not show any significant consolidation but shows significant resolution of the effusion. I will await fluid analysis while continuing antibiotics at the same time. I will discontinue antibiotics if effusion is transudative. (5) Acute metabolic encephalopathy Is this a current diagnosis for this admission?: Yes Plan: Seems to be improving. Suspected to have been secondary to urinary tract infection. (6) Elevated troponin Is this a current diagnosis for this admission?: Yes Plan: Likely demand perfusion mismatch from CHF/pulmonary hypertension (7) Chronic kidney disease, stage III (moderate) Is this a current diagnosis for this admission?: Yes Plan: Creatinine WNL. Electrolytes WNL. Avoid nephrotoxic meds. Outpatient PCP and nephrology follow-up. - Time Time Spent with patient: Less than 15 minutes
[2019-10-05] MEDS ORDERED: NORMAL SALINE 500 ML IV ONE (19:30)
[2019-10-06] MEDS ORDERED: NORMAL SALINE 500 ML IV ONE (02:00)
[2019-10-06 05:33] LABS: ANION GAP 8 (5-19); BLOOD UREA NITROGEN 20 mg/dL (7-20); CALCIUM 8.6 mg/dL (8.4-10.2); CARBON DIOXIDE 31 mmol/L (22-30); CHLORIDE 93 mmol/L (98-107); POTASSIUM 3.9 mmol/L (3.6-5.0)
[2019-10-06 05:41] LABS: GLUCOSE 69 mg/dL (75-110)
[2019-10-06] MEDS: SPIRONOLACTONE 25 MG TABLET PO SCH (10:18)
[2019-10-06] MEDS: SUCRALFATE 1 GM TABLET PO SCH ×3 (10:19→17:10)
[2019-10-06] MEDS: FLUTICASONE/UMECLIDIN/VILANTER 100-62.5-25 MCG/DOSE IH SCH (10:19)
[2019-10-06] MEDS: PANTOPRAZOLE SODIUM 40 MG TABLET.DR PO SCH ×2 (10:19→17:10)
[2019-10-06] MEDS: FUROSEMIDE INJ/PF 20 MG/2 ML SDV IV SCH (10:19)
[2019-10-06] MEDS: GABAPENTIN 100 MG CAPSULE PO SCH ×2 (10:19→21:15)
[2019-10-06] MEDS: CARVEDILOL 3.125 MG TABLET PO SCH ×2 (10:19→21:15)
[2019-10-06] MEDS: LINEZOLID 600 MG/300 ML RTUPB IV SCH (10:20)
--- NOTE | 2019-10-06 12:12 | PDOC PROGRESS REPORT ---
Subjective Progress Note for:: 10/06/19 Subjective:: Patient is doing well today. Has no complaints at this time. Laying in bed peacefully. Able to tolerate some meals. Denies any shortness of breath. Denies chest pain. Reason For Visit: PNEUMONIA/UTI Physical Exam Vital Signs: Temp Pulse Resp BP Pulse Ox 97.8 F 75 17 113/46 L 96 10/06/19 08:58 10/06/19 12:00 10/06/19 12:00 10/06/19 08:58 10/06/19 12:00 Intake & Output 10/05/19 10/06/19 10/07/19 06:59 06:59 06:59 Intake Total 1592 2320 Output Total 950 200 Balance 642 2120 Weight 67.6 kg 67.9 kg General appearance: PRESENT: no acute distress, cooperative Neck exam: ABSENT: JVD Respiratory exam: PRESENT: clear to auscultation nick, unlabored. ABSENT: tachypnea, wheezes Cardiovascular exam: PRESENT: +S1, +S2. ABSENT: RRR, tachycardia GI/Abdominal exam: PRESENT: soft. ABSENT: rebound, rigid, tenderness Neurological exam: PRESENT: alert, awake Results Laboratory Results: 10/05/19 04:31 10/06/19 04:38 10/06/19 04:38 Sodium 132.2 L Potassium 3.9 Chloride 93 L Carbon Dioxide 31 H Anion Gap 8 BUN 20 Creatinine 1.29 H Est GFR ( Amer) 47 L Glucose 69 L Calcium 8.6 10/03/19 12:55 Clean Catch Midstream Urine Culture - Final Staphylococcus Aureus 10/03/19 10/03/19 10/03/19 11:11 11:11 18:30 Troponin I 0.150 0.178 NT-Pro-B Natriuret Pep 2610 H 10/04/19 10/04/19 03:12 11:11 Troponin I 0.319 0.368 NT-Pro-B Natriuret Pep Impressions: Head CT 10/03/19 12:46 IMPRESSION: NORMAL BRAIN CT WITHOUT CONTRAST. EVIDENCE OF ACUTE STROKE: NO. Chest CT 10/03/19 14:23 IMPRESSION: 1. Multifocal pneumonia with moderate right pleural effusion. Given the nodular components, a follow-up CT of the chest in 3 months is recommended to confirm resolution. 2. Severe cardiomegaly. Probably reactive mediastinal lymph nodes. Chest X-Ray 10/04/19 16:00 IMPRESSION: No pneumothorax. Slight increased subsegmental atelectasis in the lung bases, right greater than left. No significant pleural effusion. Thoracentesis Ultrasound 10/04/19 18:32 IMPRESSION: SUCCESSFUL THORACENTESIS USING ULTRASOUND GUIDANCE. Assessment and Plan - Diagnosis (1) Pleural effusion, right Is this a current diagnosis for this admission?: Yes Plan: Status post thoracentesis on 10/04/2019. Still awaiting fluid analysis results. Gram stain and culture negative at this time. (2) Valvular heart disease Is this a current diagnosis for this admission?: Yes Plan: Characterized by acute on chronic diastolic heart failure from moderate MR with moderate pulmonary hypertension. Cardiology following. Patient not a candidate for valve repair/replacement. Received some IV Lasix this morning. Will change to p.o. Lasix daily tomorrow. (3) UTI (urinary tract infection) Qualifiers: Urinary tract infection type: acute cystitis Is this a current diagnosis for this admission?: Yes Plan: Urine culture interestingly grew MSSA. Change antibiotics from linezolid to Keflex. (4) Multifocal pneumonia Is this a current diagnosis for this admission?: Yes Plan: CT initially showing some mild patchy opacities but mainly a right pleural effusion. Clinically afebrile, no leukocytosis. Repeat chest x-ray following thoracentesis does not show any significant consolidation but shows significant resolution of the effusion and what is likely some atelectasis. I will await fluid analysis to ensure transudative nature while continuing antibiotics for coverage of UTI at the same time. I have low suspicion the patient truly has a pneumonia. (5) Acute metabolic encephalopathy Is this a current diagnosis for this admission?: Yes Plan: Seems to be improving. Suspected to have been secondary to urinary tract infection. (6) Elevated troponin Is this a current diagnosis for this admission?: Yes Plan: Likely demand perfusion mismatch from CHF/pulmonary hypertension (7) Chronic kidney disease, stage III (moderate) Is this a current diagnosis for this admission?: Yes - Time Time Spent with patient: Less than 15 minutes Anticipated discharge: Home with Homehealth Within: within 24 hours
[2019-10-06] MEDS: CEPHALEXIN 500 MG CAPSULE PO SCH ×2 (14:30→21:15)
[2019-10-07] MEDS: CEPHALEXIN 500 MG CAPSULE PO SCH ×2 (06:47→15:53)
[2019-10-07] MEDS: SUCRALFATE 1 GM TABLET PO SCH ×3 (09:07→16:31)
[2019-10-07] MEDS: GABAPENTIN 100 MG CAPSULE PO SCH (09:07)
[2019-10-07] MEDS: SPIRONOLACTONE 25 MG TABLET PO SCH (09:07)
[2019-10-07] MEDS: PANTOPRAZOLE SODIUM 40 MG TABLET.DR PO SCH ×2 (09:08→17:32)
[2019-10-07] MEDS: CARVEDILOL 3.125 MG TABLET PO SCH (09:08)
[2019-10-07] MEDS: FLUTICASONE/UMECLIDIN/VILANTER 100-62.5-25 MCG/DOSE IH SCH (09:09)
[2019-10-07] MEDS ORDERED: FUROSEMIDE 40 MG TABLET PO SCH (10:00)
--- NOTE | 2019-10-07 11:22 | PDOC DISCHARGE SUMMARY ---
Impression - Admit/DC Date/PCP Admission Date/Primary Care Provider: 10/04/19 12:16 JULIET FRANCES PA-C Discharge Date: 10/07/19 - Discharge Diagnosis (1) Pleural effusion, right Is this a current diagnosis for this admission?: Yes (2) Valvular heart disease Is this a current diagnosis for this admission?: Yes (3) UTI (urinary tract infection) Is this a current diagnosis for this admission?: Yes (4) Acute metabolic encephalopathy Is this a current diagnosis for this admission?: Yes (5) Elevated troponin Is this a current diagnosis for this admission?: Yes (6) Chronic kidney disease, stage III (moderate) Is this a current diagnosis for this admission?: Yes (7) COPD (chronic obstructive pulmonary disease) Is this a current diagnosis for this admission?: Yes - Additional Information Discharge Diet: Cardiac Discharge Activity: Activity As Tolerated, Balance Activity w/Rest, Weigh Daily Referrals: JULIET FRANCES PA-C [Primary Care Provider] - 10/16/19 2:30 pm Prescriptions: Budesonide/Formoterol Fumarate [Budesonide-Formoterol 80-4.5] 1 inh IH BID #1 inhaler Cephalexin Monohydrate [Keflex 500 mg Capsule] 500 mg PO TID 2 Days #6 capsule Furosemide [Lasix 40 mg Tablet] 40 mg PO DAILY #30 Home Medications: Spironolactone [Aldactone 25 mg Tablet] 12.5 mg PO DAILY #30 tablet 08/30/19 Carvedilol [Coreg 3.125 mg Tablet] 3.125 mg PO DAILY 10/04/19 Gabapentin [Neurontin 100 mg Capsule] 100 mg PO DAILY 10/04/19 Sucralfate [Carafate 1 gm Tablet] 1 gm PO DAILY 10/04/19 Budesonide/Formoterol Fumarate [Budesonide-Formoterol 80-4.5] 1 inh IH BID #1 inhaler 10/07/19 Cephalexin Monohydrate [Keflex 500 mg Capsule] 500 mg PO TID 2 Days #6 capsule 10/07/19 Furosemide [Lasix 40 mg Tablet] 40 mg PO DAILY #30 10/07/19 History of Present Illiness History of Present Illness: CHERIE ACE is a 89 year old female with past medical history of atrial fibrillation not on chronic anticoagulation due to recurrent GI bleed, severe CHF status post pacemaker placement, severe valvular insufficiency not a candidate for any type of surgery as per recent evaluation at [facility], COPD, obstructive sleep apnea on home CPAP, GERD, non-oxygen dependent COPD, arthritis, CAD, 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 Patient brought to ED after family noted this morning patient was hard to wake up, as per family it took her about an hour to wake up. On my encounter patient is awake, alert and oriented x3, in no apparent distress, when asked why she is in ED she states " I don't know" and points to his sons to provide history. 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 Otherwise as per family patient has not been sick, has not complained of any fever, chills, nausea, vomiting, diarrhea, constipation or any urinary symptoms. After extensive work-up in the ED she was found to have worsening right-sided pleural effusion possibly multifocal pneumonia otherwise all work-up are at baseline. Hospitalist was consulted for admission. Hospital Course Hospital Course: Patient was admitted for evaluation of acute metabolic encephalopathy which was found to be secondary to urinary tract infection. Urinalysis was positive. Patient was started on IV antibiotics. Urine culture later grew MSSA and patient was de-escalated to Keflex to complete a total antibiotic course of 5 days. Blood cultures were negative. Mental status improved with treatment of UTI. Also during this admission, patient was noted to have significant right pleural effusion on chest x-ray. She underwent a thoracentesis with removal of 860cc transudative fluid. Gram stain and culture were negative. There was initial suspicion of multifocal pneumonia but after review of postthoracentesis chest x-ray, it was noted that what was initially thought to be pneumonia was actually just a small area of atelectasis and not actually a pneumonia. Patient's atelectasis has been completely treated with incentive spirometer. Patient's right pleural effusion has completely resolved on repeat chest x-ray. Patient's right pleural effusion was thought to be secondary to chronic diastolic congestive heart failure secondary to valvular heart disease with moderate mitral regurgitation. She was evaluated by cardiology who recommended not to get too aggressive with diuresis and the patient is not a surgical candidate for any kind of valve replacement/repair. She has been discharged on Lasix p.o. 40 mg daily. Patient does have chronic COPD with SPO2 of 85% on room air but improved to over 90% on 2 L. I believe that patient's is due to her chronic underlying COPD and as such will need home oxygen. Patient is safe for discharge at this time and after discussion with patient, patient and her child will like for patient to go home with home health which has been set up. Physical Exam Vital Signs: Temp Pulse Resp BP Pulse Ox 98.0 F 61 16 108/47 L 97 10/07/19 07:55 10/07/19 11:18 10/07/19 11:18 10/07/19 07:55 10/07/19 11:18 Intake & Output 10/06/19 10/07/19 10/08/19 06:59 06:59 06:59 Intake Total 2320 630 Output Total 200 0 Balance 2120 630 Weight 67.9 kg 68.9 kg General appearance: PRESENT: no acute distress, cooperative Neck exam: ABSENT: JVD Respiratory exam: PRESENT: clear to auscultation nick Neurological exam: PRESENT: alert, awake Results Laboratory Results: WBC 5.0 10^3/uL (4.0-10.5) 10/05/19 04:31 RBC 2.92 10^6/uL (3.72-5.28) L 10/05/19 04:31 Hgb 9.4 g/dL (12.0-15.5) L 10/05/19 04:31 Hct 27.3 % (36.0-47.0) L 10/05/19 04:31 MCV 93 fl (80-97) 10/05/19 04:31 MCH 32.1 pg (27.0-33.4) 10/05/19 04:31 MCHC 34.4 g/dL (32.0-36.0) 10/05/19 04:31 RDW 17.7 % (11.5-14.0) H 10/05/19 04:31 Plt Count 199 10^3/uL (150-450) 10/05/19 04:31 Lymph % (Auto) 12.8 % (13-45) L 10/05/19 04:31 [place] % (Auto) 12.0 % (3-13) 10/05/19 04:31 Eos % (Auto) 4.4 % (0-6) 10/05/19 04:31 Baso % (Auto) 0.7 % (0-2) 10/05/19 04:31 Absolute Neuts (auto) 3.5 10^3/uL (1.7-8.2) 10/05/19 04:31 Absolute Lymphs (auto) 0.6 10^3/uL (0.5-4.7) 10/05/19 04:31 Absolute Monos (auto) 0.6 10^3/uL (0.1-1.4) 10/05/19 04:31 Absolute Eos (auto) 0.2 10^3/uL (0.0-0.6) 10/05/19 04:31 Absolute Basos (auto) 0.0 10^3/uL (0.0-0.2) 10/05/19 04:31 Seg Neutrophils % 70.1 % (42-78) 10/05/19 04:31 PT 14.3 SEC (11.4-15.4) 10/04/19 03:12 INR 1.11 10/04/19 03:12 Sodium 132.2 mmol/L (137-145) L 10/06/19 04:38 Potassium 3.9 mmol/L (3.6-5.0) 10/06/19 04:38 Chloride 93 mmol/L (98-107) L 10/06/19 04:38 Carbon Dioxide 31 mmol/L (22-30) H 10/06/19 04:38 Anion Gap 8 (5-19) 10/06/19 04:38 BUN 20 mg/dL (7-20) 10/06/19 04:38 Creatinine 1.29 mg/dL (0.52-1.25) H 10/06/19 04:38 Est GFR ( Amer) 47 (>60) L 10/06/19 04:38 Est GFR (MDRD) Non-Af 39 (>60) L 10/06/19 04:38 Glucose 69 mg/dL (75-110) L 10/06/19 04:38 POC Glucose 155 mg/dL (70-110) H 10/06/19 07:04 Calcium 8.6 mg/dL (8.4-10.2) 10/06/19 04:38 Magnesium 2.1 mg/dL (1.6-2.3) 10/04/19 03:12 Total Bilirubin 0.9 mg/dL (0.2-1.3) 10/04/19 03:12 Direct Bilirubin 0.5 mg/dL (0.0-0.4) H 10/04/19 03:12 Neonat Total Bilirubin Not Reportable 10/04/19 03:12 Neonat Direct Bilirubin Not Reportable 10/04/19 03:12 Neonat Indirect Bili Not Reportable 10/04/19 03:12 AST 33 U/L (14-36) 10/04/19 03:12 ALT 17 U/L (<35) 10/04/19 03:12 Alkaline Phosphatase 206 U/L (38-126) H 10/04/19 03:12 Ammonia < 8.7 umol/L (9-33) L 10/04/19 03:12 Lactate Dehydrogenase 201 U/L (120-246) 10/03/19 18:30 Troponin I 0.368 ng/mL 10/04/19 11:11 NT-Pro-B Natriuret Pep 2610 pg/mL (<450) H 10/03/19 11:11 Total Protein 6.6 g/dL (6.3-8.2) 10/04/19 03:12 Albumin 3.2 g/dL (3.5-5.0) L 10/04/19 03:12 TSH 2.46 uIU/mL (0.47-4.68) 10/04/19 03:12 Urine Color YELLOW 10/03/19 12:55 Urine Appearance CLOUDY 10/03/19 12:55 Urine pH 7.0 (5.0-9.0) 10/03/19 12:55 Ur Specific [place] 1.015 10/03/19 12:55 Urine Protein 30 mg/dL (NEGATIVE) H 10/03/19 12:55 Urine Glucose (UA) NEGATIVE mg/dL (NEGATIVE) 10/03/19 12:55 Urine Ketones NEGATIVE mg/dL (NEGATIVE) 10/03/19 12:55 Urine Blood MODERATE (NEGATIVE) H 10/03/19 12:55 Urine Nitrite (Reflex) POSITIVE (NEGATIVE) H 10/03/19 12:55 Urine Bilirubin NEGATIVE (NEGATIVE) 10/03/19 12:55 Urine Urobilinogen NEGATIVE mg/dL (<2.0) 10/03/19 12:55 Leukocyte Esterase Rfl LARGE (NEGATIVE) H 10/03/19 12:55 Urine RBC (Auto) 78 /HPF 10/03/19 12:55 Urine WBC (Reflex) > 182 /HPF 10/03/19 12:55 Urine WBC Clumps FEW /HPF 10/03/19 12:55 Squamous Epi Cells Auto <1 /HPF 10/03/19 12:55 Urine Ascorbic Acid NEGATIVE (NEGATIVE) 10/03/19 12:55 Fluid Type PLEURAL 10/04/19 13:59 Fluid Source LUNG 10/04/19 13:59 Fluid Color YELLOW 10/04/19 13:59 Fluid Appearance CLEAR 10/04/19 13:59 Fluid Viscosity LIQUID 10/04/19 13:59 Fluid WBC 763 /uL 10/04/19 13:59 Fluid RBC 4525 /uL 10/04/19 13:59 Fluid Seg Neutrophils 0 % 10/04/19 13:59 Fluid Lymphocytes 100 % 10/04/19 13:59 Fluid Monocytes 0 % 10/04/19 13:59 Fluid Eosinophils 0 % 10/04/19 13:59 Fluid Basophils 0 % 10/04/19 13:59 Fluid Glucose 98 mg/dL (.) 10/04/19 13:59 Fluid Total Protein 2.0 g/dL (.) 10/04/19 13:59 Fluid LDH 89 IU/L (.) 10/04/19 13:59 Fluid Amylase 29 U/L (.) 10/04/19 13:59 POC Stool Occult Blood POSITIVE (NEGATIVE) 10/03/19 15:11 Urine Opiates Screen NEGATIVE 10/03/19 12:55 Urine Methadone Screen NEGATIVE 10/03/19 12:55 Ur Barbiturates Screen NEGATIVE 10/03/19 12:55 Ur Phencyclidine Scrn NEGATIVE 10/03/19 12:55 Ur Amphetamines Screen NEGATIVE 10/03/19 12:55 U Benzodiazepines Scrn NEGATIVE 10/03/19 12:55 Urine Cocaine Screen NEGATIVE 10/03/19 12:55 U Marijuana (THC) Screen NEGATIVE 10/03/19 12:55 10/03/19 10/03/19 10/03/19 11:11 11:11 18:30 Troponin I 0.150 0.178 NT-Pro-B Natriuret Pep 2610 H 10/04/19 10/04/19 03:12 11:11 Troponin I 0.319 0.368 NT-Pro-B Natriuret Pep Impressions: Chest X-Ray 10/03/19 12:45 IMPRESSION: Slight increase in the right basilar opacity and right pleural effusion. Chronic vascular congestion. Head CT 10/03/19 12:46 IMPRESSION: NORMAL BRAIN CT WITHOUT CONTRAST. EVIDENCE OF ACUTE STROKE: NO. Chest CT 10/03/19 14:23 IMPRESSION: 1. Multifocal pneumonia with moderate right pleural effusion. Given the nodular components, a follow-up CT of the chest in 3 months is recommended to confirm resolution. 2. Severe cardiomegaly. Probably reactive mediastinal lymph nodes. Chest X-Ray 10/04/19 00:00 IMPRESSION: Marked reduction in the right pleural effusion post thoracentesis without pneumothorax. Chest X-Ray 10/04/19 16:00 IMPRESSION: No pneumothorax. Slight increased subsegmental atelectasis in the lung bases, right greater than left. No significant pleural effusion. Thoracentesis Ultrasound 10/04/19 18:32 IMPRESSION: SUCCESSFUL THORACENTESIS USING ULTRASOUND GUIDANCE. Plan Time Spent: Greater than 30 Minutes Stroke Is this a Stroke Patient?: No Acute Heart Failure - Is this a Heart Failure Patient?: Yes Documentation of LVEF assessment?: Yes LVEF < 40%?: No- if no continue to question #3 3. Anticoagulant therapy for permanect/persistent/paraoxysmal Afib or Aflutter: N/A
[2019-10-07 17:45] VITALS: BP 98/52
== END 2019-10-07 18:46 | disposition home health service (06) | DRG 70 ==
LOC: ER 10:57 → EH 19:46 → 3N 21:10 → OBSVTOIN 10-04 12:16
PROVIDERS: ADMIT Internal Medicine; ATTEND Internal Medicine
PROC: 5A09457 Assistance with Respiratory Ventilation, 24-96 Consecutive Hours, Continuous Positive Airway Pressure (ICD-10-PCS; 2019-10-03)
PROC: 0W993ZX Drainage of Right Pleural Cavity, Percutaneous Approach, Diagnostic (ICD-10-PCS; principal; 2019-10-04)
DX: G93.41 Metabolic encephalopathy (principal); I50.23 Acute on chronic systolic (congestive) heart failure; J90 Pleural effusion, not elsewhere classified; I38 Endocarditis, valve unspecified; J44.0 Chronic obstructive pulmonary disease with (acute) lower respiratory infection; I13.0 Hypertensive heart and chronic kidney disease with heart failure and stage 1 through stage 4 chronic kidney disease, or unspecified chronic kidney disease; N30.00 Acute cystitis without hematuria; I48.19 Other persistent atrial fibrillation; N18.3 Chronic kidney disease, stage 3 (moderate); G47.33 Obstructive sleep apnea (adult) (pediatric); K21.9 Gastro-esophageal reflux disease without esophagitis; I25.10 Atherosclerotic heart disease of native coronary artery without angina pectoris; B95.61 Methicillin susceptible Staphylococcus aureus infection as the cause of diseases classified elsewhere; I48.0 Paroxysmal atrial fibrillation; D63.1 Anemia in chronic kidney disease; B96.20 Unspecified Escherichia coli [E. coli] as the cause of diseases classified elsewhere; Z95.0 Presence of cardiac pacemaker; Z99.81 Dependence on supplemental oxygen; Z79.899 Other long term (current) drug therapy; Z88.6 Allergy status to analgesic agent; Z88.1 Allergy status to other antibiotic agents
CPT/HCPCS: 32555; 36415; 70450; 71045; 71250; 80048; 80053; 80307; 81001; 82140; 82150; 82945; 82962; 83615; 83735; 83880; 84157; 84443; 84484; 85025; 85610; 87040; 87070; 87075; 87086; 87088; 87186; 87205; 87252; 89050; 93005; 93010; 94660; 94799; 96361; 96374; 96375; 99285; C1758; C9113; G0378; J1940; J2020; J3490; J7040; J7121

== ENCOUNTER → 2019-10-16 | Outpatient (CLI) | payer MEDICARE, BC ==
[2019-10-16 16:11] LABS: APPEARANCE,URINE SLIGHTLY-CLOUDY; BILIRUBIN,URINE NEGATIVE (NEGATIVE); COLOR,URINE YELLOW; GLUCOSE, URINE NEGATIVE (NEGATIVE); KETONES,URINE NEGATIVE (NEGATIVE); LEUKOCYTE ESTERASE,URINE SMALL (NEGATIVE); NITRITE,URINE NEGATIVE (NEGATIVE); PROTEIN,URINE NEGATIVE (NEGATIVE); URINE SPECIFIC GRAVITY 1.013; UROBILINOGEN,URINE NEGATIVE mg/dL (<2.0)
[2019-10-16 16:37] LABS: ANION GAP 12 (5-19); BLOOD UREA NITROGEN 17 mg/dL (7-20); CALCIUM 9.1 mg/dL (8.4-10.2); CARBON DIOXIDE 32 mmol/L (22-30); CHLORIDE 94 mmol/L (98-107); GLUCOSE 82 mg/dL (75-110); POTASSIUM 3.4 mmol/L (3.6-5.0)
== END ==
LOC: OD 15:13
PROVIDERS: ATTEND Physician Assistant
DX: I50.22 Chronic systolic (congestive) heart failure (principal); N18.3 Chronic kidney disease, stage 3 (moderate); N39.0 Urinary tract infection, site not specified
CPT/HCPCS: 36415; 80048; 81001; 83880; 87086; 87088; 87186

== ENCOUNTER → 2019-11-17 | Outpatient (CLI) | payer MEDICARE, BC ==
[2019-11-17 10:37] LABS: HEMATOCRIT 31.6 % (36.0-47.0); HEMOGLOBIN 10.7 g/dL (12.0-15.5); MEAN CORPUSCULAR HEMOGLOBIN 30.6 pg (27.0-33.4); MEAN CORPUSCULAR VOLUME 90 fl (80-97); PLATELET COUNT 408 10^3/uL (150-450); RED BLOOD COUNT 3.51 10^6/uL (3.72-5.28); RED CELL DISTRIBUTION WIDTH 15.4 % (11.5-14.0); WHITE BLOOD COUNT 5.4 10^3/uL (4.0-10.5)
[2019-11-17 10:41] LABS: APPEARANCE,URINE CLEAR; BILIRUBIN,URINE NEGATIVE (NEGATIVE); COLOR,URINE YELLOW; GLUCOSE, URINE NEGATIVE (NEGATIVE); KETONES,URINE NEGATIVE (NEGATIVE); LEUKOCYTE ESTERASE,URINE NEGATIVE (NEGATIVE); NITRITE,URINE NEGATIVE (NEGATIVE); PROTEIN,URINE NEGATIVE (NEGATIVE); URINE SPECIFIC GRAVITY 1.009; UROBILINOGEN,URINE NEGATIVE mg/dL (<2.0)
[2019-11-17 11:11] LABS: ALBUMIN 3.5 g/dL (3.5-5.0); ALKALINE PHOSPHATASE 201 U/L (38-126); ANION GAP 7 (5-19); ASPARTATE AMINO TRANSFERASE 25 U/L (14-36); BILIRUBIN,DIRECT 0.3 mg/dL (0.0-0.4); BILIRUBIN,TOTAL 0.8 mg/dL (0.2-1.3); BLOOD UREA NITROGEN 16 mg/dL (7-20); CALCIUM 9.2 mg/dL (8.4-10.2); CARBON DIOXIDE 37 mmol/L (22-30); CHLORIDE 89 mmol/L (98-107); GLUCOSE 96 mg/dL (75-110); POTASSIUM 3.9 mmol/L (3.6-5.0); TOTAL PROTEIN 7.3 g/dL (6.3-8.2)
== END ==
LOC: OD 09:36
PROVIDERS: ATTEND Internal Medicine Cardiovascular Disease
DX: I48.0 Paroxysmal atrial fibrillation (principal); I50.22 Chronic systolic (congestive) heart failure; R06.00 Dyspnea, unspecified; Z79.01 Long term (current) use of anticoagulants
CPT/HCPCS: 36415; 80048; 80076; 81001; 83880; 85027; 85730

== ENCOUNTER → 2019-12-28 | Outpatient (CLI) | payer MEDICARE, BC ==
[2019-12-28 11:55] LABS: ANION GAP 7 (5-19); BLOOD UREA NITROGEN 26 mg/dL (7-20); CALCIUM 9.2 mg/dL (8.4-10.2); CARBON DIOXIDE 33 mmol/L (22-30); CHLORIDE 93 mmol/L (98-107); GLUCOSE 91 mg/dL (75-110); POTASSIUM 4.3 mmol/L (3.6-5.0)
== END ==
LOC: OD 10:43
PROVIDERS: ATTEND Physician Assistant
DX: I50.22 Chronic systolic (congestive) heart failure (principal); N18.3 Chronic kidney disease, stage 3 (moderate); I48.0 Paroxysmal atrial fibrillation; Z79.899 Other long term (current) drug therapy
CPT/HCPCS: 36415; 80048; 83880

== ENCOUNTER 2020-01-17 19:18 | Emergency (ER) | payer MEDICARE, BC ==
[2020-01-17] MEDS ORDERED: ONDANSETRON HCL INJ/PF 4 MG/2 ML SDV IV ONE (19:39)
[2020-01-17] MEDS ORDERED: NORMAL SALINE 1000 ML 1,000 ML IV ONE (19:39)
[2020-01-17 20:11] LABS: ABSOLUTE EOSINOPHILS # (AUTO) 0.1 10^3/uL (0.0-0.6); ABSOLUTE LYMPHOCYTES (AUTO) 0.5 10^3/uL (0.5-4.7); ABSOLUTE MONOCYTES (AUTO) 0.4 10^3/uL (0.1-1.4); BASOPHILS % (AUTO) 0.8 % (0-2); EOSINOPHILS % (AUTO) 2.8 % (0-6); HEMATOCRIT 32.5 % (36.0-47.0); HEMOGLOBIN 10.6 g/dL (12.0-15.5); LYMPHOCYTES % (AUTO) 11.3 % (13-45); MEAN CORPUSCULAR HEMOGLOBIN 29.4 pg (27.0-33.4); MEAN CORPUSCULAR HGB CONC 32.6 g/dL (32.0-36.0); MEAN CORPUSCULAR VOLUME 90 fl (80-97); MONOCYTES % (AUTO) 10.7 % (3-13); PLATELET COUNT 220 10^3/uL (150-450); RED BLOOD COUNT 3.61 10^6/uL (3.72-5.28); RED CELL DISTRIBUTION WIDTH 16.2 % (11.5-14.0); SEGMENTED NEUTROPHILS % (AUTO) 74.4 % (42-78); TOTAL CELLS COUNTED % (AUTO) 100 %; WHITE BLOOD COUNT 4.1 10^3/uL (4.0-10.5)
[2020-01-17 20:27] LABS: ALBUMIN 3.5 g/dL (3.5-5.0); ALKALINE PHOSPHATASE 128 U/L (38-126); ASPARTATE AMINO TRANSFERASE 28 U/L (14-36); BILIRUBIN,DIRECT 0.1 mg/dL (0.0-0.4); BILIRUBIN,TOTAL 0.7 mg/dL (0.2-1.3); BLOOD UREA NITROGEN 16 mg/dL (7-20); CALCIUM 9.6 mg/dL (8.4-10.2); GLUCOSE 144 mg/dL (75-110); POTASSIUM 4.3 mmol/L (3.6-5.0); TOTAL PROTEIN 7.2 g/dL (6.3-8.2)
[2020-01-17 20:33] LABS: ANION GAP 6 (5-19); CARBON DIOXIDE 32 mmol/L (22-30); CHLORIDE 96 mmol/L (98-107)
[2020-01-17 23:06] LABS: APPEARANCE,URINE CLEAR; BILIRUBIN,URINE NEGATIVE (NEGATIVE); COLOR,URINE YELLOW; GLUCOSE, URINE NEGATIVE (NEGATIVE); KETONES,URINE NEGATIVE (NEGATIVE); LEUKOCYTE ESTERASE,URINE SMALL (NEGATIVE); NITRITE,URINE NEGATIVE (NEGATIVE); PROTEIN,URINE NEGATIVE (NEGATIVE); UROBILINOGEN,URINE NEGATIVE mg/dL (<2.0)
[2020-01-17] MEDS ORDERED: ONDANSETRON ODT 4 MG TAB (6 TAB/ER DISP) PO PRN (23:36)
--- NOTE | 2020-01-17 23:43 | ER Document Report ---
Entered by AISHA CONNELL SCRIBE 01/17/20 [id number] Acting as scribe for:GRANT PATINO IV, MD ED GI/ - General Chief Complaint: Nausea/Vomiting/Diarrhea Stated Complaint: VOMITING Time Seen by Provider: 01/17/20 21:52 Primary Care Provider: JULIET FRANCES PA-C [Primary Care Provider] - Follow up as needed Mode of Arrival: Ambulatory Information source: Patient Notes: This 89 year old female patient presents to the ED today with complaints of nausea/vomiting with associated generalized weakness that started yesterday while at a . Patient states that prior to the , she ate a sandwich with canned meat and pickled banana peppers. She reports that she wore a mask at the and denies any known exposure to sick contacts. Denies nausea at this time, chest pain, shortness of breath, or LOC. TRAVEL OUTSIDE OF THE [place] IN LAST 30 DAYS: No - Related Data Allergies/Adverse Reactions: codeine [Codeine] Allergy (Unknown, Verified 10/03/19 11:31) amoxicillin [Amoxicillin] Allergy (Verified 10/03/19 11:31) Past Medical History - General Information source: Patient, [facility] Records - Social History Smoking Status: Never Smoker Cigarette use (# per day): No Chew tobacco use (# tins/day): No Smoking Education Provided: No Family History: Reviewed & Not Pertinent, CAD, Hypertension, Other - CHF Patient has suicidal ideation: No Patient has homicidal ideation: No - Past Medical History Cardiac Medical History: Reports: Hx Atrial Fibrillation, Hx Congestive Heart Failure, Hx Hypertension Pulmonary Medical History: Reports: Hx Asthma, Hx COPD, Hx Pneumonia GI Medical History: Reports: Hx Gastroesophageal Reflux Disease Musculoskeletal Medical History: Reports Hx Arthritis Past Surgical History: Reports: Hx Cardiac Catheterization - pacemaker, Hx Cholecystectomy, Hx Herniorrhaphy, Hx Pacemaker, Other - EGD with ablation on 09/28/19 - Immunizations Hx Diphtheria, Pertussis, Tetanus Vaccination: Yes Hx Pneumococcal Vaccination: 07/29/09 Review of Systems - Review of Systems Constitutional: See HPI, Weakness EENT: No symptoms reported Cardiovascular: See HPI. denies: Chest pain Respiratory: See HPI. denies: Short of breath Gastrointestinal: See HPI, Nausea, Vomiting Genitourinary: No symptoms reported Female Genitourinary: No symptoms reported Musculoskeletal: No symptoms reported Skin: No symptoms reported Hematologic/Lymphatic: No symptoms reported Neurological/Psychological: See HPI. denies: Lost consciousness -: Yes All other systems reviewed and negative Physical Exam - Vital signs Vitals: Temp Pulse Resp BP Pulse Ox 98.1 F 71 16 136/49 H 93 01/17/20 19:31 01/17/20 19:31 01/17/20 19:31 01/17/20 19:31 01/17/20 19:31 Interpretation: Normal - General General appearance: Appears well, Alert In distress: None - HEENT Head: Normocephalic, Atraumatic Eyes: Normal Pupils: PERRL - Respiratory Respiratory status: No respiratory distress Chest status: Nontender Breath sounds: Normal Chest palpation: Normal - Cardiovascular Rhythm: Regular Heart sounds: Normal auscultation Murmur: No Friction rub: No Gallop: None auscultated - Abdominal Inspection: Normal Distension: No distension Bowel sounds: Normal Tenderness: Nontender - Abdomen soft Organomegaly: No organomegaly - Back Back: Normal, Nontender - Extremities General upper extremity: Normal inspection General lower extremity: Normal inspection - Neurological Neuro grossly intact: Yes Orientation: AAOx4 [place] Coma Scale Eye Opening: Spontaneous [place] Coma Scale Verbal: Oriented [place] Coma Scale Motor: Obeys Commands Geov[place] Coma Scale Total: 15 - Psychological Associated symptoms: Normal affect, Normal mood - Skin Skin Temperature: Warm Skin Moisture: Dry Skin Color: Normal Course - Re-evaluation Re-evalutation: 01/17/20 23:40 Patient states she is feeling better at this time. Results of ED MSE discussed with patient. All questions were answered prior to discharge. Emergency signs and symptoms, reasons to return to the emergency department discussed with patient. - Vital Signs Vital signs: Temp Pulse Resp BP Pulse Ox 98.1 F 71 16 136/49 H 93 01/17/20 19:34 01/17/20 19:31 01/17/20 19:31 01/17/20 19:31 01/17/20 19:31 - Laboratory Result Diagrams: 01/17/20 19:19 01/17/20 19:19 Laboratory results interpreted by me: 01/17/20 01/17/20 01/17/20 19:19 19:19 22:23 RBC 3.61 L Hgb 10.6 L Hct 32.5 L RDW 16.2 H Lymph % (Auto) 11.3 L Sodium 133.8 L Chloride 96 L Carbon Dioxide 32 H Est GFR (MDRD) Non-Af 56 L Glucose 144 H Alkaline Phosphatase 128 H Ur Leukocyte Esterase SMALL H - EKG Interpretation by Me Additional EKG results interpreted by me: 01/17/20 23:41 EKG obtained on 01/17/2020 at 2232 hrs. was interpreted by this MD. Findings: Atrial fibrillation with a rate of 74, no P waves are visualized, right bundle branch block is present, there are no obvious patterns of ST segment elevation or depression present to suggest acute myocardial ischemia or infarction. Mor phology of this EKG is grossly similar to EKG done on 10/03/2019. Impression rate controlled A. fib with right bundle branch block and nonspecific ST segments. Discharge - Discharge Clinical Impression: Nausea & vomiting Qualifiers: Vomiting type: unspecified Vomiting Intractability: non-intractable Qualified Code(s): R11.2 - Nausea with vomiting, unspecified Condition: Stable Disposition: HOME, SELF-CARE Instructions: Vomiting ([facility]) Additional Instructions: Return to the Emergency Department without delay if any worse. HOME CARE INSTRUCTIONS & INFORMATION: Thank you for choosing us for your medical needs. We hope you're satisfied with the care you received. After you leave, you must properly care for your problem and, at the same time, observe its progress. Any condition can change. Some illnesses can change rapidly over hours or days. If your condition worsens, return to the Emergency Department or see your physician promptly. ABOUT YOUR X-RAYS AND EKG'S: If you had an EKG or X-rays taken, they have been read by the Emergency Physician. The X-rays and EKG's will also be read by a Radiologist or Tie In Machine Operator within 24 hours. If discrepancies are noted, you will be notified by telephone. Please be certain the ED has a correct telephone number & address where you can be reached. Also, realize that some fractures or abnormalities do not show up on initial X-rays. If your symptoms continue, see your physician. ABOUT YOUR LABORATORY TEST: If you had laboratory tests, the results have been reviewed by the Emergency Physician. Some test results (for example cultures) may not be available for several days. You will be contacted if any test result shows you need additional treatment. Please be certain the ED has a correct telephone number and address where you can be reached. ABOUT YOUR MEDICATIONS: You will receive instructions on how to take your medicine on the prescription label you receive. Additional information may be provided by the Pharmacy. If you have questions afterwards, call the ED for cla rification or further instructions. Some prescribed medications may cause drowsiness. Do not perform tasks such as driving a car or operating machinery without consulting your Pharmacist. If you feel you need a refill of pain medication, your condition will need re-evaluation. Please do not call for a refill of any medication. ABOUT YOUR SIGNATURE: Signature of this document acknowledges to followin. Understanding that you received emergency treatment and that you may be released before al medical problems are known or treated. Please be certain the ED has a correct phone number & address where you can be reached. 2. Acknowledgement that you will arrange for follow-up care as recommended. 3. Authorization for the Emergency Physician to provide information to your follow-up Physician in order to maximize your care. AT ANY TIME, IF YOUR SYMPTOMS CHANGE SIGNIFICANTLY OR WORSEN OR YOU DEVELOP NEW SYMPTOMS, RETURN TO THE EMERGENCY DEPARTMENT IMMEDIATELY FOR RE-EVALUATION. OUR GOAL IS TO PROVIDE EXCELLENT MEDICAL CARE! WE HOPE THAT WE HAVE MET YOUR EXPECTATIONS DURING YOUR EMERGENCY DEPARTMENT VISIT AND THAT YOU FEEL YOU HAVE RECEIVED EXCELLENT CARE! Referrals: JLUIET FRANCES PA-C [Primary Care Provider] - Follow up as needed I personally performed the services described in the documentation, reviewed and edited the documentation which was dictated to the scribe in my presence, and it accurately records my words and actions.
[2020-01-18 00:34] VITALS: BP 118/49
--- NOTE | 2020-01-18 06:10 | EKG REPORT ---
SEVERITY:- ABNORMAL ECG - ATRIAL FIBRILLATION, V-RATE 63-[address] DEPRESSION, CONSIDER ISCHEMIA, INFERIOR LEADS : Confirmed by: Kanu Webster MD 18-Jan-2020 06:09:35
== END 2020-01-18 00:05 | disposition home or self-care (01) ==
LOC: ER 19:18
DX: R11.2 Nausea with vomiting, unspecified (principal); R19.7 Diarrhea, unspecified; R53.1 Weakness; Z88.1 Allergy status to other antibiotic agents; Z88.8 Allergy status to other drugs, medicaments and biological substances; I11.0 Hypertensive heart disease with heart failure; I50.9 Heart failure, unspecified; J44.9 Chronic obstructive pulmonary disease, unspecified
CPT/HCPCS: 93005; 99284; 96361; 96374; 36415; 85025; 80053; 81001; 93010; J2405; J7030; A9270

== ENCOUNTER 2020-01-18 22:33 | Emergency (ER) | payer MEDICARE, BC ==
--- NOTE | 2020-01-18 23:07 | RADIOLOGY REPORT (SQ) ---
EXAM DESCRIPTION: CT HEAD WITHOUT IV CONTRAST COMPLETED DATE/TME: 01/18/2020 00:00 CLINICAL HISTORY: 89 years Female STROKE SX left upper extremity and lower extremity weakness COMPARISON: 10/03/2019. TECHNIQUE: Contiguous axial CT images obtained through the brain without IV contrast. This exam was performed according to our department optimization program which includes automated exposure control, adjustment of the mA and/or kv according to patient size and/or use of iterative reconstruction technique. FINDINGS: The ventricles and sulci are prominent consistent with atrophic changes. Microvascular ischemic changes. Area of encephalomalacia in the left occipital lobe which appears new when compared to the prior examination but chronic in nature. Subacute area of infarct not entirely excluded. There is some hyperdensity in the region of the MCA on the right which could reflect thrombus but this also is located in the region of streak artifact from the skull base. Findings were discussed with Dr. Noble at 10:03 PM central time. No midline shift or mass effect. No mass lesions. No acute hemorrhage. Atherosclerotic calcifications. No fluid or significant mucosal thickening in the visualized paranasal sinuses. No depressed calvarial fractures. IMPRESSION: Hyperdensity in the region of the right MCA. Question focal area of thrombus versus artifact from the skull base. Further evaluation with CTA or MRI with diffusion imaging is recommended Findings were discussed with Dr. Lindsay at 10:03 PM central time. Area of diminished attenuation in the left occipital lobe which is new when compared to the previous examination but appears likely chronic. Generalized atrophy with microvascular ischemic changes.
[2020-01-18 23:13] LABS: ABSOLUTE EOSINOPHILS # (AUTO) 0.2 10^3/uL (0.0-0.6); ABSOLUTE LYMPHOCYTES (AUTO) 0.6 10^3/uL (0.5-4.7); ABSOLUTE MONOCYTES (AUTO) 0.5 10^3/uL (0.1-1.4); ABSOLUTE NEUT (AUTO) 3.3 10^3/uL (1.7-8.2); BASOPHILS % (AUTO) 1.1 % (0-2); EOSINOPHILS % (AUTO) 3.4 % (0-6); HEMATOCRIT 31.5 % (36.0-47.0); HEMOGLOBIN 10.3 g/dL (12.0-15.5); LYMPHOCYTES % (AUTO) 13.9 % (13-45); MEAN CORPUSCULAR HEMOGLOBIN 29.7 pg (27.0-33.4); MEAN CORPUSCULAR HGB CONC 32.9 g/dL (32.0-36.0); MEAN CORPUSCULAR VOLUME 90 fl (80-97); PLATELET COUNT 205 10^3/uL (150-450); RED BLOOD COUNT 3.48 10^6/uL (3.72-5.28); RED CELL DISTRIBUTION WIDTH 16.1 % (11.5-14.0); SEGMENTED NEUTROPHILS % (AUTO) 71.6 % (42-78); TOTAL CELLS COUNTED % (AUTO) 100 %; WHITE BLOOD COUNT 4.7 10^3/uL (4.0-10.5)
--- NOTE | 2020-01-18 23:13 | ER Document Report ---
Entered by AISHA CONNELL SCRIBE 01/18/20 [id number] Acting as scribe for:ANGELLA MARTINEZ DO ED Neuro Symptoms/Deficit - General Stated Complaint: POSSIBLE STROKE Primary Care Provider: JULIET FRANCES PA-C [Primary Care Provider] - Follow up as needed Mode of Arrival: Medic Information source: Emergency Med Personnel Notes: This 89 year old female patient with a history of A fib not on any anticoagulants for the past several months, recurrent GI bleeds, CHF, valvular heart disease, and COPD brought in by EMS from home presents to the ED today with complaints of stroke-like symptoms that started around 2100 tonight per family. EMS reports that the patient complained to family of a headache since before dinner time. According to ED nurse, EMS reports that the patient's alertness rapidly declined during transport and that they were going to take the patient to [facility] for acute stroke services, but the patient refused when she was alert and oriented. Patient was seen here yesterday evening for nausea/vomiting and was discharged after receiving fluids and Zofran. TRAVEL OUTSIDE OF THE [place] IN LAST 30 DAYS: No - Related Data Allergies/Adverse Reactions: codeine [Codeine] Allergy (Unknown, Verified 10/03/19 11:31) amoxicillin [Amoxicillin] Allergy (Verified 10/03/19 11:31) Past Medical History - General Information source[facility] - Social History Smoking Status: Never Smoker Cigarette use (# per day): No Chew tobacco use (# tins/day): No Smoking Education Provided: No Frequency of alcohol use: None Drug Abuse: None Lives with: Family Family History: Reviewed & Not Pertinent, CAD, Hypertension, Other - CHF Patient has suicidal ideation: No Patient has homicidal ideation: No - Past Medical History Cardiac Medical History: Reports: Hx Atrial Fibrillation, Hx Congestive Heart Failure, Hx Hypertension Pulmonary Medical History: Reports: Hx Asthma, Hx COPD, Hx Pneumonia GI Medical History: Reports: Hx Gastroesophageal Reflux Disease Musculoskeletal Medical History: Reports Hx Arthritis Past Surgical History: Reports: Hx Cardiac Catheterization - pacemaker, Hx Cholecystectomy, Hx Herniorrhaphy, Hx Pacemaker, Other - EGD with ablation on 09/28/19 - Immunizations Hx Diphtheria, Pertussis, Tetanus Vaccination: Yes Hx Pneumococcal Vaccination: 07/29/09 Review of Systems - Review of Systems -: Yes ROS unobtainable due to patient's medical condition Physical Exam - Notes Notes: - General General appearance: Alert, Other - Chronically ill appearing and frail - HEENT Head: Normocephalic, Atraumatic Eyes: Other - Right sided gaze Extraocular movements intact: Yes Pupils: PERRL - Respiratory Respiratory status: No respiratory distress Chest status: Nontender Breath sounds: Decreased air movement - Diminished breath sounds - Cardiovascular Rhythm: Irregularly irregular Murmur: No Friction rub: No Gallop: None auscultated - Abdominal Inspection: Obese Distension: No distension Bowel sounds: Normal Tenderness: Nontender - Abdomen soft Organomegaly: No organomegaly - Back Back: Normal, Nontender - Extremities General upper extremity: Normal inspection General lower extremity: Normal inspection. No: Edema - Neurological Cognition: Other - Slow to respond, answers questions appropriately [place] Coma Scale Eye Opening: Spontaneous [place] Coma Scale Verbal: Oriented [place] Coma Scale Motor: Obeys Commands [place] Coma Scale Total: 15 Speech: Other - Thick speech Cranial nerves: Other - Right sided gaze Motor strength normal: No: LUE, LLE Additional motor exam normals: Weakness - LUE and LLE - Psychological Associated symptoms: Normal affect, Normal mood - Skin Skin Temperature: Warm Skin Moisture: Dry Skin Color: Normal - General General appearance: Alert, Other - frail and elderly in appearence - Cardiovascular Rhythm: Irregularly irregular - Abdominal Inspection: Normal Distension: No distension - Extremities General upper extremity: Normal inspection - Neurological Cognition: Normal [place] Coma Scale Eye Opening: Spontaneous [place] Coma Scale Verbal: Oriented [place] Coma Scale Motor: Obeys Commands [place] Coma Scale Total: 15 Speech: Dysarthria - NIHSS 16 Course - Re-evaluation Re-evalutation: 01/18/20 23:13 Spoke with patient's [id number] and son Rey who agree that they both don't want the patient to receive a blood thinner due to her recurrent GI bleeds. 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 The family would prefer her to be at a stroke center if possible and no TPA due to potential of bleeding. I have discussed the pt and the physical exam and findings with Luciana [facility] [place] - at [facility] and they have graciously accepted the pt in transfer. We are awaiting the logistics of transfer. 01/19/20 00:04 The aircare crew from [facility] is here and we are giving report and she is being assessed in preparation for transfer to [facility]. - Laboratory Result Diagrams: 01/18/20 23:02 01/18/20 23:02 - Diagnostic Test Radiology reviewed: Reports reviewed - EKG Interpretation by Me Rhythm: A.Fib [place]/QRS: RBBB - A fib RBBB no st elevation or depression my interpretation. Critical Care Note - Critical Care Note Total time excluding time spent on procedures (mins): 45 Comments: This included time speaking with family, EMS, [facility] and interventional radiology at [facility] as well as speaking with out vision radiologist. The pt was considered for TPA and it was not administered due to her propensity to bleed. As such, CTA of head and neck was ordered rapidly and the images power shared with [facility]. She has symptoms consistent with Acute R MCA embolic CVA. ED NIH Stroke Scale - NIH Stroke Scale *: 1. NIH scale should be completed with appropriate accompanying assessment tools. *: 2. The NIH should reflect what the patient is capable of doing and should not be coached by the clinician. 1a. Level of Consciousness: 0=Alert;keenly responsive -: 1=Drowsy -: 2=Obtunded -: 3=Coma/unresponsive or reflex to noxious stimuli. 1a. Responses: 1 1b. Orientation Questions: a. What month is it? -: b. How old are you? -: 0=Answers both questions correctly. -: 1=Answers one question correctly or patient is intubated or has orotracheal trauma. -: 2=Answers neither question correctly. 1b. Responses: 0 1c. Response to commands: a. Open and close eyes? -: b. Model Making Supervisor and release hand? -: Credit is given despite weakness. Demonstration of task is permitted. Substitute command if hands cannot be used. -: 0=Performs both tasks correctly -: 1=Performs one task correctly -: 2=Performs neither task correctly 1c. Responses: 1 2. Gaze: Establish eye contact and instruct patient to "Follow my finger" -: 0=Normal -: 1=Partial gaze palsy. Gaze is abnormal in one or both eyes, but where forced deviation or total gaze paresis is not present. -: 2=Forced deviation or total gaze paresis. 2. Responses: 1 3. Visual [place]: Sees fingers in all four quadrants. -: 0=No visual loss. -: 1=Partial hemianopsia. -: 2=Complete hemianopsia. -: 3=Bilateral hemianopsia (including Cortical blindness) 3. Responses: 0 4. Facial Movement: Instruct patient to: -: a. Show me your teeth -: b. Raise your eyebrows -: c. Close your eyes -: d. Smile -: 0=Normal symmetrical movement -: 1=Minor paralysis (flattened nasolabial fold, asymmetry on smiling). -: 2=Partial paralysis (total or near total paralysis of lower face). -: 3=Complete paralysis of upper and lower face 4. Responses: 1 5. Motor functions (left arm): Alternate sides and extend each arm with palms down (90 degrees if sitting or 45 degrees for supine). -: 0=No drift;limb holds for full 10 seconds. -: 1=Drift; limb holds but drifts down before full 10 seconds, but does not hit bed. -: 2=Some effort against gravity; limb cannot get to or maintain position. -: 3=No effort against gravity; limb falls. -: 4=No movement. -: UN=Amputation, joint fusion, explain in comments. 5. Responses (left arm): 4 5. Motor Functions (right arm): Alternate sides and extend each arm with palms down (90 degrees if sitting or 45 degrees for supine). -: 0=No drift;limb holds for full 10 seconds. -: 1=Drift; limb holds but drifts down before full 10 seconds, but does not hit bed. -: 2=Some effort against gravity; limb cannot get to or maintain position. -: 3=No effort against gravity; limb falls. -: 4=No movement. -: UN=Amputation, joint fusion, explain in comments. 5. Responses (right arm): 0 6. Motor Functions (left leg): With patient lying supine, alternate sides and extend each leg (30 degrees always while supine). -: 0=No drift, leg holds position for full 5 seconds -: 1=Drift; leg falls before full 5 seconds but does not hit bed. -: 2=Some effort against gravity, leg falls to bed but some effort against gravity. -: 3=No effort against gravity, leg falls to bed immediately. -: 4=No movement. -: UN=Amputation, joint fusion; explain in comments. 6. Responses (left leg): 4 6. Motor Functions (right leg): With patient lying supine, alternate sides and extend each leg (30 degrees always while supine). -: 0=No drift, leg holds position for full 5 seconds -: 1=Drift; leg falls before full 5 seconds but does not hit bed. -: 2=Some effort against gravity, leg falls to bed but some effort against gravity. -: 3=No effort against gravity, leg falls to bed immediately. -: 4=No movement. -: UN=Amputation, joint fusion; explain in comments. 6. Responses (right leg): 1 7. Limb Ataxia: With eyes open instruct patient to: -: a. "Touch your finger to your nose". -: b. "Touch your heel to your oscar" -: 0=Absent -: 1=Present in one limb. -: 2=Present in two limbs. -: UN=Amputation or joint fusion; explain in comments. 7. Responses: 1 8. Sensory: Test sensation using pinprick or noxious stimuli. Test as many body parts as possible. -: 0=Normal;no sensory loss -: 1=Mile to moderate sensory loss (patient feels pin prick but is less sharp on affected side). -: 2=Severe or total sensory loss. 8. Responses: 0 9. Best Language: Instruct patient to: -: a. "Describe what you see in this picture." -: b. "Name the items in this picture." -: c. "Read these sentences." -: 0=No aphasia, normal -: 1=Mild to moderate aphasia. -: 2=Severe aphasia -: 3=[place], global aphasia, no usable speech or auditory comprehension. 9. Responses: 0 10. Articulation, Dysarthia: Instruct patient to: -: "Read these words" or "Repeat these words" -: 0=Normal -: 1=Mild to moderate; patient may slur some words but can be understood without difficulty. -: 2=Severe; patients speech so slurred as to be unintelligible in the absence of dysphasia. -: UN=Intubated or other physical barrier, explain in comments. 10. Responses: 1 11. Extinction or inattention: 0=No abnormality -: 1= Visual, tactile, auditory, spatial, or personal inattention or extinction to bilateral simulation in one or the sensory modalities. -: 2=Profound nathan-inattention or nathan-inattention to more than one modality; does not recognize own hand. 11. Responses: 1 Total Score: 16 Discharge - Discharge Clinical Impression: Acute right MCA stroke HTN (hypertension) Qualifiers: Hypertension type: unspecified Qualified Code(s): I10 - Essential (primary) hypertension Atrial fibrillation Qualifiers: Atrial fibrillation type: unspecified Qualified Code(s): I48.91 - Unspecified atrial fibrillation Condition: Stable Disposition: [facility] Referrals: JULIET FRANCES PA-C [Primary Care Provider] - Follow up as needed I personally performed the services described in the documentation, reviewed and edited the documentation which was dictated to the scribe in my presence, and it accurately records my words and actions.
[2020-01-18 23:19] LABS: INTERNATIONAL RATION (INR) 1.05; PROTHROMBIN TIME 13.8 SEC (11.4-15.4)
--- NOTE | 2020-01-18 23:26 | RADIOLOGY REPORT (SQ) ---
CLINICAL HISTORY: STROKE SX COMPARISON: 10/04/2019. TECHNIQUE: XR CHEST 1 VIEW 01/18/2020 12:00 AM CDT FINDINGS: The heart is enlarged. Left dual-chamber pacemaker is unchanged. There are mild patchy opacities in the upper lobes and the right lung base. There are small bilateral pleural effusions. There is no pneumothorax. There are no acute osseous findings. IMPRESSION: Persistent right basilar opacity with slightly more prominent upper lobe opacities. Underlying developing pneumonia is not excluded.
[2020-01-18 23:56] LABS: ALBUMIN 3.6 g/dL (3.5-5.0); ALKALINE PHOSPHATASE 133 U/L (38-126); ANION GAP 6 (5-19); ASPARTATE AMINO TRANSFERASE 30 U/L (14-36); BILIRUBIN,DIRECT 0.2 mg/dL (0.0-0.4); BILIRUBIN,TOTAL 0.7 mg/dL (0.2-1.3); BLOOD UREA NITROGEN 14 mg/dL (7-20); CALCIUM 9.4 mg/dL (8.4-10.2); CARBON DIOXIDE 29 mmol/L (22-30); CHLORIDE 97 mmol/L (98-107); GLUCOSE 111 mg/dL (75-110); POTASSIUM 4.1 mmol/L (3.6-5.0); TOTAL PROTEIN 7.2 g/dL (6.3-8.2)
[2020-01-19 00:09] VITALS: BP 115/67
--- NOTE | 2020-01-19 00:16 | RADIOLOGY REPORT (SQ) ---
CLINICAL HISTORY: cva COMPARISON: None. TECHNIQUE: CT NECK ANGIOGRAPHY WITHOUT THEN WITH IV CONTRAST, CT HEAD ANGIOGRAPHY WITHOUT THEN WITH IV CONTRAST on 01/18/2020 11:05 PM CDT This exam was performed according to our departmental dose-optimization program, which includes automated exposure control, adjustment of the mA and/or kV according to patient size and/or use of iterative reconstruction technique. MIP reconstructions were generated. Stenoses are calculated by NASCET criteria. FINDINGS: The visualized aortic arch and origins of the great vessels unremarkable. The common carotid arteries are patent and symmetric bilaterally. There are calcifications within both proximal internal carotid arteries without flow-limiting stenosis. Vertebral arteries are unremarkable without evidence of pseudoaneurysm, hemodynamically significant stenosis, or dissection. Intracranially the cavernous segments of the internal carotid arteries are patent and symmetric bilaterally. Vertebral basilar system within normal limits for age. No aneurysm identified within the [place]. The bilateral anterior and posterior cerebral arteries are symmetric and diffusely patent. The left MCA is patent. The right MCA is occluded proximally within the M1 segment with essentially no flow distally. Dural sinuses are well opacified and without filling defect. There is incidental right pleural effusion with extensive mucous plugging within the right bronchial tree. IMPRESSION: Unremarkable CT angiogram of the neck for age without dissection or hemodynamically significant stenosis. Complete occlusion of the proximal right MCA. CAROTID STENOSIS REFERENCE USING NASCET CRITERIA: % ICA stenosis = (1 - narrowest ICA diameter/diameter of distal cervical ICA) x 100. Mild - <50% stenosis. Moderate - 50-69% stenosis. Severe - 70-94% stenosis. Near occlusion - 95-99% stenosis. Occluded - 100% stenosis.
--- NOTE | 2020-01-19 00:26 | EKG REPORT ---
SEVERITY:- ABNORMAL ECG - ATRIAL FIBRILLATION, V-RATE 77-108 VENTRICULAR PREMATURE COMPLEX RIGHT BUNDLE BRANCH BLOCK BORDERLINE ST DEPRESSION, LATERAL LEADS : Confirmed by: Tootie Steven 19-Jan-2020 00:25:10
== END 2020-01-19 00:28 | disposition short-term general hospital (02) ==
LOC: ER 22:33
DX: I63.511 Cerebral infarction due to unspecified occlusion or stenosis of right middle cerebral artery (principal); I48.91 Unspecified atrial fibrillation; I11.0 Hypertensive heart disease with heart failure; I50.9 Heart failure, unspecified; R51 Headache; J44.9 Chronic obstructive pulmonary disease, unspecified; Z88.0 Allergy status to penicillin; Z88.8 Allergy status to other drugs, medicaments and biological substances
CPT/HCPCS: 36415; 70450; 70496; 70498; 71045; 80053; 82962; 83735; 84443; 84484; 85025; 85610; 93005; 93010; 99291

== ENCOUNTER → 2020-02-11 | Outpatient (CLI) | payer MEDICARE, BC ==
[2020-02-11 16:17] LABS: HEMATOCRIT 24.9 % (36.0-47.0); HEMOGLOBIN 8.4 g/dL (12.0-15.5); MEAN CORPUSCULAR HEMOGLOBIN 29.5 pg (27.0-33.4); MEAN CORPUSCULAR HGB CONC 33.6 g/dL (32.0-36.0); MEAN CORPUSCULAR VOLUME 88 fl (80-97); PLATELET COUNT 312 10^3/uL (150-450); RED BLOOD COUNT 2.83 10^6/uL (3.72-5.28); RED CELL DISTRIBUTION WIDTH 16.5 % (11.5-14.0); WHITE BLOOD COUNT 5.6 10^3/uL (4.0-10.5)
[2020-02-11 16:31] LABS: ANION GAP 7 (5-19); BLOOD UREA NITROGEN 36 mg/dL (7-20); CALCIUM 9.2 mg/dL (8.4-10.2); CARBON DIOXIDE 32 mmol/L (22-30); CHLORIDE 94 mmol/L (98-107); GLUCOSE 126 mg/dL (75-110); POTASSIUM 4.2 mmol/L (3.6-5.0)
== END ==
LOC: OD 15:05
PROVIDERS: ATTEND Internal Medicine Cardiovascular Disease
DX: I50.22 Chronic systolic (congestive) heart failure (principal); N18.3 Chronic kidney disease, stage 3 (moderate); K92.2 Gastrointestinal hemorrhage, unspecified; R73.01 Impaired fasting glucose
CPT/HCPCS: 36415; 80048; 83036; 83880; 85027

== ENCOUNTER 2020-02-19 18:17 | Inpatient (IN) | payer MEDICARE, BC ==
[2020-02-19 18:53] LABS: ABSOLUTE EOSINOPHILS # (AUTO) 0.3 10^3/uL (0.0-0.6); ABSOLUTE LYMPHOCYTES (AUTO) 0.6 10^3/uL (0.5-4.7); ABSOLUTE MONOCYTES (AUTO) 0.4 10^3/uL (0.1-1.4); ABSOLUTE NEUT (AUTO) 3.1 10^3/uL (1.7-8.2); BASOPHILS % (AUTO) 0.8 % (0-2); EOSINOPHILS % (AUTO) 7.3 % (0-6); HEMATOCRIT 24.1 % (36.0-47.0); HEMOGLOBIN 8.1 g/dL (12.0-15.5); LYMPHOCYTES % (AUTO) 12.7 % (13-45); MEAN CORPUSCULAR HEMOGLOBIN 29.8 pg (27.0-33.4); MEAN CORPUSCULAR HGB CONC 33.7 g/dL (32.0-36.0); MEAN CORPUSCULAR VOLUME 88 fl (80-97); MONOCYTES % (AUTO) 9.6 % (3-13); PLATELET COUNT 246 10^3/uL (150-450); RED BLOOD COUNT 2.72 10^6/uL (3.72-5.28); RED CELL DISTRIBUTION WIDTH 17.2 % (11.5-14.0); SEGMENTED NEUTROPHILS % (AUTO) 69.6 % (42-78); TOTAL CELLS COUNTED % (AUTO) 100 %; WHITE BLOOD COUNT 4.4 10^3/uL (4.0-10.5)
[2020-02-19 19:11] LABS: ALBUMIN 3.3 g/dL (3.5-5.0); ALKALINE PHOSPHATASE 160 U/L (38-126); ASPARTATE AMINO TRANSFERASE 26 U/L (14-36); BILIRUBIN,DIRECT 0.1 mg/dL (0.0-0.4); BILIRUBIN,TOTAL 0.4 mg/dL (0.2-1.3); BLOOD UREA NITROGEN 22 mg/dL (7-20); CALCIUM 9.1 mg/dL (8.4-10.2); CARBON DIOXIDE 36 mmol/L (22-30); CHLORIDE 96 mmol/L (98-107); GLUCOSE 127 mg/dL (75-110); POTASSIUM 3.6 mmol/L (3.6-5.0)
[2020-02-19 19:12] LABS: CREATINE KINASE < 20 U/L (30-135)
[2020-02-19 19:13] LABS: ANION GAP 4 (5-19)
[2020-02-19] MEDS ORDERED: IPRATROPIUM/ALBUTEROL 0.5-2.5 MG/3 ML AMPUL NEB ONE (19:25)
--- NOTE | 2020-02-19 19:29 | ER Document Report ---
ED Respiratory Problem - General Mode of Arrival: Ambulatory Information source: Patient, [facility] Records TRAVEL OUTSIDE OF THE [place] IN LAST 30 DAYS: No <ELSA GONCALVES - Last Filed: 02/19/20 20:42> <GRANT JONES IV - Last Filed: 02/19/20 22:27> - General Chief Complaint: Shortness Of Breath Stated Complaint: BREATHING DIFFICULTY Time Seen by Provider: 02/19/20 18:22 Notes: 89-year-old female patient comes emergency room complaining of shortness of breath which she reports got worse last night. She reports her swelling on her legs today is worse than her baseline. She is on 2 L nasal cannula oxygen at home. Here in the emergency room on 2 L nasal cannula her pulse oximetry reading is 100%. She does have history atrial fibrillation, hypertension, hyperlipidemia, COPD. She is on Eliquis. 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 She continues to take Carafate and proton pump inhibitors. She does have a pacemaker. (ELSA GONCALVES) - Related Data Allergies/Adverse Reactions: codeine [Codeine] Allergy (Unknown, Verified 02/19/20 19:12) amoxicillin [Amoxicillin] Allergy (Verified 02/19/20 19:12) Past Medical History - Social History Smoking Status: Never Smoker Family History: Reviewed & Not Pertinent, CAD, Hypertension, Other - CHF - Past Medical History Cardiac Medical History: Reports: Hx Atrial Fibrillation, Hx Congestive Heart Failure, Hx Hypertension Denies: Hx Heart Attack Pulmonary Medical History: Reports: Hx Asthma, Hx COPD, Hx Pneumonia Denies: Hx Bronchitis Neurological Medical History: Denies: Hx Cerebrovascular Accident, Hx Seizures Endocrine Medical History: Denies: Hx Diabetes Mellitus Type 2 Renal/ Medical History: Denies: Hx Peritoneal Dialysis GI Medical History: Reports: Hx Gastroesophageal Reflux Disease. Denies: Hx Hepatitis, Hx Hiatal Hernia, Hx Ulcer Musculoskeletal Medical History: Reports Hx Arthritis Psychiatric Medical History: Denies: Hx Depression Infectious Medical History: Denies: Hx Hepatitis Past Surgical History: Reports: Hx Cardiac Catheterization - pacemaker, Hx Cardiac Surgery, Hx Cholecystectomy, Hx Herniorrhaphy, Hx Pacemaker, Other - EGD with ablation on 09/28/19. Denies: Hx Mastectomy, Hx Open Heart Surgery - Immunizations Hx Diphtheria, Pertussis, Tetanus Vaccination: Yes Hx Pneumococcal Vaccination: 07/29/09 <ELSA GONCALVES - Last Filed: 02/19/20 20:42> Physical Exam - Vital signs Vitals: Pulse Ox 99 02/19/20 18:19 Course - Laboratory Result Diagrams: 02/19/20 18:32 02/19/20 18:32 - Diagnostic Test Radiology reviewed: Image reviewed, Reports reviewed - Chest x-ray shows right pleural effusion that is much worse than the last chest x-ray on 01/18/2020. There is also what is likely asymmetric edema developing in the right lower lobe. - EKG Interpretation by [place] EKG shows normal: [place], Intervals. abnormal: QRS Complexes, ST-T Waves - Nonspecific ST depression anterolateral leads Rate: Normal - 62 Rhythm: A.Fib, Other - Ventricular paced complexes [place]/QRS: RBBB When compared to previous EKG there are: Changes noted - Little bit - Consults Dr. An Time consulted: 19:50 Consulted provider: will come to ER - Request some additional studies done and he will come evaluate the patient and come up with a plan for her management this evening. - Transfer of Care Care transferred to following provider: Dr. Jones <ELSA GONCALVES - Last Filed: 02/19/20 20:42> - Laboratory Result Diagrams: 02/19/20 18:32 02/19/20 18:32 <GRANT JONES IV - Last Filed: 02/19/20 22:27> - Vital Signs Vital signs: Temp Pulse Resp BP Pulse Ox 98 F 72 24 H 126/61 H 100 02/19/20 18:55 02/19/20 18:55 02/19/20 20:01 02/19/20 20:00 02/19/20 20:01 - Laboratory Laboratory results interpreted by me: 02/19/20 02/19/20 02/19/20 18:32 18:32 18:32 RBC 2.72 L Hgb 8.1 L Hct 24.1 L RDW 17.2 H Lymph % (Auto) 12.7 L Eos % (Auto) 7.3 H Carbonic Acid ABG pCO2 ABG HCO3 ABG Total CO2 VBG pH VBG pCO2 VBG HCO3 Sodium 135.5 L Chloride 96 L Carbon Dioxide 36 H Anion Gap 4 L BUN 22 H Creatinine 1.31 H Est GFR ( Amer) 46 L Est GFR (MDRD) Non-Af 38 L Glucose 127 H Alkaline Phosphatase 160 H Creatine Kinase < 20 L NT-Pro-B Natriuret Pep 4130 H Albumin 3.3 L 02/19/20 02/19/20 18:32 20:41 RBC Hgb Hct RDW Lymph % (Auto) Eos % (Auto) Carbonic Acid 2.03 H ABG pCO2 67.5 H ABG HCO3 36.3 H ABG Total CO2 38.3 H VBG pH 7.29 L VBG pCO2 75.7 H* VBG HCO3 35.5 H Sodium Chloride Carbon Dioxide Anion Gap BUN Creatinine Est GFR ( Amer) Est GFR (MDRD) Non-Af Glucose Alkaline Phosphatase Creatine Kinase NT-Pro-B Natriuret Pep Albumin - Transfer of Care Notes: 02/19/20 20:43 Patient is pending ABG, and Dr. An is coming to evaluate the patient to determine disposition. (ELSA GONCALVES) 02/19/20 22:25 Dr. An informed this MD that he has admitted the patient. (GRANT JONES IV) Discharge <ELSA GONCALVES - Last Filed: 02/19/20 20:42> - Discharge Admitting Provider: Nataliya (Hospitalist) Unit Admitted: [facility] <GRNAT JONES IV - Last Filed: 02/19/20 22:27> - Discharge Clinical Impression: Pleural effusion, right, Shortness of breath, CO2 retention Anemia Qualifiers: Anemia type: unspecified type Qualified Code(s): D64.9 - Anemia, unspecified Chronic obstructive lung disease Qualifiers: COPD type: unspecified COPD Qualified Code(s): J44.9 - Chronic obstructive pulmonary disease, unspecified Acute exacerbation of CHF (congestive heart failure) Qualifiers: Heart failure type: diastolic Qualified Code(s): I50.33 - Acute on chronic diastolic (congestive) heart failure Hypotension Qualifiers: Hypotension type: unspecified hypotension type Qualified Code(s): I95.9 - Hypotension, unspecified Condition: Stable Disposition: ADMITTED INPATIENT
[2020-02-19 19:32] LABS: TROPONIN I 0.098 ng/mL
--- NOTE | 2020-02-19 19:38 | RADIOLOGY REPORT (SQ) ---
EXAM DESCRIPTION: Chest radiograph, single view IMAGES COMPLETED DATE/TIME: 02/19/2020 6:21 pm REASON FOR STUDY: sob COMPARISON: Chest radiograph, 01/18/2020 EXAM PARAMETERS: NUMBER OF VIEWS: One view. TECHNIQUE: Single frontal radiographic view of the chest acquired. RADIATION DOSE: NA LIMITATIONS: None. FINDINGS: LUNGS AND PLEURA: There is developing consolidation in the right lower lobe. Small right pleural effusions slightly increased from previous. Left lung remains clear. Lungs are hyperinflate d. No pneumothorax. MEDIASTINUM AND HILAR STRUCTURES: No masses. Contour normal. HEART AND VASCULAR STRUCTURES: Moderate cardiomegaly. No pulmonary vascular congestion. BONES: No acute findings. HARDWARE: None in the chest. OTHER: No other significant finding. IMPRESSION: Developing consolidation in the right lower lobe with increasing small right pleural eff usion. No pneumothorax. Findings are suspicious for developing pneumonia. Aspiration pneumonitis c ould have this appearance. TECHNICAL DOCUMENTATION: JOB ID: [id number] 2010 [employer]- All Rights Reserved Reading location - IP/workstation name: [email or web address]
[2020-02-19 19:53] LABS: VENOUS BLOOD BASE EXCESS 6.6 mmol/L; VENOUS BLOOD HCO3 35.5 mmol/L (20-32); VENOUS BLOOD PH 7.29 (7.30-7.42)
[2020-02-19 19:55] LABS: VENOUS BLOOD PCO2 75.7 mmHg (35-63)
[2020-02-19 20:58] LABS: ARTERIAL BLOOD BASE EXCESS 9.3 mmol/L; ARTERIAL BLOOD FIO2 2L; ARTERIAL BLOOD H2CO3 2.03 mmol/L (1.05-1.35); ARTERIAL BLOOD HCO3 36.3 mmol/L (20-24); ARTERIAL BLOOD O2 SATURATION 95.5 % (94-98); ARTERIAL BLOOD PCO2 67.5 mmHg (35-45); ARTERIAL BLOOD PH 7.35 (7.35-7.45); ARTERIAL BLOOD PO2 84.6 mmHg (80-100); ARTERIAL BLOOD TOTAL CO2 38.3 mmol/L (21-25)
[2020-02-19] MEDS ORDERED: PROMETHAZINE HCL INJ 25 MG/1 ML VIAL IV PRN (22:01)
[2020-02-19] MEDS ORDERED: MAGNESIUM HYDROXIDE SUSP 30 ML UDCUP PO PRN (22:01)
[2020-02-19] MEDS ORDERED: ACETAMINOPHEN 325 MG TABLET PO PRN (22:01)
[2020-02-19] MEDS ORDERED: MAG HYDROX/AL HYDROX/SIMETH SUSP 30 ML UDCUP PO PRN (22:01)
[2020-02-19] MEDS ORDERED: MELATONIN 5 MG TABLET PO PRN ×2 (22:08→23:00)
[2020-02-19] MEDS ORDERED: GUAIFENESIN SYRP 200 MG/10 ML UDC PO PRN (22:08)
[2020-02-19] MEDS ORDERED: MORPHINE SULFATE 10 MG/ML INJ IV PRN (22:08)
[2020-02-19] MEDS ORDERED: LORAZEPAM INJ 2 MG/1 ML VIAL IV PRN (22:08)
[2020-02-19 22:46] LABS: APPEARANCE,URINE CLEAR; BILIRUBIN,URINE NEGATIVE (NEGATIVE); COLOR,URINE YELLOW; GLUCOSE, URINE NEGATIVE (NEGATIVE); KETONES,URINE NEGATIVE (NEGATIVE); LEUKOCYTE ESTERASE,URINE SMALL (NEGATIVE); NITRITE,URINE NEGATIVE (NEGATIVE); PROTEIN,URINE NEGATIVE (NEGATIVE); URINE SPECIFIC GRAVITY 1.012; UROBILINOGEN,URINE NEGATIVE mg/dL (<2.0)
[2020-02-19 23:14] LABS: CREATINE KINASE MB 0.73 ng/mL (<4.55); TROPONIN I 0.11 ng/mL
--- NOTE | 2020-02-20 00:55 | PDOC H&P ---
History of Present Illness Admission Date/PCP: 02/19/2020 21:32 MICHAEL SHOEMAKER MD Patient complains of: Dyspnea History of Present Illness: CHERIE HUNT is a 89 year old female who presented to the emergency room with a 1 day history of dyspnea. She admits developing dyspnea on the night p rior to admission with gradual worsening of her symptoms which are now severe. Her dyspnea is accompanied by an increase in her usual bilateral ankle edema and is associated with air hunger that has not responded to her use of 2 L of oxygen per minute via nasal cannula as prescribed at home. Her dyspnea is made worse by any exertion or activity. She denies other associated or accompanying signs and symptoms. She admits several prior similar episodes related to heart failure and pneumonia. She has not identified any additional aggravating or ameliorating factors for her dyspnea. The emergency room she was found to have an O2 sat of 100% on 2 L of oxygen via nasal cannula however her ABG showed a compensated respiratory acidosis with significant hypercapnia. Chest x-ray showed a small right pleural effusion and interstitial edema and increased markings consistent congestive heart failure. BNP was 4130. She was subsequently admitted to the hospital for further evaluation treatment. Past Medical History Cardiac Medical History: Reports: Atrial Fibrillation, Congestive Heart Failure, Hypertension Denies: Coronary Artery Disease, DVT, Myocardial Infarction, Pulmonary Embolism Pulmonary Medical History: Reports: Asthma, Chronic Obstructive Pulmonary Disease (COPD), Pneumonia, Respiratory Failure Denies: Bronchitis EENT Medical History: Reports: Eyes - Eyeglasses Denies: Ears - Hearing aids Neurological Medical History: Denies: Hemorrhagic CVA, Ischemic CVA, Seizures Endocrine Medical History: Denies: Diabetes Mellitus Type 1, Diabetes Mellitus Type 2, Hyperthyroidism, Hypothyroidism, Obesity Renal/ Medical History: Denies: Chronic Kidney Disease, Nephrolithiasis Malignancy Medical History: Reports: None GI Medical History: Reports: Gastroesophageal Reflux Disease, Other - Gastrointestinal AVMs with bleeding Denies: Cirrhosis, Crohn's Disease, Hepatitis, Hiatal Hernia, Peptic Ulcer Disease, Ulcerative Colitis Musculoskeltal Medical History: Reports: Arthritis Denies: Gout Skin Medical History: Denies: Eczema, Psoriasis Psychiatric Medical History: Denies: Alcohol Dependency, Depression, Substance Abuse, Tobacco Dependency Traumatic Medical History: Reports: None Hematology: Reports: Anemia - Chronic, Bleeding Tendencies - Gastrointestinal bleeding due to AVMs Infectious Medical History: Reports: None Past Surgical History Past Surgical History: Reports: Cardiac Catheterization, Cholecystectomy, Herniorrhaphy, Pacemaker, Other - EGD with ablation on 09/28/19 Social History Information Source: Patient Lives with: Family Smoking Status: Never Smoker Electronic Cigarette use?: No Frequency of Alcohol Use: None Hx Recreational Drug Use: No Drugs: None Hx Prescription Drug Abuse: No - Advance Directive Resuscitation Status: Full Code Surrogate healthcare decision maker:: Brandi Hunt Family History Family History: CAD, Hypertension, Other - CHF Parental Family History Reviewed: Yes Children Family History Reviewed: No Sibling(s) Family History Reviewed.: Yes Medication/Allergy Home Medications: Spironolactone [Aldactone 25 mg Tablet] 12.5 mg PO DAILY #30 tablet 08/30/19 Carvedilol [Coreg 3.125 mg Tablet] 3.125 mg PO DAILY 10/04/19 Gabapentin [Neurontin 100 mg Capsule] 100 mg PO DAILY 10/04/19 Sucralfate [Carafate 1 gm Tablet] 1 gm PO DAILY 10/04/19 Budesonide/Formoterol Fumarate [Budesonide-Formoterol 80-4.5] 1 inh IH BID #1 inhaler 10/07/19 Cephalexin Monohydrate [Keflex 500 mg Capsule] 500 mg PO TID 2 Days #6 capsule 10/07/19 Furosemide [Lasix 40 mg Tablet] 40 mg PO DAILY #30 10/07/19 Allergies/Adverse Reactions: codeine [Codeine] Allergy (Unknown, Verified 02/19/20 19:12) amoxicillin [Amoxicillin] Allergy (Verified 02/19/20 19:12) Review of Systems Constitutional: ABSENT: chills, fever(s) Eyes: ABSENT: visual disturbances, other - Eye pain Ears: ABSENT: hearing changes, other - Ear pain Nose, Mouth, and Throat: ABSENT: headache(s), sore throat Cardiovascular: PRESENT: as per HPI, dyspnea on exertion, edema. ABSENT: chest pain, orthropnea, palpitations Respiratory: PRESENT: as per HPI, dyspnea. ABSENT: cough Gastrointestinal: ABSENT: abdominal pain, constipation, diarrhea, nausea, vomiting Genitourinary: ABSENT: dysuria, hematuria Musculoskeletal: ABSENT: joint swelling, muscle weakness Integumentary: ABSENT: pruritus, rash Neurological: ABSENT: confusion, convulsions, focal weakness, memory loss, syncope Psychiatric: ABSENT: anxiety, depression Endocrine: ABSENT: cold intolerance, heat intolerance Hematologic/Lymphatic: ABSENT: easy bleeding, easy bruising Allergic/Immunologic: ABSENT: seasonal rhinorrhea Physical Exam Vital Signs: Temp Pulse Resp BP Pulse Ox 98 F 72 24 H 126/61 H 100 02/19/20 18:55 02/19/20 18:55 02/19/20 20:01 02/19/20 20:00 02/19/20 20:01 Intake & Output 02/17/20 02/18/20 02/19/20 23:59 23:59 23:59 Weight 64 kg General appearance: PRESENT: cooperative, mild distress - Mild respiratory distress Head exam: PRESENT: atraumatic, normocephalic Eye exam: PRESENT: conjunctiva pink. ABSENT: conjunctival injection, scleral icterus Ear exam: PRESENT: normal external ear exam. ABSENT: bleeding, drainage Mouth exam: PRESENT: dry mucosa, neck supple Neck exam: PRESENT: JVD - Bilateral at 30 degrees elevation. ABSENT: thyromegaly, tracheal deviation Respiratory exam: PRESENT: decreased breath sounds - Mildly decreased breath sounds throughout all infante, rales - Fine bibasilar rales, symmetrical, tachypnea Cardiovascular exam: PRESENT: irregular rhythm - Irregularly irregular rate and rhythm, systolic murmur - 3/6 systolic crescendo decrescendo murmur heard best at the aortic root with radiation to the neck. ABSENT: clicks, gallop, rubs Pulses: PRESENT: normal radial pulses, normal dorsalis pedis pul Vascular exam: PRESENT: normal capillary refill. ABSENT: pallor GI/Abdominal exam: PRESENT: normal bowel sounds, soft. ABSENT: tenderness Rectal exam: PRESENT: deferred Extremities exam: PRESENT: pedal edema - Mild, +1 edema - Bilateral ankles with the left being greater than the right. ABSENT: joint swelling Musculoskeletal exam: ABSENT: deformity, dislocation Neurological exam: PRESENT: alert, oriented to person, oriented to place, oriented to time, oriented to situation, CN II-XII grossly intact. ABSENT: motor sensory deficit Psychiatric exam: PRESENT: appropriate affect, normal mood Skin exam: PRESENT: dry, intact, warm. ABSENT: jaundice, rash, urticaria Results Laboratory Results: 02/19/20 18:32 02/19/20 18:32 02/19/20 02/19/20 02/19/20 18:32 18:32 18:32 WBC 4.4 RBC 2.72 L Hgb 8.1 L Hct 24.1 L MCV 88 MCH 29.8 MCHC 33.7 RDW 17.2 H Plt Count 246 Seg Neutrophils % 69.6 Carbonic Acid HCO3/H2CO3 Ratio ABG pH ABG pCO2 ABG pO2 ABG HCO3 ABG O2 Saturation ABG Base Excess VBG pH 7.29 L VBG pCO2 75.7 H* VBG HCO3 35.5 H VBG Base Excess 6.6 FiO2 Sodium 135.5 L Potassium 3.6 Chloride 96 L Carbon Dioxide 36 H Anion Gap 4 L BUN 22 H Creatinine 1.31 H Est GFR ( Amer) 46 L Glucose 127 H Calcium 9.1 Total Bilirubin 0.4 AST 26 Alkaline Phosphatase 160 H C-Reactive Protein Total Protein 7.0 Albumin 3.3 L 02/19/20 02/19/20 18:32 20:41 WBC RBC Hgb Hct MCV MCH MCHC RDW Plt Count Seg Neutrophils % Carbonic Acid 2.03 H HCO3/H2CO3 Ratio 17:1 ABG pH 7.35 ABG pCO2 67.5 H ABG pO2 84.6 ABG HCO3 36.3 H ABG O2 Saturation 95.5 ABG Base Excess 9.3 VBG pH VBG pCO2 VBG HCO3 VBG Base Excess FiO2 2L Sodium Potassium Chloride Carbon Dioxide Anion Gap BUN Creatinine Est GFR ( Amer) Glucose Calcium Total Bilirubin AST Alkaline Phosphatase C-Reactive Protein 6.3 Total Protein Albumin 02/19/20 02/19/20 18:32 18:32 Creatine Kinase < 20 L Troponin I 0.098 NT-Pro-B Natriuret Pep 4130 H Impressions: Chest X-Ray 02/19/20 18:35 IMPRESSION: Developing consolidation in the right lower lobe with increasing small right pleural effusion. No pneumothorax. Findings are suspicious for developing pneumonia. Aspiration pneumonitis could have this appearance. Assessment and Plan - Diagnosis (1) Acute on chronic diastolic congestive heart failure Is this a current diagnosis for this admission?: Yes (2) Acute respiratory failure with hypercapnia Is this a current diagnosis for this admission?: Yes (3) Aortic stenosis Qualifiers: Cardiac valve disease etiology: etiology unspecified Qualified Code(s): I35.0 - Nonrheumatic aortic (valve) stenosis Is this a current diagnosis for this admission?: Yes (4) Chronic obstructive lung disease Qualifiers: COPD type: unspecified COPD Qualified Code(s): J44.9 - Chronic obstructive pulmonary disease, unspecified Is this a current diagnosis for this admission?: Yes (5) HTN (hypertension) Qualifiers: Hypertension type: essential hypertension Qualified Code(s): I10 - Essential (primary) hypertension Is this a current diagnosis for this admission?: Yes (6) Normochromic normocytic anemia Is this a current diagnosis for this admission?: Yes - Plan Summary Summary: Patient will be admitted to the [facility] where she will receive routine supportive and symptomatic cares. She will receive diuresis with intravenous Lasix 10 mg every 6 hours. She will receive noninvasive airway pressure support via BiPAP. She will receive morphine sulfate 2 mg IV every hour as needed for severe dyspnea. 0.5 g of nitroglycerin paste will be applied topically every 6 hours. She will be treated with a pulmonary toilet for her COPD. She will be admitted under the congestive heart failure protocol. Anemia studies will be performed in the stool for occult blood will be obtained. Cardiology consultation with Dr. Simpson will be obtained. She will be on a cardiac diet. - Time Time Spent with patient: 15-24 minutes Medications reviewed and adjusted accordingly: Yes Anticipated Discharge Disposition: Home with Home Health Anticipated Discharge: within 72 hours - Inpatient Certification Based on my medical assessment, after consideration of the patient's comorbidities, presenting symptoms, or acuity I expect that the services needed warrant INPATIENT care.: Yes I certify that my determination is in accordance with my understanding of Medicare's requirements for reasonable and necessary INPATIENT services [42 CFR 412.3e].: Yes Medical Necessity: Need Close Monitoring Due to Risk of Patient Decompensation, Need For Continuous Telemetry Monitoring, Need for Nebulizer Therapy and Monitoring of Response, Risk of Complication if Not Cared For in Hospital
[2020-02-20] MEDS: FUROSEMIDE INJ/PF 20 MG/2 ML SDV IV SCH ×3 (02:34→12:24)
[2020-02-20] MEDS: NITROGLYCERIN 2% OINTMENT 1 GM PACKET TP SCH ×4 (02:35→18:15)
[2020-02-20 05:18] LABS: HEMATOCRIT 23.9 % (36.0-47.0); MEAN CORPUSCULAR HEMOGLOBIN 29.8 pg (27.0-33.4); MEAN CORPUSCULAR HGB CONC 33.6 g/dL (32.0-36.0); MEAN CORPUSCULAR VOLUME 89 fl (80-97); PLATELET COUNT 230 10^3/uL (150-450); RED BLOOD COUNT 2.69 10^6/uL (3.72-5.28); RED CELL DISTRIBUTION WIDTH 17.8 % (11.5-14.0); WHITE BLOOD COUNT 5.2 10^3/uL (4.0-10.5)
[2020-02-20 05:39] LABS: BLOOD UREA NITROGEN 22 mg/dL (7-20); CALCIUM 9.2 mg/dL (8.4-10.2); CHLORIDE 98 mmol/L (98-107); CREATINE KINASE 29 U/L (30-135); GLUCOSE 104 mg/dL (75-110); POTASSIUM 3.9 mmol/L (3.6-5.0)
[2020-02-20] MEDS: HEPARIN SOD (PORCINE) 5,000 UNIT/ML 1 ML VIAL SUBCUT SCH ×3 (05:41→21:37)
[2020-02-20 05:42] LABS: ABSOLUTE LYMPHOCYTES# (MANUAL) 0.6 10^3/uL (0.5-4.7); ABSOLUTE MONOCYTES # (MANUAL) 0.6 10^3/uL (0.1-1.4); BASOPHILS % (MANUAL) 0 % (0-2); EOSINOPHILS % (MANUAL) 5 % (0-6); LYMPHOCYTES % (MANUAL) 11 % (13-45); MONOCYTES % (MANUAL) 11 % (3-13); SEGMENTED NEUTROPHILS % (MAN) 73 % (42-78); TOTAL CELLS COUNTED 100
[2020-02-20 05:43] LABS: ANISOCYTOSIS 1+; PLATELET COMMENT ADEQUATE
[2020-02-20 05:45] LABS: CARBON DIOXIDE 34 mmol/L (22-30)
[2020-02-20 05:49] LABS: CREATINE KINASE MB 0.9 ng/mL (<4.55); TROPONIN I 0.11 ng/mL
[2020-02-20 05:51] LABS: ANION GAP 4 (5-19)
[2020-02-20] MEDS ORDERED: PANTOPRAZOLE SODIUM 20 MG TABLET.DR PO SCH (06:00)
--- NOTE | 2020-02-20 09:08 | PDOC CONSULTATION ---
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 The history is obtained from the inpatient record review as the patient is on BiPAP currently and very sleepy, she is unable to answer any questions and does not contribute anything to her history. The patient came yesterday to the emergency room complaining of shortness of breath which she reports got worse the night prior. The emergency room note states that she reported worsening of her lower extremity edema from her baseline. Her chest x-ray on admission demonstrated developing pneumonia with the possibility of aspiration pneumonitis but no evidence of vascular congestion. Her laboratory work-up is most remarkable for anemia with a hemoglobin of 8 and an indeterminate troponin at 0.110 however very close to becoming positive. Her proBNP was elevated at 4180. Physical exam on 02/20/2020: GENERAL: The patient appears her stated age, appears chronically ill, very thin, unable to answer any questions, on BiPAP machine. HEENT: Normocephalic, atraumatic. Pupils equal. Sclerae anicteric. Oropharynx moist. NECK: No JVD. No carotid bruits. LUNGS: Very difficult to evaluate given the background noise, coarse breath sounds bilaterally. CARDIOVASCULAR: Irregularly irregular rate and rhythm, no rubs, or gallops. PMI not displaced. 2 out of 6 systolic murmur throughout the precordium. ABDOMEN: No masses or tenderness to palpation. No bruit. No splenomegaly or hepatomegaly. No abdominal aorta bruit noted. EXTREMITIES: Trace pitting edema bilaterally, no cyanosis, no clubbing. +2 pulses femoral and pedal pulses bilaterally. SKIN: No lesions or rashes. MUSCULOSKELETAL: No chest tenderness to palpation. NEUROLOGIC: Not performed as the patient cannot cooperate with the exam. Past Medical History Cardiac Medical History: Reports: Atrial Fibrillation, Congestive Heart Failure, Hypertension Denies: Coronary Artery Disease, DVT, Myocardial Infarction, Pulmonary Embolism Pulmonary Medical History: Reports: Asthma, Chronic Obstructive Pulmonary Disease (COPD), Pneumonia, Respiratory Failure Denies: Bronchitis EENT Medical History: Reports: Eyes - Eyeglasses Denies: Ears - Hearing aids Neurological Medical History: Denies: Hemorrhagic CVA, Ischemic CVA, Seizures Endocrine Medical History: Denies: Diabetes Mellitus Type 1, Diabetes Mellitus Type 2, Hyperthyroidism, Hypothyroidism, Obesity Renal/ Medical History: Denies: Chronic Kidney Disease, Nephrolithiasis Malignancy Medical History: Reports: None GI Medical History: Reports: Gastroesophageal Reflux Disease, Other - Gastrointestinal AVMs with bleeding Denies: Cirrhosis, Crohn's Disease, Hepatitis, Hiatal Hernia, Peptic Ulcer Disease, Ulcerative Colitis Musculoskeltal Medical History: Reports: Arthritis Denies: Gout Skin Medical History: Denies: Eczema, Psoriasis Psychiatric Medical History: Denies: Alcohol Dependency, Depression, Substance Abuse, Tobacco Dependency Traumatic Medical History: Reports: None Hematology: Reports: Anemia - Chronic, Bleeding Tendencies - Gastrointestinal bleeding due to AVMs Denies: Sickle Cell Disease Infectious Medical History: Reports: None Past Surgical History Past Surgical History: Reports: Cardiac Catheterization, Cholecystectomy, Herniorrhaphy, Pacemaker, Other - EGD with ablation on 09/28/19 Denies: Amputation, Mastectomy Social History Lives with: Family Smoking Status: Never Smoker Electronic Cigarette use?: No Frequency of Alcohol Use: None Hx Recreational Drug Use: No Drugs: None Hx Prescription Drug Abuse: No - Advance Directive Resuscitation Status: Full Code Family History Family History: CAD, Hypertension, Other - CHF Parental Family History Reviewed: Yes Children Family History Reviewed: Yes Sibling(s) Family History Reviewed.: Yes Medication/Allergy Home Medications: Gabapentin [Neurontin 100 mg Capsule] 100 mg PO Q12 10/04/19 Sucralfate [Carafate 1 gm Tablet] 1 gm PO MEALS 10/04/19 Apixaban [Eliquis 5 mg Tablet] 5 mg PO DAILY 02/20/20 Atorvastatin Calcium [Lipitor 80 mg Tablet] 80 mg PO QHS 02/20/20 Carvedilol [Coreg 12.5 mg Tablet] 12.5 mg PO Q12 02/20/20 Furosemide [Lasix 40 mg Tablet] 40 mg PO BID 02/20/20 Pantoprazole Sodium 40 mg PO DAILY 02/20/20 Spironolactone [Aldactone 25 mg Tablet] 25 mg PO DAILY 02/20/20 Tiotropium [place] [Spiriva Respimat] 2 inh IH DAILY 02/20/20 Allergies/Adverse Reactions: codeine [Codeine] Allergy (Unknown, Verified 02/19/20 19:12) amoxicillin [Amoxicillin] Allergy (Verified 02/19/20 19:12) Physical Exam Vital Signs: Temp Pulse Resp BP Pulse Ox 97.3 F 66 22 H 115/68 100 02/20/20 03:37 02/20/20 03:37 02/20/20 04:50 02/20/20 03:37 02/20/20 04:50 Intake & Output 02/19/20 02/20/20 02/21/20 06:59 06:59 06:59 Weight 63.8 kg Results Laboratory Results: 02/20/20 04:23 02/20/20 04:23 02/19/20 02/19/20 02/19/20 18:32 18:32 18:32 WBC 4.4 RBC 2.72 L Hgb 8.1 L Hct 24.1 L MCV 88 MCH 29.8 MCHC 33.7 RDW 17.2 H Plt Count 246 Seg Neutrophils % 69.6 Carbonic Acid HCO3/H2CO3 Ratio ABG pH ABG pCO2 ABG pO2 ABG HCO3 ABG O2 Saturation ABG Base Excess VBG pH 7.29 L VBG pCO2 75.7 H* VBG HCO3 35.5 H VBG Base Excess 6.6 FiO2 Sodium 135.5 L Potassium 3.6 Chloride 96 L Carbon Dioxide 36 H Anion Gap 4 L BUN 22 H Creatinine 1.31 H Est GFR ( Amer) 46 L Glucose 127 H Calcium 9.1 Magnesium Total Bilirubin 0.4 AST 26 Alkaline Phosphatase 160 H C-Reactive Protein Total Protein 7.0 Albumin 3.3 L Urine Color Urine Appearance Urine pH Ur Specific [place] Urine Protein Urine Glucose (UA) Urine Ketones Urine Blood Urine Nitrite Ur Leukocyte Esterase Urine WBC (Auto) Urine RBC (Auto) Blood Type Antibody Screen 02/19/20 02/19/20 02/19/20 18:32 20:41 20:41 WBC RBC Hgb Hct MCV MCH MCHC RDW Plt Count Seg Neutrophils % Carbonic Acid 2.03 H HCO3/H2CO3 Ratio 17:1 ABG pH 7.35 ABG pCO2 67.5 H ABG pO2 84.6 ABG HCO3 36.3 H ABG O2 Saturation 95.5 ABG Base Excess 9.3 VBG pH VBG pCO2 VBG HCO3 VBG Base Excess FiO2 2L Sodium Potassium Chloride Carbon Dioxide Anion Gap BUN Creatinine Est GFR ( Amer) Glucose Calcium Magnesium Total Bilirubin AST Alkaline Phosphatase C-Reactive Protein 6.3 Total Protein Albumin Urine Color Urine Appearance Urine pH Ur Specific [place] Urine Protein Urine Glucose (UA) Urine Ketones Urine Blood Urine Nitrite Ur Leukocyte Esterase Urine WBC (Auto) Urine RBC (Auto) Blood Type O POSITIVE Antibody Screen NEGATIVE 02/19/20 02/20/20 02/20/20 22:15 04:23 04:23 WBC 5.2 RBC 2.69 L Hgb 8.0 L Hct 23.9 L MCV 89 MCH 29.8 MCHC 33.6 RDW 17.8 H Plt Count 230 Seg Neutrophils % Not Reportable Carbonic Acid HCO3/H2CO3 Ratio ABG pH ABG pCO2 ABG pO2 ABG HCO3 ABG O2 Saturation ABG Base Excess VBG pH VBG pCO2 VBG HCO3 VBG Base Excess FiO2 Sodium 136.2 L Potassium 3.9 Chloride 98 Carbon Dioxide 34 H Anion Gap 4 L BUN 22 H Creatinine 1.13 Est GFR ( Amer) 55 L Glucose 104 Calcium 9.2 Magnesium 2.4 H Total Bilirubin AST Alkaline Phosphatase C-Reactive Protein Total Protein Albumin Urine Color YELLOW Urine Appearance CLEAR Urine pH 5.0 Ur Specific [place] 1.012 Urine Protein NEGATIVE Urine Glucose (UA) NEGATIVE Urine Ketones NEGATIVE Urine Blood NEGATIVE Urine Nitrite NEGATIVE Ur Leukocyte Esterase SMALL H Urine WBC (Auto) 19 Urine RBC (Auto) 2 Blood Type Antibody Screen 02/19/20 02/19/20 02/19/20 18:32 18:32 22:34 Creatine Kinase < 20 L 28 L CK-MB (CK-2) Troponin I 0.098 NT-Pro-B Natriuret Pep 4130 H 02/19/20 02/20/20 02/20/20 22:34 04:23 04:23 Creatine Kinase 29 L CK-MB (CK-2) 0.73 0.90 Troponin I 0.110 0.110 NT-Pro-B Natriuret Pep 4180 H Impressions: Chest X-Ray 02/19/20 18:35 IMPRESSION: Developing consolidation in the right lower lobe with increasing small right pleural effusion. No pneumothorax. Findings are suspicious for developing pneumonia. Aspiration pneumonitis could have this appearance. 02/20/20 04:23 02/20/20 04:23 MCV 89 fl (80-97) 02/20/20 04:23 MCH 29.8 pg (27.0-33.4) 02/20/20 04:23 MCHC 33.6 g/dL (32.0-36.0) 02/20/20 04:23 RDW 17.8 % (11.5-14.0) H 02/20/20 04:23 Seg Neutrophils % Not Reportable 02/20/20 04:23 Carbonic Acid 2.03 mmol/L (1.05-1.35) H 02/19/20 20:41 HCO3/H2CO3 Ratio 17:1 02/19/20 20:41 ABG pH 7.35 (7.35-7.45) 02/19/20 20:41 ABG pCO2 67.5 mmHg (35-45) H 02/19/20 20:41 ABG pO2 84.6 mmHg (80-100) 02/19/20 20:41 ABG HCO3 36.3 mmol/L (20-24) H 02/19/20 20:41 ABG O2 Saturation 95.5 % (94-98) 02/19/20 20:41 ABG Base Excess 9.3 mmol/L 02/19/20 20:41 VBG pH 7.29 (7.30-7.42) L 02/19/20 18:32 VBG pCO2 75.7 mmHg (35-63) H* 02/19/20 18:32 VBG HCO3 35.5 mmol/L (20-32) H 02/19/20 18:32 VBG Base Excess 6.6 mmol/L 02/19/20 18:32 FiO2 2L 02/19/20 20:41 Chloride 98 mmol/L (98-107) 02/20/20 04:23 Carbon Dioxide 34 mmol/L (22-30) H 02/20/20 04:23 Anion Gap 4 (5-19) L 02/20/20 04:23 Est GFR ( Amer) 55 (>60) L 02/20/20 04:23 Glucose 104 mg/dL (75-110) 02/20/20 04:23 Calcium 9.2 mg/dL (8.4-10.2) 02/20/20 04:23 Magnesium 2.4 mg/dL (1.6-2.3) H 02/20/20 04:23 Total Bilirubin 0.4 mg/dL (0.2-1.3) 02/19/20 18:32 AST 26 U/L (14-36) 02/19/20 18:32 Alkaline Phosphatase 160 U/L (38-126) H 02/19/20 18:32 C-Reactive Protein 6.3 mg/L (<10.0) 02/19/20 18:32 Total Protein 7.0 g/dL (6.3-8.2) 02/19/20 18:32 Albumin 3.3 g/dL (3.5-5.0) L 02/19/20 18:32 Urine Color YELLOW 02/19/20 22:15 Urine Appearance CLEAR 02/19/20 22:15 Urine pH 5.0 (5.0-9.0) 02/19/20 22:15 Ur Specific [place] 1.012 02/19/20 22:15 Urine Protein NEGATIVE mg/dL (NEGATIVE) 02/19/20 22:15 Urine Glucose (UA) NEGATIVE mg/dL (NEGATIVE) 02/19/20 22:15 Urine Ketones NEGATIVE mg/dL (NEGATIVE) 02/19/20 22:15 Urine Blood NEGATIVE (NEGATIVE) 02/19/20 22:15 Urine Nitrite NEGATIVE (NEGATIVE) 02/19/20 22:15 Ur Leukocyte Esterase SMALL (NEGATIVE) H 02/19/20 22:15 Urine WBC (Auto) 19 /HPF 02/19/20 22:15 Urine RBC (Auto) 2 /HPF 02/19/20 22:15 Blood Type O POSITIVE 02/19/20 20:41 Antibody Screen NEGATIVE 02/19/20 20:41 02/19/20 02/19/20 02/19/20 18:32 18:32 22:34 Creatine Kinase < 20 L 28 L CK-MB (CK-2) Troponin I 0.098 NT-Pro-B Natriuret Pep 4130 H 02/19/20 02/20/20 02/20/20 22:34 04:23 04:23 Creatine Kinase 29 L CK-MB (CK-2) 0.73 0.90 Troponin I 0.110 0.110 NT-Pro-B Natriuret Pep 4180 H Current Medication List Generic Name Dose Route Start Last Admin Trade Name Freq PRN Reason Stop Dose Admin Acetaminophen 650 mg 02/19/20 22:01 Tylenol 325 Mg Tablet PO 03/20/20 22:00 Q4HP PRN pain or temp greater than 101F Al Hydrox/Mg Hydrox/Simethicone 30 ml 02/19/20 22:01 Maalox Plus Susp 30 Udcup PO 03/20/20 22:00 Q4HP PRN HEARTBURN Clopidogrel Bisulfate 75 mg 02/20/20 10:00 Plavix 75 Mg Tablet PO 03/21/20 09:59 DAILY OSMAR Docusate Sodium 100 mg 02/20/20 10:00 Colace 100 Mg Capsule PO 03/21/20 09:59 DAILY OSMAR Furosemide 10 mg 02/20/20 00:00 02/20/20 05:41 Lasix Inj/Pf 20 Mg/2 Ml Sdv IV 03/21/20 00:00 10 mg Q6 OSMAR Administration Guaifenesin 200 mg 02/19/20 22:08 Robitussin Syrup 200 Mg/10 Ml Ud Cup PO 03/20/20 22:07 Q4HP PRN COUGH Heparin Sodium (Porcine) 5,000 unit 02/20/20 06:00 02/20/20 05:41 Heparin Inj 5,000 Units/Ml 1 Ml Vial SUBCUT 03/21/20 05:59 5,000 unit Q8 OSMAR Administration Lorazepam 0.5 mg 02/19/20 22:08 Ativan Inj 2 Mg/1 Ml Vial IV 02/26/20 22:07 Q4HP PRN ANXIETY/AGITATION Magnesium Hydroxide 30 ml 02/19/20 22:01 Milk Of Magnesia 30 Ml Udcup PO 03/20/20 22:00 HSP PRN FOR CONSTIPATION Melatonin 5 mg 02/19/20 23:00 Melatonin 5 Mg Tablet PO 03/20/20 22:07 HSP PRN SLEEP OR INSOMNIA Morphine Sulfate 2 mg 02/19/20 22:08 02/19/20 23:05 Morphine 10 Mg/Ml Inj IV 02/26/20 22:07 2 mg Q1HP PRN Administration Acute Severe Dyspnea Nitroglycerin 0.5 gm 02/20/20 00:00 02/20/20 05:42 Nitrol 2% Ointment 1gm Packet TP 03/21/20 00:00 0.5 gm Q6 OSMAR Administration Pantoprazole Sodium 20 mg 02/20/20 06:00 02/20/20 05:[address] Tablet PO 03/21/20 05:59 20 mg Q6AM OSMAR Administration Promethazine HCl 6.25 mg 02/19/20 22:01 Phenergan Inj 25 Mg/1 Ml Vial IV 03/20/20 22:00 Q4HP PRN FOR NAUSEA/VOMITING Sodium Chloride 2.5 ml 02/20/20 06:00 02/20/20 06:12 Saline Flush 2.5 Ml Monoject Prefil Syrin IV 03/21/20 05:59 Not Given Q8 OSMAR Discontinued Medications Generic Name Dose Route Start Last Admin Trade Name Freq PRN Reason Stop Dose Admin Albuterol/Ipratropium 3 ml 02/19/20 19:25 02/19/20 19:49 Duoneb 3 Ml Ampul NEB 02/19/20 19:26 3 ml NOW ONE Administration Melatonin 5 mg 02/19/20 22:08 Melatonin 5 Mg Tablet PO 03/20/20 22:07 QHS PRN SLEEP OR INSOMNIA Assessment & Plan - Diagnosis (1) Acute exacerbation of CHF (congestive heart failure) Qualifiers: Heart failure type: diastolic Qualified Code(s): I50.33 - Acute on chronic diastolic (congestive) heart failure Plan: The patient is consulted for evaluation of heart failure however she does not have significant lower extremity edema and her chest x-ray is not consistent with vascular congestion. Her elevated proBNP might be even secondary to her acute and developing pneumonia although it is higher than her prior admission back in September 2019. At that point she was evaluated by her outpatient cardiology, Dr Webster who recommended against escalation of diuresis. Her physical exam is not consistent with overt fluid overload. Given her comorbidities and her age, she had been deemed not candidate for aggressive cardiovascular interventions. Recommendations: -Echocardiogram to assess for structural heart disease. -Recommend hospitalist have meeting with family to address aggressiveness of medical interventions as well as end of life issues as the patient is very ill and does not appear to be a candidate for aggressive management at this time. -Continue with current medical management for now. -Strict intake and output. -Restrict fluid intake to 1500 cc for now. (2) Atrial fibrillation Qualifiers: Atrial fibrillation type: unspecified Qualified Code(s): I48.91 - Unspecified atrial fibrillation Is this a current diagnosis for this admission?: Yes Plan: She is currently rate controlled and intermittently paced. I do not believe the patient is a candidate for anticoagulation given her comorbidities particularly her worsening anemia when compared to an admission back in December 2019. Recommendations: -Continue with clinical follow-up. (3) Elevated troponin Plan: Her troponin continues to be in the indeterminate range however back in September 2027 was as high as 0.36 and, her outpatient cad operator at that time, recommended no aggressive interventions. Certainly during this admission she is not a candidate for aggressive cardiovascular interventions therefore we will continue with clinical follow-up. Once again, I recommend the hospitalist team to have a family meeting and discuss aggressiveness of medical interventions.
--- NOTE | 2020-02-20 10:24 | EKG REPORT ---
SEVERITY:- ABNORMAL ECG - VENTRICULAR-PACED COMPLEXES RIGHT BUNDLE BRANCH BLOCK NONSPECIFIC ST DEPRESSION, ANT-LAT LEADS : Confirmed by: Tootie Steven 20-Feb-2020 10:23:22
[2020-02-20 11:38] LABS: CREATINE KINASE MB 0.74 ng/mL (<4.55)
[2020-02-20 11:45] LABS: TROPONIN I 0.129 ng/mL
[2020-02-20] MEDS: DOCUSATE SODIUM 100 MG CAPSULE PO SCH (12:24)
[2020-02-20] MEDS: CLOPIDOGREL BISULFATE 75 MG TABLET PO SCH (12:24)
[2020-02-20 15:16] LABS: CREATINE KINASE MB 0.77 ng/mL (<4.55)
[2020-02-20 15:20] LABS: TROPONIN I 0.204 ng/mL
[2020-02-20] MEDS ORDERED: MORPHINE SULFATE 10 MG/ML INJ IV PRN (15:28)
--- NOTE | 2020-02-20 15:54 | PDOC PROGRESS REPORT ---
Subjective Progress Note for:: 02/20/20 Subjective:: Patient still on BiPAP. Seems drowsy and not volunteering much in terms of subjective during encounter this morning. Reason For Visit: ACUTE ON CHRONIC DIASTOLIC CONGESTIVE HEART Physical Exam Vital Signs: Temp Pulse Resp BP Pulse Ox 98.1 F 87 23 H 132/51 H 98 02/20/20 11:08 02/20/20 14:00 02/20/20 11:08 02/20/20 11:08 02/20/20 11:08 Intake & Output 02/19/20 02/20/20 02/21/20 06:59 06:59 06:59 Intake Total 0 0 Output Total 0 Balance 0 0 Weight 64.2 kg 64.2 kg General appearance: PRESENT: no acute distress, cooperative Neck exam: ABSENT: JVD Respiratory exam: PRESENT: decreased breath sounds, prolonged expiratory phas, symmetrical, tachypnea, unlabored. ABSENT: accessory muscle use, retraction, wheezes Cardiovascular exam: PRESENT: RRR, +S1, +S2. ABSENT: tachycardia GI/Abdominal exam: PRESENT: soft. ABSENT: rebound, rigid, tenderness Neurological exam: PRESENT: awake, other - Appears drowsy during encounter this morning. Able to wake up easily to verbal and keep eyes open for a while. Able to respond very briefly to question. Psychiatric exam: ABSENT: agitated, anxious Focused psych exam: ABSENT: pressured speech Skin exam: ABSENT: jaundice Results Laboratory Results: 02/20/20 04:23 02/20/20 04:23 02/19/20 02/19/20 02/19/20 18:32 18:32 18:32 WBC 4.4 RBC 2.72 L Hgb 8.1 L Hct 24.1 L MCV 88 MCH 29.8 MCHC 33.7 RDW 17.2 H Plt Count 246 Seg Neutrophils % 69.6 Carbonic Acid HCO3/H2CO3 Ratio ABG pH ABG pCO2 ABG pO2 ABG HCO3 ABG O2 Saturation ABG Base Excess VBG pH 7.29 L VBG pCO2 75.7 H* VBG HCO3 35.5 H VBG Base Excess 6.6 FiO2 Sodium 135.5 L Potassium 3.6 Chloride 96 L Carbon Dioxide 36 H Anion Gap 4 L BUN 22 H Creatinine 1.31 H Est GFR ( Amer) 46 L Glucose 127 H Calcium 9.1 Magnesium Total Bilirubin 0.4 AST 26 Alkaline Phosphatase 160 H C-Reactive Protein Total Protein 7.0 Albumin 3.3 L Urine Color Urine Appearance Urine pH Ur Specific [place] Urine Protein Urine Glucose (UA) Urine Ketones Urine Blood Urine Nitrite Ur Leukocyte Esterase Urine WBC (Auto) Urine RBC (Auto) Blood Type Antibody Screen 02/19/20 02/19/20 02/19/20 18:32 20:41 20:41 WBC RBC Hgb Hct MCV MCH MCHC RDW Plt Count Seg Neutrophils % Carbonic Acid 2.03 H HCO3/H2CO3 Ratio 17:1 ABG pH 7.35 ABG pCO2 67.5 H ABG pO2 84.6 ABG HCO3 36.3 H ABG O2 Saturation 95.5 ABG Base Excess 9.3 VBG pH VBG pCO2 VBG HCO3 VBG Base Excess FiO2 2L Sodium Potassium Chloride Carbon Dioxide Anion Gap BUN Creatinine Est GFR ( Amer) Glucose Calcium Magnesium Total Bilirubin AST Alkaline Phosphatase C-Reactive Protein 6.3 Total Protein Albumin Urine Color Urine Appearance Urine pH Ur Specific [place] Urine Protein Urine Glucose (UA) Urine Ketones Urine Blood Urine Nitrite Ur Leukocyte Esterase Urine WBC (Auto) Urine RBC (Auto) Blood Type O POSITIVE Antibody Screen NEGATIVE 02/19/20 02/20/20 02/20/20 22:15 04:23 04:23 WBC 5.2 RBC 2.69 L Hgb 8.0 L Hct 23.9 L MCV 89 MCH 29.8 MCHC 33.6 RDW 17.8 H Plt Count 230 Seg Neutrophils % Not Reportable Carbonic Acid HCO3/H2CO3 Ratio ABG pH ABG pCO2 ABG pO2 ABG HCO3 ABG O2 Saturation ABG Base Excess VBG pH VBG pCO2 VBG HCO3 VBG Base Excess FiO2 Sodium 136.2 L Potassium 3.9 Chloride 98 Carbon Dioxide 34 H Anion Gap 4 L BUN 22 H Creatinine 1.13 Est GFR ( Amer) 55 L Glucose 104 Calcium 9.2 Magnesium 2.4 H Total Bilirubin AST Alkaline Phosphatase C-Reactive Protein Total Protein Albumin Urine Color YELLOW Urine Appearance CLEAR Urine pH 5.0 Ur Specific [place] 1.012 Urine Protein NEGATIVE Urine Glucose (UA) NEGATIVE Urine Ketones NEGATIVE Urine Blood NEGATIVE Urine Nitrite NEGATIVE Ur Leukocyte Esterase SMALL H Urine WBC (Auto) 19 Urine RBC (Auto) 2 Blood Type Antibody Screen 02/19/20 02/19/20 02/19/20 18:32 18:32 22:34 Creatine Kinase < 20 L 28 L CK-MB (CK-2) Troponin I 0.098 NT-Pro-B Natriuret Pep 4130 H 02/19/20 02/20/20 02/20/20 22:34 04:23 04:23 Creatine Kinase 29 L CK-MB (CK-2) 0.73 0.90 Troponin I 0.110 0.110 NT-Pro-B Natriuret Pep 4180 H 02/20/20 02/20/20 02/20/20 10:20 10:20 14:05 Creatine Kinase 30 31 CK-MB (CK-2) 0.74 Troponin I 0.129 NT-Pro-B Natriuret Pep 02/20/20 14:05 Creatine Kinase CK-MB (CK-2) 0.77 Troponin I 0.204 NT-Pro-B Natriuret Pep Impressions: Chest X-Ray 02/19/20 18:35 IMPRESSION: Developing consolidation in the right lower lobe with increasing small right pleural effusion. No pneumothorax. Findings are suspicious for developing pneumonia. Aspiration pneumonitis could have this appearance. Assessment and Plan - Diagnosis (1) Acute on chronic respiratory failure with hypoxia and hypercapnia Is this a current diagnosis for this admission?: Yes Plan: Likely secondary to COPD. Patient apparently hypoxic on nasal cannula as well. Placed on BiPAP given hypercapnic respiratory acidosis. Placed patient on AVAPS for targeted tidal volume as she was not pulling good volumes on initial BiPAP settings 07/03. We will repeat venous blood gas. Oxygen supplementation as needed. Goal SPO2 89 to 93%. (2) COPD exacerbation Is this a current diagnosis for this admission?: Yes Plan: Though she does not have active wheezing, she does have prolonged expiratory with hypercapnic respiratory failure. I will treat patient with frequent nebulizers, budesonide and prednisone. (3) Acute on chronic diastolic congestive heart failure Is this a current diagnosis for this admission?: Yes Plan: TTE 07/2019 showed EF 60 to 65%, mild LVH, moderate MR. Not totally fluid overloaded at this time on physical assessment even despite h er elevated BNP. I will continue IV Lasix for today only and then switch back to her oral home regimen of Lasix tomorrow morning Cardiology following Strict I's and O's, fluid restriction, monitor on telemetry. (4) Troponin level elevated Is this a current diagnosis for this admission?: Yes Plan: Could be secondary to demand perfusion mismatch from CHF/COPD. Patient could have some underlying CAD given the troponin leak. However, patient has been noted to have poor candidacy for aggressive cardiovascular interventions. We will continue to trend troponin. We will discuss situation with patient's family (5) Chronic anemia Is this a current diagnosis for this admission?: Yes Plan: Hemoglobin is stable at 8. May need to transfuse if hemoglobin drops below 8 especially in light of cardiovascular conditions. Continue to monitor CBC. - Time Time Spent with patient: 15-24 minutes Anticipated Discharge Disposition: Home with Home Health Anticipated Discharge: Other - undetermined
[2020-02-20] MEDS: IPRATROPIUM/ALBUTEROL 0.5-2.5 MG/3 ML AMPUL NEB SCH ×2 (16:00→19:58)
[2020-02-20 16:13] LABS: VENOUS BLOOD BASE EXCESS 9.3 mmol/L; VENOUS BLOOD HCO3 37.7 mmol/L (20-32); VENOUS BLOOD PH 7.3 (7.30-7.42)
[2020-02-20 16:15] LABS: VENOUS BLOOD PCO2 78.6 mmHg (35-63)
[2020-02-20] MEDS ORDERED: AZITHROMYCIN 250 MG TABLET PO ONE (16:36)
[2020-02-20] MEDS ORDERED: FUROSEMIDE INJ/PF 40 MG/4 ML SDV IV ONE (18:00)
[2020-02-20] MEDS: PREDNISONE 20 MG TABLET PO SCH (18:15)
[2020-02-20] MEDS: SUCRALFATE 1 GM TABLET PO SCH ×2 (18:16→21:37)
[2020-02-20] MEDS: CEFTRIAXONE 2 GM/D5W RTU 2 GM/50 ML RTUPB IV SCH (18:17)
[2020-02-20 19:03] LABS: VENOUS BLOOD BASE EXCESS 8.7 mmol/L; VENOUS BLOOD HCO3 35.9 mmol/L (20-32); VENOUS BLOOD PH 7.34 (7.30-7.42)
[2020-02-20] MEDS: BUDESONIDE NEB 0.25 MG/2 ML AMPUL NEB SCH (19:58)
[2020-02-20] MEDS: CARVEDILOL 12.5 MG TABLET PO SCH (21:37)
[2020-02-20] MEDS: ATORVASTATIN CALCIUM 80 MG TABLET PO SCH (21:37)
--- NOTE | 2020-02-20 21:41 | EKG REPORT ---
SEVERITY:- ABNORMAL ECG - VENTRICULAR-PACED COMPLEXES RIGHT BUNDLE BRANCH BLOCK BORDERLINE ST DEPRESSION, LATERAL LEADS UNDERLYING A FIB : Confirmed by: Tootie Steven 20-Feb-2020 21:40:59
[2020-02-20] MEDS: METRONIDAZOLE 500 MG TABLET PO SCH (21:53)
[2020-02-21] MEDS: NITROGLYCERIN 2% OINTMENT 1 GM PACKET TP SCH ×3 (00:36→12:14)
[2020-02-21] MEDS: IPRATROPIUM/ALBUTEROL 0.5-2.5 MG/3 ML AMPUL NEB SCH ×4 (03:39→20:05)
[2020-02-21 05:40] LABS: HEMATOCRIT 22.1 % (36.0-47.0); MEAN CORPUSCULAR HEMOGLOBIN 29.6 pg (27.0-33.4); MEAN CORPUSCULAR HGB CONC 33.5 g/dL (32.0-36.0); MEAN CORPUSCULAR VOLUME 88 fl (80-97); PLATELET COUNT 209 10^3/uL (150-450); RED BLOOD COUNT 2.51 10^6/uL (3.72-5.28); RED CELL DISTRIBUTION WIDTH 17.8 % (11.5-14.0); WHITE BLOOD COUNT 4.8 10^3/uL (4.0-10.5)
[2020-02-21 05:42] LABS: HEMOGLOBIN 7.4 g/dL (12.0-15.5)
[2020-02-21] MEDS: HEPARIN SOD (PORCINE) 5,000 UNIT/ML 1 ML VIAL SUBCUT SCH ×3 (06:00→21:40)
[2020-02-21] MEDS: METRONIDAZOLE 500 MG TABLET PO SCH ×3 (06:00→21:39)
[2020-02-21 06:02] LABS: ANION GAP 5 (5-19); BLOOD UREA NITROGEN 22 mg/dL (7-20); CALCIUM 9.3 mg/dL (8.4-10.2); CARBON DIOXIDE 36 mmol/L (22-30); CHLORIDE 96 mmol/L (98-107); GLUCOSE 105 mg/dL (75-110); POTASSIUM 3.4 mmol/L (3.6-5.0)
[2020-02-21] MEDS: SUCRALFATE 1 GM TABLET PO SCH ×4 (07:23→21:39)
[2020-02-21] MEDS ORDERED: NORMAL SALINE 250 ML IV PRN ×2 (07:55)
--- NOTE | 2020-02-21 08:08 | PDOC PROGRESS REPORT ---
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 The history is obtained from the inpatient record review as the patient is on BiPAP currently and very sleepy, she is unable to answer any questions and does not contribute anything to her history. The patient came yesterday to the emergency room complaining of shortness of breath which she reports got worse the night prior. The emergency room note states that she reported worsening of her lower extremity edema from her baseline. Her chest x-ray on admission demonstrated developing pneumonia with the possibility of aspiration pneumonitis but no evidence of vascular congestion. Her laboratory work-up is most remarkable for anemia with a hemoglobin of 8 and an indeterminate troponin at 0.110 however very close to becoming positive. Her proBNP was elevated at 4180. 02/21/20: The patient had an uneventful night. Was initially refusing BiPAP but eventually agreed to be treated. Her troponin continues to rise. She is found resting comfortably in bed without her BiPAP machine on. She has no cardiovascular complaints and specifically denies chest pain and shortness of breath. Unfortunately her anemia continues to worsen with a hemoglobin of 7.4. Her telemetry shows underlying atrial fibrillation with intermittent ventricular pacing. Physical exam on 02/21/2020: GENERAL: The patient appears her stated age, appears chronically ill, very thin, more awake this morning and able to answer questions. In no particular distress. HEENT: Normocephalic, atraumatic. Pupils equal. Sclerae anicteric. Oropharynx moist. NECK: No JVD. No carotid bruits. LUNGS: Very difficult to evaluate given the background noise, coarse breath sounds bilaterally. CARDIOVASCULAR: Irregularly irregular rate and rhythm, no rubs, or gallops. PMI not displaced. 2 out of 6 systolic murmur throughout the precordium however more pronounced at the right upper sternal border. EXTREMITIES: Trace pitting edema bilaterally, no cyanosis, no clubbing. +2 pulses femoral and pedal pulses bilaterally. SKIN: No lesions or rashes. MUSCULOSKELETAL: No chest tenderness to palpation. NEUROLOGIC: Not performed as the patient cannot cooperate with the exam. Reason For Visit: ACUTE ON CHRONIC DIASTOLIC CONGESTIVE HEART Physical Exam Vital Signs: Temp Pulse Resp BP Pulse Ox 98.2 F 81 18 115/54 L 98 02/21/20 03:40 02/21/20 03:40 02/21/20 03:40 02/21/20 03:40 02/21/20 03:40 Intake & Output 02/19/20 02/20/20 02/21/20 06:59 06:59 06:59 Intake Total 0 200 Output Total 0 700 Balance 0 -500 Weight 64.2 kg 64.2 kg Results Laboratory Results: 02/20/20 04:23 02/20/20 04:23 02/20/20 02/20/20 02/20/20 04:23 04:23 15:58 WBC 5.2 RBC 2.69 L Hgb 8.0 L Hct 23.9 L MCV 89 MCH 29.8 MCHC 33.6 RDW 17.8 H Plt Count 230 Seg Neutrophils % Not Reportable VBG pH 7.30 VBG pCO2 78.6 H* VBG HCO3 37.7 H VBG Base Excess 9.3 Sodium 136.2 L Potassium 3.9 Chloride 98 Carbon Dioxide 34 H Anion Gap 4 L BUN 22 H Creatinine 1.13 Est GFR ( Amer) 55 L Glucose 104 Calcium 9.2 Magnesium 2.4 H 02/20/20 18:50 WBC RBC Hgb Hct MCV MCH MCHC RDW Plt Count Seg Neutrophils % VBG pH 7.34 VBG pCO2 68.0 H* VBG HCO3 35.9 H VBG Base Excess 8.7 Sodium Potassium Chloride Carbon Dioxide Anion Gap BUN Creatinine Est GFR ( Amer) Glucose Calcium Magnesium 02/19/20 02/19/20 02/19/20 18:32 18:32 22:34 Creatine Kinase < 20 L 28 L CK-MB (CK-2) Troponin I 0.098 NT-Pro-B Natriuret Pep 4130 H 02/19/20 02/20/20 02/20/20 22:34 04:23 04:23 Creatine Kinase 29 L CK-MB (CK-2) 0.73 0.90 Troponin I 0.110 0.110 NT-Pro-B Natriuret Pep 4180 H 02/20/20 02/20/20 02/20/20 10:20 10:20 14:05 Creatine Kinase 30 31 CK-MB (CK-2) 0.74 Troponin I 0.129 NT-Pro-B Natriuret Pep 02/20/20 14:05 Creatine Kinase CK-MB (CK-2) 0.77 Troponin I 0.204 NT-Pro-B Natriuret Pep Impressions: Chest X-Ray 02/19/20 18:35 IMPRESSION: Developing consolidation in the right lower lobe with increasing small right pleural effusion. No pneumothorax. Findings are suspicious for developing pneumonia. Aspiration pneumonitis could have this appearance. 02/20/20 04:23 02/20/20 04:23 MCV 89 fl (80-97) 02/20/20 04:23 MCH 29.8 pg (27.0-33.4) 02/20/20 04:23 MCHC 33.6 g/dL (32.0-36.0) 02/20/20 04:23 RDW 17.8 % (11.5-14.0) H 02/20/20 04:23 Seg Neutrophils % Not Reportable 02/20/20 04:23 Carbonic Acid 2.03 mmol/L (1.05-1.35) H 02/19/20 20:41 HCO3/H2CO3 Ratio 17:1 02/19/20 20:41 ABG pH 7.35 (7.35-7.45) 02/19/20 20:41 ABG pCO2 67.5 mmHg (35-45) H 02/19/20 20:41 ABG pO2 84.6 mmHg (80-100) 02/19/20 20:41 ABG HCO3 36.3 mmol/L (20-24) H 02/19/20 20:41 ABG O2 Saturation 95.5 % (94-98) 02/19/20 20:41 ABG Base Excess 9.3 mmol/L 02/19/20 20:41 VBG pH 7.34 (7.30-7.42) 02/20/20 18:50 VBG pCO2 68.0 mmHg (35-63) H* 02/20/20 18:50 VBG HCO3 35.9 mmol/L (20-32) H 02/20/20 18:50 VBG Base Excess 8.7 mmol/L 02/20/20 18:50 FiO2 2L 02/19/20 20:41 Chloride 98 mmol/L (98-107) 02/20/20 04:23 Carbon Dioxide 34 mmol/L (22-30) H 02/20/20 04:23 Anion Gap 4 (5-19) L 02/20/20 04:23 Est GFR ( Amer) 55 (>60) L 02/20/20 04:23 Glucose 104 mg/dL (75-110) 02/20/20 04:23 Calcium 9.2 mg/dL (8.4-10.2) 02/20/20 04:23 Magnesium 2.4 mg/dL (1.6-2.3) H 02/20/20 04:23 Total Bilirubin 0.4 mg/dL (0.2-1.3) 02/19/20 18:32 AST 26 U/L (14-36) 02/19/20 18:32 Alkaline Phosphatase 160 U/L (38-126) H 02/19/20 18:32 C-Reactive Protein 6.3 mg/L (<10.0) 02/19/20 18:32 Total Protein 7.0 g/dL (6.3-8.2) 02/19/20 18:32 Albumin 3.3 g/dL (3.5-5.0) L 02/19/20 18:32 Urine Color YELLOW 02/19/20 22:15 Urine Appearance CLEAR 02/19/20 22:15 Urine pH 5.0 (5.0-9.0) 02/19/20 22:15 Ur Specific [place] 1.012 02/19/20 22:15 Urine Protein NEGATIVE mg/dL (NEGATIVE) 02/19/20 22:15 Urine Glucose (UA) NEGATIVE mg/dL (NEGATIVE) 02/19/20 22:15 Urine Ketones NEGATIVE mg/dL (NEGATIVE) 02/19/20 22:15 Urine Blood NEGATIVE (NEGATIVE) 02/19/20 22:15 Urine Nitrite NEGATIVE (NEGATIVE) 02/19/20 22:15 Ur Leukocyte Esterase SMALL (NEGATIVE) H 02/19/20 22:15 Urine WBC (Auto) 19 /HPF 02/19/20 22:15 Urine RBC (Auto) 2 /HPF 02/19/20 22:15 Blood Type O POSITIVE 02/19/20 20:41 Antibody Screen NEGATIVE 02/19/20 20:41 02/19/20 02/19/20 02/19/20 18:32 18:32 22:34 Creatine Kinase < 20 L 28 L CK-MB (CK-2) Troponin I 0.098 NT-Pro-B Natriuret Pep 4130 H 02/19/20 02/20/20 02/20/20 22:34 04:23 04:23 Creatine Kinase 29 L CK-MB (CK-2) 0.73 0.90 Troponin I 0.110 0.110 NT-Pro-B Natriuret Pep 4180 H 02/20/20 02/20/20 02/20/20 10:20 10:20 14:05 Creatine Kinase 30 31 CK-MB (CK-2) 0.74 Troponin I 0.129 NT-Pro-B Natriuret Pep 02/20/20 14:05 Creatine Kinase CK-MB (CK-2) 0.77 Troponin I 0.204 NT-Pro-B Natriuret Pep Current Medication List Generic Name Dose Route Start Last Admin Trade Name Freq PRN Reason Stop Dose Admin Acetaminophen 650 mg 02/19/20 22:01 Tylenol 325 Mg Tablet PO 03/20/20 22:00 Q4HP PRN pain or temp greater than 101F Al Hydrox/Mg Hydrox/Simethicone 30 ml 02/19/20 22:01 Maalox Plus Susp 30 Udcup PO 03/20/20 22:00 Q4HP PRN HEARTBURN Albuterol/Ipratropium 3 ml 02/20/20 15:15 02/21/20 03:39 Duoneb 3 Ml Ampul NEB 03/21/20 15:14 Not Given RTQ6 OSMAR Atorvastatin Calcium 80 mg 02/20/20 22:00 02/20/20 21:37 Lipitor 80 Mg Tablet PO 03/21/20 21:59 80 mg QHS OSMAR Administration Azithromycin 250 mg 02/21/20 10:00 Zithromax 250 Mg Tablet PO 02/24/20 10:01 DAILY OSMAR Budesonide 0.25 mg 02/20/20 20:00 02/20/20 19:58 Pulmicort Neb 0.25 Mg/2 Ml Ampul NEB 03/21/20 19:59 0.25 mg RTQ12 OSMAR Administration Carvedilol 12.5 mg 02/20/20 22:00 02/20/20 21:37 Coreg 12.5 Mg Tablet PO 03/21/20 21:59 12.5 mg Q12 OSMAR Administration Clopidogrel Bisulfate 75 mg 02/20/20 10:00 02/20/20 12:24 Plavix 75 Mg Tablet PO 03/21/20 09:59 75 mg DAILY OSMAR Administration Docusate Sodium 100 mg 02/20/20 10:00 02/20/20 12:24 Colace 100 Mg Capsule PO 03/21/20 09:59 100 mg DAILY OSMAR Administration Ferrous Sulfate 325 mg 02/21/20 10:00 Feosol 325 Mg Tablet PO 03/22/20 09:59 DAILY OSMAR Furosemide 40 mg 02/21/20 10:00 Lasix 40 Mg Tablet PO 03/22/20 09:59 BID [facility] Guaifenesin 200 mg 02/19/20 22:08 Robitussin Syrup 200 Mg/10 Ml Ud Cup PO 03/20/20 22:07 Q4HP PRN COUGH Heparin Sodium (Porcine) 5,000 unit 02/20/20 06:00 02/20/20 21:37 Heparin Inj 5,000 Units/Ml 1 Ml Vial SUBCUT 03/21/20 05:59 5,000 unit Q8 [facility] Administration Ceftriaxone Sodium/Dextrose 2 gm in 50 mls @ 100 mls/hr 02/20/20 16:30 02/20/20 19:10 Rocephin Rtu 2 Gm/D5w 50 Ml Premix Bag IV 02/27/20 16:29 Infused DAILY [facility] Infusion Loratadine 10 mg 02/21/20 10:00 Claritin 10 Mg Tablet PO 03/22/20 09:59 DAILY [facility] Magnesium Hydroxide 30 ml 02/19/20 22:01 Milk Of Magnesia 30 Ml Udcup PO 03/20/20 22:00 HSP PRN FOR CONSTIPATION Melatonin 5 mg 02/19/20 23:00 Melatonin 5 Mg Tablet PO 03/20/20 22:07 HSP PRN SLEEP OR INSOMNIA Metronidazole 500 mg 02/20/20 22:00 02/20/20 21:53 Flagyl 500 Mg Tablet PO 02/27/20 21:59 500 mg Q8 OSMAR Administration Morphine Sulfate 2 mg 02/20/20 15:28 02/20/20 21:38 Morphine 10 Mg/Ml Inj IV 02/27/20 15:26 2 mg Q6HP PRN Administration Acute Severe Dyspnea Nitroglycerin 0.5 gm 02/20/20 00:00 07/26/20 00:36 Nitrol 2% Ointment 1gm Packet TP 03/21/20 00:00 0.5 gm Q6 OSMAR Administration Pantoprazole Sodium 40 mg 02/21/20 10:[address] Tablet PO 03/22/20 09:59 DAILY OSMAR Potassium Chloride 20 meq 02/21/20 10:00 Klor-Con 10 Meq Tablet Er PO 03/22/20 09:59 DAILY OSMAR Prednisone 40 mg 02/20/20 18:00 02/20/20 18:15 Deltasone 20 Mg Tablet PO 03/21/20 17:59 40 mg QPM OSMAR Administration Promethazine HCl 6.25 mg 02/19/20 22:01 Phenergan Inj 25 Mg/1 Ml Vial IV 03/20/20 22:00 Q4HP PRN FOR NAUSEA/VOMITING Sodium Chloride 2.5 ml 02/20/20 06:00 02/20/20 21:50 Saline Flush 2.5 Ml Monoject Prefil Syrin IV 03/21/20 05:59 2.5 ml Q8 OSMAR Administration Sucralfate 1 gm 02/20/20 16:00 02/20/20 21:37 Carafate 1 Gm Tablet PO 03/21/20 15:59 1 gm ACHS OSMAR Administration Discontinued Medications Generic Name Dose Route Start Last Admin Trade Name Freq PRN Reason Stop Dose Admin Albuterol/Ipratropium 3 ml 02/19/20 19:25 02/19/20 19:49 Duoneb 3 Ml Ampul NEB 02/19/20 19:26 3 ml NOW ONE Administration Azithromycin 500 mg 02/20/20 16:36 02/20/20 18:19 Zithromax 250 Mg Tablet PO 02/20/20 16:37 500 mg NOW ONE Administration Furosemide 10 mg 02/20/20 00:00 02/20/20 12:24 Lasix Inj/Pf 20 Mg/2 Ml Sdv IV 03/21/20 00:00 10 mg Q6 OSMAR Administration Furosemide 60 mg 02/20/20 18:00 Lasix Inj/Pf 40 Mg/4 Ml Sdv IV 02/20/20 18:01 WINSOME ONE Lorazepam 0.5 mg 02/19/20 22:08 Ativan Inj 2 Mg/1 Ml Vial IV 02/26/20 22:07 Q4HP PRN ANXIETY/AGITATION Melatonin 5 mg 02/19/20 22:08 Melatonin 5 Mg Tablet PO 03/20/20 22:07 QHS PRN SLEEP OR INSOMNIA Morphine Sulfate 2 mg 02/19/20 22:08 02/19/20 23:05 Morphine 10 Mg/Ml Inj IV 02/26/20 22:07 2 mg Q1HP PRN Administration Acute Severe Dyspnea Pantoprazole Sodium 20 mg 02/20/20 06:00 02/20/20 05:[address] Tablet PO 03/21/20 05:59 20 mg Q6AM OSMAR Administration Assessment & Plan - Diagnosis (1) Acute exacerbation of CHF (congestive heart failure) Qualifiers: Heart failure type: diastolic Qualified Code(s): I50.33 - Acute on chronic diastolic (congestive) heart failure Plan: Acute exacerbation of CHF (congestive heart failure) Qualifiers: Heart failure type: diastolic Qualified Code(s): I50.33 - Acute on chronic diastolic (congestive) heart failure Plan: The patient appears to be euvolemic at least by clinical exam. Her intake and output is somewhat inaccurate and incomplete but she appears to be at least 500 cc negative on her fluid balance. She has no clinical symptoms consistent with heart failure. She is currently on a very appropriate medical regimen for her condition. Recommendations: -Echocardiogram to assess for structural heart disease. -Continue with current medical management for now. -Strict intake and output. -Restrict fluid intake to 1500 cc for now. (2) Atrial fibrillation Qualifiers: Atrial fibrillation type: unspecified Qualified Code(s): I48.91 - Unspecified atrial fibrillation Is this a current diagnosis for this admission?: Yes Plan: She is currently rate controlled and intermittently paced. I do not believe the patient is a candidate for anticoagulation given her comorbidities particularly her worsening anemia when compared to an admission back in December 2019. Recommendations: -Continue with clinical follow-up. (3) Elevated troponin Plan: Her troponin continues to rise with the most recent one at 0.2. I believe this is secondary to demand related ischemia secondary to her anemia and other comorbidities. She has no ischemic symptoms and is currently on appropriate medical management for her overall clinical condition. At this point I do not believe the patient is a candidate for invasive cardiovascular procedures therefore I recommend medical management. Recommendations: -Echocardiogram as ordered. -Continue with current medical management. -Consider blood transfusion to keep hemoglobin above 8 and ideally above 10. -We will continue to follow with you.
[2020-02-21] MEDS: BUDESONIDE NEB 0.25 MG/2 ML AMPUL NEB SCH ×2 (08:34→20:05)
[2020-02-21] MEDS: CARVEDILOL 12.5 MG TABLET PO SCH ×2 (09:14→21:39)
[2020-02-21] MEDS: FERROUS SULFATE 325 MG TABLET PO SCH (09:14)
[2020-02-21] MEDS: AZITHROMYCIN 250 MG TABLET PO SCH (09:14)
[2020-02-21] MEDS: CLOPIDOGREL BISULFATE 75 MG TABLET PO SCH (09:15)
[2020-02-21] MEDS: PANTOPRAZOLE SODIUM 40 MG TABLET.DR PO SCH (09:15)
[2020-02-21] MEDS: POTASSIUM CHLORIDE 10 MEQ TABLET.ER PO SCH ×2 (09:15→16:09)
[2020-02-21] MEDS: CEFTRIAXONE 2 GM/D5W RTU 2 GM/50 ML RTUPB IV SCH (09:15)
[2020-02-21] MEDS: DOCUSATE SODIUM 100 MG CAPSULE PO SCH (09:15)
[2020-02-21] MEDS: FUROSEMIDE 40 MG TABLET PO SCH ×2 (09:15→17:02)
[2020-02-21] MEDS: LORATADINE 10 MG TABLET PO SCH (09:15)
[2020-02-21] MEDS ORDERED: POTASSIUM CHLORIDE 10 MEQ TABLET.ER PO SCH (10:00)
[2020-02-21 11:49] LABS: ARTERIAL BLOOD BASE EXCESS 10.6 mmol/L; ARTERIAL BLOOD FIO2 4.5L; ARTERIAL BLOOD H2CO3 1.65 mmol/L (1.05-1.35); ARTERIAL BLOOD HCO3 36.1 mmol/L (20-24); ARTERIAL BLOOD O2 SATURATION 96.5 % (94-98); ARTERIAL BLOOD PCO2 54.8 mmHg (35-45); ARTERIAL BLOOD PH 7.44 (7.35-7.45); ARTERIAL BLOOD PO2 85.4 mmHg (80-100); ARTERIAL BLOOD TOTAL CO2 37.7 mmol/L (21-25)
--- NOTE | 2020-02-21 14:19 | PDOC PROGRESS REPORT ---
Subjective Progress Note for:: 02/21/20 Subjective:: Patient states that she wants to live when we discussed CODE STATUS. Wants full treatment. Denies any chest pain. Did endorse some shortness of breath. Reason For Visit: ACUTE ON CHRONIC DIASTOLIC CONGESTIVE HEART Physical Exam Vital Signs: Temp Pulse Resp BP Pulse Ox 97.7 F 64 15 109/45 L 97 02/21/20 13:27 02/21/20 13:27 02/21/20 13:27 02/21/20 13:27 02/21/20 13:27 Intake & Output 02/20/20 02/21/20 02/22/20 06:59 06:59 06:59 Intake Total 0 200 750 Output Total 0 700 200 Balance 0 -500 550 Weight 64.2 kg 65.3 kg General appearance: PRESENT: no acute distress, cooperative Neck exam: ABSENT: JVD Respiratory exam: PRESENT: symmetrical, unlabored, wheezes. ABSENT: clear to auscultation nick, crackles, tachypnea Cardiovascular exam: PRESENT: RRR, +S1, +S2. ABSENT: tachycardia GI/Abdominal exam: PRESENT: soft. ABSENT: rebound, rigid, tenderness Neurological exam: PRESENT: alert, awake, oriented to person, oriented to place. ABSENT: oriented to time Results Laboratory Results: 02/21/20 04:43 02/21/20 04:43 02/19/20 02/20/20 02/20/20 20:41 15:58 18:50 WBC RBC Hgb Hct MCV MCH MCHC RDW Plt Count Carbonic Acid HCO3/H2CO3 Ratio ABG pH ABG pCO2 ABG pO2 ABG HCO3 ABG O2 Saturation ABG Base Excess VBG pH 7.30 7.34 VBG pCO2 78.6 H* 68.0 H* VBG HCO3 37.7 H 35.9 H VBG Base Excess 9.3 8.7 FiO2 Sodium Potassium Chloride Carbon Dioxide Anion Gap BUN Creatinine Est GFR ( Amer) Glucose Calcium Magnesium Blood Type O POSITIVE Antibody Screen NEGATIVE 02/21/20 02/21/20 02/21/20 04:43 04:43 11:20 WBC 4.8 RBC 2.51 L Hgb 7.4 L Hct 22.1 L MCV 88 MCH 29.6 MCHC 33.5 RDW 17.8 H Plt Count 209 Carbonic Acid 1.65 H HCO3/H2CO3 Ratio 21:1 ABG pH 7.44 ABG pCO2 54.8 H ABG pO2 85.4 ABG HCO3 36.1 H ABG O2 Saturation 96.5 ABG Base Excess 10.6 VBG pH VBG pCO2 VBG HCO3 VBG Base Excess FiO2 4.5L Sodium 136.7 L Potassium 3.4 L Chloride 96 L Carbon Dioxide 36 H Anion Gap 5 BUN 22 H Creatinine 1.16 Est GFR ( Amer) 53 L Glucose 105 Calcium 9.3 Magnesium 2.3 Blood Type Antibody Screen 02/19/20 02/19/20 02/19/20 18:32 18:32 22:34 Creatine Kinase < 20 L 28 L CK-MB (CK-2) Troponin I 0.098 NT-Pro-B Natriuret Pep 4130 H 02/19/20 02/20/20 02/20/20 22:34 04:23 04:23 Creatine Kinase 29 L CK-MB (CK-2) 0.73 0.90 Troponin I 0.110 0.110 NT-Pro-B Natriuret Pep 4180 H 02/20/20 02/20/20 02/20/20 10:20 10:20 14:05 Creatine Kinase 30 31 CK-MB (CK-2) 0.74 Troponin I 0.129 NT-Pro-B Natriuret Pep 02/20/20 14:05 Creatine Kinase CK-MB (CK-2) 0.77 Troponin I 0.204 NT-Pro-B Natriuret Pep Impressions: Chest X-Ray 02/19/20 18:35 IMPRESSION: Developing consolidation in the right lower lobe with increasing small right pleural effusion. No pneumothorax. Findings are suspicious for developing pneumonia. Aspiration pneumonitis could have this appearance. Assessment and Plan - Diagnosis (1) Acute on chronic respiratory failure with hypoxia and hypercapnia Is this a current diagnosis for this admission?: Yes Plan: Likely secondary to COPD. Repeat ABG shows improvement of hypercapnia. PCO2 down to the 50s. Continue AVAPS.we will transition to nasal cannula intermittently for patient to eat. Oxygen supplementation as needed. Goal SPO2 89 to 93%. (2) Community acquired pneumonia Qualifiers: Laterality: right Lung location: unspecified part of lung Qualified Code(s): J18.9 - Pneumonia, unspecified organism Is this a current diagnosis for this admission?: Yes Plan: Started on IV antibiotics for right-sided pneumonia. Ceftriaxone and azith romycin. Flagyl added in case of aspiration. On nursing assessment, patient is swallowing appropriately without any evidence of dysphagia. (3) COPD exacerbation Is this a current diagnosis for this admission?: Yes Plan: Though she does not have active wheezing, she does have prolonged expiratory with hypercapnic respiratory failure. I will treat patient with frequent nebulizers, budesonide and prednisone. (4) Acute on chronic diastolic congestive heart failure Is this a current diagnosis for this admission?: Yes Plan: TTE 07/2019 showed EF 60 to 65%, mild LVH, moderate MR. Not totally fluid overloaded at this time on physical assessment even despite h er elevated BNP. back to her oral home regimen of Lasix tomorrow morning Cardiology following Strict I's and O's, fluid restriction, monitor on telemetry. (5) Troponin level elevated Is this a current diagnosis for this admission?: Yes Plan: Could be secondary to demand perfusion mismatch from CHF/COPD. Patient could have some underlying CAD given the troponin leak. However, patient has been noted to have poor candidacy for aggressive cardiovascular interventions. (6) Chronic anemia Is this a current diagnosis for this admission?: Yes Plan: Hemoglobin is down to 7.4 today. Given her cardiovascular disease, I will transfuse 1 unit of blood. - Time Time Spent with patient: 15-24 minutes Anticipated Discharge Disposition: Home with Home Health Anticipated Discharge: within 72 hours
[2020-02-21 15:36] LABS: HEMATOCRIT 26.4 % (36.0-47.0); HEMOGLOBIN 8.9 g/dL (12.0-15.5); MEAN CORPUSCULAR HEMOGLOBIN 29.9 pg (27.0-33.4); MEAN CORPUSCULAR HGB CONC 33.9 g/dL (32.0-36.0); MEAN CORPUSCULAR VOLUME 88 fl (80-97); PLATELET COUNT 208 10^3/uL (150-450); RED BLOOD COUNT 2.99 10^6/uL (3.72-5.28); RED CELL DISTRIBUTION WIDTH 16.7 % (11.5-14.0); WHITE BLOOD COUNT 4.8 10^3/uL (4.0-10.5)
[2020-02-21] MEDS: PREDNISONE 20 MG TABLET PO SCH (17:02)
[2020-02-21] MEDS: ATORVASTATIN CALCIUM 80 MG TABLET PO SCH (21:39)
--- NOTE | 2020-02-21 23:33 | CDI QUERY ---
<THERESA ARELLANO - Last Filed: 02/21/20 23:32> CDI Query CDI Review: We are seeking further clarification of documentation to reflect the severity of illness of your patient. Chest X-Ray 02/19/20 18:35 IMPRESSION: Developing consolidation in the right lower lobe with increasing small right pleural effusion. No pneumothorax. Findings are suspicious for developing pneumonia. Aspiration pneumonitis could have this appearance. Per Progress Notes: Community acquired pneumonia Laterality: right Lung location: unspecified part of lung Qualified Code(s): J18.9 - Pneumonia, unspecified organism Is this a current diagnosis for this admission?: Yes Plan: Started on IV antibiotics for right-sided pneumonia. Ceftriaxone and azithromycin. Flagyl added in case of aspiration Based on your medical judgement, can you further clarify in the Progress Notes whether the pneumonia is most likely or suspected to be: Aspiration Pneumonia Gram Negative Pneumonia Gram Positive Pneumonia Viral Pneumonia Other specific organism Other cause (please specify) Unable to determine Thank you for your consideration. ANGELA Prado RN Clinical [employer] Forming Machine Tender Physician Advisor <SONU GONZALEZ - Last Filed: 02/22/20 17:39> CDI Query Agree with Query: No - aspiration pneumonia is a suspected possibility but cannot be confirmed
--- NOTE | 2020-02-21 23:54 | CDI QUERY ---
<THERESA ARELLANO - Last Filed: 02/21/20 23:52> CDI Query CDI Review: We are seeking further clarification of documentation to reflect the severity of illness of your patient. Per Cardiology Note: Acute exacerbation of CHF (congestive heart failure) Heart failure type: diastolic Qualified Code(s): I50.33 - Acute on chronic diastolic (congestive) heart failure Plan: The patient is consulted for evaluation of heart failure however she does not have significant lower extremity edema and her chest x-ray is not consistent with vascular congestion. Her elevated proBNP might be even secondary to her acute and developing pneumonia although it is higher than her prior admission back in September 2019. At that point she was evaluated by her outpatient cardiology, Dr Webster who recommended against escalation of diuresis. Her physical exam is not consistent with overt fluid overload. Given her comorbidities and her age, she had been deemed not candidate for aggressive cardiovascular interventions. Per Progress Notes: Acute on chronic diastolic congestive heart failure Is this a current diagnosis for this admission?: Yes Plan: TTE 07/2019 showed EF 60 to 65%, mild LVH, moderate MR. Not totally fluid overloaded at this time on physical assessment even despite her elevated BNP. I will continue IV Lasix for today only and then switch back to her oral home regimen of Lasix tomorrow morning Cardiology following Strict I's and O's, fluid restriction, monitor on telemetry Based on your medical judgement, can you further clarify in the Progress Notes whether the CHF is most likely or suspected to be: Acute on chronic diastolic CHF POA Acute on chronic diastolic CHF ruled out Acute on chronic diastolic CHF resolved Unable to determine Other Thank you for your consideration. ANGELA Prado RN Clinical Loss Prevention Officer Physician Advisor <SONU GONZALEZ - Last Filed: 02/22/20 17:36> CDI Query Agree with Query: No - please try to read my progress notes more thoroughly. The answers to your questions are usually there.
[2020-02-22] MEDS: IPRATROPIUM/ALBUTEROL 0.5-2.5 MG/3 ML AMPUL NEB SCH ×4 (02:08→20:39)
[2020-02-22 05:27] LABS: HEMOGLOBIN 9.1 g/dL (12.0-15.5); MEAN CORPUSCULAR HEMOGLOBIN 30.1 pg (27.0-33.4); MEAN CORPUSCULAR HGB CONC 33.8 g/dL (32.0-36.0); MEAN CORPUSCULAR VOLUME 89 fl (80-97); PLATELET COUNT 208 10^3/uL (150-450); RED BLOOD COUNT 3.04 10^6/uL (3.72-5.28); RED CELL DISTRIBUTION WIDTH 17.3 % (11.5-14.0)
[2020-02-22 05:51] LABS: ANION GAP 7 (5-19); BLOOD UREA NITROGEN 29 mg/dL (7-20); CALCIUM 9.1 mg/dL (8.4-10.2); CARBON DIOXIDE 34 mmol/L (22-30); CHLORIDE 94 mmol/L (98-107); GLUCOSE 138 mg/dL (75-110)
[2020-02-22 05:59] LABS: POTASSIUM 4.8 mmol/L (3.6-5.0)
[2020-02-22] MEDS: METRONIDAZOLE 500 MG TABLET PO SCH ×3 (06:06→21:47)
[2020-02-22] MEDS: HEPARIN SOD (PORCINE) 5,000 UNIT/ML 1 ML VIAL SUBCUT SCH ×3 (06:06→21:47)
[2020-02-22] MEDS: SUCRALFATE 1 GM TABLET PO SCH ×4 (07:33→21:47)
[2020-02-22] MEDS: BUDESONIDE NEB 0.25 MG/2 ML AMPUL NEB SCH ×2 (08:25→20:39)
--- NOTE | 2020-02-22 09:51 | PDOC PROGRESS REPORT ---
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 The history is obtained from the inpatient record review as the patient is on BiPAP currently and very sleepy, she is unable to answer any questions and does not contribute anything to her history. The patient came yesterday to the emergency room complaining of shortness of breath which she reports got worse the night prior. The emergency room note states that she reported worsening of her lower extremity edema from her baseline. Her chest x-ray on admission demonstrated developing pneumonia with the possibility of aspiration pneumonitis but no evidence of vascular congestion. Her laboratory work-up is most remarkable for anemia with a hemoglobin of 8 and an indeterminate troponin at 0.110 however very close to becoming positive. Her proBNP was elevated at 4180. 02/22/20: The patient had an uneventful night. She was given blood transfusion which in creased her hemoglobin to just above 9. She feels well from a cardiovascular standpoint and specifically denies ischemic and heart failure symptoms. She is much more awake today and is asking when she is going home. Physical exam on 02/22/2020: GENERAL: The patient appears her stated age, appears chronically ill, very thin, more awake this morning and able to answer questions. In no particular distress. HEENT: Normocephalic, atraumatic. Pupils equal. Sclerae anicteric. Oropharynx moist. NECK: No JVD. No carotid bruits. LUNGS: Very difficult to evaluate given the background noise, coarse breath sounds bilaterally. CARDIOVASCULAR: Irregularly irregular rate and rhythm, no rubs, or gallops. PMI not displaced. 2 out of 6 systolic murmur throughout the precordium however more pronounced at the right upper sternal border. EXTREMITIES: No pitting edema bilaterally, no cyanosis, no clubbing. +2 pulses femoral and pedal pulses bilaterally. SKIN: No lesions or rashes. MUSCULOSKELETAL: No chest tenderness to palpation. NEUROLOGIC: Not performed as the patient cannot cooperate with the exam. Reason For Visit: ACUTE ON CHRONIC DIASTOLIC CONGESTIVE HEART Physical Exam Vital Signs: Temp Pulse Resp BP Pulse Ox 97.8 F 79 28 H 123/51 L 96 02/22/20 02:49 02/22/20 02:49 02/22/20 04:36 02/22/20 02:49 02/22/20 04:36 Intake & Output 02/21/20 02/22/20 02/23/20 06:59 06:59 06:59 Intake Total 200 850 Output Total 700 560 Balance -500 290 Weight 65.3 kg 65.3 kg Results Laboratory Results: 02/22/20 04:21 02/22/20 04:21 02/19/20 02/21/20 02/21/20 20:41 11:20 15:00 WBC 4.8 RBC 2.99 L Hgb 8.9 L Hct 26.4 L MCV 88 MCH 29.9 MCHC 33.9 RDW 16.7 H Plt Count 208 Carbonic Acid 1.65 H HCO3/H2CO3 Ratio 21:1 ABG pH 7.44 ABG pCO2 54.8 H ABG pO2 85.4 ABG HCO3 36.1 H ABG O2 Saturation 96.5 ABG Base Excess 10.6 FiO2 4.5L Sodium Potassium Chloride Carbon Dioxide Anion Gap BUN Creatinine Est GFR ( Amer) Glucose Calcium Magnesium Blood Type O POSITIVE Antibody Screen NEGATIVE 02/22/20 02/22/20 04:21 04:21 WBC 4.0 RBC 3.04 L Hgb 9.1 L Hct 27.0 L MCV 89 MCH 30.1 MCHC 33.8 RDW 17.3 H Plt Count 208 Carbonic Acid HCO3/H2CO3 Ratio ABG pH ABG pCO2 ABG pO2 ABG HCO3 ABG O2 Saturation ABG Base Excess FiO2 Sodium 134.7 L Potassium 4.8 D Chloride 94 L Carbon Dioxide 34 H Anion Gap 7 BUN 29 H Creatinine 1.18 Est GFR ( Amer) 52 L Glucose 138 H Calcium 9.1 Magnesium 2.3 Blood Type Antibody Screen 02/19/20 02/19/20 02/19/20 18:32 18:32 22:34 Creatine Kinase < 20 L 28 L CK-MB (CK-2) Troponin I 0.098 NT-Pro-B Natriuret Pep 4130 H 02/19/20 02/20/20 02/20/20 22:34 04:23 04:23 Creatine Kinase 29 L CK-MB (CK-2) 0.73 0.90 Troponin I 0.110 0.110 NT-Pro-B Natriuret Pep 4180 H 02/20/20 02/20/20 02/20/20 10:20 10:20 14:05 Creatine Kinase 30 31 CK-MB (CK-2) 0.74 Troponin I 0.129 NT-Pro-B Natriuret Pep 02/20/20 14:05 Creatine Kinase CK-MB (CK-2) 0.77 Troponin I 0.204 NT-Pro-B Natriuret Pep Impressions: Chest X-Ray 02/19/20 18:35 IMPRESSION: Developing consolidation in the right lower lobe with increasing small right pleural effusion. No pneumothorax. Findings are suspicious for developing pneumonia. Aspiration pneumonitis could have this appearance. 02/22/20 04:21 02/22/20 04:21 MCV 89 fl (80-97) 02/22/20 04:21 MCH 30.1 pg (27.0-33.4) 02/22/20 04:21 MCHC 33.8 g/dL (32.0-36.0) 02/22/20 04:21 RDW 17.3 % (11.5-14.0) H 02/22/20 04:21 Seg Neutrophils % Not Reportable 02/20/20 04:23 Carbonic Acid 1.65 mmol/L (1.05-1.35) H 02/21/20 11:20 HCO3/H2CO3 Ratio 21:1 02/21/20 11:20 ABG pH 7.44 (7.35-7.45) 02/21/20 11:20 ABG pCO2 54.8 mmHg (35-45) H 02/21/20 11:20 ABG pO2 85.4 mmHg (80-100) 02/21/20 11:20 ABG HCO3 36.1 mmol/L (20-24) H 02/21/20 11:20 ABG O2 Saturation 96.5 % (94-98) 02/21/20 11:20 ABG Base Excess 10.6 mmol/L 02/21/20 11:20 VBG pH 7.34 (7.30-7.42) 02/20/20 18:50 VBG pCO2 68.0 mmHg (35-63) H* 02/20/20 18:50 VBG HCO3 35.9 mmol/L (20-32) H 02/20/20 18:50 VBG Base Excess 8.7 mmol/L 02/20/20 18:50 FiO2 4.5L 02/21/20 11:20 Chloride 94 mmol/L (98-107) L 02/22/20 04:21 Carbon Dioxide 34 mmol/L (22-30) H 02/22/20 04:21 Anion Gap 7 (5-19) 02/22/20 04:21 Est GFR ( Amer) 52 (>60) L 02/22/20 04:21 Glucose 138 mg/dL (75-110) H 02/22/20 04:21 Calcium 9.1 mg/dL (8.4-10.2) 02/22/20 04:21 Magnesium 2.3 mg/dL (1.6-2.3) 02/22/20 04:21 Total Bilirubin 0.4 mg/dL (0.2-1.3) 02/19/20 18:32 AST 26 U/L (14-36) 02/19/20 18:32 Alkaline Phosphatase 160 U/L (38-126) H 02/19/20 18:32 C-Reactive Protein 6.3 mg/L (<10.0) 02/19/20 18:32 Total Protein 7.0 g/dL (6.3-8.2) 02/19/20 18:32 Albumin 3.3 g/dL (3.5-5.0) L 02/19/20 18:32 Urine Color YELLOW 02/19/20 22:15 Urine Appearance CLEAR 02/19/20 22:15 Urine pH 5.0 (5.0-9.0) 02/19/20 22:15 Ur Specific [place] 1.012 02/19/20 22:15 Urine Protein NEGATIVE mg/dL (NEGATIVE) 02/19/20 22:15 Urine Glucose (UA) NEGATIVE mg/dL (NEGATIVE) 02/19/20 22:15 Urine Ketones NEGATIVE mg/dL (NEGATIVE) 02/19/20 22:15 Urine Blood NEGATIVE (NEGATIVE) 02/19/20 22:15 Urine Nitrite NEGATIVE (NEGATIVE) 02/19/20 22:15 Ur Leukocyte Esterase SMALL (NEGATIVE) H 02/19/20 22:15 Urine WBC (Auto) 19 /HPF 02/19/20 22:15 Urine RBC (Auto) 2 /HPF 02/19/20 22:15 Blood Type O POSITIVE 02/19/20 20:41 Antibody Screen NEGATIVE 02/19/20 20:41 02/19/20 02/19/20 02/19/20 18:32 18:32 22:34 Creatine Kinase < 20 L 28 L CK-MB (CK-2) Troponin I 0.098 NT-Pro-B Natriuret Pep 4130 H 02/19/20 02/20/20 02/20/20 22:34 04:23 04:23 Creatine Kinase 29 L CK-MB (CK-2) 0.73 0.90 Troponin I 0.110 0.110 NT-Pro-B Natriuret Pep 4180 H 02/20/20 02/20/20 02/20/20 10:20 10:20 14:05 Creatine Kinase 30 31 CK-MB (CK-2) 0.74 Troponin I 0.129 NT-Pro-B Natriuret Pep 02/20/20 14:05 Creatine Kinase CK-MB (CK-2) 0.77 Troponin I 0.204 NT-Pro-B Natriuret Pep Current Medication List Generic Name Dose Route Start Last Admin Trade Name Freq PRN Reason Stop Dose Admin Acetaminophen 650 mg 02/19/20 22:01 Tylenol 325 Mg Tablet PO 03/20/20 22:00 Q4HP PRN pain or temp greater than 101F Al Hydrox/Mg Hydrox/Simethicone 30 ml 02/19/20 22:01 Maalox Plus Susp 30 Udcup PO 03/20/20 22:00 Q4HP PRN HEARTBURN Albuterol/Ipratropium 3 ml 02/20/20 15:15 02/22/20 02:08 Duoneb 3 Ml Ampul NEB 03/21/20 15:14 Not Given RTQ6 OSMAR Atorvastatin Calcium 80 mg 02/20/20 22:00 02/21/20 21:39 Lipitor 80 Mg Tablet PO 03/21/20 21:59 80 mg QHS OSMAR Administration Azithromycin 250 mg 02/21/20 10:00 02/21/20 09:14 Zithromax 250 Mg Tablet PO 02/24/20 10:01 250 mg DAILY OSMAR Administration Budesonide 0.25 mg 02/20/20 20:00 02/21/20 20:05 Pulmicort Neb 0.25 Mg/2 Ml Ampul NEB 03/21/20 19:59 Not Given RTQ12 OSMAR Carvedilol 12.5 mg 02/20/20 22:00 02/21/20 21:39 Coreg 12.5 Mg Tablet PO 03/21/20 21:59 12.5 mg Q12 OSMAR Administration Clopidogrel Bisulfate 75 mg 02/20/20 10:00 02/21/20 09:15 Plavix 75 Mg Tablet PO 03/21/20 09:59 75 mg DAILY OSMAR Administration Docusate Sodium 100 mg 02/20/20 10:00 02/21/20 09:15 Colace 100 Mg Capsule PO 03/21/20 09:59 100 mg DAILY OSMAR Administration Ferrous Sulfate 325 mg 02/21/20 10:00 02/21/20 09:14 Feosol 325 Mg Tablet PO 03/22/20 09:59 325 mg DAILY OSMAR Administration Furosemide 40 mg 02/21/20 10:00 02/21/20 17:02 Lasix 40 Mg Tablet PO 03/22/20 09:59 40 mg BID OSMAR Administration Guaifenesin 200 mg 02/19/20 22:08 Robitussin Syrup 200 Mg/10 Ml Ud Cup PO 03/20/20 22:07 Q4HP PRN COUGH Heparin Sodium (Porcine) 5,000 unit 02/20/20 06:00 02/22/20 06:06 Heparin Inj 5,000 Units/Ml 1 Ml Vial SUBCUT 03/21/20 05:59 5,000 unit Q8 OSMAR Administration Ceftriaxone Sodium/Dextrose 2 gm in 50 mls @ 100 mls/hr 02/20/20 16:30 02/21/20 09:50 Rocephin Rtu 2 Gm/D5w 50 Ml Premix Bag IV 02/27/20 16:29 Infused DAILY OSMAR Infusion Sodium Chloride 250 mls @ 30 mls/hr 02/21/20 07:55 Nacl 0.9% 250 Ml Iv Soln IV 02/22/20 07:54 .DURING TRANSFUSION PRN THIS MED IS NOT "PRN" Sodium Chloride 250 mls @ 0 mls/hr 02/21/20 07:55 Nacl 0.9% 250 Ml Iv Soln IV 02/22/20 07:54 CONTINUOUS PRN AFTER EACH UNIT As Directed Loratadine 10 mg 02/21/20 10:00 02/21/20 09:15 Claritin 10 Mg Tablet PO 03/22/20 09:59 10 mg DAILY OSMAR Administration Magnesium Hydroxide 30 ml 02/19/20 22:01 Milk Of Magnesia 30 Ml Udcup PO 03/20/20 22:00 HSP PRN FOR CONSTIPATION Melatonin 5 mg 02/19/20 23:00 Melatonin 5 Mg Tablet PO 03/20/20 22:07 HSP PRN SLEEP OR INSOMNIA Metronidazole 500 mg 02/20/20 22:00 02/22/20 06:06 Flagyl 500 Mg Tablet PO 02/27/20 21:59 500 mg Q8 OSMAR Administration Morphine Sulfate 2 mg 02/20/20 15:28 02/20/20 21:38 Morphine 10 Mg/Ml Inj IV 02/27/20 15:26 2 mg Q6HP PRN Administration Acute Severe Dyspnea Pantoprazole Sodium 40 mg 02/21/20 10:00 02/21/20 09:[address] Tablet PO 03/22/20 09:59 40 mg DAILY OSMAR Administration Potassium Chloride 20 meq 02/22/20 10:00 Klor-Con 10 Meq Tablet Er PO 03/23/20 09:59 DAILY OMSAR Prednisone 40 mg 02/20/20 18:00 02/21/20 17:02 Deltasone 20 Mg Tablet PO 03/21/20 17:59 40 mg QPM OSMAR Administration Promethazine HCl 6.25 mg 02/19/20 22:01 Phenergan Inj 25 Mg/1 Ml Vial IV 03/20/20 22:00 Q4HP PRN FOR NAUSEA/VOMITING Sodium Chloride 2.5 ml 02/20/20 06:00 02/22/20 06:06 Saline Flush 2.5 Ml Monoject Prefil Syrin IV 03/21/20 05:59 2.5 ml Q8 OSMAR Administration Sucralfate 1 gm 02/20/20 16:00 02/21/20 21:39 Carafate 1 Gm Tablet PO 03/21/20 15:59 1 gm ACHS OSMAR Administration Discontinued Medications Generic Name Dose Route Start Last Admin Trade Name Freq PRN Reason Stop Dose Admin Albuterol/Ipratropium 3 ml 02/19/20 19:25 02/19/20 19:49 Duoneb 3 Ml Ampul NEB 02/19/20 19:26 3 ml NOW ONE Administration Azithromycin 500 mg 02/20/20 16:36 07/25/20 18:19 Zithromax 250 Mg Tablet PO 02/20/20 16:37 500 mg NOW ONE Administration Furosemide 10 mg 02/20/20 00:00 02/20/20 12:24 Lasix Inj/Pf 20 Mg/2 Ml Sdv IV 03/21/20 00:00 10 mg Q6 OSMAR Administration Furosemide 60 mg 02/20/20 18:00 Lasix Inj/Pf 40 Mg/4 Ml Sdv IV 02/20/20 18:01 WINSOME ONE Lorazepam 0.5 mg 02/19/20 22:08 Ativan Inj 2 Mg/1 Ml Vial IV 02/26/20 22:07 Q4HP PRN ANXIETY/AGITATION Melatonin 5 mg 02/19/20 22:08 Melatonin 5 Mg Tablet PO 03/20/20 22:07 QHS PRN SLEEP OR INSOMNIA Morphine Sulfate 2 mg 02/19/20 22:08 02/19/20 23:05 Morphine 10 Mg/Ml Inj IV 02/26/20 22:07 2 mg Q1HP PRN Administration Acute Severe Dyspnea Nitroglycerin 0.5 gm 02/20/20 00:00 02/21/20 12:14 Nitrol 2% Ointment 1gm Packet TP 03/21/20 00:00 Not Given Q6 OSMAR Pantoprazole Sodium 20 mg 02/20/20 06:00 02/20/20 05:[address] Tablet PO 03/21/20 05:59 20 mg Q6AM OSMAR Administration Potassium Chloride 20 meq 02/21/20 10:00 Klor-Con 10 Meq Tablet Er PO 03/22/20 09:59 DAILY OSMAR Potassium Chloride 40 meq 02/21/20 08:00 02/21/20 16:09 Klor-Con 10 Meq Tablet Er PO 02/21/20 16:01 40 meq Q8H OSMAR Administration Assessment & Plan - Diagnosis (1) Acute exacerbation of CHF (congestive heart failure) Qualifiers: Heart failure type: diastolic Qualified Code(s): I50.33 - Acute on chronic diastolic (congestive) heart failure Is this a current diagnosis for this admission?: Yes Plan: The patient appears to be euvolemic at least by clinical exam. She is currently on a very appropriate medical regimen for her condition. She is asymptomatic and desires to go home. Her echocardiogram is still pending. Recommendations: -Echocardiogram to assess for structural heart disease. -Continue with current medical management. -Strict intake and output. -Restrict fluid intake to 1500 cc for now. -No new recommendations from the cardiovascular standpoint therefore we will sign off the case. Please reconsult if clinically indicated. (2) Atrial fibrillation Qualifiers: Atrial fibrillation type: unspecified Qualified Code(s): I48.91 - Unspecified atrial fibrillation Is this a current diagnosis for this admission?: Yes Plan: She is currently rate controlled and intermittently paced. I do not believe the patient is a candidate for anticoagulation given her comorbidities particularly her worsening anemia when compared to an admission back in December 2019. Recommendations: -Continue with clinical follow-up. (3) Elevated troponin Plan: Likely secondary to demand related ischemia secondary to her anemia and other comorbidities. She did receive blood with a hemoglobin now slightly above 9. She feels much better and is much more awake and interactive. There has been no ischemic symptoms. At this point I do not believe the patient is a candidate for invasive cardiovascular procedures therefore we will continue with medical management. Recommendations: -Echocardiogram as ordered. -Continue with current medical management. -No new recommendations from a cardiovascular standpoint therefore we will sign off the case for now. -Please arrange cardiology follow-up with her outpatient director building, Dr. Webster within 1 week of discharge.
[2020-02-22] MEDS ORDERED: PROMETHAZINE HCL INJ 25 MG/1 ML VIAL IV PRN (10:00)
[2020-02-22] MEDS: PANTOPRAZOLE SODIUM 40 MG TABLET.DR PO SCH (10:09)
[2020-02-22] MEDS: CEFTRIAXONE 2 GM/D5W RTU 2 GM/50 ML RTUPB IV SCH (10:09)
[2020-02-22] MEDS: CLOPIDOGREL BISULFATE 75 MG TABLET PO SCH (10:09)
[2020-02-22] MEDS: FUROSEMIDE 40 MG TABLET PO SCH ×2 (10:10→17:49)
[2020-02-22] MEDS: AZITHROMYCIN 250 MG TABLET PO SCH (10:10)
[2020-02-22] MEDS: POTASSIUM CHLORIDE 10 MEQ TABLET.ER PO SCH (10:10)
[2020-02-22] MEDS: CARVEDILOL 12.5 MG TABLET PO SCH ×2 (10:10→21:48)
[2020-02-22] MEDS: FERROUS SULFATE 325 MG TABLET PO SCH (10:10)
[2020-02-22] MEDS: DOCUSATE SODIUM 100 MG CAPSULE PO SCH (10:10)
[2020-02-22] MEDS: LORATADINE 10 MG TABLET PO SCH (10:10)
--- NOTE | 2020-02-22 12:41 | XCELERA REPORT ---
[address] [address] Transthoracic Echocardiogram Report Name: CHERIE ACE Age: 89 yrs Gender: Female : 1930 Patient Status: Inpatient Patient Location: [address] [place], [place] [id number] Study Date: 02/22/2020 09:41 AM Height: 62 in Weight: 141 lb BSA: 1.6 m2 Procedure: A complete two-dimensional transthoracic echocardiogram was performed (2D, M-mode, spectral and color flow Doppler). Study Quality: Excellent. Reason For Study: chf Ordering Physician: SONU GONZALEZ Performed By: Anjelica Lopez Interpretation Summary The left ventricle is grossly normal size. Left ventricular systolic function is normal. The Ejection Fraction estimate is 65-70%. Doppler measurements suggest pseudonormalized left ventricular relaxation, which is associated with grade II/IV or mild to moderate diastolic dysfunction. The left ventricular wall motion is normal. Mild concentrc LVH. Moderate biatrial enlargement. Mild aortic stenosis wth a peak velocity of 2.74 m/s and mean gradient of 20 mmHg. Mild to moderate MR, trace to mild TR, trace PI. Mildly elevated pulmonary pressures. MMode/2D Measurements & Calculations RVDd: 2.3 cm LVIDd: 4.4 cm FS: 30.9 % Ao root diam: 2.2 cm IVSd: 1.3 cm LVIDs: 3.1 cm EDV(Teich): 89.1 mlAo root area: LVPWd: 1.3 cm ESV(Teich): 36.7 ml3.9 cm2 EF(Teich): 58.8 % LA dimension: 4.3 cm LVOT diam: 1.8 cm EDV(MOD-sp4): SV(MOD-sp4): LVOT area: 74.2 ml 52.1 ml ESV(MOD-sp4): 2.6 cm2 22.1 ml EF(MOD-sp4): 70.2 % Doppler Measurements & Calculations MV E max loli: MV dec slope: Ao V2 max: AI max loli: 137.2 cm/sec 1125 cm/sec2 274.0 cm/sec 355.5 cm/sec MV A max loli: MV dec time: Ao max PG: AI max P.2 mmHg 42.8 cm/sec 0.12 sec 30.0 mmHg AI dec slope: MV E/A: 3.2 Ao V2 mean: 202.1 cm/sec2 219.6 cm/sec AI P1/2t: 515.2 msec Ao mean P.4 mmHg Ao V2 VTI: 66.9 cm SIHVAM(I,D): 0.85 cm2 SHIVAM(V,D): 0.87 cm2 LV V1 max PG: SV(LVOT): 57.1 ml PA V2 max: TR max loli: 3.5 mmHg 93.8 cm/sec 304.2 cm/sec LV V1 mean PG: PA max PG: TR max P.0 mmHg 2.1 mmHg 3.5 mmHg LV V1 max: 92.9 cm/sec LV V1 mean: 70.1 cm/sec LV V1 VTI: 22.2 cm Left Ventricle The left ventricle is grossly normal size. Left ventricular systolic function is normal. The Ejection Fraction estimate is 65-70%. Doppler measurements suggest pseudonormalized left ventricular relaxation, which is associated with grade II/IV or mild to moderate diastolic dysfunction. The left ventricular wall motion is normal. Right Ventricle The right ventricle is normal in size, thickness and function. The right ventricular systolic function is normal. Atria The right atrium is moderately dilated. The left atrium is moderately dilated. Mitral Valve The mitral valve is grossly normal. There is a mild to moderate amount of mitral regurgitation. Aortic Valve The aortic valve is calcified. There is mild aortic stenosis. Peak velocity of 2.74 m/s and mean gradient of 20 mmHg. There is a mild amount of aortic regurgitation. Tricuspid Valve The tricuspid valve is not well visualized, but is grossly normal. There is a trace to mild amount of tricuspid regurgitation. Pulmonic Valve The pulmonic valve is not well seen, but is grossly normal. There is a trace or physiologic amount of pulmonic regurgitation. : SONU GONZALEZ Antonio
--- NOTE | 2020-02-22 17:35 | PDOC PROGRESS REPORT ---
Subjective Progress Note for:: 02/22/20 Subjective:: Patient states that she feels better today in terms of her breathing. She denies any shortness of breath or chest pain. She states she uses a CPAP at home. States that she sees Dr. Cary but has been unable to schedule a follow- up appointment recently. She states she last saw him in July and is now scheduled to see her for another year. Reason For Visit: ACUTE ON CHRONIC DIASTOLIC CONGESTIVE HEART Physical Exam Vital Signs: Temp Pulse Resp BP Pulse Ox 97.9 F 85 20 102/49 L 93 02/22/20 09:33 02/22/20 14:12 02/22/20 14:12 02/22/20 09:33 02/22/20 14:12 Intake & Output 02/21/20 02/22/20 02/23/20 06:59 06:59 06:59 Intake Total 200 850 275 Output Total 700 560 150 Balance -500 290 125 Weight 65.3 kg 65.3 kg General appearance: PRESENT: no acute distress, cooperative Neck exam: ABSENT: JVD Respiratory exam: PRESENT: clear to auscultation nick, symmetrical, unlabored. ABSENT: tachypnea, wheezes Cardiovascular exam: PRESENT: RRR, +S1, +S2. ABSENT: tachycardia GI/Abdominal exam: PRESENT: soft. ABSENT: rebound, rigid, tenderness Neurological exam: PRESENT: alert, awake, oriented to person, oriented to place, oriented to time, oriented to situation Results Laboratory Results: 02/22/20 04:21 02/22/20 04:21 02/22/20 02/22/20 04:21 04:21 WBC 4.0 RBC 3.04 L Hgb 9.1 L Hct 27.0 L MCV 89 MCH 30.1 MCHC 33.8 RDW 17.3 H Plt Count 208 Sodium 134.7 L Potassium 4.8 D Chloride 94 L Carbon Dioxide 34 H Anion Gap 7 BUN 29 H Creatinine 1.18 Est GFR ( Amer) 52 L Glucose 138 H Calcium 9.1 Magnesium 2.3 02/19/20 02/19/20 02/19/20 18:32 18:32 22:34 Creatine Kinase < 20 L 28 L CK-MB (CK-2) Troponin I 0.098 NT-Pro-B Natriuret Pep 4130 H 02/19/20 02/20/20 02/20/20 22:34 04:23 04:23 Creatine Kinase 29 L CK-MB (CK-2) 0.73 0.90 Troponin I 0.110 0.110 NT-Pro-B Natriuret Pep 4180 H 02/20/20 02/20/20 02/20/20 10:20 10:20 14:05 Creatine Kinase 30 31 CK-MB (CK-2) 0.74 Troponin I 0.129 NT-Pro-B Natriuret Pep 02/20/20 14:05 Creatine Kinase CK-MB (CK-2) 0.77 Troponin I 0.204 NT-Pro-B Natriuret Pep Impressions: Chest X-Ray 02/19/20 18:35 IMPRESSION: Developing consolidation in the right lower lobe with increasing small right pleural effusion. No pneumothorax. Findings are suspicious for developing pneumonia. Aspiration pneumonitis could have this appearance. Assessment and Plan - Diagnosis (1) Acute on chronic respiratory failure with hypoxia and hypercapnia Is this a current diagnosis for this admission?: Yes Plan: Secondary to COPD. Continue nocturnal AVAPS. I feel that patient will benefit significantly with an AVAPS nocturnally more so than the CPAP she uses at home given the fact that she was having significant hypercapnic respiratory failure without much improvement even with BiPAP therapy in the hospital as she was pulling low lung volumes on BiPAP. Consult placed to discharge planning to work on this. We will try coordinating with her beam worker Dr. Cary's office. Oxygen supplementation as needed. Goal SPO2 89 to 93%. (2) Community acquired pneumonia Qualifiers: Laterality: right Lung location: unspecified part of lung Qualified Code(s): J18.9 - Pneumonia, unspecified organism Is this a current diagnosis for this admission?: Yes Plan: Started on IV antibiotics for right-sided pneumonia. Ceftriaxone and azithromycin. Flagyl added in case of possible aspiration pneumonia. On nursing assessment, patient is swallowing appropriately without any evidence of dysphagia. COVID-19 test pending. (3) COPD exacerbation Is this a current diagnosis for this admission?: Yes Plan: Continue frequent nebulizers, budesonide and prednisone. (4) Acute on chronic diastolic congestive heart failure Is this a current diagnosis for this admission?: Yes Plan: TTE done 02/22/2020 showing normal ejection fraction, grade 2 diastolic dysfunction, moderate MR with only mild to minimal evidence of PASP elevation Continue home dose of Lasix p.o. Currently euvolemic. Outpatient cardiology follow-up (5) Troponin level elevated Is this a current diagnosis for this admission?: Yes Plan: Could be secondary to demand perfusion mismatch from CHF/COPD. Patient could have some underlying CAD given the troponin leak. However, patient was deemed to be a poor candidate for aggressive or invasive cardiac interventions by cardiology. Troponins were not trended any further. (6) Chronic anemia Is this a current diagnosis for this admission?: Yes Plan: Hemoglobin is down to 7.4 yesterday. She denies any evidence of GI/ bleeding. Given her cardiovascular disease, she was transfused a unit of PRBC with impro vement of her hemoglobin to 9 today. Continue to monitor CBC. - Time Time Spent with patient: 15-24 minutes Anticipated Discharge Disposition: Home, Self Care Anticipated Discharge: within 36 hours
[2020-02-22] MEDS: PREDNISONE 20 MG TABLET PO SCH (17:48)
[2020-02-22] MEDS: ATORVASTATIN CALCIUM 80 MG TABLET PO SCH (21:47)
[2020-02-23] MEDS: IPRATROPIUM/ALBUTEROL 0.5-2.5 MG/3 ML AMPUL NEB SCH ×3 (02:16→13:52)
[2020-02-23] MEDS: METRONIDAZOLE 500 MG TABLET PO SCH ×3 (05:24→22:27)
[2020-02-23] MEDS: HEPARIN SOD (PORCINE) 5,000 UNIT/ML 1 ML VIAL SUBCUT SCH ×3 (05:24→22:27)
[2020-02-23 05:29] LABS: HEMATOCRIT 26.3 % (36.0-47.0); HEMOGLOBIN 8.9 g/dL (12.0-15.5); MEAN CORPUSCULAR HEMOGLOBIN 29.7 pg (27.0-33.4); MEAN CORPUSCULAR HGB CONC 33.8 g/dL (32.0-36.0); MEAN CORPUSCULAR VOLUME 88 fl (80-97); PLATELET COUNT 213 10^3/uL (150-450); RED CELL DISTRIBUTION WIDTH 17.8 % (11.5-14.0); WHITE BLOOD COUNT 4.8 10^3/uL (4.0-10.5)
[2020-02-23] MEDS: BUDESONIDE NEB 0.25 MG/2 ML AMPUL NEB SCH (08:23)
[2020-02-23] MEDS: SUCRALFATE 1 GM TABLET PO SCH ×4 (08:24→22:27)
[2020-02-23] MEDS: FERROUS SULFATE 325 MG TABLET PO SCH (11:04)
[2020-02-23] MEDS: AZITHROMYCIN 250 MG TABLET PO SCH (11:05)
[2020-02-23] MEDS: LORATADINE 10 MG TABLET PO SCH (11:05)
[2020-02-23] MEDS: PANTOPRAZOLE SODIUM 40 MG TABLET.DR PO SCH (11:05)
[2020-02-23] MEDS: FUROSEMIDE 40 MG TABLET PO SCH ×2 (11:05→18:03)
[2020-02-23] MEDS: CLOPIDOGREL BISULFATE 75 MG TABLET PO SCH (11:05)
[2020-02-23] MEDS: DOCUSATE SODIUM 100 MG CAPSULE PO SCH (11:05)
[2020-02-23] MEDS: CARVEDILOL 12.5 MG TABLET PO SCH ×2 (11:05→22:27)
[2020-02-23] MEDS: POTASSIUM CHLORIDE 10 MEQ TABLET.ER PO SCH (11:05)
[2020-02-23] MEDS: CEFTRIAXONE 2 GM/D5W RTU 2 GM/50 ML RTUPB IV SCH (11:06)
--- NOTE | 2020-02-23 13:39 | PDOC PROGRESS REPORT ---
Subjective Progress Note for:: 02/23/20 Subjective:: Patient is doing well and has no complaints today. She had some shortness of breath earlier but at the time of encounter feels fine. Denies any chest pain. Discussed with her about plans will try to set her up with a trilogy machine before discharge. She states she did not sleep with the AVAP machine last night. Reason For Visit: ACUTE ON CHRONIC DIASTOLIC CONGESTIVE HEART Physical Exam Vital Signs: Temp Pulse Resp BP Pulse Ox 97.5 F 78 18 117/62 95 02/23/20 11:46 02/23/20 11:46 02/23/20 11:46 02/23/20 11:46 02/23/20 11:46 Intake & Output 02/22/20 02/23/20 02/24/20 06:59 06:59 06:59 Intake Total 850 775 526 Output Total 560 2850 150 Balance 290 -3909 376 Weight 65.3 kg 68.1 kg General appearance: PRESENT: no acute distress, cooperative Neck exam: ABSENT: JVD Respiratory exam: PRESENT: clear to auscultation nick, unlabored. ABSENT: tachypnea, wheezes Cardiovascular exam: PRESENT: +S1, +S2 Neurological exam: PRESENT: alert, awake Results Laboratory Results: 02/23/20 04:32 02/22/20 04:21 02/23/20 04:32 WBC 4.8 RBC 3.00 L Hgb 8.9 L Hct 26.3 L MCV 88 MCH 29.7 MCHC 33.8 RDW 17.8 H Plt Count 213 02/19/20 02/19/20 02/19/20 18:32 18:32 22:34 Creatine Kinase < 20 L 28 L CK-MB (CK-2) Troponin I 0.098 NT-Pro-B Natriuret Pep 4130 H 02/19/20 02/20/20 02/20/20 22:34 04:23 04:23 Creatine Kinase 29 L CK-MB (CK-2) 0.73 0.90 Troponin I 0.110 0.110 NT-Pro-B Natriuret Pep 4180 H 02/20/20 02/20/20 02/20/20 10:20 10:20 14:05 Creatine Kinase 30 31 CK-MB (CK-2) 0.74 Troponin I 0.129 NT-Pro-B Natriuret Pep 02/20/20 14:05 Creatine Kinase CK-MB (CK-2) 0.77 Troponin I 0.204 NT-Pro-B Natriuret Pep Impressions: Chest X-Ray 02/19/20 18:35 IMPRESSION: Developing consolidation in the right lower lobe with increasing small right pleural effusion. No pneumothorax. Findings are suspicious for developing pneumonia. Aspiration pneumonitis could have this appearance. Assessment and Plan - Diagnosis (1) Acute on chronic respiratory failure with hypoxia and hypercapnia Is this a current diagnosis for this admission?: Yes (2) Community acquired pneumonia Qualifiers: Laterality: right Lung location: unspecified part of lung Qualified Code(s): J18.9 - Pneumonia, unspecified organism Is this a current diagnosis for this admission?: Yes (3) COPD exacerbation Is this a current diagnosis for this admission?: Yes (4) Acute on chronic diastolic congestive heart failure Is this a current diagnosis for this admission?: Yes (5) Troponin level elevated Is this a current diagnosis for this admission?: Yes (6) Chronic anemia Is this a current diagnosis for this admission?: Yes - Plan Summary Summary: Patient looks stable today and very comfortable Continue antibiotics urban and regional planner is working on setting patient up with a trilogy machine prior to discharge Otherwise doing fine. COVID-19 test is pending. Hemoglobin is stable at 8.9 - Time Time Spent with patient: Less than 15 minutes Anticipated Discharge Disposition: Home with Home Health Anticipated Discharge: within 24 hours - if Trilogy machine has been set up
[2020-02-23] MEDS: PREDNISONE 20 MG TABLET PO SCH (18:03)
[2020-02-23] MEDS: ATORVASTATIN CALCIUM 80 MG TABLET PO SCH (22:27)
[2020-02-24] MEDS: IPRATROPIUM/ALBUTEROL 0.5-2.5 MG/3 ML AMPUL NEB SCH ×4 (02:11→14:14)
[2020-02-24] MEDS: BUDESONIDE NEB 0.25 MG/2 ML AMPUL NEB SCH ×2 (04:05→08:49)
[2020-02-24] MEDS: HEPARIN SOD (PORCINE) 5,000 UNIT/ML 1 ML VIAL SUBCUT SCH ×2 (05:49→14:49)
[2020-02-24] MEDS: METRONIDAZOLE 500 MG TABLET PO SCH ×2 (05:49→14:49)
[2020-02-24] MEDS: SUCRALFATE 1 GM TABLET PO SCH ×3 (08:08→17:12)
[2020-02-24] MEDS: AZITHROMYCIN 250 MG TABLET PO SCH (09:26)
[2020-02-24] MEDS: CARVEDILOL 12.5 MG TABLET PO SCH (09:26)
[2020-02-24] MEDS: PANTOPRAZOLE SODIUM 40 MG TABLET.DR PO SCH (09:26)
[2020-02-24] MEDS: FUROSEMIDE 40 MG TABLET PO SCH ×2 (09:26→17:11)
[2020-02-24] MEDS: LORATADINE 10 MG TABLET PO SCH (09:27)
[2020-02-24] MEDS: FERROUS SULFATE 325 MG TABLET PO SCH (09:27)
[2020-02-24] MEDS: DOCUSATE SODIUM 100 MG CAPSULE PO SCH (09:27)
[2020-02-24] MEDS: POTASSIUM CHLORIDE 10 MEQ TABLET.ER PO SCH (09:27)
[2020-02-24] MEDS: CEFTRIAXONE 2 GM/D5W RTU 2 GM/50 ML RTUPB IV SCH (09:27)
[2020-02-24] MEDS: CLOPIDOGREL BISULFATE 75 MG TABLET PO SCH (09:27)
[2020-02-24 18:23] VITALS: BP 120/59
--- NOTE | 2020-02-24 18:35 | PDOC DISCHARGE SUMMARY ---
Impression - Admit/DC Date/PCP Admission Date/Primary Care Provider: 02/19/20 22:13 MICHAEL SHOEMAKER MD Discharge Date: 02/24/20 - Discharge Diagnosis (1) Acute on chronic respiratory failure with hypoxia and hypercapnia Is this a current diagnosis for this admission?: Yes (2) Community acquired pneumonia Is this a current diagnosis for this admission?: Yes (3) COPD exacerbation Is this a current diagnosis for this admission?: Yes (4) Acute on chronic diastolic congestive heart failure Is this a current diagnosis for this admission?: Yes (5) Troponin level elevated Is this a current diagnosis for this admission?: Yes (6) Chronic anemia Is this a current diagnosis for this admission?: Yes - Additional Information Resuscitation Status: Full Code Discharge Diet: Cardiac Discharge Activity: Activity As Tolerated, Balance Activity w/Rest, Weigh Daily Referrals: FRANCISCO BONE MD [COMMUNITY BASED STAFF] - MICHAEL SHOEMAKER MD [Primary Care Provider] - 03/24/20 11:30 am Prescriptions: Albuterol Sulfate [Albuterol Sulfate Hfa] 2 puff IH Q6HP PRN #1 inhaler PRN Reason: sob/wheezing Cefdinir 300 mg PO Q12 3 Days #6 capsule Formoterol Fumarate 12 mcg IH Q12 #1 inhaler Furosemide [Lasix 40 mg Tablet] 40 mg PO BID #60 Tiotropium Lannon [Spiriva Respimat] 2 inh IH DAILY #1 inhaler Home Medications: Sucralfate [Carafate 1 gm Tablet] 1 gm PO ACHS 10/04/19 Atorvastatin Calcium [Lipitor 80 mg Tablet] 80 mg PO QHS 02/20/20 Carvedilol [Coreg 12.5 mg Tablet] 12.5 mg PO Q12 02/20/20 Ferrous Sulfate [Feosol 325 mg Tablet] 325 mg PO DAILY 02/20/20 Loratadine [Claritin 10 mg Tablet] 10 mg PO DAILY 02/20/20 Pantoprazole Sodium 40 mg PO DAILY 02/20/20 Potassium Chloride [Klor-Con 10 Meq Tablet ER] 20 meq PO DAILY 02/20/20 Albuterol Sulfate [Albuterol Sulfate Hfa] 2 puff IH Q6HP PRN #1 inhaler 02/24/20 Cefdinir 300 mg PO Q12 3 Days #6 capsule 02/24/20 Formoterol Fumarate 12 mcg IH Q12 #1 inhaler 02/24/20 Furosemide [Lasix 40 mg Tablet] 40 mg PO BID #60 02/24/20 Tiotropium Lannon [Spiriva Respimat] 2 inh IH DAILY #1 inhaler 02/24/20 History of Present Illiness History of Present Illness: According to admitting provider: CHERIE ACE is a 89 year old female who presented to the emergency room with a 1 day history of dyspnea. She admits developing dyspnea on the night prior to admission with gradual worsening of her symptoms which are now severe. Her dyspnea is accompanied by an increase in her usual bilateral ankle edema and is associated with air hunger that has not responded to her use of 2 L of oxygen per minute via nasal cannula as prescribed at home. Her dyspnea is made worse by any exertion or activity. She denies other associated or accompanying signs and symptoms. She admits several prior similar episodes related to heart failure and pneumonia. She has not identified any additional aggravating or ameliorating factors for her dyspnea. The emergency room she was found to have an O2 sat of 100% on 2 L of oxygen via nasal cannula however her ABG showed a compensated respiratory acidosis with significant hypercapnia. Chest x-ray showed a small right pleural effusion and interstitial edema and increased markings consistent congestive heart failure. BNP was 4130. She was subsequently admitted to the hospital for further evaluation treatment. Hospital Course Hospital Course: Patient was admitted to the hospital with shortness of breath. She was initially noted to be having acute on chronic hypoxic and hypercapnic respiratory failure with venous blood gas showing pH of 7.29, PCO2 of 75.7 and bicarb of 35.5. CBC revealed no evidence of leukocytosis. BMP was 4130. However this is not drastically elevated as compared to the priors. She was started on treatment will pneumonia as chest x-ray revealed right lower lobe consolidation. There is a possibility of aspiration pneumonia but this cannot be determined. She was however empirically covered with ceftriaxone azithromycin and Flagyl. She was tested for COVID-19 which turned out to be negative she was given Cefdinir for 3 more days at the time of discharge. She also did poorly on BiPAP and was pulling low tidal volumes as a result hypercapnic respiratory failure was not corrected on BiPAP. She was subsequently changed to AVAPs with targeted tidal volume and this was effective for her. A trilogy machine was obtained for patient prior to discharge. Patient was treated for COPD exacerbation and was also evaluated by electrical & instrumentation supervisor for acute CHF exacerbation as well. She received only brief IV diuresis after which she was placed back on a regular Lasix regimen. Patient is going to follow-up with primary electrical & instrumentation supervisor upon discharge. Regarding her COPD I have started her on a new inhaler formoterol in addition to her usual tiotropium. She is also received refills for her inhalers. Of note patient was also transfused a unit of blood as her hemoglobin dropped below 8 so she got a unit of blood given her history of CHF and CVD. Patient is being discharged in stable conditions. I have discussed plan with patient's son who is at bedside today. Physical Exam Vital Signs: Temp Pulse Resp BP Pulse Ox 97.4 F 69 14 109/45 L 95 02/24/20 17:45 02/24/20 17:45 02/24/20 17:45 02/24/20 17:45 02/24/20 17:45 Intake & Output 02/23/20 02/24/20 02/25/20 06:59 06:59 06:59 Intake Total 775 762 287 Output Total 2850 1500 Balance -6291 -059 287 Weight 68.1 kg 63.1 kg General appearance: PRESENT: no acute distress, cooperative Neck exam: ABSENT: JVD Respiratory exam: PRESENT: clear to auscultation nick Results Laboratory Results: WBC 4.8 10^3/uL (4.0-10.5) 02/23/20 04:32 RBC 3.00 10^6/uL (3.72-5.28) L 02/23/20 04:32 Hgb 8.9 g/dL (12.0-15.5) L 02/23/20 04:32 Hct 26.3 % (36.0-47.0) L 02/23/20 04:32 MCV 88 fl (80-97) 02/23/20 04:32 MCH 29.7 pg (27.0-33.4) 02/23/20 04:32 MCHC 33.8 g/dL (32.0-36.0) 02/23/20 04:32 RDW 17.8 % (11.5-14.0) H 02/23/20 04:32 Plt Count 213 10^3/uL (150-450) 02/23/20 04:32 Lymph % (Auto) Not Reportable 02/20/20 04:23 [place] % (Auto) Not Reportable 02/20/20 04:23 Eos % (Auto) Not Reportable 02/20/20 04:23 Baso % (Auto) Not Reportable 02/20/20 04:23 Absolute Neuts (auto) Not Reportable 02/20/20 04:23 Absolute Lymphs (auto) Not Reportable 02/20/20 04:23 Absolute Monos (auto) Not Reportable 02/20/20 04:23 Absolute Eos (auto) Not Reportable 02/20/20 04:23 Absolute Basos (auto) Not Reportable 02/20/20 04:23 Total Counted 100 02/20/20 04:23 Seg Neutrophils % Not Reportable 02/20/20 04:23 Seg Neuts % (Manual) 73 % (42-78) 02/20/20 04:23 Lymphocytes % (Manual) 11 % (13-45) L 02/20/20 04:23 Monocytes % (Manual) 11 % (3-13) 02/20/20 04:23 Eosinophils % (Manual) 5 % (0-6) 02/20/20 04:23 Basophils % (Manual) 0 % (0-2) 02/20/20 04:23 Abs Neuts (Manual) 3.8 10^3/uL (1.7-8.2) 02/20/20 04:23 Abs Lymphs (Manual) 0.6 10^3/uL (0.5-4.7) 02/20/20 04:23 Abs Monocytes (Manual) 0.6 10^3/uL (0.1-1.4) 02/20/20 04:23 Absolute Eos (Manual) 0.3 10^3/uL (0.0-0.6) 02/20/20 04:23 Abs Basophils (Manual) 0.0 10^3/uL (0.0-0.2) 02/20/20 04:23 Platelet Comment ADEQUATE 02/20/20 04:23 Anisocytosis 1+ 02/20/20 04:23 Carbonic Acid 1.65 mmol/L (1.05-1.35) H 02/21/20 11:20 HCO3/H2CO3 Ratio 21:1 02/21/20 11:20 ABG pH 7.44 (7.35-7.45) 02/21/20 11:20 ABG pCO2 54.8 mmHg (35-45) H 02/21/20 11:20 ABG pO2 85.4 mmHg (80-100) 02/21/20 11:20 ABG HCO3 36.1 mmol/L (20-24) H 02/21/20 11:20 ABG Total CO2 37.7 mmol/L (21-25) H 02/21/20 11:20 ABG O2 Saturation 96.5 % (94-98) 02/21/20 11:20 ABG Base Excess 10.6 mmol/L 02/21/20 11:20 VBG pH 7.34 (7.30-7.42) 02/20/20 18:50 VBG pCO2 68.0 mmHg (35-63) H* 02/20/20 18:50 VBG HCO3 35.9 mmol/L (20-32) H 02/20/20 18:50 VBG Base Excess 8.7 mmol/L 02/20/20 18:50 FiO2 4.5L 02/21/20 11:20 Sodium 134.7 mmol/L (137-145) L 02/22/20 04:21 Potassium 4.8 mmol/L (3.6-5.0) D 02/22/20 04:21 Chloride 94 mmol/L (98-107) L 02/22/20 04:21 Carbon Dioxide 34 mmol/L (22-30) H 02/22/20 04:21 Anion Gap 7 (5-19) 02/22/20 04:21 BUN 29 mg/dL (7-20) H 02/22/20 04:21 Creatinine 1.18 mg/dL (0.52-1.25) 02/22/20 04:21 Est GFR ( Amer) 52 (>60) L 02/22/20 04:21 Est GFR (MDRD) Non-Af 43 (>60) L 02/22/20 04:21 Glucose 138 mg/dL (75-110) H 02/22/20 04:21 Calcium 9.1 mg/dL (8.4-10.2) 02/22/20 04:21 Magnesium 2.3 mg/dL (1.6-2.3) 02/22/20 04:21 Total Bilirubin 0.4 mg/dL (0.2-1.3) 02/19/20 18:32 Direct Bilirubin 0.1 mg/dL (0.0-0.4) 02/19/20 18:32 Neonat Total Bilirubin Not Reportable 02/19/20 18:32 Neonat Direct Bilirubin Not Reportable 02/19/20 18:32 Neonat Indirect Bili Not Reportable 02/19/20 18:32 AST 26 U/L (14-36) 02/19/20 18:32 ALT 13 U/L (<35) 02/19/20 18:32 Alkaline Phosphatase 160 U/L (38-126) H 02/19/20 18:32 Creatine Kinase 31 U/L (30-135) 02/20/20 14:05 CK-MB (CK-2) 0.77 ng/mL (<4.55) 02/20/20 14:05 Troponin I 0.204 ng/mL 02/20/20 14:05 C-Reactive Protein 6.3 mg/L (<10.0) 02/19/20 18:32 NT-Pro-B Natriuret Pep 4180 pg/mL (<450) H 02/20/20 04:23 Total Protein 7.0 g/dL (6.3-8.2) 02/19/20 18:32 Albumin 3.3 g/dL (3.5-5.0) L 02/19/20 18:32 Urine Color YELLOW 02/19/20 22:15 Urine Appearance CLEAR 02/19/20 22:15 Urine pH 5.0 (5.0-9.0) 02/19/20 22:15 Ur Specific [place] 1.012 02/19/20 22:15 Urine Protein NEGATIVE mg/dL (NEGATIVE) 02/19/20 22:15 Urine Glucose (UA) NEGATIVE mg/dL (NEGATIVE) 02/19/20 22:15 Urine Ketones NEGATIVE mg/dL (NEGATIVE) 02/19/20 22:15 Urine Blood NEGATIVE (NEGATIVE) 02/19/20 22:15 Urine Nitrite NEGATIVE (NEGATIVE) 02/19/20 22:15 Urine Bilirubin NEGATIVE (NEGATIVE) 02/19/20 22:15 Urine Urobilinogen NEGATIVE mg/dL (<2.0) 02/19/20 22:15 Ur Leukocyte Esterase SMALL (NEGATIVE) H 02/19/20 22:15 Urine WBC (Auto) 19 /HPF 02/19/20 22:15 Urine RBC (Auto) 2 /HPF 02/19/20 22:15 U Hyaline Cast (Auto) 26 /LPF 02/19/20 22:15 Urine Bacteria (Auto) TRACE /HPF 02/19/20 22:15 Squamous Epi Cells Auto 1 /HPF 02/19/20 22:15 Urine Mucus (Auto) RARE /LPF 02/19/20 22:15 Urine Ascorbic Acid NEGATIVE (NEGATIVE) 02/19/20 22:15 COVID-19 Source NASOPHARYNGEAL SWAB 02/20/20 17:25 COVID-19 (JOAQUÍN) Not Detected (Not Detect) 02/20/20 17:25 Blood Type O POSITIVE 02/19/20 20:41 Blood Type Confirm O POSITIVE 02/19/20 20:41 Antibody Screen NEGATIVE 02/19/20 20:41 Crossmatch See Detail 02/19/20 20:41 02/19/20 02/19/20 02/20/20 18:32 22:34 04:23 CK-MB (CK-2) 0.73 0.90 Troponin I 0.098 0.110 0.110 NT-Pro-B Natriuret Pep 4130 H 4180 H 02/20/20 02/20/20 10:20 14:05 CK-MB (CK-2) 0.74 0.77 Troponin I 0.129 0.204 NT-Pro-B Natriuret Pep Impressions: Chest X-Ray 02/19/20 18:35 IMPRESSION: Developing consolidation in the right lower lobe with increasing small right pleural effusion. No pneumothorax. Findings are suspicious for developing pneumonia. Aspiration pneumonitis could have this appearance. Plan Time Spent: Less than 30 Minutes Stroke Is this a Stroke Patient?: No Acute Heart Failure - Is this a Heart Failure Patient?: No
== END 2020-02-24 18:37 | disposition home health service (06) | DRG 189 ==
LOC: ER 18:17 → EH 22:13 → 3S 23:56 → 3N 02-20 17:46 → 3S 02-23 18:25
PROVIDERS: ADMIT Emergency Medicine; ATTEND Internal Medicine
DX: J96.22 Acute and chronic respiratory failure with hypercapnia (principal); J18.9 Pneumonia, unspecified organism; I50.33 Acute on chronic diastolic (congestive) heart failure; J44.1 Chronic obstructive pulmonary disease with (acute) exacerbation; E87.2 Acidosis; J96.21 Acute and chronic respiratory failure with hypoxia; I11.0 Hypertensive heart disease with heart failure; I48.91 Unspecified atrial fibrillation; E78.00 Pure hypercholesterolemia, unspecified; K21.9 Gastro-esophageal reflux disease without esophagitis; D64.9 Anemia, unspecified; I95.9 Hypotension, unspecified; I35.0 Nonrheumatic aortic (valve) stenosis; Z20.828 Contact with and (suspected) exposure to other viral communicable diseases; Z79.01 Long term (current) use of anticoagulants
CPT/HCPCS: 36415; 36430; 71045; 80048; 80053; 81001; 82550; 82553; 82803; 83735; 83880; 84484; 85025; 85027; 86140; 86850; 86900; 86901; 86920; 87040; 87635; 93005; 93010; 93306; 94640; 94660; 99285; C9803; J0696; J1644; J1940; J2270; J3490; J7512; P9016

== ENCOUNTER → 2020-03-03 | Outpatient (CLI) | payer MEDICARE, BC ==
[2020-03-03 11:03] LABS: HEMATOCRIT 30.7 % (36.0-47.0); HEMOGLOBIN 10.4 g/dL (12.0-15.5); MEAN CORPUSCULAR HEMOGLOBIN 29.5 pg (27.0-33.4); MEAN CORPUSCULAR HGB CONC 33.7 g/dL (32.0-36.0); MEAN CORPUSCULAR VOLUME 88 fl (80-97); PLATELET COUNT 262 10^3/uL (150-450); WHITE BLOOD COUNT 4.7 10^3/uL (4.0-10.5)
[2020-03-03 11:20] LABS: ALBUMIN 3.6 g/dL (3.5-5.0); ALKALINE PHOSPHATASE 154 U/L (38-126); ANION GAP 5 (5-19); ASPARTATE AMINO TRANSFERASE 35 U/L (14-36); BILIRUBIN,DIRECT 0.2 mg/dL (0.0-0.4); BILIRUBIN,TOTAL 0.8 mg/dL (0.2-1.3); BLOOD UREA NITROGEN 24 mg/dL (7-20); CALCIUM 9.5 mg/dL (8.4-10.2); CARBON DIOXIDE 37 mmol/L (22-30); CHLORIDE 91 mmol/L (98-107); CHOLESTEROL 134.69 mg/dL (0-200); GLUCOSE 93 mg/dL (75-110); POTASSIUM 4.1 mmol/L (3.6-5.0); TOTAL PROTEIN 7.4 g/dL (6.3-8.2); TRIGLYCERIDES 148 mg/dL (<150)
[2020-03-03 11:30] LABS: DIRECT LDL 61 mg/dL (<100)
== END ==
LOC: OD 10:13
PROVIDERS: ATTEND Physician Assistant
DX: K92.2 Gastrointestinal hemorrhage, unspecified (principal); I11.0 Hypertensive heart disease with heart failure; I50.22 Chronic systolic (congestive) heart failure; E78.2 Mixed hyperlipidemia; Z79.899 Other long term (current) drug therapy
CPT/HCPCS: 36415; 80048; 80061; 80076; 83880; 85027